=== PATIENT | female | born 1940 ===

== ENCOUNTER 2017-05-10 09:48 | Emergency (ER) | payer MEDICARE, MEDICAID ==
[2017-05-10 09:48] VITALS: PULSE 73
[2017-05-10 10:46] VITALS: BP 134/67; PULSE 94; RESP 20; TEMP 97; O2SAT 96
--- NOTE | 2017-05-10 11:14 | ED PDOC ---
HPI: Abdomen Time Seen by Provider: 05/10/17 10:47 Chief Complaint (Nursing): Abdominal Pain Chief Complaint (Provider): Abdominal Pain History Per: Patient History/Exam Limitations: no limitations Onset/Duration Of Symptoms: Days (x10) Current Symptoms Are (Timing): Still Present Associated Symptoms: Nausea, Constipation Additional Complaint(s): 76 y/o female who presents to the ED complaining of generalized abdominal pain associated with nausea and limited bowel movements for 10 days. Passing small amounts of gas. No bleeding or fever. PMD: Leandro Vargas Past Medical History Reviewed: Historical Data, Nursing Documentation, Vital Signs Vital Signs: Last Vital Signs Temp 97.0 F L 05/10/17 10:45 Pulse 94 H 05/10/17 10:45 Resp 20 05/10/17 10:45 BP 134/67 05/10/17 10:45 Pulse Ox 96 05/10/17 14:05 - Medical History PMH: Arthritis, Atrial Fibrillation, Diabetes, Gastritis, Gall Bladder Disease ( s/p surgery), HTN, Pneumonia Denies: Alzheimer's Disease, Chronic Kidney Disease Other PMH: "Tachycardia" - Surgical History Surgical History: Cholecystectomy - Family History Family History: States: Unknown Family Hx - Social History Current smoker - smoking cessation education provided: No Alcohol: None Drugs: Denies - Immunization History Hx Tetanus Toxoid Vaccination: Yes Hx Influenza Vaccination: Yes Hx Pneumococcal Vaccination: Yes - Home Medications Home Medications: Ambulatory Orders Medication Instructions Recorded Atorvastatin [Lipitor] 40 mg PO DAILY #0 tab 01/14/15 Calcium Carbonate [Calcium] 600 mg PO DAILY #0 tab 01/14/15 Carvedilol [Coreg] 25 mg PO Q12 #0 tab 01/14/15 Furosemide 40 mg PO DAILY #30 tab 01/14/15 Potassium Chloride [Klor-Con M10] 10 meq PO DAILY #0 ter 01/14/15 Valsartan [Diovan] 80 mg PO DAILY #0 cap 01/14/15 traMADol [Ultram] 50 mg PO Q8 #10 tab 08/03/16 Lactulose 20 gm PO BRKDIN #1 solution 05/10/17 - Allergies Allergies/Adverse Reactions: Allergies Allergy/AdvReac Type Severity Reaction Status Date / Time No Known Allergies Allergy Verified 05/10/17 10:57 Review of Systems ROS Statement: Except As Marked, All Systems Reviewed And Found Negative Constitutional: Negative for: Fever Gastrointestinal: Positive for: Nausea, Abdominal Pain, Constipation. Negative for: Other (bleeding) Physical Exam - Reviewed Nursing Documentation Reviewed: Yes Vital Signs Reviewed: Yes - Physical Exam Appears: Positive for: Well, Non-toxic, No Acute Distress Head Exam: Positive for: ATRAUMATIC, NORMAL INSPECTION, NORMOCEPHALIC Skin: Positive for: Normal Color, Warm, Dry Eye Exam: Positive for: EOMI, Normal appearance, PERRL Neck: Positive for: Normal, Painless ROM, Supple Cardiovascular/Chest: Positive for: Regular Rate, Rhythm. Negative for: Murmur Respiratory: Positive for: Normal Breath Sounds. Negative for: Respiratory Distress Gastrointestinal/Abdominal: Positive for: Bowel Sounds (present), Soft. Negative for: Tenderness, Distended Rectal: Positive for: Other (Patient declines rectal exam) Extremity: Positive for: Normal ROM, Pedal Edema (+1 edema to lower extremities bilaterally, with chronic venous stasis changes). Negative for: Deformity Neurologic/Psych: Positive for: Alert, Oriented (x3). Negative for: Motor/ Sensory Deficits - Laboratory Results Result Diagrams: 05/10/17 11:50 05/10/17 11:50 - ECG O2 Sat by Pulse Oximetry: 96 (NC) Pulse Ox Interpretation: Normal Medical Decision Making Medical Decision Making: Time: 10:58 Initial Plan: --CMP --CBC --CT Abdomen/Pelvis w/o contrast --Urinalysis --Reevaluation Time: 13:40 CT Abdomen/Pelvis: FINDINGS: LOWER THORAX: The lung bases are clear. LIVER: The liver is normal in size. No gross lesion or ductal dilatation. GALLBLADDER AND BILE DUCTS: Surgically absent. PANCREAS: Normal in size. No gross lesion or ductal dilatation. SPLEEN: Normal in size. ADRENALS: Mild thickening without discrete nodule. KIDNEYS AND URETERS: Both kidneys are normal in size without nephrolithiasis. There is mild edema and enlargement of the right kidney and mild fullness in the right collecting system. No left hydronephrosis. VASCULATURE: No aortic aneurysm. BOWEL: The small bowel loops are normal in caliber. There is moderate amount of stool scattered throughout the colon. No bowel dilatation or obstruction. APPENDIX: Normal appendix. PERITONEUM: No free fluid. No free air. LYMPH NODES: No enlarged lymph nodes. BLADDER: Decompressed. REPRODUCTIVE: The uterus is normal in size for the patient's age. There is a calcified fibroid in the anterior wall. BONES: There is diffuse bone demineralization and multilevel degenerative changes. There are age indeterminate osteoporotic compression fractures in the T11, T12 and L3 vertebral bodies. OTHER FINDINGS: None. IMPRESSION: 1. No nephrolithiasis or obstructive uropathy. Mild asymmetric edema in the right kidney and mild fullness in the collecting system could represent recent passage of renal stone. 2. Constipation. No evidence of bowel obstruction. Scribe Attestation: Documented by Casandra Mckoy, acting as a scribe for Russel Fonseca MD Provider Scribe Attestation: All medical record entries made by the Scribe were at my direction and personally dictated by me. I have reviewed the chart and agree that the record accurately reflects my personal performance of the history, physical exam, medical decision making, and the department course for this patient. I have also personally directed, reviewed, and agree with the discharge instructions and disposition. Disposition - Clinical Impression Clinical Impression: Constipation - Patient ED Disposition Is Patient to be Admitted: No Counseled Patient/Family Regarding: Studies Performed, Diagnosis, Need For Followup, Rx Given - Disposition Referrals: Leandro Vargas MD [Family Provider] - Disposition: Routine/Home Disposition Time: 14:15 Condition: FAIR Prescriptions: Lactulose 20 gm PO BRKDIN #1 solution Instructions: Constipation (ED) Forms: [employer] (Qatari)
[2017-05-10 12:07] LABS: BASO % 0.6 % (0.0-2.0); EOS % 0.4 % (0.0-4.0); LYMPH # 0.6 K/uL (1.0-4.3); LYMPH % 10.3 % (20.0-40.0); MEAN CELL VOLUME 91.4 fl (81.0-99.0); MEAN CORPUSCULAR HEMOGLOBIN 30.3 pg (27.0-31.0); MEAN CORPUSCULAR HGB CONC 33.1 g/dL (33.0-37.0); MEAN PLATELET VOLUME 10.4 fl (7.2-11.7); MONO # 0.7 K/uL (0.0-0.8); MONO % 13.7 % (0.0-10.0); RED CELL DISTRIBUTION WIDTH 13.3 % (11.5-14.5); WHITE BLOOD COUNT 5.4 K/uL (4.8-10.8)
[2017-05-10 12:09] LABS: RBC URINE 15 /hpf (0-3); URINE BILIRUBIN NEGATIVE (NEGATIVE); URINE BLOOD NEGATIVE (NEGATIVE); URINE COLOR YELLOW (YELLOW); URINE GLUCOSE (UA) NEG (Normal); URINE KETONE NEGATIVE (NEGATIVE); URINE LEUKOCYTE ESTERASE NEG Leu/uL (Negative); URINE PROTEIN 100 mg/dL (NEGATIVE); WBC URINE 1 /hpf (0-5)
[2017-05-10 12:19] LABS: BLOOD UREA NITROGEN 16 mg/dl (7-17); CARBON DIOXIDE 30 mmol/L (22-30); CHLORIDE 87 mmol/L (98-107); GFR AFRICAN-AMERICAN > 60; GLUCOSE,RANDOM 133 mg/dL (65-105); POTASSIUM 4.5 MMOL/L (3.6-5.0); SODIUM 126 mmol/l (132-148)
[2017-05-10 12:20] LABS: ALB/GLOB RATIO 1.7 (1.0-2.1); ALKALINE PHOSPHATASE 69 U/L (38-126); ALT/SGPT 40 U/L (9-52); AST/SGOT 26 U/L (14-36); BILIRUBIN,TOTAL 0.8 mg/dl (0.2-1.3); CALCIUM 8.2 mg/dL (8.4-10.2)
[2017-05-10] MEDS ORDERED: Sodium Chloride 0.9% 1,000 ML IV STA (12:35)
--- NOTE | 2017-05-10 13:42 | CT ---
PROCEDURE: CT Abdomen and Pelvis without intravenous contrast HISTORY: r/o kidney stone COMPARISON: None. TECHNIQUE: CT scan of the abdomen and pelvis was performed without administration of intravenous contrast. Oral contrast was not administered. Coronal and sagittal reformatted images were obtained. Radiation dose: Total exam DLP = 579.23 mGy-cm. This CT exam was performed using one or more of the following dose reduction techniques: Automated exposure control, adjustment of the mA and/or kV according to patient size, and/or use of iterative reconstruction technique. FINDINGS: LOWER THORAX: The lung bases are clear. LIVER: The liver is normal in size. No gross lesion or ductal dilatation. GALLBLADDER AND BILE DUCTS: Surgically absent. PANCREAS: Normal in size. No gross lesion or ductal dilatation. SPLEEN: Normal in size. ADRENALS: Mild thickening without discrete nodule. KIDNEYS AND URETERS: Both kidneys are normal in size without nephrolithiasis. There is mild edema and enlargement of the right kidney and mild fullness in the right collecting system. No left hydronephrosis. VASCULATURE: No aortic aneurysm. BOWEL: The small bowel loops are normal in caliber. There is moderate amount of stool scattered throughout the colon. No bowel dilatation or obstruction. APPENDIX: Normal appendix. PERITONEUM: No free fluid. No free air. LYMPH NODES: No enlarged lymph nodes. BLADDER: Decompressed. REPRODUCTIVE: The uterus is normal in size for the patient's age. There is a calcified fibroid in the anterior wall. BONES: There is diffuse bone demineralization and multilevel degenerative changes. There are age indeterminate osteoporotic compression fractures in the T11, T12 and L3 vertebral bodies. OTHER FINDINGS: None. IMPRESSION: 1. No nephrolithiasis or obstructive uropathy. Mild asymmetric edema in the right kidney and mild fullness in the collecting system could represent recent passage of renal stone. 2. Constipation. No evidence of bowel obstruction.
== END 2017-05-10 16:05 | disposition home or self-care (01) ==
LOC: H.ER 09:48
DX: K59.00 Constipation, unspecified (principal); E11.9 Type 2 diabetes mellitus without complications; I10 Essential (primary) hypertension; I48.91 Unspecified atrial fibrillation
CPT/HCPCS: 74176; 80053; 81003; 85025; 99283; J7040

== ENCOUNTER 2017-05-15 09:29 | Inpatient (IN) | payer MEDICARE, MEDICAID ==
--- NOTE | 2017-05-15 10:55 | ED PDOC ---
HPI: Abdomen Time Seen by Provider: 05/15/17 09:55 Chief Complaint (Nursing): Abdominal Pain Chief Complaint (Provider): Abdominal Pain History Per: Patient History/Exam Limitations: no limitations Additional Complaint(s): 76 y/o female with a past medical history of constipation, atrial fibrillation, hypertension, and hypercholesterolemia who presents to the emergency department with a complaint of an abdominal pain associated with constipation. Reports limited bowel movements for 10 days prior to 05/10/2017. Patient was seen in this facility on 05/10/2017 for the same symptoms with completed blood work and CAT SCAN of the abdomen/pelvis region. She was given a prescription for Lactulose 20 mg by mouth in order to help with symptoms but states she did not burr picker the medications until 2 days later (05/12/2017). Patient is currently taking the medication but still feels generalized weakness. Denies fever, chills , or any further medical complaints. Past Medical History Reviewed: Historical Data, Nursing Documentation, Vital Signs Vital Signs: Last Vital Signs Temp 98.1 F 05/15/17 10:00 Pulse 103 H 05/15/17 10:00 Resp 17 05/15/17 10:00 BP 168/106 H 05/15/17 10:00 Pulse Ox 93 L 05/15/17 11:04 - Medical History PMH: Arthritis, Atrial Fibrillation, Diabetes, Gastritis, Gall Bladder Disease ( s/p surgery), HTN, Pneumonia Denies: Alzheimer's Disease, Chronic Kidney Disease - Surgical History Surgical History: Cholecystectomy - Family History Family History: States: Unknown Family Hx - Social History Current smoker - smoking cessation education provided: No Alcohol: None Drugs: Denies - Immunization History Hx Tetanus Toxoid Vaccination: Yes Hx Influenza Vaccination: Yes Hx Pneumococcal Vaccination: Yes - Home Medications Home Medications: Ambulatory Orders Medication Instructions Recorded Atorvastatin [Lipitor] 40 mg PO DAILY #0 tab 01/14/15 Calcium Carbonate [Calcium] 600 mg PO DAILY #0 tab 01/14/15 Carvedilol [Coreg] 25 mg PO Q12 #0 tab 01/14/15 Furosemide 40 mg PO DAILY #30 tab 01/14/15 Potassium Chloride [Klor-Con M10] 10 meq PO DAILY #0 ter 01/14/15 Valsartan [Diovan] 80 mg PO DAILY #0 cap 01/14/15 traMADol [Ultram] 50 mg PO Q8 #10 tab 08/03/16 Lactulose 20 gm PO BRKDIN #1 solution 05/10/17 - Allergies Allergies/Adverse Reactions: Allergies Allergy/AdvReac Type Severity Reaction Status Date / Time No Known Allergies Allergy Verified 05/10/17 10:57 Review of Systems ROS Statement: Except As Marked, All Systems Reviewed And Found Negative Constitutional: Positive for: Weakness (Generalized). Negative for: Fever, Chills Gastrointestinal: Positive for: Abdominal Pain, Constipation Physical Exam - Reviewed Nursing Documentation Reviewed: Yes Vital Signs Reviewed: Yes - Physical Exam Appears: Positive for: Non-toxic, In Acute Distress (mild discomfort but responds to questions being asked) Head Exam: Positive for: ATRAUMATIC, NORMAL INSPECTION, NORMOCEPHALIC Skin: Positive for: Normal Color, Warm, Dry Cardiovascular/Chest: Positive for: Other (S1 S2 irregular). Negative for: Murmur Respiratory: Positive for: Normal Breath Sounds. Negative for: Accessory Muscle Use, Respiratory Distress Gastrointestinal/Abdominal: Positive for: Soft, Tenderness (Mild upper discomfort with trace of edema), Distended (Mildly). Negative for: Normal Exam , Rebound Extremity: Positive for: Normal ROM. Negative for: Pedal Edema Neurologic/Psych: Positive for: Alert, Oriented (x3) - Laboratory Results Result Diagrams: 05/15/17 11:00 05/15/17 11:00 - ECG O2 Sat by Pulse Oximetry: 93 (RA) Pulse Ox Interpretation: Normal - Radiology X-Ray: Viewed By Me X-Ray Interpretation: Other (dilated loops of bowel) Medical Decision Making Medical Decision Making: Time:1011 Initial impression: Abdominal pain with constipation Initial plan: --BMP --CMP --Lipase --Urine DIP --CBC w/ diff --Obstructive Seris x-ray --Reevaluation --CT Abdomen/Pelvis completed on 05/10/2017 in this facility. IMPRESSION: 1. No nephrolithiasis or obstructive uropathy. Mild asymmetric edema in the right kidney and mild fullness in the collecting system could represent recent passage of renal stone. 2. Constipation. No evidence of bowel obstruction. Scribe Attestation: Documented by Rebecca Branham, acting as a scribe for Shwetha Caba MD. Provider Scribe Attestation: All medical record entries made by the Scribe were at my direction and personally dictated by me. I have reviewed the chart and agree that the record accurately reflects my personal performance of the history, physical exam, medical decision making, and the department course for this patient. I have also personally directed, reviewed, and agree with the discharge instructions and disposition. 11.31a - worsening hyponatremia, dilated loops of bowel. Will admit. case d/w Dr. Dean (PMD= [facility]) Disposition - Clinical Impression Clinical Impression: Dilated bowel - Patient ED Disposition Is Patient to be Admitted: Yes Doctor Will See Patient In The: Hospital - Disposition Disposition: Transfer of Care Disposition Time: 11:33 Condition: GUARDED Forms: [employer] (Azerbaijani) - Pt Status Changed To: Hospital Disposition Of: Inpatient - Admit Certification Admit to Inpatient:: After my assessment, the patient will require hospitalization for at least two midnights. This is because of the severity of symptoms shown, intensity of services needed, and/or the medical risk in this patient being treated as an outpatient. - POA Present On Arrival: None
[2017-05-15 11:08] LABS: BASO % 0.1 % (0.0-2.0); EOS % 0.1 % (0.0-4.0); HEMATOCRIT 40.8 % (34.0-47.0); LYMPH # 0.5 K/uL (1.0-4.3); LYMPH % 7.8 % (20.0-40.0); MEAN CORPUSCULAR HEMOGLOBIN 29.8 pg (27.0-31.0); MEAN CORPUSCULAR HGB CONC 32.4 g/dL (33.0-37.0); MEAN PLATELET VOLUME 10.1 fl (7.2-11.7); MONO # 0.4 K/uL (0.0-0.8); MONO % 7.1 % (0.0-10.0); NEUT # 5.2 K/uL (1.8-7.0); NEUT % 84.9 % (50.0-75.0); NRBC % 0.1 % (0.0-0.0); PLATELET COUNT 115 K/uL (130-400); RED CELL DISTRIBUTION WIDTH 12.9 % (11.5-14.5); WHITE BLOOD COUNT 6.2 K/uL (4.8-10.8)
[2017-05-15 11:17] LABS: ALB/GLOB RATIO 1.7 (1.0-2.1); ALKALINE PHOSPHATASE 70 U/L (38-126); ALT/SGPT 51 U/L (9-52); AST/SGOT 36 U/L (14-36); BLOOD UREA NITROGEN 14 mg/dl (7-17); CALCIUM 7.7 mg/dL (8.4-10.2); CARBON DIOXIDE 29 mmol/L (22-30); CHLORIDE 77 mmol/L (98-107); GFR AFRICAN-AMERICAN > 60; GLUCOSE,RANDOM 167 mg/dL (65-105); LIPASE 42 U/L (23-300); TOTAL PROTEIN 7.1 G/DL (6.3-8.2)
[2017-05-15 11:22] LABS: SODIUM 117 mmol/l (132-148)
[2017-05-15] MEDS ORDERED: Sodium Chloride 0.9% 500 ML IV STA (11:39)
--- NOTE | 2017-05-15 12:33 | RAD ---
HISTORY: abdominal pain COMPARISON: No prior. FINDINGS: LUNGS: Mild bilateral interstitial changes per PLEURA: No significant pleural effusion identified, no pneumothorax apparent. CARDIOVASCULAR: Cardiomegaly. Atherosclerotic aorta. OSSEOUS STRUCTURES: No significant abnormalities. VISUALIZED UPPER ABDOMEN: Normal. OTHER FINDINGS: None. IMPRESSION: Mild bilateral interstitial changes. Cardiomegaly.
--- NOTE | 2017-05-15 12:36 | CP.PCM.HP ---
History of Present Illness - History of Present Illness History of Present Illness: 76 yo female with history of Chronic AFib, DM2, HTN, HLD, PVD, Glaucoma and Chronic constipation brought by family because of constant abdominal pain since 3 wks ago. Family also reported that her last BM was about 2 weeks ago in spite of taking Lactulose. Patient was also noted to be non-ambulatory and weak. She also has not been eating or drinking much lately because of the abdominal pain. Denied fever, chills, chest pain or SOB. Present on Admission - Present on Admission Any Indicators Present on Admission: No History of DVT/PE: No History of Uncontrolled Diabetes: No Urinary Catheter: No Decubitus Ulcer Present: No Review of Systems - Review of Systems All systems: reviewed and no additional remarkable complaints except (aside from those mentioned above, 12 point system review were negative by me) Past Patient History - Tetanus Immunizations Tetanus Immunization: Unknown - Past Medical History & Family History Past Medical History?: Yes - Past Social History Smoking Status: Never Smoked Alcohol: None Drugs: Denies Home Situation {Lives}: With Family - CARDIAC Hx Atrial Fibrillation: Yes Hx Hypertension: Yes - PULMONARY Hx Pneumonia: Yes - NEUROLOGICAL Hx Neurological Disorder: No Hx Alzheimer's Disease: No - HEENT Hx Cataracts: Yes (left eye) Hx Glaucoma: Yes - RENAL Hx Chronic Kidney Disease: No - ENDOCRINE/METABOLIC Hx Diabetes Mellitus Type 2: Yes - HEMATOLOGICAL/ONCOLOGICAL Hx Bruising: Yes (due to use of Xarelto) - INTEGUMENTARY Hx Dermatological Problems: No - MUSCULOSKELETAL/RHEUMATOLOGICAL Hx Arthritis: Yes - GASTROINTESTINAL Hx Gall Bladder Disease: Yes (s/p surgery) Hx Gastritis: Yes - GENITOURINARY/GYNECOLOGICAL Hx Genitourinary Disorders: No - PSYCHIATRIC Hx Psychophysiologic Disorder: No Hx Substance Use: No - SURGICAL HISTORY Hx Cholecystectomy: Yes - ANESTHESIA Hx Anesthesia: Yes Hx Anesthesia Reactions: No Meds Allergies/Adverse Reactions: Allergies Allergy/AdvReac Type Severity Reaction Status Date / Time No Known Allergies Allergy Verified 05/15/17 12:50 Physical Exam - Constitutional Appears: No Acute Distress - Head Exam Head Exam: ATRAUMATIC - Eye Exam Eye Exam: absent: Scleral icterus - ENT Exam ENT Exam: Mucous Membranes Moist - Neck Exam Neck exam: Negative for: Meningismus - Respiratory Exam Respiratory Exam: absent: Rhonchi, Wheezes, Respiratory Distress - Cardiovascular Exam Cardiovascular Exam: Irregular Rhythm - GI/Abdominal Exam GI & Abdominal Exam: Soft. absent: Tenderness - Rectal Exam Rectal Exam: Deferred - Extremities Exam Extremities exam: Negative for: pedal edema - Neurological Exam Neurological exam: Alert - Psychiatric Exam Psychiatric exam: Normal Affect - Skin Skin Exam: Dry, Intact Results - Vital Signs Recent Vital Signs: Last Vital Signs Temp 98.1 F 05/15/17 10:00 Pulse 103 H 05/15/17 10:00 Resp 17 05/15/17 10:00 BP 168/106 H 05/15/17 10:00 Pulse Ox 93 L 05/15/17 11:33 - Labs Result Diagrams: 05/15/17 11:00 05/15/17 11:00 Labs: Laboratory Results - last 24 hr 05/15/17 05/15/17 11:00 11:00 WBC 6.2 RBC 4.43 Hgb 13.2 Hct 40.8 MCV 92.0 MCH 29.8 MCHC 32.4 L RDW 12.9 Plt Count 115 L MPV 10.1 Neut % (Auto) 84.9 H Lymph % (Auto) 7.8 L [place] % (Auto) 7.1 Eos % (Auto) 0.1 Baso % (Auto) 0.1 Neut # 5.2 Lymph # 0.5 L [place] # 0.4 Eos # 0.0 Baso # 0.0 Sodium 117 L* Potassium 5.0 Chloride 77 L Carbon Dioxide 29 Anion Gap 16 BUN 14 Creatinine 0.3 L Est GFR ( Amer) > 60 Est GFR (Non-Af Amer) > 60 Random Glucose 167 H Calcium 7.7 L Total Bilirubin 1.0 AST 36 D ALT 51 Alkaline Phosphatase 70 Total Protein 7.1 Albumin 4.4 Globulin 2.6 Albumin/Globulin Ratio 1.7 Lipase 42 Assessment & Plan (1) Hyponatremia Status: Acute Comment: admit to telemetry. corrected serum Na: 127.7. serum and urine osmolality. check proBNP. IV hydration with NSS at 100cc/hr. repeat BMP in am (2) Abdominal pain Status: Acute Comment: abdominal obstructive series: dilated loops of bowel. intestinal obstruction secondary to chronic constipation. fleet enema. GI consult with Dr Butt (3) Chronic constipation Status: Acute Priority: Medium Comment: Colace 100mg PO BID. high fiber diet (4) Chronic atrial fibrillation Status: Acute Comment: rate controlled. continue Xarelto 15mg PO daily (5) DM II (diabetes mellitus, type II), controlled Status: Chronic Priority: Medium Comment: BS relatively controlled. Glipizide 10mg PO BID. HgA1C, BMP in am. accuchek ACHS (6) HTN (hypertension) Status: Chronic Priority: Medium Comment: BP slightly elevated. patient unable to take any medication today. Coreg 25mg PO q 12hrs. Valsartan 20mg PO BID (7) Hyperlipidemia Status: Acute Comment: Atorvastatin 20mg PO HS (8) DVT prophylaxis Status: Acute Priority: High Comment: on Xarelto
[2017-05-15 12:49] LABS: NEUTROPHIL 85 % (42-75); TOTAL CELLS COUNTED 100
[2017-05-15 12:50] LABS: LARGE PLATELETS PRESENT
[2017-05-15] MEDS: Sodium Chloride 0.9% 1,000 ML IV SCH (18:12)
[2017-05-16 05:28] LABS: MEAN CELL VOLUME 93.1 fl (81.0-99.0); MEAN CORPUSCULAR HEMOGLOBIN 30.1 pg (27.0-31.0); MEAN CORPUSCULAR HGB CONC 32.3 g/dL (33.0-37.0); RED CELL DISTRIBUTION WIDTH 12.7 % (11.5-14.5); WHITE BLOOD COUNT 5.5 K/uL (4.8-10.8)
[2017-05-16] MEDS: Sodium Chloride 0.9% 1,000 ML IV SCH ×2 (05:29→17:59)
[2017-05-16 05:38] LABS: BLOOD UREA NITROGEN 17 mg/dl (7-17); CALCIUM 7.2 mg/dL (8.4-10.2); CARBON DIOXIDE 32 mmol/L (22-30); CHLORIDE 81 mmol/L (98-107); CHOLESTEROL 72 mg/dL (0-199); GFR AFRICAN-AMERICAN > 60; GLUCOSE,RANDOM 147 mg/dL (65-105); POTASSIUM 5.1 MMOL/L (3.6-5.0)
[2017-05-16 05:41] LABS: SODIUM 119 mmol/l (132-148)
[2017-05-16 06:09] LABS: THYROID STIMULATING HORMONE 0.17 mIU/ML (0.46-4.68)
--- NOTE | 2017-05-16 08:39 | CP.PCM.CON ---
<Hiren Garcia - Last Filed: 05/16/17 13:19> History of Present Illness - History of Present Illness History of Present Illness: PGY4 Initial GI Consult Reason for consult: Constipation Addie St is a 76F w/ hx of Chronic AFib, DM2, HTN, HLD, PVD, Glaucoma and Chronic constipation brought who presents to the ER with complaints of abd pain , confusion and constipation. Pt is markedly confused so all information is obtained through chart review and RN. As per chart, she started to experience abd pain 3 weeks and gradually worsened. She has had sig decrease in any PO intake including liquids and solids. Pt was in the Er on 05/10/17 with similar complaints and at the time informed the ER staff that she was constipated for [address] was done and revealed severe constipation and no other findings. Pt was discharged on lactulose. As per ED, she did not fill her prescription until 05/12/17. Pt was started on lactulose BID and she had reported liquid BM x 3 overnight. No reports of melena, BRBPR, nausea, vomiting , hematemsis, or coffee-ground emesis. PMHx: Arthritis, Atrial Fibrillation, Diabetes, Gastritis, Gall Bladder Disease (s/p surgery), HTN, Pneumonia PSHx: Cholecysectomy Endoscopy hx: unknown ROS: could not conduct due to AMS Past Patient History - Tetanus Immunizations Tetanus Immunization: Unknown - Past Medical History & Family History Past Medical History?: Yes - Past Social History Smoking Status: Never Smoked - CARDIAC Hx Atrial Fibrillation: Yes Hx Hypercholesterolemia: Yes Hx Hypertension: Yes Hx Peripheral Vascular Disease: Yes - PULMONARY Hx Pneumonia: Yes - NEUROLOGICAL Hx Neurological Disorder: No - HEENT Hx Cataracts: Yes (left eye) Hx Glaucoma: Yes - RENAL Hx Chronic Kidney Disease: No - ENDOCRINE/METABOLIC Hx Diabetes Mellitus Type 2: Yes - HEMATOLOGICAL/ONCOLOGICAL Hx Bruising: Yes (due to use of Xarelto) - INTEGUMENTARY Hx Dermatological Problems: No - MUSCULOSKELETAL/RHEUMATOLOGICAL Hx Arthritis: Yes Hx Falls: No Hx Osteoporosis: Yes - GASTROINTESTINAL Hx Gall Bladder Disease: Yes (s/p surgery) Hx Gastritis: Yes Other/Comment: umbilical hernia - GENITOURINARY/GYNECOLOGICAL Hx Genitourinary Disorders: No - PSYCHIATRIC Hx Substance Use: No - SURGICAL HISTORY Hx Cholecystectomy: Yes - ANESTHESIA Hx Anesthesia: Yes Hx Anesthesia Reactions: No Hx Malignant Hyperthermia: No Has any member of the family had a problem w/ anesthesia?: No Meds Allergies/Adverse Reactions: Allergies Allergy/AdvReac Type Severity Reaction Status Date / Time No Known Allergies Allergy Verified 05/15/17 12:50 - Medications Medications: Current Medications Atorvastatin Calcium (Lipitor) 20 mg PO DAILY [facility] Last Admin: 05/15/17 14:47 Dose: 20 mg Carvedilol (Coreg) 25 mg PO Q12 [facility] Last Admin: 05/15/17 22:13 Dose: 25 mg Glipizide (Glucotrol) 10 mg PO BID [facility] Last Admin: 05/15/17 16:59 Dose: Not Given Home Med (Sacubitril/Valsartan [Entresto 24 Mg-26 Mg]) 1 tab PO DAILY [facility] Sodium Chloride (Sodium Chloride 0.9%) 1,000 mls @ 100 mls/hr IV .Q10H [facility] Stop: 05/16/17 17:51 Last Admin: 05/16/17 05:29 Dose: 100 mls/hr Lactulose (Enulose) 20 gm PO BID [facility] Last Admin: 05/15/17 15:00 Dose: 20 gm Rivaroxaban (Xarelto) 15 mg PO DAILY [facility] PRN Reason: Protocol Last Admin: 05/15/17 14:47 Dose: 15 mg Physical Exam - Constitutional Appears: No Acute Distress, Confused - Head Exam Head Exam: ATRAUMATIC, NORMOCEPHALIC - Eye Exam Eye Exam: Normal appearance - ENT Exam ENT Exam: Mucous Membranes Moist - Respiratory Exam Respiratory Exam: Clear to Auscultation Bilateral, NORMAL BREATHING PATTERN. absent: Rales, Rhonchi, Wheezes, Respiratory Distress - Cardiovascular Exam Cardiovascular Exam: REGULAR RHYTHM, +S1, +S2 - GI/Abdominal Exam GI & Abdominal Exam: Normal Bowel Sounds, Soft. absent: Firm, Guarding, Organomegaly - Extremities Exam Extremities exam: Negative for: joint swelling, pedal edema - Neurological Exam Neurological exam: Altered - Psychiatric Exam Additional comments: could not assess - Skin Skin Exam: Dry, Intact, Normal Color, Warm Results - Vital Signs Recent Vital Signs: Last Vital Signs Temp 97.3 F L 05/16/17 08:00 Pulse 101 H 05/16/17 08:00 Resp 20 05/16/17 08:00 BP 119/82 05/16/17 08:00 Pulse Ox 98 05/16/17 08:00 - Labs Result Diagrams: 05/16/17 04:15 05/16/17 04:15 Labs: Laboratory Results - last 24 hr 05/15/17 05/15/17 05/15/17 11:00 11:00 15:57 WBC 6.2 RBC 4.43 Hgb 13.2 Hct 40.8 MCV 92.0 MCH 29.8 MCHC 32.4 L RDW 12.9 Plt Count 115 L MPV 10.1 Neut % (Auto) 84.9 H Lymph % (Auto) 7.8 L [place] % (Auto) 7.1 Eos % (Auto) 0.1 Baso % (Auto) 0.1 Neut # 5.2 Lymph # 0.5 L [place] # 0.4 Eos # 0.0 Baso # 0.0 Neutrophils % (Manual) 85 H Lymphocytes % (Manual) 9 L Monocytes % (Manual) 6 Platelet Estimate Slightly decreased L Large Platelets Present Sodium 117 L* Potassium 5.0 Chloride 77 L Carbon Dioxide 29 Anion Gap 16 BUN 14 Creatinine 0.3 L Est GFR ( Amer) > 60 Est GFR (Non-Af Amer) > 60 POC Glucose (mg/dL) 176 H Random Glucose 167 H Calcium 7.7 L Total Bilirubin 1.0 AST 36 D ALT 51 Alkaline Phosphatase 70 Total Protein 7.1 Albumin 4.4 Globulin 2.6 Albumin/Globulin Ratio 1.7 Triglycerides Cholesterol LDL Cholesterol Direct HDL Cholesterol Lipase 42 TSH 3rd Generation 05/16/17 05/16/17 05/16/17 04:15 04:15 04:52 WBC 5.5 RBC 4.18 Hgb 12.6 Hct 39.0 MCV 93.1 MCH 30.1 MCHC 32.3 L RDW 12.7 Plt Count 91 L D MPV Neut % (Auto) Lymph % (Auto) [place] % (Auto) Eos % (Auto) Baso % (Auto) Neut # Lymph # [place] # Eos # Baso # Neutrophils % (Manual) Lymphocytes % (Manual) Monocytes % (Manual) Platelet Estimate Large Platelets Sodium 119 L* Potassium 5.1 H Chloride 81 L Carbon Dioxide 32 H Anion Gap 11 BUN 17 Creatinine 0.4 L Est GFR ( Amer) > 60 Est GFR (Non-Af Amer) > 60 POC Glucose (mg/dL) 157 H Random Glucose 147 H Calcium 7.2 L Total Bilirubin AST ALT Alkaline Phosphatase Total Protein Albumin Globulin Albumin/Globulin Ratio Triglycerides 43 D Cholesterol 72 LDL Cholesterol Direct 40 HDL Cholesterol 20 L Lipase TSH 3rd Generation 0.17 L Assessment & Plan - Assessment and Plan (Free Text) Assessment: Leatha St is a 76F w/ hx of Arthritis, Atrial Fibrillation, Diabetes, Gastritis, Gall Bladder Disease (s/p surgery), HTN, Pneumonia who presented to the ER with complaints if abd pain. Etiology is likely 2/2 acute on chronic constipation 1. Abd pain 2. Chronic constipation, unknown endoscopy hx, CT neg for obstruction 3. AMS Plan: -hold lactulose 2/2 electrolyte abnormality -recommend water enemas -no stool in rectal vault -will start on miralax BID -diarrhea likely 2/2 overflow -if no sig rectal output, consider repeat CT -no plan for any endoscopy at this time -will wait for sodium to correct for any consideration -correct hyponatremia as per primary team D/W RN Will D/W Dr. Solitario <Filomena ARCE,Maria Esther - Last Filed: 05/16/17 13:47> Meds - Medications Medications: Current Medications Atorvastatin Calcium (Lipitor) 20 mg PO DAILY [facility] Last Admin: 05/16/17 09:24 Dose: 20 mg Carvedilol (Coreg) 25 mg PO Q12 [facility] Last Admin: 05/16/17 09:23 Dose: 25 mg Glipizide (Glucotrol) 10 mg PO BID [facility] Last Admin: 05/16/17 09:24 Dose: 10 mg Home Med (Sacubitril/Valsartan [Entresto 24 Mg-26 Mg]) 1 tab PO DAILY [facility] Sodium Chloride (Sodium Chloride 0.9%) 1,000 mls @ 100 mls/hr IV .Q10H [facility] Stop: 05/16/17 17:51 Last Admin: 05/16/17 05:29 Dose: 100 mls/hr Polyethylene Glycol (Miralax) 17 gm PO BID [facility] Rivaroxaban (Xarelto) 15 mg PO DAILY [facility] PRN Reason: Protocol Last Admin: 05/16/17 09:24 Dose: 15 mg Results - Vital Signs Recent Vital Signs: Last Vital Signs Temp 97.5 F L 05/16/17 12:39 Pulse 93 H 05/16/17 12:39 Resp 20 05/16/17 12:39 BP 89/60 L 05/16/17 12:39 Pulse Ox 98 05/16/17 12:39 - Labs Result Diagrams: 05/16/17 04:15 05/16/17 13:00 Labs: Laboratory Results - last 24 hr 05/15/17 05/15/17 05/16/17 11:00 15:57 04:15 WBC RBC Hgb Hct MCV MCH MCHC RDW Plt Count Sodium 117 L* Potassium 5.0 Chloride 77 L Carbon Dioxide 29 Anion Gap 16 BUN 14 Creatinine 0.3 L Est GFR ( Amer) > 60 Est GFR (Non-Af Amer) > 60 POC Glucose (mg/dL) 176 H Random Glucose 167 H Serum Osmolality Calcium 7.7 L Total Bilirubin 1.0 AST 36 D ALT 51 Alkaline Phosphatase 70 NT-Pro-B Natriuret Pep 3200 H Total Protein 7.1 Albumin 4.4 Globulin 2.6 Albumin/Globulin Ratio 1.7 Triglycerides Cholesterol LDL Cholesterol Direct HDL Cholesterol Lipase 42 Thyroxine (T4) Total T3 TSH 3rd Generation Cortisol AM Sample 48.1 H 05/16/17 05/16/17 05/16/17 04:15 04:15 04:52 WBC 5.5 RBC 4.18 Hgb 12.6 Hct 39.0 MCV 93.1 MCH 30.1 MCHC 32.3 L RDW 12.7 Plt Count 91 L D Sodium 119 L* Potassium 5.1 H Chloride 81 L Carbon Dioxide 32 H Anion Gap 11 BUN 17 Creatinine 0.4 L Est GFR ( Amer) > 60 Est GFR (Non-Af Amer) > 60 POC Glucose (mg/dL) 157 H Random Glucose 147 H Serum Osmolality Calcium 7.2 L Total Bilirubin AST ALT Alkaline Phosphatase NT-Pro-B Natriuret Pep Total Protein Albumin Globulin Albumin/Globulin Ratio Triglycerides 43 D Cholesterol 72 LDL Cholesterol Direct 40 HDL Cholesterol 20 L Lipase Thyroxine (T4) Total T3 TSH 3rd Generation 0.17 L Cortisol AM Sample 05/16/17 05/16/17 05/16/17 08:50 09:10 13:00 WBC RBC Hgb Hct MCV MCH MCHC RDW Plt Count Sodium 119 L* Potassium 5.2 H Chloride 82 L Carbon Dioxide 32 H Anion Gap 10 BUN 20 H Creatinine 0.5 L Est GFR ( Amer) > 60 Est GFR (Non-Af Amer) > 60 POC Glucose (mg/dL) Random Glucose 144 H Serum Osmolality 264 L Calcium 6.8 L Total Bilirubin AST ALT Alkaline Phosphatase NT-Pro-B Natriuret Pep Total Protein Albumin Globulin Albumin/Globulin Ratio Triglycerides Cholesterol LDL Cholesterol Direct HDL Cholesterol Lipase Thyroxine (T4) 9.04 Total T3 0.508 L TSH 3rd Generation Cortisol AM Sample Attending/Attestation - Attestation I have personally seen and examined this patient.: Yes I have fully participated in the care of the patient.: Yes I have reviewed all pertinent clinical information: Yes Notes (Text): 05/16/17 13:44 This is a 76 yr old F with PMH of arthritis, atrial fibrillation, DM, gastritis , GB disease (s/p surgery), HTN, Pneumonia who presented to the ER with complaints of abdominal pain in setting of acute on chronic constipation Also found to have hyponatremia with AMS. Patient drowsy at bedside today. History obtained from the daughter. Last BM more than 2 weeks ago. No stool in rectal vault on rectal exam. Recommend water enemas and miralax daily. Correct hyponatremia as per primary team.
--- NOTE | 2017-05-16 09:26 | CARD ---
APPROVED REPORT EKG Measurement Heart [id number] <Conclusion> Atrial fibrillation Abnormal ECG
[2017-05-16 09:46] LABS: T4 9.04 ug/dl (5.5-11.0)
--- NOTE | 2017-05-16 10:04 | CP.PCM.CON ---
History of Present Illness - History of Present Illness History of Present Illness: This patient who is 76 years of age I was called to see her for hyponatremia. I could not get history from the patient's however the chart reviewed in the medical record reviewed as well. In noted in the history and physical examination she was admitted because of abdominal pain and constipation. And visited the emergency room and given some laxative. Home medication noted including but not limited to Lasix and the rest of the medication noted. - Medical History PMH: Arthritis, Atrial Fibrillation, Diabetes, Gastritis, Gall Bladder Disease ( s/p surgery), HTN, Pneumonia Denies: Alzheimer's Disease, Chronic Kidney Disease - Surgical History Surgical History: Cholecystectomy - Family History Family History: States: Unknown Family Hx - Social History Current smoker - smoking cessation education provided: No Alcohol: None Drugs: Denies - Immunization History Hx Tetanus Toxoid Vaccination: Yes Hx Influenza Vaccination: Yes Hx Pneumococcal Vaccination: Yes - Home Medications Home Medications: Medication Instructions Recorded Atorvastatin [Lipitor] 40 mg PO DAILY #0 tab 01/14/15 Calcium Carbonate [Calcium] 600 mg PO DAILY #0 tab 01/14/15 Carvedilol [Coreg] 25 mg PO Q12 #0 tab 01/14/15 Furosemide 40 mg PO DAILY #30 tab 01/14/15 Potassium Chloride [Klor-Con M10] 10 meq PO DAILY #0 ter 01/14/15 Valsartan [Diovan] 80 mg PO DAILY #0 cap 01/14/15 traMADol [Ultram] 50 mg PO Q8 #10 tab 08/03/16 Lactulose 20 gm PO BRKDIN #1 solution 05/10/17 Review of Systems - Constitutional Constitutional: As Per HPI - EENT Eyes: As Per HPI Nose/Mouth/Throat: As Per HPI - Cardiovascular Cardiovascular: absent: Chest Pain, Dyspnea, Leg Edema, Leg Ulcers - Respiratory Respiratory: absent: Dyspnea, Hemoptysis, Chest Congestion - Genitourinary Genitourinary: absent: Nocturia - Musculoskeletal Musculoskeletal: Abnormal Gait - Neurological Neurological: As Per HPI - Psychiatric Psychiatric: As Per HPI - Endocrine Endocrine: As Per HPI Past Patient History - Tetanus Immunizations Tetanus Immunization: Unknown - Past Medical History & Family History Past Medical History?: Yes - Past Social History Smoking Status: Never Smoked - CARDIAC Hx Atrial Fibrillation: Yes Hx Hypercholesterolemia: Yes Hx Hypertension: Yes Hx Peripheral Vascular Disease: Yes - PULMONARY Hx Pneumonia: Yes - NEUROLOGICAL Hx Neurological Disorder: No - HEENT Hx Cataracts: Yes (left eye) Hx Glaucoma: Yes - RENAL Hx Chronic Kidney Disease: No - ENDOCRINE/METABOLIC Hx Diabetes Mellitus Type 2: Yes - HEMATOLOGICAL/ONCOLOGICAL Hx Bruising: Yes (due to use of Xarelto) - INTEGUMENTARY Hx Dermatological Problems: No - MUSCULOSKELETAL/RHEUMATOLOGICAL Hx Arthritis: Yes Hx Falls: No Hx Osteoporosis: Yes - GASTROINTESTINAL Hx Gall Bladder Disease: Yes (s/p surgery) Hx Gastritis: Yes Other/Comment: umbilical hernia - GENITOURINARY/GYNECOLOGICAL Hx Genitourinary Disorders: No - PSYCHIATRIC Hx Substance Use: No - SURGICAL HISTORY Hx Cholecystectomy: Yes - ANESTHESIA Hx Anesthesia: Yes Hx Anesthesia Reactions: No Hx Malignant Hyperthermia: No Has any member of the family had a problem w/ anesthesia?: No Meds Allergies/Adverse Reactions: Allergies Allergy/AdvReac Type Severity Reaction Status Date / Time No Known Allergies Allergy Verified 05/15/17 12:50 - Medications Medications: Current Medications Atorvastatin Calcium (Lipitor) 20 mg PO DAILY [facility] Last Admin: 05/16/17 09:24 Dose: 20 mg Carvedilol (Coreg) 25 mg PO Q12 [facility] Last Admin: 05/16/17 09:23 Dose: 25 mg Glipizide (Glucotrol) 10 mg PO BID [facility] Last Admin: 05/16/17 09:24 Dose: 10 mg Home Med (Sacubitril/Valsartan [Entresto 24 Mg-26 Mg]) 1 tab PO DAILY [facility] Sodium Chloride (Sodium Chloride 0.9%) 1,000 mls @ 100 mls/hr IV .Q10H [facility] Stop: 05/16/17 17:51 Last Admin: 05/16/17 05:29 Dose: 100 mls/hr Lactulose (Enulose) 20 gm PO BID [facility] Last Admin: 05/16/17 09:30 Dose: Not Given Rivaroxaban (Xarelto) 15 mg PO DAILY [facility] PRN Reason: Protocol Last Admin: 05/16/17 09:24 Dose: 15 mg Physical Exam - Constitutional Appears: No Acute Distress - ENT Exam ENT Exam: Mucous Membranes Dry - Respiratory Exam Respiratory Exam: NORMAL BREATHING PATTERN. absent: Rales - Cardiovascular Exam Cardiovascular Exam: absent: JVD, Rubs - GI/Abdominal Exam GI & Abdominal Exam: Normal Bowel Sounds. absent: Distended, Guarding - Extremities Exam Extremities exam: Negative for: calf tenderness - Back Exam Back exam: absent: CVA tenderness (L), CVA tenderness (R) - Neurological Exam Neurological exam: Altered Results - Vital Signs Recent Vital Signs: Last Vital Signs Temp 97.3 F L 05/16/17 08:00 Pulse 101 H 05/16/17 09:23 Resp 20 05/16/17 08:00 BP 119/82 05/16/17 09:23 Pulse Ox 98 05/16/17 08:00 - Labs Result Diagrams: 05/16/17 04:15 05/16/17 04:15 Labs: Laboratory Results - last 24 hr 05/15/17 05/15/17 05/15/17 11:00 11:00 15:57 WBC 6.2 RBC 4.43 Hgb 13.2 Hct 40.8 MCV 92.0 MCH 29.8 MCHC 32.4 L RDW 12.9 Plt Count 115 L MPV 10.1 Neut % (Auto) 84.9 H Lymph % (Auto) 7.8 L [place] % (Auto) 7.1 Eos % (Auto) 0.1 Baso % (Auto) 0.1 Neut # 5.2 Lymph # 0.5 L [place] # 0.4 Eos # 0.0 Baso # 0.0 Neutrophils % (Manual) 85 H Lymphocytes % (Manual) 9 L Monocytes % (Manual) 6 Platelet Estimate Slightly decreased L Large Platelets Present Sodium 117 L* Potassium 5.0 Chloride 77 L Carbon Dioxide 29 Anion Gap 16 BUN 14 Creatinine 0.3 L Est GFR ( Amer) > 60 Est GFR (Non-Af Amer) > 60 POC Glucose (mg/dL) 176 H Random Glucose 167 H Serum Osmolality Calcium 7.7 L Total Bilirubin 1.0 AST 36 D ALT 51 Alkaline Phosphatase 70 Total Protein 7.1 Albumin 4.4 Globulin 2.6 Albumin/Globulin Ratio 1.7 Triglycerides Cholesterol LDL Cholesterol Direct HDL Cholesterol Lipase 42 Thyroxine (T4) Total T3 TSH 3rd Generation 05/16/17 05/16/17 05/16/17 04:15 04:15 04:52 WBC 5.5 RBC 4.18 Hgb 12.6 Hct 39.0 MCV 93.1 MCH 30.1 MCHC 32.3 L RDW 12.7 Plt Count 91 L D MPV Neut % (Auto) Lymph % (Auto) [place] % (Auto) Eos % (Auto) Baso % (Auto) Neut # Lymph # [place] # Eos # Baso # Neutrophils % (Manual) Lymphocytes % (Manual) Monocytes % (Manual) Platelet Estimate Large Platelets Sodium 119 L* Potassium 5.1 H Chloride 81 L Carbon Dioxide 32 H Anion Gap 11 BUN 17 Creatinine 0.4 L Est GFR ( Amer) > 60 Est GFR (Non-Af Amer) > 60 POC Glucose (mg/dL) 157 H Random Glucose 147 H Serum Osmolality Calcium 7.2 L Total Bilirubin AST ALT Alkaline Phosphatase Total Protein Albumin Globulin Albumin/Globulin Ratio Triglycerides 43 D Cholesterol 72 LDL Cholesterol Direct 40 HDL Cholesterol 20 L Lipase Thyroxine (T4) Total T3 TSH 3rd Generation 0.17 L 05/16/17 05/16/17 08:50 09:10 WBC RBC Hgb Hct MCV MCH MCHC RDW Plt Count MPV Neut % (Auto) Lymph % (Auto) [place] % (Auto) Eos % (Auto) Baso % (Auto) Neut # Lymph # [place] # Eos # Baso # Neutrophils % (Manual) Lymphocytes % (Manual) Monocytes % (Manual) Platelet Estimate Large Platelets Sodium Potassium Chloride Carbon Dioxide Anion Gap BUN Creatinine Est GFR ( Amer) Est GFR (Non-Af Amer) POC Glucose (mg/dL) Random Glucose Serum Osmolality 264 L Calcium Total Bilirubin AST ALT Alkaline Phosphatase Total Protein Albumin Globulin Albumin/Globulin Ratio Triglycerides Cholesterol LDL Cholesterol Direct HDL Cholesterol Lipase Thyroxine (T4) 9.04 Total T3 0.508 L TSH 3rd Generation Assessment & Plan (1) Abdominal pain Status: Acute (2) Chronic atrial fibrillation Status: Acute (3) Hyponatremia Assessment and Plan: Patient admitted with abdominal pain and she was fond to be hyponatremic also hypochloremic also patient has high CO2 borderline metabolic alkalosis. Patient was on Lasix the likelihood this combination is related to diuretics. My recommendation stat urinalysis #2 stat Spot urine for sodium and osmolality. #3 continue normal saline . #4 repeat BMP in around 4 PM if sodium is not going up then we will switch the IV fluid to 3% hypertonic saline. Status: Acute
--- NOTE | 2017-05-16 11:51 | CP.PCM.PN ---
Subjective - Date & Time of Evaluation Date of Evaluation: 05/16/17 Time of Evaluation: 11:30 - Subjective Subjective: Pt was initially drowsy when i went to her room , arousable with verbal stimuli episodes of confusion accdg to RN however follows commands Pt was awake this am and was assisted to the bathroom 4x and walked with PT Did not sleep last night Drank some liquid this am when family came , pt became more responsive family fed her some jello denies CP, no SOB abd pain better Objective - Vital Signs/Intake and Output Vital Signs (last 24 hours): Temp Pulse Resp BP Pulse Ox 97.3 F L 107 H 20 119/82 96 05/16/17 08:00 05/16/17 10:31 05/16/17 08:00 05/16/17 09:23 05/16/17 10:31 - Medications Medications: Current Medications Atorvastatin Calcium (Lipitor) 20 mg PO DAILY [facility] Last Admin: 05/16/17 09:24 Dose: 20 mg Carvedilol (Coreg) 25 mg PO Q12 [facility] Last Admin: 05/16/17 09:23 Dose: 25 mg Glipizide (Glucotrol) 10 mg PO BID [facility] Last Admin: 05/16/17 09:24 Dose: 10 mg Home Med (Sacubitril/Valsartan [Entresto 24 Mg-26 Mg]) 1 tab PO DAILY [facility] Sodium Chloride (Sodium Chloride 0.9%) 1,000 mls @ 100 mls/hr IV .Q10H [facility] Stop: 05/16/17 17:51 Last Admin: 05/16/17 05:29 Dose: 100 mls/hr Lactulose (Enulose) 20 gm PO BID [facility] Last Admin: 05/16/17 09:30 Dose: Not Given Rivaroxaban (Xarelto) 15 mg PO DAILY [facility] PRN Reason: Protocol Last Admin: 05/16/17 09:24 Dose: 15 mg - Labs Labs: 05/16/17 04:15 05/16/17 04:15 - Constitutional Appears: No Acute Distress, Chronically Ill - Head Exam Head Exam: NORMAL INSPECTION, NORMOCEPHALIC - Eye Exam Eye Exam: EOMI, Normal appearance Pupil Exam: NORMAL ACCOMODATION - ENT Exam ENT Exam: Mucous Membranes Dry, Normal External Ear Exam - Neck Exam Neck Exam: Full ROM. absent: Meningismus - Respiratory Exam Respiratory Exam: Rales (minimal rales bases), NORMAL BREATHING PATTERN. absent : Respiratory Distress - Cardiovascular Exam Cardiovascular Exam: Irregular Rhythm, +S1, +S2 - GI/Abdominal Exam GI & Abdominal Exam: Soft, Hypoactive Bowel Sounds. absent: Guarding, Tenderness - Extremities Exam Extremities Exam: Normal Capillary Refill. absent: Calf Tenderness, Pedal Edema - Neurological Exam Additional comments: drowsy but responds to verbal stimuli moves all extremities - Psychiatric Exam Psychiatric exam: Flat Affect - Skin Skin Exam: Dry, Normal Color, Warm Assessment and Plan - Assessment and Plan (Free Text) Assessment: 76 y/o lady with hx of A Fib, DM, HTN, Chronic Constipation, came in bec of abd pain and constipation. CT of abd done on prior ER visit showed constipation. On lab exam, pt was noted to have a Sodium of 117. (1) Hyponatremia likely hypovolemic sec to diuretics and also poss from decrease solute intake Status: Acute will also need to r/o SIADH Pt is drowsy, has confsuion however has some baseline dementia - Serum Osm low Urine Osm pending - started IV NS, Sodium went up to 119 - Nephrology consult - Dr Vaca , discussed case rec to start Hypertonic soln 3 % Na (2) Abdominal pain sec to Constipation Status: Acute abdominal obstructive series: dilated loops of bowel GI consult with Dr Butt Laxatives (3) Chronic constipation Colace 100mg PO BID Laxative (4) Chronic atrial fibrillation rate controlled. continue Xarelto 15mg PO daily cont Coreg (5) DM II (diabetes mellitus, type II), controlled BS relatively controlled. Hold Glipizide as pt with poor PO intake accucheck (6) HTN (hypertension) cont Coreg (7) Hyperlipidemia : Atorvastatin 20mg PO HS (8) DVT prophylaxis Status: Acute Priority: High Comment: on Xarelto
[2017-05-16] MEDS ORDERED: Chlorhexidine Gluconate 1 APPL/PKT TP ONE (12:00)
[2017-05-16 13:37] LABS: BLOOD UREA NITROGEN 20 mg/dl (7-17); CALCIUM 6.8 mg/dL (8.4-10.2); CARBON DIOXIDE 32 mmol/L (22-30); CHLORIDE 82 mmol/L (98-107); GFR AFRICAN-AMERICAN > 60; GLUCOSE,RANDOM 144 mg/dL (65-105); POTASSIUM 5.2 MMOL/L (3.6-5.0)
[2017-05-16 13:40] LABS: SODIUM 119 mmol/l (132-148)
[2017-05-16] MEDS ORDERED: Sodium Chloride 3% 500 ML IV SCH (14:30)
[2017-05-16] MEDS: POLYETHYLENE GLYCOL 3350 17 GM/Dose PACKET PO SCH (18:00)
[2017-05-16 18:16] LABS: BLOOD UREA NITROGEN 22 mg/dl (7-17); CALCIUM 6.7 mg/dL (8.4-10.2); CARBON DIOXIDE 31 mmol/L (22-30); CHLORIDE 82 mmol/L (98-107); GFR AFRICAN-AMERICAN > 60; GLUCOSE,RANDOM 124 mg/dL (65-105)
[2017-05-16 19:13] LABS: SODIUM 118 mmol/l (132-148)
[2017-05-16 23:19] LABS: BLOOD UREA NITROGEN 23 mg/dl (7-17); CALCIUM 6.8 mg/dL (8.4-10.2); CARBON DIOXIDE 32 mmol/L (22-30); CHLORIDE 84 mmol/L (98-107); GFR AFRICAN-AMERICAN > 60; GLUCOSE,RANDOM 124 mg/dL (65-105); SODIUM 121 mmol/l (132-148)
[2017-05-16 23:21] LABS: POTASSIUM 5.3 MMOL/L (3.6-5.0)
[2017-05-17 00:22] VITALS: BMI 29.9
[2017-05-17] MEDS ORDERED: Sodium Chloride 3% 500 ML IV SCH (00:43)
[2017-05-17 01:14] LABS: ABG ALLEN TEST YES; ARTERIAL BLOOD GAS HCO3 25.5 mmol/L (21-28); ARTERIAL BLOOD GAS MODE NASAL CANNULA; ARTERIAL BLOOD GAS O2 CAPACITY 17.9 mL/dL (16-24); ARTERIAL BLOOD GAS O2 CONTENT 17.8 ML/dL (15-23); ARTERIAL BLOOD GAS PH 7.06 (7.35-7.45); ARTERIAL BLOOD GAS PO2 97 mm/Hg (80-100); ARTERIAL BLOOD HGB O2 SAT 95.6 % (95.0-98.0); CARBOXYHEMOGLOBIN 2.5 % (0.5-1.5); HHB 0.6 % (0.0-5.0); METHEMOGLOBIN 1.3 % (0.0-3.0)
[2017-05-17] MEDS ORDERED: Sodium Chloride 0.9% 1,000 ML IV SCH ×2 (01:15→05:56)
--- NOTE | 2017-05-17 01:20 | CP.PCM.CON ---
History of Present Illness - History of Present Illness History of Present Illness: PCP: Dr Vargas Reason for Consult: Critical care management Chief complaint: Constipation/Hyponatremia The patient was seen dn examined in the ICU: HPI: The Hx is obtained from review of the Medical records. She is a 76 years old female with hx of A Fib, Gastritis, was seen at the ED one week prior, treated and discharged with dx of Chronic Constipation. She returned on with Abdominal pain, Constipation, Lethargy with confusion. The Abdominal Series showed increased gas in Large and small bowels with no obstruction. The patient was seen by Dr Maciel of GI. The Sodium was 117 and the patient was started on 0.9 Normal Saline. Repeated electrolytes after one liter of Normal saline showed sodium of 119 then back to 118. Dr Vaca was consulted . patient was started on 3% Normal Saline and transferred to ICU for Critical care Management. PMH: Arthritis; HTN; Chronic A Fib; Gastritis; Chronic Constipation; glaucoma PSH; Cholecystectomy SH; Non Smoker; No illegal drugs; No Alcohol; live with family FH: No Hereditary diseases Allergies: NKDA Medication: Reviewed Review of Systems - Review of Systems Review of Systems: Review of systems is limited because the patient is confused and lethargic Past Patient History - Tetanus Immunizations Tetanus Immunization: Unknown - Past Medical History & Family History Past Medical History?: Yes - Past Social History Smoking Status: Never Smoked Chewing Tobacco Use: No Cigar Use: No Alcohol: None Drugs: Denies Home Situation {Lives}: With Family - CARDIAC Hx Atrial Fibrillation: Yes Hx Hypercholesterolemia: Yes Hx Hypertension: Yes Hx Peripheral Vascular Disease: Yes - PULMONARY Hx Pneumonia: Yes - NEUROLOGICAL Hx Neurological Disorder: No - HEENT Hx Cataracts: Yes (left eye) Hx Glaucoma: Yes - RENAL Hx Chronic Kidney Disease: No - ENDOCRINE/METABOLIC Hx Diabetes Mellitus Type 2: Yes - HEMATOLOGICAL/ONCOLOGICAL Hx Bruising: Yes (due to use of Xarelto) - INTEGUMENTARY Hx Dermatological Problems: No - MUSCULOSKELETAL/RHEUMATOLOGICAL Hx Arthritis: Yes Hx Falls: No Hx Osteoporosis: Yes - GASTROINTESTINAL Hx Gall Bladder Disease: Yes (s/p surgery) Hx Gastritis: Yes Other/Comment: umbilical hernia - GENITOURINARY/GYNECOLOGICAL Hx Genitourinary Disorders: No - PSYCHIATRIC Hx Substance Use: No - SURGICAL HISTORY Hx Cholecystectomy: Yes - ANESTHESIA Hx Anesthesia: Yes Hx Anesthesia Reactions: No Hx Malignant Hyperthermia: No Has any member of the family had a problem w/ anesthesia?: No Meds Allergies/Adverse Reactions: Allergies Allergy/AdvReac Type Severity Reaction Status Date / Time No Known Allergies Allergy Verified 05/15/17 12:50 - Medications Medications: Current Medications Atorvastatin Calcium (Lipitor) 20 mg PO DAILY [facility] Last Admin: 05/16/17 09:24 Dose: 20 mg Carvedilol (Coreg) 25 mg PO Q12 [facility] Last Admin: 05/16/17 21:55 Dose: Not Given Home Med (Sacubitril/Valsartan [Entresto 24 Mg-26 Mg]) 1 tab PO DAILY [facility] Sodium Chloride (Sodium Chloride 0.9%) 1,000 mls @ 75 mls/hr IV .[id number] [facility] Stop: 05/18/17 01:05 Polyethylene Glycol (Miralax) 17 gm PO BID [facility] Last Admin: 05/16/17 18:00 Dose: Not Given Rivaroxaban (Xarelto) 15 mg PO DAILY [facility] PRN Reason: Protocol Last Admin: 05/16/17 09:24 Dose: 15 mg Physical Exam - Constitutional Appears: No Acute Distress - Head Exam Head Exam: ATRAUMATIC, NORMAL INSPECTION, NORMOCEPHALIC - Eye Exam Eye Exam: Normal appearance Pupil Exam: NORMAL ACCOMODATION - ENT Exam ENT Exam: Mucous Membranes Dry, Normal Exam, Normal External Ear Exam - Neck Exam Neck exam: Positive for: Full Rom, Normal Inspection. Negative for: Lymphadenopathy, Tenderness - Respiratory Exam Respiratory Exam: Clear to Auscultation Bilateral. absent: Rales, Rhonchi, Wheezes - Cardiovascular Exam Cardiovascular Exam: Irregular Rhythm, +S1, +S2 - GI/Abdominal Exam GI & Abdominal Exam: Normal Bowel Sounds, Soft. absent: Organomegaly, Tenderness - Rectal Exam Rectal Exam: Deferred - Extremities Exam Extremities exam: Positive for: full ROM, normal inspection. Negative for: pedal edema - Back Exam Back exam: NORMAL INSPECTION. absent: CVA tenderness (L), CVA tenderness (R) - Neurological Exam Neurological exam: CN II-XII Intact, Oriented x3, Reflexes Normal Additional comments: Lethargic - Psychiatric Exam Psychiatric exam: Normal Affect, Normal Mood - Skin Skin Exam: Dry, Intact, Normal Color, Warm Results - Vital Signs Recent Vital Signs: Last Vital Signs Temp 97 F L 05/16/17 23:45 Pulse 99 H 05/17/17 01:00 Resp 18 05/17/17 01:00 BP 91/68 L 05/17/17 01:00 Pulse Ox 99 05/17/17 01:00 - Labs Result Diagrams: 05/16/17 04:15 05/16/17 22:29 Labs: Laboratory Results - last 24 hr 05/15/17 05/16/17 05/16/17 11:00 04:15 04:15 WBC RBC Hgb Hct MCV MCH MCHC RDW Plt Count pCO2 pO2 HCO3 ABG pH ABG Total CO2 ABG O2 Saturation ABG O2 Content ABG Base Excess ABG Hemoglobin ABG Carboxyhemoglobin POC ABG HHb (Measured) ABG Methemoglobin ABG O2 Capacity Valdemar Test A-a O2 Difference Hgb O2 Saturation Vent Mode FiO2 Crit Value Called To Crit Value Called By Crit Value Read Back Blood Gas Notified Time Sodium 117 L* 119 L* Potassium 5.0 5.1 H Chloride 77 L 81 L Carbon Dioxide 29 32 H Anion Gap 16 11 BUN 14 17 Creatinine 0.3 L 0.4 L Est GFR ( Amer) > 60 > 60 Est GFR (Non-Af Amer) > 60 > 60 POC Glucose (mg/dL) Random Glucose 167 H 147 H Serum Osmolality Calcium 7.7 L 7.2 L Total Bilirubin 1.0 AST 36 D ALT 51 Alkaline Phosphatase 70 NT-Pro-B Natriuret Pep 3200 H Total Protein 7.1 Albumin 4.4 Globulin 2.6 Albumin/Globulin Ratio 1.7 Triglycerides 43 D Cholesterol 72 LDL Cholesterol Direct 40 HDL Cholesterol 20 L Lipase 42 Thyroxine (T4) Total T3 TSH 3rd Generation 0.17 L Cortisol AM Sample 48.1 H 05/16/17 05/16/17 05/16/17 04:15 04:52 08:50 WBC 5.5 RBC 4.18 Hgb 12.6 Hct 39.0 MCV 93.1 MCH 30.1 MCHC 32.3 L RDW 12.7 Plt Count 91 L D pCO2 pO2 HCO3 ABG pH ABG Total CO2 ABG O2 Saturation ABG O2 Content ABG Base Excess ABG Hemoglobin ABG Carboxyhemoglobin POC ABG HHb (Measured) ABG Methemoglobin ABG O2 Capacity Valdemar Test A-a O2 Difference Hgb O2 Saturation Vent Mode FiO2 Crit Value Called To Crit Value Called By Crit Value Read Back Blood Gas Notified Time Sodium Potassium Chloride Carbon Dioxide Anion Gap BUN Creatinine Est GFR ( Amer) Est GFR (Non-Af Amer) POC Glucose (mg/dL) 157 H Random Glucose Serum Osmolality 264 L Calcium Total Bilirubin AST ALT Alkaline Phosphatase NT-Pro-B Natriuret Pep Total Protein Albumin Globulin Albumin/Globulin Ratio Triglycerides Cholesterol LDL Cholesterol Direct HDL Cholesterol Lipase Thyroxine (T4) Total T3 TSH 3rd Generation Cortisol AM Sample 05/16/17 05/16/17 05/16/17 09:10 13:00 18:00 WBC RBC Hgb Hct MCV MCH MCHC RDW Plt Count pCO2 pO2 HCO3 ABG pH ABG Total CO2 ABG O2 Saturation ABG O2 Content ABG Base Excess ABG Hemoglobin ABG Carboxyhemoglobin POC ABG HHb (Measured) ABG Methemoglobin ABG O2 Capacity Valdemar Test A-a O2 Difference Hgb O2 Saturation Vent Mode FiO2 Crit Value Called To Crit Value Called By Crit Value Read Back Blood Gas Notified Time Sodium 119 L* 118 L* Potassium 5.2 H 5.0 Chloride 82 L 82 L Carbon Dioxide 32 H 31 H Anion Gap 10 10 BUN 20 H 22 H Creatinine 0.5 L 0.5 L Est GFR ( Amer) > 60 > 60 Est GFR (Non-Af Amer) > 60 > 60 POC Glucose (mg/dL) Random Glucose 144 H 124 H Serum Osmolality Calcium 6.8 L 6.7 L Total Bilirubin AST ALT Alkaline Phosphatase NT-Pro-B Natriuret Pep Total Protein Albumin Globulin Albumin/Globulin Ratio Triglycerides Cholesterol LDL Cholesterol Direct HDL Cholesterol Lipase Thyroxine (T4) 9.04 Total T3 0.508 L TSH 3rd Generation Cortisol AM Sample 05/16/17 05/17/17 22:29 01:11 WBC RBC Hgb Hct MCV MCH MCHC RDW Plt Count pCO2 123 H* pO2 97 HCO3 25.5 ABG pH 7.06 L* ABG Total CO2 38.6 H ABG O2 Saturation 99.4 H ABG O2 Content 17.8 ABG Base Excess 0.8 ABG Hemoglobin 13.2 ABG Carboxyhemoglobin 2.5 H POC ABG HHb (Measured) 0.6 ABG Methemoglobin 1.3 ABG O2 Capacity 17.9 Valdemar Test Yes A-a O2 Difference -51.0 Hgb O2 Saturation 95.6 Vent Mode Nasal cannula FiO2 28.0 Crit Value Called To Alexa gibbs rn Crit Value Called By [id number] Crit Value Read Back Y Blood Gas Notified Time 112 Sodium 121 L Potassium 5.3 H Chloride 84 L Carbon Dioxide 32 H Anion Gap 10 BUN 23 H Creatinine 0.5 L Est GFR ( Amer) > 60 Est GFR (Non-Af Amer) > 60 POC Glucose (mg/dL) Random Glucose 124 H Serum Osmolality Calcium 6.8 L Total Bilirubin AST ALT Alkaline Phosphatase NT-Pro-B Natriuret Pep Total Protein Albumin Globulin Albumin/Globulin Ratio Triglycerides Cholesterol LDL Cholesterol Direct HDL Cholesterol Lipase Thyroxine (T4) Total T3 TSH 3rd Generation Cortisol AM Sample - EKG Data EKG comments: A Fib 100/min - Imaging and Cardiology Obstructive series Additional comment: CXR - Increased Cardiac [place]te Abdomen - increased Gas in large and Small Bowel Assessment & Plan - Assessment and Plan (Free Text) Assessment: #. Hyponatremia #. Hypercarbic Respiratory Failure #. Abdominal pain with Hx of constipation #. Ileus #. Chronic A Fib #. Dehydration #. Hyperkalemia Plan: 76 years old female with hx of A Fib, Gastritis, was seen at the ED one week prior, treated and discharged with dx of Chronic Constipation.Returned on 05/15 with Abdominal pain, Constipation, Lethargy with confusion. The Abdominal Series showed increased gas in Large and small bowels with no obstruction. Normal Saline was started for Sodium of 117 but because of no Change 3% Saline was started. The patient was transferred to ICU for Critical care Monitoring. ABG in ICU showed Ph 7.06/PCO2: 124/PO2-97/25 The patient ws started on BIPAP #. Hyponatremia, water intoxication verses SIADH. The repeated Sodium level was 121 milimoles. I have Discontinued the 3% sodium and restarted Normal saline - Dr Vaca on Consult nephrology - Urine osmolality and Sodium PND - Follow Electrolytes #. Hypercarbic Respiratory Failure Etiology unclear as patient was only on 28% FiO2. Patient probably has an hypoventilatory syndrome - BIPAP I/P 16/6 rate of 16 and FiO2 of 355 - Follow ABG #. Abdominal pain with Ileus Hx of constipation - Dr Maciel on consult GI #. Chronic A Fib - Xarelto #. Hyperkalemia - follow electrolytes #. DVT prophylaxis: Patient on Xarelto #. Code Status: Full - Date & Time Date: 05/17/17 Time: 01:20
[2017-05-17 03:24] LABS: RBC URINE 9 /hpf (0-3); RENAL EPITHELIAL 1 /hpf (0-3); URINE BACTERIA RARE (<OCC); URINE BILIRUBIN NEGATIVE (NEGATIVE); URINE BLOOD NEGATIVE (NEGATIVE); URINE COLOR AMBER (YELLOW); URINE GLUCOSE (UA) 50 mg/dL (Normal); URINE KETONE NEGATIVE (NEGATIVE); URINE LEUKOCYTE ESTERASE TRACE Leu/uL (Negative); URINE PROTEIN 100 mg/dL (NEGATIVE); WBC CLUMPS FEW /hpf; WBC URINE 26 /hpf (0-5)
[2017-05-17 05:06] LABS: HEMATOCRIT 40.2 % (34.0-47.0); MEAN CELL VOLUME 94.7 fl (81.0-99.0); MEAN CORPUSCULAR HEMOGLOBIN 30.3 pg (27.0-31.0); WHITE BLOOD COUNT 5.6 K/uL (4.8-10.8)
[2017-05-17 05:11] LABS: BLOOD UREA NITROGEN 20 mg/dl (7-17); CARBON DIOXIDE 25 mmol/L (22-30); CHLORIDE 96 mmol/L (98-107); GFR AFRICAN-AMERICAN > 60; GLUCOSE,RANDOM 101 mg/dL (65-105); MAGNESIUM 1.6 MG/DL (1.6-2.3); PHOSPHOROUS 2.5 mg/dl (2.5-4.5); SODIUM 127 mmol/l (132-148)
[2017-05-17 05:13] LABS: ABG ALLEN TEST YES; ABG MECHANICAL RATE 16; ARTERIAL BLOOD GAS HCO3 25.9 mmol/L (21-28); ARTERIAL BLOOD GAS MODE BiPAP; ARTERIAL BLOOD GAS O2 CAPACITY 17.7 mL/dL (16-24); ARTERIAL BLOOD GAS O2 CONTENT 17.3 ML/dL (15-23); ARTERIAL BLOOD GAS PH 7.13 (7.35-7.45); ARTERIAL BLOOD GAS PO2 74 mm/Hg (80-100); ARTERIAL BLOOD HGB O2 SAT 94.3 % (95.0-98.0); CARBOXYHEMOGLOBIN 2.5 % (0.5-1.5); METHEMOGLOBIN 1.2 % (0.0-3.0)
[2017-05-17] MEDS ORDERED: Midazolam 2 MG/2 ML VIAL ONE (05:21)
--- NOTE | 2017-05-17 05:44 | PCM.PROC ---
Procedures Attestation:: I certify that I have explained the specified Operation(s) or Procedure(s), risks, benefits and reasonable alternatives to the Patient and/or other person responsible. The opportunity was given to ask questions and all questions answered - Intubation Time Out Performed: Yes Sedative: Versed Laryngoscope: Andre ET Tube Size: 7.5 ET Tube Uncuffed: Yes ET Tube Secured Locarion: Lips ET Tube Placement Confirmation: Visualized Passing Through Cords, Breath Sounds Equal Bilaterally, No Breath Sounds Over Epigastrum, Confirmation w/Capnometry Patient Tolerated Procedure: No Complications Procedure Immediate Complications: None
[2017-05-17] MEDS ORDERED: Chlorhexidine Gluconate 1 APPL/PKT TP ONE (05:45)
[2017-05-17] MEDS ORDERED: Midazolam 2 MG/2 ML VIAL IV ONE (05:45)
[2017-05-17 06:25] LABS: ABG ALLEN TEST YES; ABG MECHANICAL RATE 18; ARTERIAL BLOOD GAS HCO3 25.7 mmol/L (21-28); ARTERIAL BLOOD GAS MODE A/C; ARTERIAL BLOOD GAS O2 CAPACITY 17.6 mL/dL (16-24); ARTERIAL BLOOD GAS O2 CONTENT 17.6 ML/dL (15-23); ARTERIAL BLOOD GAS PH 7.22 (7.35-7.45); ARTERIAL BLOOD GAS PO2 190 mm/Hg (80-100); ARTERIAL BLOOD HGB O2 SAT 96.2 % (95.0-98.0); HHB 0.1 % (0.0-5.0); METHEMOGLOBIN 1.6 % (0.0-3.0)
[2017-05-17 07:06] LABS: CALCIUM 4.9 mg/dL (8.4-10.2)
[2017-05-17] MEDS ORDERED: Calcium Gluconate 4.65 mEq/10 ml Inj IV SCH (08:00)
[2017-05-17] MEDS: POLYETHYLENE GLYCOL 3350 17 GM/Dose PACKET PO SCH ×2 (08:25→17:11)
--- NOTE | 2017-05-17 09:22 | CP.PCM.PN ---
<Hiren Garcia - Last Filed: 05/17/17 12:55> Subjective - Date & Time of Evaluation Date of Evaluation: 05/17/17 Time of Evaluation: 07:45 - Subjective Subjective: PGY4 GI Follow up s/p intubation for hypercapnic respir failure No BM overnight Pt on intermittent suction via OG and no sig out as per RN RN denies any rectal bleeding, hematemesis or coffee-ground ROS Objective - Vital Signs/Intake and Output Vital Signs (last 24 hours): Temp Pulse Resp BP Pulse Ox 98 F 102 H 18 119/60 100 05/17/17 08:00 05/17/17 08:22 05/17/17 08:00 05/17/17 08:22 05/17/17 08:00 Intake and Output: 05/17/17 05/17/17 06:59 18:59 Intake Total 1445 Output Total 200 Balance 1245 - Medications Medications: Current Medications Atorvastatin Calcium (Lipitor) 20 mg PO DAILY [facility] Last Admin: 05/17/17 08:24 Dose: 20 mg Carvedilol (Coreg) 25 mg PO Q12 [facility] Last Admin: 05/17/17 08:22 Dose: 25 mg Home Med (Sacubitril/Valsartan [Entresto 24 Mg-26 Mg]) 1 tab PO DAILY [facility] Sodium Chloride (Sodium Chloride 0.9%) 1,000 mls @ 150 mls/hr IV .Q6H40M [facility] Stop: 05/17/17 12:35 Last Admin: 05/17/17 06:00 Dose: 150 mls/hr Sodium Chloride 500 ml/ IV (SUPPLIES) 500 mls @ 75 mls/hr IV ONCE ONE Stop: 05/17/17 15:27 Lorazepam (Ativan) 1 mg IVP Q4 PRN PRN Reason: Agitation Polyethylene Glycol (Miralax) 17 gm PO BID [facility] Last Admin: 05/17/17 08:25 Dose: 17 gm Rivaroxaban (Xarelto) 15 mg PO DAILY [facility] PRN Reason: Protocol Last Admin: 05/17/17 08:22 Dose: 15 mg - Labs Labs: 05/17/17 04:20 05/17/17 04:20 - Constitutional Appears: Non-toxic, No Acute Distress - Head Exam Head Exam: ATRAUMATIC, NORMOCEPHALIC - Eye Exam Eye Exam: Normal appearance - ENT Exam ENT Exam: Mucous Membranes Moist - Respiratory Exam Respiratory Exam: Clear to Ausculation Bilateral, NORMAL BREATHING PATTERN. absent: Rales, Rhonchi, Wheezes, Respiratory Distress - Cardiovascular Exam Cardiovascular Exam: REGULAR RHYTHM, +S1, +S2 - GI/Abdominal Exam GI & Abdominal Exam: Soft, Hypoactive Bowel Sounds. absent: Firm, Guarding, Rigid - Extremities Exam Extremities Exam: absent: Joint Swelling, Pedal Edema - Neurological Exam Additional comments: sedated - Psychiatric Exam Additional comments: sedated Assessment and Plan - Assessment and Plan (Free Text) Assessment: Leatha St is a 76F w/ hx of Arthritis, Atrial Fibrillation, Diabetes, Gastritis, Gall Bladder Disease (s/p surgery), HTN, Pneumonia who presented to the ER with complaints if abd pain. Etiology is likely 2/2 acute on chronic constipation Chronic constipation, unknown endoscopy hx, CT neg for obstruction Hypercap respir failure s/p intubation on mechanical ventilation Plan: -hold lactulose 2/2 electrolyte abnormality -continue miralax BID -if no sig rectal output, consider repeat CT -no plan for any endoscopy at this time -correct hyponatremia as per primary team -rest of care as per ICU -will sign off D/W RN d/w Dr. Butt <Filomena ARCE,[facility] - Last Filed: 05/17/17 14:16> Objective - Vital Signs/Intake and Output Vital Signs (last 24 hours): Temp Pulse Resp BP Pulse Ox 99.5 F 102 H 16 113/68 100 05/17/17 12:00 05/17/17 12:00 05/17/17 12:00 05/17/17 12:00 05/17/17 12:00 Intake and Output: 05/17/17 05/17/17 06:59 18:59 Intake Total 1445 700 Output Total 200 375 Balance 1245 325 - Medications Medications: Current Medications Atorvastatin Calcium (Lipitor) 20 mg PO DAILY [facility] Last Admin: 05/17/17 08:24 Dose: 20 mg Carvedilol (Coreg) 25 mg PO Q12 [facility] Last Admin: 05/17/17 08:22 Dose: 25 mg Home Med (Sacubitril/Valsartan [Entresto 24 Mg-26 Mg]) 1 tab PO DAILY [facility] Last Admin: 05/17/17 12:54 Dose: 1 tab Sodium Chloride (Sodium Chloride 0.9%) 500 mls @ 75 mls/hr IV ONCE ONE Stop: 05/17/17 16:54 Last Admin: 05/17/17 10:48 Dose: 75 mls/hr Lorazepam (Ativan) 1 mg IVP Q4 PRN PRN Reason: Agitation Pantoprazole Sodium (Protonix Inj) 40 mg IVP DAILY [facility] Last Admin: 05/17/17 10:56 Dose: 40 mg Polyethylene Glycol (Miralax) 17 gm PO BID [facility] Last Admin: 05/17/17 08:25 Dose: 17 gm Rivaroxaban (Xarelto) 15 mg PO DAILY [facility] PRN Reason: Protocol Last Admin: 05/17/17 08:22 Dose: 15 mg - Labs Labs: 05/17/17 04:20 05/17/17 04:20 Attending/Attestation - Attestation I have personally seen and examined this patient.: Yes I have fully participated in the care of the patient.: Yes I have reviewed all pertinent clinical information, including history, physical exam and plan: Yes Notes (Text): 05/17/17 14:13 This is a 76 yr old F with PMH of arthritis, atrial fibrillation, DM, gastritis , GB disease (s/p surgery), HTN, Pneumonia who presented to the ER with complaints of abdominal pain in setting of acute on chronic constipation. Also found to have hyponatremia with AMS. Overnight intubated for hypercapneic respiratory failure. Last BM yesterday after lactulose and miralax. Recommend water enemas and miralax daily. Correct hyponatremia as per primary team. Rest of plan as per primary team. Will sign off now. Continue bowel regimen daily
[2017-05-17 09:55] LABS: ABG ALLEN TEST YES; ABG MECHANICAL RATE 18; ARTERIAL BLOOD GAS HCO3 29.8 mmol/L (21-28); ARTERIAL BLOOD GAS MODE PRVC/AC; ARTERIAL BLOOD GAS O2 CONTENT 16.9 ML/dL (15-23); ARTERIAL BLOOD GAS PH 7.42 (7.35-7.45); ARTERIAL BLOOD GAS PO2 156 mm/Hg (80-100); ARTERIAL BLOOD HGB O2 SAT 96.6 % (95.0-98.0); CARBOXYHEMOGLOBIN 1.8 % (0.5-1.5); HHB 0.3 % (0.0-5.0); METHEMOGLOBIN 1.3 % (0.0-3.0)
[2017-05-17] MEDS ORDERED: Sodium Chloride 0.9% 500 ML IV ONE (10:15)
--- NOTE | 2017-05-17 11:31 | CP.PCM.PN ---
Subjective - Date & Time of Evaluation Date of Evaluation: 05/17/17 Time of Evaluation: 11:00 - Subjective Subjective: Pt was intubated overnight . She was noted to be very lethargic . ABG showed severe hypercarbia. Pt remains intubated on Vent Moves extremities, opens eyes to tactile stimuli No fever Objective - Vital Signs/Intake and Output Vital Signs (last 24 hours): Temp Pulse Resp BP Pulse Ox 98 F 88 18 112/65 0 L 05/17/17 08:00 05/17/17 10:00 05/17/17 10:00 05/17/17 11:00 05/17/17 10:00 Intake and Output: 05/17/17 05/17/17 06:59 18:59 Intake Total 1445 425 Output Total 200 125 Balance 1245 300 - Medications Medications: Current Medications Atorvastatin Calcium (Lipitor) 20 mg PO DAILY [facility] Last Admin: 05/17/17 08:24 Dose: 20 mg Carvedilol (Coreg) 25 mg PO Q12 [facility] Last Admin: 05/17/17 08:22 Dose: 25 mg Home Med (Sacubitril/Valsartan [Entresto 24 Mg-26 Mg]) 1 tab PO DAILY [facility] Sodium Chloride (Sodium Chloride 0.9%) 1,000 mls @ 150 mls/hr IV .Q6H40M [facility] Stop: 05/17/17 12:35 Last Admin: 05/17/17 06:00 Dose: 150 mls/hr Sodium Chloride (Sodium Chloride 0.9%) 500 mls @ 75 mls/hr IV ONCE ONE Stop: 05/17/17 16:54 Last Admin: 05/17/17 10:48 Dose: 75 mls/hr Lorazepam (Ativan) 1 mg IVP Q4 PRN PRN Reason: Agitation Pantoprazole Sodium (Protonix Inj) 40 mg IVP DAILY [facility] Last Admin: 05/17/17 10:56 Dose: 40 mg Polyethylene Glycol (Miralax) 17 gm PO BID [facility] Last Admin: 05/17/17 08:25 Dose: 17 gm Rivaroxaban (Xarelto) 15 mg PO DAILY [facility] PRN Reason: Protocol Last Admin: 05/17/17 08:22 Dose: 15 mg - Labs Labs: 05/17/17 04:20 05/17/17 04:20 - Constitutional Appears: No Acute Distress, Chronically Ill, Intubated on Mech Vent - Head Exam Head Exam: NORMAL INSPECTION, NORMOCEPHALIC - Eye Exam Eye Exam: EOMI, Normal appearance Pupil Exam: NORMAL ACCOMODATION - ENT Exam ENT Exam: Mucous Membranes Dry, Normal External Ear Exam - Neck Exam Neck Exam: Full ROM. absent: Meningismus - Respiratory Exam Respiratory Exam: Rales (minimal rales bases), Intubated on Vent - Cardiovascular Exam Cardiovascular Exam: Irregular Rhythm, +S1, +S2 - GI/Abdominal Exam GI & Abdominal Exam: Soft, Hypoactive Bowel Sounds. - Extremities Exam Extremities Exam: Normal Capillary Refill. No Pedal Edema - Neurological Exam Additional comments: Pt is intubated opens eyes to tactile stimuli moves all extremities - Skin Skin Exam: Dry, Normal Color, Warm Assessment and Plan - Assessment and Plan (Free Text) Assessment: 76 y/o lady with hx of A Fib, DM, HTN, Chronic Constipation, came in bec of abd pain and constipation. CT of abd done on prior ER visit showed constipation. On lab exam, pt was noted to have a Sodium of 117. Pt noted to be drowsy and Na persistently low despite IVF NS - Nephrology consulted- rec to start 3% Sodium. Pt transferred to ICU for close supervision. Overnight , pt noted to have worsening lethargy. ABG done showed severe hypercapnea- she was then intubated 1. Acute Hypercapneic Respiratory Failure Pt was intubated , on Mech Vent PCO2 120 initially, improving CXR : no infiltrate Pulm consult (2)Hyponatremia likely hypovolemic sec to diuretics and also poss from decrease solute intake Status: Acute will also need to r/o SIADH - Serum Osm low - Nephrology consulted - Dr Vaca , discussed case rec to start Hypertonic soln 3% Na- this was d/c when Na went up to 121 last night (3) Abdominal pain sec to Constipation Status: Acute abdominal obstructive series: dilated loops of bowel GI consult with Dr Butt Laxatives (4) Chronic atrial fibrillation rate controlled. Pt on Xarelto 15mg PO daily and Coreg (5) DM II (diabetes mellitus, type II), controlled BS relatively controlled. Hold Glipizide as pt is NPO accucheck (6) HTN (hypertension) cont Coreg (7) Hyperlipidemia : Atorvastatin 20mg PO HS 8. Hypocalcemia replaced with Calcium Gluc DVT prophylaxis Comment: on Xarelto
--- NOTE | 2017-05-17 11:42 | RAD ---
HISTORY: Intubation. COMPARISON: 01/12/2015. FINDINGS: LUNGS: No active pulmonary disease. PLEURA: No significant pleural effusion identified, no pneumothorax apparent. CARDIOVASCULAR: Cardiomegaly. No evidence of acute, significant cardiovascular disease. OSSEOUS STRUCTURES: No significant abnormalities. VISUALIZED UPPER ABDOMEN: Normal. OTHER FINDINGS: Endotracheal tube tip within 2 cm of the krupa. IMPRESSION: No active pulmonary disease.
[2017-05-17] MEDS ORDERED: Patient's Own Med (Sacubitril/Valsartan [Entresto 24 Mg-26 Mg] 1 TAB) PO SCH (12:00)
--- NOTE | 2017-05-17 12:02 | CP.PCM.PN ---
Subjective - Date & Time of Evaluation Date of Evaluation: 05/17/17 Time of Evaluation: 12:00 - Subjective Subjective: Patient in intensive care unit intubated And sedated Objective - Vital Signs/Intake and Output Vital Signs (last 24 hours): Temp Pulse Resp BP Pulse Ox 98 F 88 18 112/65 0 L 05/17/17 08:00 05/17/17 10:00 05/17/17 10:00 05/17/17 11:00 05/17/17 10:00 Intake and Output: 05/17/17 05/17/17 06:59 18:59 Intake Total 1445 425 Output Total 200 125 Balance 1245 300 - Medications Medications: Current Medications Atorvastatin Calcium (Lipitor) 20 mg PO DAILY [facility] Last Admin: 05/17/17 08:24 Dose: 20 mg Carvedilol (Coreg) 25 mg PO Q12 [facility] Last Admin: 05/17/17 08:22 Dose: 25 mg Home Med (Sacubitril/Valsartan [Entresto 24 Mg-26 Mg]) 1 tab PO DAILY [facility] Sodium Chloride (Sodium Chloride 0.9%) 1,000 mls @ 150 mls/hr IV .Q6H40M [facility] Stop: 05/17/17 12:35 Last Admin: 05/17/17 06:00 Dose: 150 mls/hr Sodium Chloride (Sodium Chloride 0.9%) 500 mls @ 75 mls/hr IV ONCE ONE Stop: 05/17/17 16:54 Last Admin: 05/17/17 10:48 Dose: 75 mls/hr Calcium Gluconate 4.6 meq/ (Sodium Chloride) 59.8924 mls @ 59.892 mls/hr IV ONCE ONE Stop: 05/17/17 12:44 Lorazepam (Ativan) 1 mg IVP Q4 PRN PRN Reason: Agitation Pantoprazole Sodium (Protonix Inj) 40 mg IVP DAILY [facility] Last Admin: 05/17/17 10:56 Dose: 40 mg Polyethylene Glycol (Miralax) 17 gm PO BID [facility] Last Admin: 05/17/17 08:25 Dose: 17 gm Rivaroxaban (Xarelto) 15 mg PO DAILY [facility] PRN Reason: Protocol Last Admin: 05/17/17 08:22 Dose: 15 mg - Labs Labs: 05/17/17 04:20 05/17/17 04:20 - Constitutional Appears: No Acute Distress - ENT Exam ENT Exam: Mucous Membranes Moist - Neck Exam Neck Exam: absent: Lymphadenopathy - Respiratory Exam Respiratory Exam: absent: Rales Additional comments: intubated - GI/Abdominal Exam GI & Abdominal Exam: Soft, Normal Bowel Sounds - Extremities Exam Extremities Exam: absent: Calf Tenderness - Back Exam Back Exam: absent: CVA tenderness (L), CVA tenderness (R) - Neurological Exam Neurological Exam: Altered - Skin Skin Exam: absent: Cyanosis Assessment and Plan (1) Abdominal pain Status: Acute (2) Chronic atrial fibrillation Status: Acute (3) Hyponatremia Assessment & Plan: Hyponatremia improving serum sodium up to 127 patient was given hypertonic saline for couple of hours until serum sodium came up to 121 and she was put back on normal saline. Eighth serum sodium not improving but this afternoon known we will give tolvaptan. Serum chloride improving Serum potassium corrected Kidney functions remain stable Status: Acute
[2017-05-17 16:24] LABS: BLOOD UREA NITROGEN 21 mg/dl (7-17); CALCIUM 7.6 mg/dL (8.4-10.2); CARBON DIOXIDE 27 mmol/L (22-30); CHLORIDE 90 mmol/L (98-107); GFR AFRICAN-AMERICAN > 60; GLUCOSE,RANDOM 76 mg/dL (65-105); POTASSIUM 4.6 MMOL/L (3.6-5.0); SODIUM 124 mmol/l (132-148)
[2017-05-17] MEDS ORDERED: Acetaminophen 650mg/20.3ml solution UD PO PRN (16:45)
[2017-05-18] MEDS ORDERED: Sodium Chloride 0.9% 1,000 ML IV SCH (00:15)
[2017-05-18 05:39] LABS: HEMATOCRIT 35.7 % (34.0-47.0); MEAN CELL VOLUME 91.1 fl (81.0-99.0); MEAN CORPUSCULAR HEMOGLOBIN 30.3 pg (27.0-31.0); MEAN CORPUSCULAR HGB CONC 33.3 g/dL (33.0-37.0); RED CELL DISTRIBUTION WIDTH 12.9 % (11.5-14.5); WHITE BLOOD COUNT 8.9 K/uL (4.8-10.8)
[2017-05-18 05:41] LABS: ABG ALLEN TEST YES; ABG MECHANICAL RATE 18; ARTERIAL BLOOD GAS HCO3 31.1 mmol/L (21-28); ARTERIAL BLOOD GAS MODE A/C; ARTERIAL BLOOD GAS O2 CAPACITY 17.3 mL/dL (16-24); ARTERIAL BLOOD GAS O2 CONTENT 17.4 ML/dL (15-23); ARTERIAL BLOOD GAS PH 7.54 (7.35-7.45); ARTERIAL BLOOD GAS PO2 122 mm/Hg (80-100); ARTERIAL BLOOD HGB O2 SAT 96.6 % (95.0-98.0); CARBOXYHEMOGLOBIN 2.1 % (0.5-1.5); HHB -0.4 % (0.0-5.0); METHEMOGLOBIN 1.7 % (0.0-3.0)
[2017-05-18 06:34] LABS: BLOOD UREA NITROGEN 17 mg/dl (7-17); CALCIUM 7.8 mg/dL (8.4-10.2); CARBON DIOXIDE 29 mmol/L (22-30); CHLORIDE 93 mmol/L (98-107); GFR AFRICAN-AMERICAN > 60; GLUCOSE,RANDOM 119 mg/dL (65-105); POTASSIUM 3.9 MMOL/L (3.6-5.0); SODIUM 129 mmol/l (132-148)
[2017-05-18] MEDS: POLYETHYLENE GLYCOL 3350 17 GM/Dose PACKET PO SCH ×2 (08:54→18:39)
--- NOTE | 2017-05-18 12:39 | RAD ---
HISTORY: intubated COMPARISON: 05/17/2017 FINDINGS: Endotracheal tube terminates 1 cm proximal to the krupa. The nasogastric tube terminates in the stomach. LUNGS: Again seen is severe pulmonary venous congestion with pulmonary redistribution. There is apparent airspace disease in the right lower lobe. PLEURA: No significant pleural effusion identified, no pneumothorax apparent. CARDIOVASCULAR: There is persistent severe cardiomegaly. Atherosclerotic aortic arch calcifications are present. OSSEOUS STRUCTURES: No significant abnormalities. VISUALIZED UPPER ABDOMEN: Normal. OTHER FINDINGS: None. IMPRESSION: Endotracheal tube terminates 1 cm proximal to the krupa. Persistent severe cardiomegaly, pulmonary venous congestion and question of developing pulmonary edema worse is consolidation in the right lower lobe. Follow-up is advised.
--- NOTE | 2017-05-18 12:52 | CP.PCM.PN ---
Subjective - Date & Time of Evaluation Date of Evaluation: 05/18/17 Time of Evaluation: 12:50 - Subjective Subjective: Patient remained intubated And sedated Urine output noted to be improving Lab reviewed Objective - Vital Signs/Intake and Output Vital Signs (last 24 hours): Temp Pulse Resp BP Pulse Ox 99 F 77 11 L 91/66 L 100 05/18/17 08:00 05/18/17 10:00 05/18/17 10:00 05/18/17 10:00 05/18/17 10:00 Intake and Output: 05/18/17 05/18/17 06:59 18:59 Intake Total 1240 580 Output Total 1200 Balance 40 580 - Medications Medications: Current Medications Acetaminophen (Tylenol 650mg/20.3ml Solution Ud) 650 mg PO Q6 PRN PRN Reason: Temperature Last Admin: 05/17/17 17:11 Dose: 650 mg Atorvastatin Calcium (Lipitor) 20 mg PO DAILY [facility] Last Admin: 05/18/17 08:54 Dose: 20 mg Carvedilol (Coreg) 25 mg PO Q12 [facility] Last Admin: 05/18/17 08:53 Dose: 25 mg Sodium Chloride (Sodium Chloride 0.9%) 1,000 mls @ 75 mls/hr IV .[id number] [facility] Stop: 05/18/17 13:34 Last Admin: 05/18/17 01:01 Dose: 75 mls/hr Pantoprazole Sodium (Protonix Inj) 40 mg IVP DAILY [facility] Last Admin: 05/18/17 08:54 Dose: 40 mg Polyethylene Glycol (Miralax) 17 gm PO BID [facility] Last Admin: 05/18/17 08:54 Dose: 17 gm Rivaroxaban (Xarelto) 15 mg PO DAILY [facility] PRN Reason: Protocol Last Admin: 05/18/17 08:55 Dose: 15 mg - Labs Labs: 05/18/17 04:00 05/18/17 06:10 - Constitutional Appears: No Acute Distress - ENT Exam ENT Exam: Mucous Membranes Moist - Respiratory Exam Respiratory Exam: absent: Chest Wall Tenderness, Rales - Cardiovascular Exam Cardiovascular Exam: absent: JVD, Rubs - GI/Abdominal Exam GI & Abdominal Exam: Soft, Normal Bowel Sounds - Extremities Exam Extremities Exam: absent: Calf Tenderness - Back Exam Back Exam: absent: CVA tenderness (L), CVA tenderness (R) - Neurological Exam Neurological Exam: Altered Assessment and Plan (1) Abdominal pain Status: Acute (2) Chronic atrial fibrillation Status: Acute (3) Hyponatremia Assessment & Plan: Hyponatremia and improving slowly the last serum sodium 129 and the urine output is very good. Serum electrolyte okay Kidney function okay with normal creatinine. Continue 0.9 normal saline gently And follow-up BNP tomorrow morning Patient remained has respiratory failure. Status: Acute
--- NOTE | 2017-05-18 13:18 | CP.PCM.PN ---
Subjective - Date & Time of Evaluation Date of Evaluation: 05/18/17 Time of Evaluation: 13:15 - Subjective Subjective: Patient is intubated and sedated. Patient's CO2 improved to 36 this morning from 49. She continues to be very lethargic without sedation however. Urine output is improving. Overall her lab work is improved, with sodium trending up from 124-129 today. She is moving her extremities and opens her eyes to tactile stimuli. No fever noticed on vitals. She is noted to be intermittently hypotensive, last blood pressure is 91/66. Objective - Vital Signs/Intake and Output Vital Signs (last 24 hours): Temp Pulse Resp BP Pulse Ox 98.2 F 116 H 22 91/64 L 99 05/18/17 12:00 05/18/17 12:00 05/18/17 12:00 05/18/17 12:00 05/18/17 12:00 Intake and Output: 05/18/17 05/18/17 06:59 18:59 Intake Total 1240 750 Output Total 1200 Balance 40 750 - Medications Medications: Current Medications Acetaminophen (Tylenol 650mg/20.3ml Solution Ud) 650 mg PO Q6 PRN PRN Reason: Temperature Last Admin: 05/17/17 17:11 Dose: 650 mg Atorvastatin Calcium (Lipitor) 20 mg PO DAILY [facility] Last Admin: 05/18/17 08:54 Dose: 20 mg Carvedilol (Coreg) 25 mg PO Q12 [facility] Last Admin: 05/18/17 08:53 Dose: 25 mg Sodium Chloride (Sodium Chloride 0.9%) 1,000 mls @ 75 mls/hr IV .[id number] [facility] Stop: 05/18/17 13:34 Last Admin: 05/18/17 01:01 Dose: 75 mls/hr Pantoprazole Sodium (Protonix Inj) 40 mg IVP DAILY [facility] Last Admin: 05/18/17 08:54 Dose: 40 mg Polyethylene Glycol (Miralax) 17 gm PO BID [facility] Last Admin: 05/18/17 08:54 Dose: 17 gm Rivaroxaban (Xarelto) 15 mg PO DAILY [facility] PRN Reason: Protocol Last Admin: 05/18/17 08:55 Dose: 15 mg - Labs Labs: 05/18/17 04:00 05/18/17 06:10 - Additional Findings Additional findings: Physical exam: Constitutional- intubated, lethargic, opens eyes to tactile timuli Head- NCAT, PERRL Eye- PERRL, normal accommodation ENT- normal exam, MMM. Neck- normal inspection, supple, no JVD Respiratory- CTAB, no wheezes rales rhonchi Cardiovascular- RRR, +S1, +S2 no MRG GI/Abdominal- normal bowel sounds, soft, no mass, no hsm Skin- warm, dry Extremities Exam- normal capillary refill, normal inspection Neurological Exam- unable to be fully assessed. Psych- normal mood, normal affect Assessment and Plan - Assessment and Plan (Free Text) Plan: ASSESSMENT 76 y/o lady with hx of A Fib, DM, HTN, Chronic Constipation, came in bec of abd pain and constipation. CT of abd done on prior ER visit showed constipation. On lab exam, pt was noted to have a Sodium of 117. Pt noted to be drowsy and Na persistently low despite IVF NS - Nephrology consulted- rec to start 3% Sodium. Pt transferred to ICU for close supervision. Overnight , pt noted to have worsening lethargy. ABG done showed severe hypercapnea- she was then intubated 1. Acute Hypercapneic Respiratory Failure Pt was intubated , on Mech Vent PCO2 120 -->124 --> 129 today CXR : no infiltrate Pulm consult (2)Hyponatremia likely hypovolemic sec to diuretics and also poss from decrease solute intake Status: Acute will also need to r/o SIADH - Serum Osm low - Nephrology consulted - Dr Vaca, patient was previously given 3% saline as per discussion with nephrology until serum sodium came up to 121; now on normal saline at 75 cc/hour. Sodium continuing to improve; 117 -> 124 -> 129. (3) Abdominal pain sec to Constipation Status: Acute abdominal obstructive series: dilated loops of bowel GI consult with Dr Butt- signed off at this time Laxatives- miralax daily, water enemas. (4) Chronic atrial fibrillation rate controlled. Pt on Xarelto 15mg PO daily and Coreg (5) DM II (diabetes mellitus, type II), controlled BS relatively controlled. Hold Glipizide as pt is NPO accucheck (6) HTN (hypertension) cont Coreg (7) Hyperlipidemia : Atorvastatin 20mg PO HS 8. Hypocalcemia replaced with Calcium Gluc DVT prophylaxis Comment: on Xarelto
--- NOTE | 2017-05-18 13:38 | CP.CCUPN ---
CCU Subjective - Physician Review Subjective (Free Text): Sedated with Ativan, opens eyes to tactile stimuli, no distress on MV AC 18, 400ml TV, 50% oxygen. Tolerated rate reduction to 10 and breathing at only 10. Other vitals and I/O's reviewed. Fever spike to 101 F yesterday. ROS: Unobtainable from lethargic Patient. No other pertinent negs or positives on 10+ system review. PMSFH: All Nursing and physician documentation reviewed to date; no new pertinent info noted relevant to current medical problems. CXR: ETT low in position near krupa; slight increase in bilateral interstitial changes as compared to yesterdays film. (my interp). MAJOR PROBLEMS: 1. Acute Hypercapneic Resp Failure 2. Hyponatremia: unclear hydrational (Euvolemic versus Hypovolemic) status at the time of admission. 3. Partial Bowel Obstruction / Ileus; with distended small bowel and large bowel loops assoc with h/o constipation 4. r/o Ischemic Bowel disease with h/o Chronic A fib PLAN: 1. See no further indication for MV support, decrease AC rate, try SBTs today and limit sedation. Hope for extubation today or tomorrow. 2. Continue IVF hydration, sputum and blood cx ordered; start empiric abx therapy. 3. Laxatives prn 4. Na levels improved. 5. Consider CT ABD Pelvis CCU Objective - Vital Signs / Intake & Output Vital Signs (Last 4 hours): Vital Signs Temp Pulse Resp BP Pulse Ox 05/18/17 12:00 98.2 F 116 H 22 91/64 L 99 05/18/17 10:00 77 11 L 91/66 L 100 Intake and Output (Last 8hrs): Intake & Output 05/17/17 05/18/17 05/18/17 22:59 06:59 14:59 Intake Total 635 905 750 Output Total 475 1200 Balance 160 -295 750 Intake: IV 525 675 430 Oral 40 Tube Feeding 60 140 120 Free Water Flush 50 50 200 Output: Urine 475 1200 Urethral (Watson) 475 1200 Other: # Bowel Movements 0 - Physical Exam Physical Exam Limitations: Positive for: Altered Mental Status Pupils: Positive for: PERRL Extroacular Muscles: Positive for: EOMI Conjunctiva: Positive for: Normal. Negative for: Icteric Mouth: Positive for: Moist Mucous Membranes Neck: Positive for: JVD. Negative for: Meningeal Signs Respiratory/Chest: Positive for: Clear to Auscultation. Negative for: Accessory Muscle Use, Wheezes Cardiovascular: Positive for: Regular Rate and Rhythm. Negative for: Murmurs, Tachycardic, Rub Abdomen: Positive for: Normal Bowel Sounds. Negative for: Tenderness, Distention, Mass/Organomegaly Lower Extremity: Positive for: NORMAL PULSES. Negative for: Edema, CALF TENDERNESS, Cyanosis Skin: Positive for: Warm, Dry. Negative for: Rashes Psychiatric: Positive for: Other (sedated but opens eyes to tactile stimuli.) - Medications Active Medications: Active Medications Generic Name Dose Route Start Last Admin Trade Name Freq PRN Reason Stop Dose Admin Acetaminophen 650 mg 05/17/17 16:45 05/17/17 17:11 Tylenol 650mg/20.3ml Solution Ud PO 650 mg Q6 PRN Administration Temperature Atorvastatin Calcium 20 mg 05/15/17 13:15 05/18/17 08:54 Lipitor PO 20 mg DAILY [facility] Administration Carvedilol 25 mg 05/15/17 21:00 05/18/17 08:53 Coreg PO 25 mg Q12 [facility] Administration Pantoprazole Sodium 40 mg 05/17/17 10:45 05/18/17 08:54 Protonix Inj IVP 40 mg DAILY [facility] Administration Polyethylene Glycol 17 gm 05/16/17 17:00 05/18/17 08:54 Miralax PO 17 gm BID [facility] Administration Rivaroxaban 15 mg 05/15/17 13:15 05/18/17 08:55 Xarelto PO 15 mg DAILY [facility] Administration Protocol - Patient Studies Lab Studies: Microbiology Studies 05/16/17 07:23 MRSA Culture (Admit) - Final Naris MRSA NOT DETECTED Lab Studies 05/18/17 05/18/17 05/18/17 Range/Units 12:47 06:10 05:42 WBC (4.8-10.8) K/uL RBC (3.80-5.20) Mil/uL Hgb (12.0-16.0) g/dL Hct (34.0-47.0) % MCV (81.0-99.0) fl MCH (27.0-31.0) pg MCHC (33.0-37.0) g/dL RDW (11.5-14.5) % Plt Count (130-400) K/uL pCO2 (35-45) mm/Hg pO2 (80-100) mm/Hg HCO3 (21-28) mmol/L ABG pH (7.35-7.45) ABG Total CO2 (22-28) mmol/L ABG O2 Saturation (95-98) % ABG O2 Content (15-23) ML/dL ABG Base Excess (-2.0-3.0) mmol/L ABG Hemoglobin (11.7-17.4) g/dL ABG Carboxyhemoglobin (0.5-1.5) % POC ABG HHb (Measured) (0.0-5.0) % ABG Methemoglobin (0.0-3.0) % ABG O2 Capacity (16-24) mL/dL Valdemar Test A-a O2 Difference mm/Hg Hgb O2 Saturation (95.0-98.0) % Vent Mode Mechanical Rate FiO2 % Tidal Volume Sodium 129 L (132-148) mmol/l Potassium 3.9 (3.6-5.0) MMOL/L Chloride 93 L (98-107) mmol/L Carbon Dioxide 29 (22-30) mmol/L Anion Gap 11 (10-20) BUN 17 (7-17) mg/dl Creatinine 0.5 L (0.7-1.2) mg/dL Est GFR ( Amer) > 60 Est GFR (Non-Af Amer) > 60 POC Glucose (mg/dL) 151 H 133 H (65-110) mg/dL Random Glucose 119 H (65-105) mg/dL Calcium 7.8 L (8.4-10.2) mg/dL 05/18/17 05/18/17 05/17/17 Range/Units 05:26 04:00 20:58 WBC 8.9 D (4.8-10.8) K/uL RBC 3.92 (3.80-5.20) Mil/uL Hgb 11.9 L (12.0-16.0) g/dL Hct 35.7 (34.0-47.0) % MCV 91.1 D (81.0-99.0) fl MCH 30.3 (27.0-31.0) pg MCHC 33.3 (33.0-37.0) g/dL RDW 12.9 (11.5-14.5) % Plt Count 99 L (130-400) K/uL pCO2 36 (35-45) mm/Hg pO2 122 H (80-100) mm/Hg HCO3 31.1 H (21-28) mmol/L ABG pH 7.54 H (7.35-7.45) ABG Total CO2 31.9 H (22-28) mmol/L ABG O2 Saturation 100.4 H (95-98) % ABG O2 Content 17.4 (15-23) ML/dL ABG Base Excess 7.9 H (-2.0-3.0) mmol/L ABG Hemoglobin 12.7 (11.7-17.4) g/dL ABG Carboxyhemoglobin 2.1 H (0.5-1.5) % POC ABG HHb (Measured) -0.4 L (0.0-5.0) % ABG Methemoglobin 1.7 (0.0-3.0) % ABG O2 Capacity 17.3 (16-24) mL/dL Valdemar Test Yes A-a O2 Difference 190.0 mm/Hg Hgb O2 Saturation 96.6 (95.0-98.0) % Vent Mode A/c Mechanical Rate 18 FiO2 50.0 % Tidal Volume 400 Sodium (132-148) mmol/l Potassium (3.6-5.0) MMOL/L Chloride (98-107) mmol/L Carbon Dioxide (22-30) mmol/L Anion Gap (10-20) BUN (7-17) mg/dl Creatinine (0.7-1.2) mg/dL Est GFR ( Amer) Est GFR (Non-Af Amer) POC Glucose (mg/dL) 78 (65-110) mg/dL Random Glucose (65-105) mg/dL Calcium (8.4-10.2) mg/dL 05/17/17 05/17/17 Range/Units 16:25 15:45 WBC (4.8-10.8) K/uL RBC (3.80-5.20) Mil/uL Hgb (12.0-16.0) g/dL Hct (34.0-47.0) % MCV (81.0-99.0) fl MCH (27.0-31.0) pg MCHC (33.0-37.0) g/dL RDW (11.5-14.5) % Plt Count (130-400) K/uL pCO2 (35-45) mm/Hg pO2 (80-100) mm/Hg HCO3 (21-28) mmol/L ABG pH (7.35-7.45) ABG Total CO2 (22-28) mmol/L ABG O2 Saturation (95-98) % ABG O2 Content (15-23) ML/dL ABG Base Excess (-2.0-3.0) mmol/L ABG Hemoglobin (11.7-17.4) g/dL ABG Carboxyhemoglobin (0.5-1.5) % POC ABG HHb (Measured) (0.0-5.0) % ABG Methemoglobin (0.0-3.0) % ABG O2 Capacity (16-24) mL/dL Valdemar Test A-a O2 Difference mm/Hg Hgb O2 Saturation (95.0-98.0) % Vent Mode Mechanical Rate FiO2 % Tidal Volume Sodium 124 L (132-148) mmol/l Potassium 4.6 (3.6-5.0) MMOL/L Chloride 90 L (98-107) mmol/L Carbon Dioxide 27 (22-30) mmol/L Anion Gap 12 (10-20) BUN 21 H (7-17) mg/dl Creatinine 0.5 L (0.7-1.2) mg/dL Est GFR ( Amer) > 60 Est GFR (Non-Af Amer) > 60 POC Glucose (mg/dL) 82 (65-110) mg/dL Random Glucose 76 (65-105) mg/dL Calcium 7.6 L (8.4-10.2) mg/dL Laboratory Results - last 24 hr 05/17/17 05/17/17 05/17/17 15:45 16:25 20:58 WBC RBC Hgb Hct MCV MCH MCHC RDW Plt Count pCO2 pO2 HCO3 ABG pH ABG Total CO2 ABG O2 Saturation ABG O2 Content ABG Base Excess ABG Hemoglobin ABG Carboxyhemoglobin POC ABG HHb (Measured) ABG Methemoglobin ABG O2 Capacity Valdemar Test A-a O2 Difference Hgb O2 Saturation Vent Mode Mechanical Rate FiO2 Tidal Volume Sodium 124 L Potassium 4.6 Chloride 90 L Carbon Dioxide 27 Anion Gap 12 BUN 21 H Creatinine 0.5 L Est GFR ( Amer) > 60 Est GFR (Non-Af Amer) > 60 POC Glucose (mg/dL) 82 78 Random Glucose 76 Calcium 7.6 L 05/18/17 05/18/17 05/18/17 04:00 05:26 05:42 WBC 8.9 D RBC 3.92 Hgb 11.9 L Hct 35.7 MCV 91.1 D MCH 30.3 MCHC 33.3 RDW 12.9 Plt Count 99 L pCO2 36 pO2 122 H HCO3 31.1 H ABG pH 7.54 H ABG Total CO2 31.9 H ABG O2 Saturation 100.4 H ABG O2 Content 17.4 ABG Base Excess 7.9 H ABG Hemoglobin 12.7 ABG Carboxyhemoglobin 2.1 H POC ABG HHb (Measured) -0.4 L ABG Methemoglobin 1.7 ABG O2 Capacity 17.3 Valdemar Test Yes A-a O2 Difference 190.0 Hgb O2 Saturation 96.6 Vent Mode A/c Mechanical Rate 18 FiO2 50.0 Tidal Volume 400 Sodium Potassium Chloride Carbon Dioxide Anion Gap BUN Creatinine Est GFR ( Amer) Est GFR (Non-Af Amer) POC Glucose (mg/dL) 133 H Random Glucose Calcium 05/18/17 05/18/17 06:10 12:47 WBC RBC Hgb Hct MCV MCH MCHC RDW Plt Count pCO2 pO2 HCO3 ABG pH ABG Total CO2 ABG O2 Saturation ABG O2 Content ABG Base Excess ABG Hemoglobin ABG Carboxyhemoglobin POC ABG HHb (Measured) ABG Methemoglobin ABG O2 Capacity Valdemar Test A-a O2 Difference Hgb O2 Saturation Vent Mode Mechanical Rate FiO2 Tidal Volume Sodium 129 L Potassium 3.9 Chloride 93 L Carbon Dioxide 29 Anion Gap 11 BUN 17 Creatinine 0.5 L Est GFR ( Amer) > 60 Est GFR (Non-Af Amer) > 60 POC Glucose (mg/dL) 151 H Random Glucose 119 H Calcium 7.8 L Fingerstick Blood Sugar Results: 151
[2017-05-18] MEDS: Piperacillin/Tazobact 3.375 GM in Sodium Chloride 0.9% 100 ML IVPB SCH ×2 (18:38→21:19)
[2017-05-18] MEDS: Sodium Chloride 0.9% 1,000 ML IV SCH (19:00)
[2017-05-19] MEDS: Piperacillin/Tazobact 3.375 GM in Sodium Chloride 0.9% 100 ML IVPB SCH ×4 (03:33→21:20)
[2017-05-19 05:04] LABS: ABG ALLEN TEST YES; ABG MECHANICAL RATE 10; ARTERIAL BLOOD GAS HCO3 32.6 mmol/L (21-28); ARTERIAL BLOOD GAS MODE A/C; ARTERIAL BLOOD GAS O2 CAPACITY 15.9 mL/dL (16-24); ARTERIAL BLOOD GAS O2 CONTENT 15.7 ML/dL (15-23); ARTERIAL BLOOD GAS PH 7.47 (7.35-7.45); ARTERIAL BLOOD GAS PO2 111 mm/Hg (80-100); ATERIAL BLOOD GAS PEEP 5; CARBOXYHEMOGLOBIN 1.4 % (0.5-1.5); METHEMOGLOBIN 1.6 % (0.0-3.0)
[2017-05-19 05:56] LABS: HEMATOCRIT 34.2 % (34.0-47.0); MEAN CELL VOLUME 91.5 fl (81.0-99.0); MEAN CORPUSCULAR HEMOGLOBIN 30.5 pg (27.0-31.0); MEAN CORPUSCULAR HGB CONC 33.3 g/dL (33.0-37.0); RED CELL DISTRIBUTION WIDTH 13.3 % (11.5-14.5)
[2017-05-19 06:58] LABS: BLOOD UREA NITROGEN 12 mg/dl (7-17); CALCIUM 7.7 mg/dL (8.4-10.2); CARBON DIOXIDE 32 mmol/L (22-30); CHLORIDE 93 mmol/L (98-107); GFR AFRICAN-AMERICAN > 60; GLUCOSE,RANDOM 157 mg/dL (65-105); POTASSIUM 3.4 MMOL/L (3.6-5.0); SODIUM 132 mmol/l (132-148)
--- NOTE | 2017-05-19 08:10 | CP.PCM.PN ---
Subjective - Date & Time of Evaluation Date of Evaluation: 05/19/17 Time of Evaluation: 08:08 - Subjective Subjective: Patient remained intubated and sedated Vital sign noted with blood pressure stable however she has low-grade fever and pulse rate around 124. Objective - Vital Signs/Intake and Output Vital Signs (last 24 hours): Temp Pulse Resp BP Pulse Ox 99.2 F 126 H 29 H 118/72 99 05/19/17 08:00 05/19/17 08:00 05/19/17 08:00 05/19/17 08:00 05/19/17 08:00 Intake and Output: 05/19/17 05/19/17 06:59 18:59 Intake Total 1120 Output Total 800 Balance 320 - Medications Medications: Current Medications Acetaminophen (Tylenol 650mg/20.3ml Solution Ud) 650 mg PO Q6 PRN PRN Reason: Temperature Last Admin: 05/17/17 17:11 Dose: 650 mg Atorvastatin Calcium (Lipitor) 20 mg PO DAILY [facility] Last Admin: 05/18/17 08:54 Dose: 20 mg Carvedilol (Coreg) 25 mg PO Q12 [facility] Last Admin: 05/18/17 21:22 Dose: 25 mg Piperacillin Sod/Tazobactam (Sod 3.375 gm/ Sodium Chloride) 100 mls @ 100 mls/ hr IVPB Q6 [facility] PRN Reason: Protocol Last Admin: 05/19/17 03:33 Dose: 100 mls/hr Sodium Chloride (Sodium Chloride 0.9%) 1,000 mls @ 75 mls/hr IV .[id number] [facility] Stop: 05/19/17 11:34 Last Admin: 05/18/17 19:00 Dose: 75 mls/hr Pantoprazole Sodium (Protonix Inj) 40 mg IVP DAILY [facility] Last Admin: 05/18/17 08:54 Dose: 40 mg Polyethylene Glycol (Miralax) 17 gm PO BID [facility] Last Admin: 05/18/17 18:39 Dose: 17 gm Rivaroxaban (Xarelto) 15 mg PO DAILY [facility] PRN Reason: Protocol Last Admin: 05/18/17 08:55 Dose: 15 mg - Labs Labs: 05/19/17 04:20 05/19/17 04:20 - Constitutional Appears: No Acute Distress - ENT Exam ENT Exam: Mucous Membranes Moist - Respiratory Exam Respiratory Exam: Rhonchi. absent: Chest Wall Tenderness - Cardiovascular Exam Cardiovascular Exam: absent: JVD, Rubs - GI/Abdominal Exam GI & Abdominal Exam: Soft, Normal Bowel Sounds - Extremities Exam Extremities Exam: absent: Calf Tenderness - Back Exam Back Exam: absent: CVA tenderness (L), CVA tenderness (R) Assessment and Plan (1) Abdominal pain Status: Acute (2) Chronic atrial fibrillation Status: Acute (3) Hyponatremia Assessment & Plan: Hyponatremia continued to improve serum sodium 132. Hypochloremia improving. Patient remain on respirator receiving GT tube feeding as well. Continue gentle normal saline Status: Acute
[2017-05-19] MEDS: Sodium Chloride 0.9% 1,000 ML IV SCH (08:42)
[2017-05-19] MEDS: POLYETHYLENE GLYCOL 3350 17 GM/Dose PACKET PO SCH ×2 (09:21→16:34)
--- NOTE | 2017-05-19 10:16 | PCM.PROC ---
Procedures Attestation:: I certify that I have explained the specified Operation(s) or Procedure(s), risks, benefits and reasonable alternatives to the Patient and/or other person responsible. The opportunity was given to ask questions and all questions answered - Extubation Clinical Parameters: Resolution/Stabilization of disease process, Hemodynamically Stable, Intact Cough/Gag Reflex, Spontaneous Respirations, Acceptable Vent Settings (FIO2<50%, PEEP<8, PaO2>75, pH>7.25) Weaning Criteria Met: Yes General Weaning Approaches: Pressure Support Ventilation (PSV) Weaning Patient Condition: Patient has been successfully extubated and assessed Oxygen Therapy: O2 via Venti Mask Patient Tolerated Procedure: Well
--- NOTE | 2017-05-19 10:26 | CP.CCUPN ---
CCU Subjective - Physician Review Subjective (Free Text): Agitated overnight, but easily re-oriented and follows directions. Tolerated SBTs on CPAP PS, and finally extubated approx 2 hours ago. Sleeping now, but arousable to verbal stimuli, no overall distress, stable spontaneous resp pattern. No stridor noted post-extubation. Spo2 99% on 40% VM. Granddaughter at the bedside now and states she is normally very active at home, goes out shopping, but developed constipation problem over the past month. Other vitals and I/O's reviewed. In rapid A afib now at 129-133 / min. BP stable at 115 systolic. ROS: Unobtainable from lethargic Patient. No other pertinent negs or positives on 10+ system review. PMSFH: All Nursing and physician documentation reviewed to date; no new pertinent info noted relevant to current medical problems. CXR: ETT low in position near krupa; R bilateral interstitial changes persist. (my interp). MAJOR PROBLEMS: 1. Acute Hypercapneic Resp Failure , s/p extubation 2. Hyponatremia: unclear hydrational (Euvolemic versus Hypovolemic) status at the time of admission. 3. Partial Bowel Obstruction / Ileus; with distended small bowel and large bowel loops assoc with h/o constipation 4. r/o Ischemic Bowel disease with h/o Chronic A fib PLAN: 1. Check repeat ABG, may need BiPAP now. 2. If no improvement on BiPAP, will consider CT brain. 3. Add duonebs and bolus steroids today. 4. Check TFTS. 5. Supplement K, check Mag and Phos. CCU Objective - Vital Signs / Intake & Output Vital Signs (Last 4 hours): Vital Signs Temp Pulse Resp BP Pulse Ox 05/19/17 08:38 116 H 05/19/17 08:00 99.2 F 126 H 29 H 118/72 99 Intake and Output (Last 8hrs): Intake & Output 05/18/17 05/19/17 05/19/17 22:59 06:59 14:59 Intake Total 740 760 170 Output Total 300 800 Balance 440 -40 170 Weight 157 lb 8 oz Intake: IV 450 600 150 Intake, Piggyback 100 Tube Feeding 140 160 20 Free Water Flush 50 Output: Urine 300 800 Urethral (Watson) 300 800 Other: # Bowel Movements 1 - Physical Exam Pupils: Positive for: PERRL Extroacular Muscles: Positive for: EOMI Conjunctiva: Positive for: Normal. Negative for: Icteric Mouth: Positive for: Moist Mucous Membranes Neck: Positive for: JVD. Negative for: Meningeal Signs Respiratory/Chest: Positive for: Clear to Auscultation. Negative for: Accessory Muscle Use, Wheezes Cardiovascular: Positive for: Regular Rate and Rhythm. Negative for: Murmurs, Tachycardic, Rub Abdomen: Positive for: Normal Bowel Sounds. Negative for: Tenderness, Distention, Mass/Organomegaly Lower Extremity: Positive for: NORMAL PULSES. Negative for: Edema, CALF TENDERNESS, Cyanosis Skin: Positive for: Warm, Dry. Negative for: Rashes Psychiatric: Positive for: Other (sedated but opens eyes to tactile stimuli.) - Medications Active Medications: Active Medications Generic Name Dose Route Start Last Admin Trade Name Freq PRN Reason Stop Dose Admin Acetaminophen 650 mg 05/17/17 16:45 05/17/17 17:11 Tylenol 650mg/20.3ml Solution Ud PO 650 mg Q6 PRN Administration Temperature Atorvastatin Calcium 20 mg 05/15/17 13:15 05/19/17 08:39 Lipitor PO 20 mg DAILY [facility] Administration Carvedilol 25 mg 05/15/17 21:00 05/19/17 08:38 Coreg PO 25 mg Q12 [facility] Administration Piperacillin Sod/Tazobactam 100 mls @ 100 mls/hr 05/18/17 17:45 05/19/17 09: 21 Sod 3.375 gm/ Sodium Chloride IVPB 100 mls/hr Q6 [facility] Administration Protocol Sodium Chloride 1,000 mls @ 75 mls/hr 05/18/17 22:15 05/19/17 08:42 Sodium Chloride 0.9% IV 05/19/17 11:34 75 mls/hr .[id number] [facility] Administration Pantoprazole Sodium 40 mg 05/17/17 10:45 05/19/17 08:39 Protonix Inj IVP 40 mg DAILY [facility] Administration Polyethylene Glycol 17 gm 05/16/17 17:00 05/19/17 09:21 Miralax PO Not Given BID [facility] Rivaroxaban 15 mg 05/15/17 13:15 05/19/17 08:39 Xarelto PO 15 mg DAILY [facility] Administration Protocol - Patient Studies Lab Studies: Microbiology Studies 05/18/17 13:17 Gram Stain - Final Trachasp 05/18/17 08:15 Blood Culture - Preliminary Blood-Venous NO GROWTH AFTER 24 HOURS 05/18/17 08:00 Blood Culture - Preliminary Blood-Venous NO GROWTH AFTER 24 HOURS 05/16/17 07:23 MRSA Culture (Admit) - Final Naris MRSA NOT DETECTED Lab Studies 05/19/17 05/19/17 05/19/17 Range/Units 05:01 04:20 04:20 WBC 8.0 (4.8-10.8) K/uL RBC 3.74 L (3.80-5.20) Mil/uL Hgb 11.4 L (12.0-16.0) g/dL Hct 34.2 (34.0-47.0) % MCV 91.5 (81.0-99.0) fl MCH 30.5 (27.0-31.0) pg MCHC 33.3 (33.0-37.0) g/dL RDW 13.3 (11.5-14.5) % Plt Count 95 L (130-400) K/uL pCO2 48 H (35-45) mm/Hg pO2 111 H (80-100) mm/Hg HCO3 32.6 H (21-28) mmol/L ABG pH 7.47 H (7.35-7.45) ABG Total CO2 36.4 H (22-28) mmol/L ABG O2 Saturation 99.0 H (95-98) % ABG O2 Content 15.7 (15-23) ML/dL ABG Base Excess 9.9 H (-2.0-3.0) mmol/L ABG Hemoglobin 11.5 L (11.7-17.4) g/dL ABG Carboxyhemoglobin 1.4 (0.5-1.5) % POC ABG HHb (Measured) 1.0 (0.0-5.0) % ABG Methemoglobin 1.6 (0.0-3.0) % ABG O2 Capacity 15.9 L (16-24) mL/dL Valdemar Test Yes A-a O2 Difference 114.0 mm/Hg Hgb O2 Saturation 96.0 (95.0-98.0) % Vent Mode A/c Mechanical Rate 10 FiO2 40.0 % Tidal Volume 400 PEEP 5 Sodium 132 (132-148) mmol/l Potassium 3.4 L (3.6-5.0) MMOL/L Chloride 93 L (98-107) mmol/L Carbon Dioxide 32 H (22-30) mmol/L Anion Gap 10 (10-20) BUN 12 (7-17) mg/dl Creatinine 0.4 L (0.7-1.2) mg/dL Est GFR ( Amer) > 60 Est GFR (Non-Af Amer) > 60 POC Glucose (mg/dL) (65-110) mg/dL Random Glucose 157 H (65-105) mg/dL Calcium 7.7 L (8.4-10.2) mg/dL 05/19/17 05/18/17 05/18/17 Range/Units 03:51 21:38 16:48 WBC (4.8-10.8) K/uL RBC (3.80-5.20) Mil/uL Hgb (12.0-16.0) g/dL Hct (34.0-47.0) % MCV (81.0-99.0) fl MCH (27.0-31.0) pg MCHC (33.0-37.0) g/dL RDW (11.5-14.5) % Plt Count (130-400) K/uL pCO2 (35-45) mm/Hg pO2 (80-100) mm/Hg HCO3 (21-28) mmol/L ABG pH (7.35-7.45) ABG Total CO2 (22-28) mmol/L ABG O2 Saturation (95-98) % ABG O2 Content (15-23) ML/dL ABG Base Excess (-2.0-3.0) mmol/L ABG Hemoglobin (11.7-17.4) g/dL ABG Carboxyhemoglobin (0.5-1.5) % POC ABG HHb (Measured) (0.0-5.0) % ABG Methemoglobin (0.0-3.0) % ABG O2 Capacity (16-24) mL/dL Valdemar Test A-a O2 Difference mm/Hg Hgb O2 Saturation (95.0-98.0) % Vent Mode Mechanical Rate FiO2 % Tidal Volume PEEP Sodium (132-148) mmol/l Potassium (3.6-5.0) MMOL/L Chloride (98-107) mmol/L Carbon Dioxide (22-30) mmol/L Anion Gap (10-20) BUN (7-17) mg/dl Creatinine (0.7-1.2) mg/dL Est GFR ( Amer) Est GFR (Non-Af Amer) POC Glucose (mg/dL) 198 H 153 H 174 H (65-110) mg/dL Random Glucose (65-105) mg/dL Calcium (8.4-10.2) mg/dL 05/18/17 Range/Units 12:47 WBC (4.8-10.8) K/uL RBC (3.80-5.20) Mil/uL Hgb (12.0-16.0) g/dL Hct (34.0-47.0) % MCV (81.0-99.0) fl MCH (27.0-31.0) pg MCHC (33.0-37.0) g/dL RDW (11.5-14.5) % Plt Count (130-400) K/uL pCO2 (35-45) mm/Hg pO2 (80-100) mm/Hg HCO3 (21-28) mmol/L ABG pH (7.35-7.45) ABG Total CO2 (22-28) mmol/L ABG O2 Saturation (95-98) % ABG O2 Content (15-23) ML/dL ABG Base Excess (-2.0-3.0) mmol/L ABG Hemoglobin (11.7-17.4) g/dL ABG Carboxyhemoglobin (0.5-1.5) % POC ABG HHb (Measured) (0.0-5.0) % ABG Methemoglobin (0.0-3.0) % ABG O2 Capacity (16-24) mL/dL Valdemar Test A-a O2 Difference mm/Hg Hgb O2 Saturation (95.0-98.0) % Vent Mode Mechanical Rate FiO2 % Tidal Volume PEEP Sodium (132-148) mmol/l Potassium (3.6-5.0) MMOL/L Chloride (98-107) mmol/L Carbon Dioxide (22-30) mmol/L Anion Gap (10-20) BUN (7-17) mg/dl Creatinine (0.7-1.2) mg/dL Est GFR ( Amer) Est GFR (Non-Af Amer) POC Glucose (mg/dL) 151 H (65-110) mg/dL Random Glucose (65-105) mg/dL Calcium (8.4-10.2) mg/dL Laboratory Results - last 24 hr 05/18/17 05/18/17 05/18/17 12:47 16:48 21:38 WBC RBC Hgb Hct MCV MCH MCHC RDW Plt Count pCO2 pO2 HCO3 ABG pH ABG Total CO2 ABG O2 Saturation ABG O2 Content ABG Base Excess ABG Hemoglobin ABG Carboxyhemoglobin POC ABG HHb (Measured) ABG Methemoglobin ABG O2 Capacity Valdemar Test A-a O2 Difference Hgb O2 Saturation Vent Mode Mechanical Rate FiO2 Tidal Volume PEEP Sodium Potassium Chloride Carbon Dioxide Anion Gap BUN Creatinine Est GFR ( Amer) Est GFR (Non-Af Amer) POC Glucose (mg/dL) 151 H 174 H 153 H Random Glucose Calcium 05/19/17 05/19/17 05/19/17 03:51 04:20 04:20 WBC 8.0 RBC 3.74 L Hgb 11.4 L Hct 34.2 MCV 91.5 MCH 30.5 MCHC 33.3 RDW 13.3 Plt Count 95 L pCO2 pO2 HCO3 ABG pH ABG Total CO2 ABG O2 Saturation ABG O2 Content ABG Base Excess ABG Hemoglobin ABG Carboxyhemoglobin POC ABG HHb (Measured) ABG Methemoglobin ABG O2 Capacity Valdemar Test A-a O2 Difference Hgb O2 Saturation Vent Mode Mechanical Rate FiO2 Tidal Volume PEEP Sodium 132 Potassium 3.4 L Chloride 93 L Carbon Dioxide 32 H Anion Gap 10 BUN 12 Creatinine 0.4 L Est GFR ( Amer) > 60 Est GFR (Non-Af Amer) > 60 POC Glucose (mg/dL) 198 H Random Glucose 157 H Calcium 7.7 L 05/19/17 05:01 WBC RBC Hgb Hct MCV MCH MCHC RDW Plt Count pCO2 48 H pO2 111 H HCO3 32.6 H ABG pH 7.47 H ABG Total CO2 36.4 H ABG O2 Saturation 99.0 H ABG O2 Content 15.7 ABG Base Excess 9.9 H ABG Hemoglobin 11.5 L ABG Carboxyhemoglobin 1.4 POC ABG HHb (Measured) 1.0 ABG Methemoglobin 1.6 ABG O2 Capacity 15.9 L Valdemar Test Yes A-a O2 Difference 114.0 Hgb O2 Saturation 96.0 Vent Mode A/c Mechanical Rate 10 FiO2 40.0 Tidal Volume 400 PEEP 5 Sodium Potassium Chloride Carbon Dioxide Anion Gap BUN Creatinine Est GFR ( Amer) Est GFR (Non-Af Amer) POC Glucose (mg/dL) Random Glucose Calcium Fingerstick Blood Sugar Results: 198
[2017-05-19 11:20] LABS: ABG ALLEN TEST YES; ARTERIAL BLOOD GAS O2 CAPACITY 17.1 mL/dL (16-24); ARTERIAL BLOOD GAS O2 CONTENT 16.4 ML/dL (15-23); ARTERIAL BLOOD GAS PH 7.21 (7.35-7.45); ARTERIAL BLOOD GAS PO2 68 mm/Hg (80-100); CARBOXYHEMOGLOBIN 2.1 % (0.5-1.5); HHB 3.8 % (0.0-5.0); METHEMOGLOBIN 1.1 % (0.0-3.0)
--- NOTE | 2017-05-19 11:21 | CP.PCM.PN ---
Subjective - Date & Time of Evaluation Date of Evaluation: 05/19/17 Time of Evaluation: 10:00 - Subjective Subjective: Patient seen and examined. She was extubated this morning. Still quite lethargic but able to follow directions. Arousable to verbal stimuli. No overnight events as per nursing staff. Objective - Vital Signs/Intake and Output Vital Signs (last 24 hours): Temp Pulse Resp BP Pulse Ox 99.2 F 128 H 29 H 101/65 98 05/19/17 08:00 05/19/17 10:00 05/19/17 10:00 05/19/17 10:00 05/19/17 10:00 Intake and Output: 05/19/17 05/19/17 06:59 18:59 Intake Total 1120 345 Output Total 800 Balance 320 345 - Medications Medications: Current Medications Acetaminophen (Tylenol 650mg/20.3ml Solution Ud) 650 mg PO Q6 PRN PRN Reason: Temperature Last Admin: 05/17/17 17:11 Dose: 650 mg Atorvastatin Calcium (Lipitor) 20 mg PO DAILY [facility] Last Admin: 05/19/17 08:39 Dose: 20 mg Carvedilol (Coreg) 25 mg PO Q12 [facility] Last Admin: 05/19/17 08:38 Dose: 25 mg Piperacillin Sod/Tazobactam (Sod 3.375 gm/ Sodium Chloride) 100 mls @ 100 mls/ hr IVPB Q6 [facility] PRN Reason: Protocol Last Admin: 05/19/17 09:21 Dose: 100 mls/hr Sodium Chloride (Sodium Chloride 0.9%) 1,000 mls @ 75 mls/hr IV .[id number] [facility] Stop: 05/19/17 11:34 Last Admin: 05/19/17 08:42 Dose: 75 mls/hr Pantoprazole Sodium (Protonix Inj) 40 mg IVP DAILY [facility] Last Admin: 05/19/17 08:39 Dose: 40 mg Polyethylene Glycol (Miralax) 17 gm PO BID [facility] Last Admin: 05/19/17 09:21 Dose: Not Given Rivaroxaban (Xarelto) 15 mg PO DAILY [facility] PRN Reason: Protocol Last Admin: 05/19/17 08:39 Dose: 15 mg - Labs Labs: 05/19/17 04:20 05/19/17 04:20 - Additional Findings Additional findings: Physical exam: Constitutional- extubated today, still lethargic, opens eyes to tactile stimuli Head- NCAT, PERRL Eye- PERRL, normal accommodation ENT- normal exam, MMM. Neck- normal inspection, supple, no JVD Respiratory- CTAB, no wheezes rales rhonchi Cardiovascular- irregular rate and rhythm, tachycardia +S1, +S2 no MRG GI/Abdominal- normal bowel sounds, soft, no mass, no hsm Skin- warm, dry Extremities Exam- normal capillary refill, normal inspection Neurological Exam- unable to be fully assessed. Psych- normal mood, normal affect Assessment and Plan - Assessment and Plan (Free Text) Plan: ASSESSMENT 76 y/o lady with hx of A Fib, DM, HTN, Chronic Constipation, came in bec of abd pain and constipation. CT of abd done on prior ER visit showed constipation. On lab exam, pt was noted to have a Sodium of 117. Pt noted to be drowsy and Na persistently low despite IVF NS - Nephrology consulted- rec to start 3% Sodium. Pt transferred to ICU for close supervision. Overnight , pt noted to have worsening lethargy. ABG done showed severe hypercapnea- she was then intubated. This morning the patient was extubated. Her sodium is now within normal range. Still quite lethargic today. 1. Acute Hypercapneic Respiratory Failure Pt was intubated, on Mech Vent PCO2 48 today CXR : no infiltrate Pulm consult (2)Hyponatremia likely hypovolemic sec to diuretics and also poss from decrease solute intake Status: Acute will also need to r/o SIADH - Serum Osm low - Nephrology consulted - Dr Vaca, patient was previously given 3% saline as per discussion with nephrology until serum sodium came up to 121; now on normal saline at 75 cc/hour. Sodium continuing to improve; 117 -> 124 -> 129. (3) Abdominal pain sec to Constipation Status: Acute abdominal obstructive series: dilated loops of bowel GI consult with Dr Butt- signed off at this time Laxatives- miralax daily, water enemas. (4) Chronic atrial fibrillation rate controlled. Pt on Xarelto 15mg PO daily and Coreg (5) DM II (diabetes mellitus, type II), controlled BS relatively controlled. Hold Glipizide as pt is NPO accucheck (6) HTN (hypertension) cont Coreg (7) Hyperlipidemia Atorvastatin 20mg PO HS (8) Hypocalcemia replaced with Calcium Gluc DVT prophylaxis Comment: on Xarelto
--- NOTE | 2017-05-19 12:02 | RAD ---
HISTORY: Ventilator patient. COMPARISON: May 18, 2017. FINDINGS: LUNGS: Evolving consolidative changes right lower lobe. PLEURA: No significant pleural effusion identified, no pneumothorax apparent. CARDIOVASCULAR: Cardiomegaly. No evidence of acute, significant cardiovascular disease. OSSEOUS STRUCTURES: No significant abnormalities. VISUALIZED UPPER ABDOMEN: Normal. OTHER FINDINGS: Stable position of endotracheal tube. IMPRESSION: Progressive consolidative change right lower lobe. Satisfactory position of endotracheal tube.
[2017-05-19] MEDS ORDERED: methylPREDNISolone 125 MG in Sodium Chloride 0.9% 50 ML IVPB ONE (14:44)
[2017-05-19] MEDS: Albuterol-Ipratrop 3 mg / 0.5 (3 ml) UD INH SCH ×2 (15:38→19:32)
[2017-05-19] MEDS: MethylPREDNISolone 40 mg Vial IVP SCH (16:36)
[2017-05-19] MEDS ORDERED: methylPREDNISolone 40 MG in Sodium Chloride 0.9% 50 ML IVPB SCH (17:00)
[2017-05-19] MEDS ORDERED: Digoxin 500 mcg/2ml (0.5 mg/2ml) Inj IVP STA (20:31)
[2017-05-19] MEDS: Potassium Chl 20 mEq in NS 1,000 ML IV SCH (20:54)
[2017-05-20] MEDS: MethylPREDNISolone 40 mg Vial IVP SCH ×3 (00:39→17:27)
[2017-05-20] MEDS ORDERED: Digoxin 500 mcg/2ml (0.5 mg/2ml) Inj IVP ONE ×2 (02:00→10:29)
[2017-05-20] MEDS: Piperacillin/Tazobact 3.375 GM in Sodium Chloride 0.9% 100 ML IVPB SCH ×4 (03:21→21:00)
[2017-05-20 05:24] LABS: HEMATOCRIT 38.7 % (34.0-47.0); MEAN CELL VOLUME 93.1 fl (81.0-99.0); MEAN CORPUSCULAR HEMOGLOBIN 29.8 pg (27.0-31.0); RED CELL DISTRIBUTION WIDTH 13.4 % (11.5-14.5); WHITE BLOOD COUNT 4.7 K/uL (4.8-10.8)
[2017-05-20 05:27] LABS: ALB/GLOB RATIO 1.4 (1.0-2.1); ALKALINE PHOSPHATASE 49 U/L (38-126); ALT/SGPT 54 U/L (9-52); AST/SGOT 25 U/L (14-36); BILIRUBIN,TOTAL 1.2 mg/dl (0.2-1.3); BLOOD UREA NITROGEN 15 mg/dl (7-17); CALCIUM 7.3 mg/dL (8.4-10.2); CARBON DIOXIDE 31 mmol/L (22-30); CHLORIDE 95 mmol/L (98-107); GFR AFRICAN-AMERICAN > 60; GLUCOSE,RANDOM 145 mg/dL (65-105); POTASSIUM 4.1 MMOL/L (3.6-5.0); SODIUM 138 mmol/l (132-148); TOTAL PROTEIN 5.6 G/DL (6.3-8.2)
[2017-05-20 05:40] LABS: ABG ALLEN TEST YES; ABG MECHANICAL RATE 14; ARTERIAL BLOOD GAS HCO3 28.8 mmol/L (21-28); ARTERIAL BLOOD GAS O2 CAPACITY 17.5 mL/dL (16-24); ARTERIAL BLOOD GAS O2 CONTENT 17.3 ML/dL (15-23); ARTERIAL BLOOD GAS PH 7.33 (7.35-7.45); ARTERIAL BLOOD GAS PO2 87 mm/Hg (80-100); ARTERIAL BLOOD HGB O2 SAT 95.5 % (95.0-98.0); CARBOXYHEMOGLOBIN 2.2 % (0.5-1.5); HHB 0.9 % (0.0-5.0); METHEMOGLOBIN 1.3 % (0.0-3.0)
[2017-05-20 05:55] LABS: THYROID STIMULATING HORMONE 0.04 mIU/ML (0.46-4.68)
[2017-05-20] MEDS: Albuterol-Ipratrop 3 mg / 0.5 (3 ml) UD INH SCH ×4 (08:17→20:24)
[2017-05-20] MEDS: POLYETHYLENE GLYCOL 3350 17 GM/Dose PACKET PO SCH ×2 (08:44→17:27)
--- NOTE | 2017-05-20 09:21 | CP.PCM.PN ---
Subjective - Date & Time of Evaluation Date of Evaluation: 05/20/17 Time of Evaluation: 09:00 - Subjective Subjective: No fever pt had episode of RVR last night -received IV Digoxin Extubated and now on Bipap PC02 went up post extubation thus the Bipap pt is awake , oriented to person tolerated PO diet this breaklfast denies CP Objective - Vital Signs/Intake and Output Vital Signs (last 24 hours): Temp Pulse Resp BP Pulse Ox 98.9 F 123 H 32 H 130/77 100 05/20/17 08:00 05/20/17 08:42 05/20/17 08:00 05/20/17 08:42 05/20/17 08:00 Intake and Output: 05/20/17 05/20/17 06:59 18:59 Intake Total 1065 200 Output Total 500 Balance 565 200 - Medications Medications: Current Medications Acetaminophen (Tylenol 650mg/20.3ml Solution Ud) 650 mg PO Q6 PRN PRN Reason: Temperature Last Admin: 05/17/17 17:11 Dose: 650 mg Albuterol/Ipratropium (Duoneb 3 Mg/0.5 Mg (3 Ml) Ud) 3 ml INH RQID [facility] Last Admin: 05/20/17 08:17 Dose: 3 ml Atorvastatin Calcium (Lipitor) 20 mg PO DAILY [facility] Last Admin: 05/20/17 08:42 Dose: 20 mg Carvedilol (Coreg) 25 mg PO Q12 [facility] Last Admin: 05/20/17 08:42 Dose: 25 mg Piperacillin Sod/Tazobactam (Sod 3.375 gm/ Sodium Chloride) 100 mls @ 100 mls/ hr IVPB Q6 [facility] PRN Reason: Protocol Last Admin: 05/20/17 03:21 Dose: 100 mls/hr Potassium Chloride/Sodium Chloride (Potassium Chl 20 Meq In Ns) 1,000 mls @ 100 mls/hr IV .Q10H [facility] Last Admin: 05/19/17 20:54 Dose: 100 mls/hr Methylprednisolone (Solu-Medrol) 40 mg IVP Q8 [facility] Last Admin: 05/20/17 08:41 Dose: 40 mg Pantoprazole Sodium (Protonix Inj) 40 mg IVP DAILY [facility] Last Admin: 05/20/17 08:41 Dose: 40 mg Polyethylene Glycol (Miralax) 17 gm PO BID [facility] Last Admin: 05/20/17 08:44 Dose: 17 gm Rivaroxaban (Xarelto) 15 mg PO DAILY [facility] PRN Reason: Protocol Last Admin: 05/20/17 08:45 Dose: 15 mg - Labs Labs: 05/20/17 04:30 05/20/17 04:30 - Constitutional Appears: Toxic, Older Than Stated Age, Chronically Ill, Other (extubated on Bipap) - Head Exam Head Exam: NORMOCEPHALIC - Eye Exam Eye Exam: Normal appearance Pupil Exam: NORMAL ACCOMODATION - ENT Exam ENT Exam: Mucous Membranes Dry, Normal External Ear Exam - Neck Exam Neck Exam: Full ROM. absent: Meningismus - Respiratory Exam Respiratory Exam: Rales, Rhonchi, NORMAL BREATHING PATTERN. absent: Wheezes, Respiratory Distress - Cardiovascular Exam Cardiovascular Exam: Tachycardia, Irregular Rhythm, +S1, +S2 - GI/Abdominal Exam GI & Abdominal Exam: Soft, Normal Bowel Sounds. absent: Tenderness - Extremities Exam Extremities Exam: Normal Capillary Refill, Pedal Edema. absent: Calf Tenderness Additional comments: moves all extremities - Neurological Exam Neurological Exam: Alert, Awake Additional comments: oriented to person moves all extremities - Psychiatric Exam Psychiatric exam: Flat Affect - Skin Skin Exam: Dry, Pallor, Warm Assessment and Plan - Assessment and Plan (Free Text) Assessment: 76 y/o lady with hx of A Fib, DM, HTN, Chronic Constipation, came in bec of abd pain and constipation. CT of abd done on prior ER visit showed constipation. On lab exam, pt was noted to have a Sodium of 117. Pt noted to be drowsy and Na persistently low despite IVF NS - Nephrology consulted- rec to start 3% Sodium. Pt transferred to ICU for close supervision. Pt noted to have worsening lethargy. ABG done showed severe hypercapnea- she was then intubated. The patient was extubatedyesterday . Her sodium is now within normal range. Post extubation PCo2 again went up - pt placed on Bipap 1. Acute Hypercapneic Respiratory Failure Pt was intubated, extubated yesterday then placed on Bipap bec pCo2 went up to 94 CXR : no infiltrate Pulm consult- Dr Joseph CT of chest unclear etiology for hypercapnea - need further work up - CT of head , CT of chest started on IV Solumedrol and Duonebs (2)Hyponatremia likely hypovolemic sec to diuretics and also poss from decrease solute intake Status: Acute will also need to r/o SIADH - Serum Osm low - Nephrology consulted - Dr Vaca, patient was previously given 3% saline as per discussion with nephrology until serum sodium came up to 121; now on normal saline at 75 cc/hour. Sodium now normal (3) Abdominal pain sec to Constipation Status: Acute abdominal obstructive series: dilated loops of bowel GI consult with Dr Butt- signed off at this time Laxatives- miralax daily, water enemas. (4) Chronic atrial fibrillation had episode of RVR last night - Digoxin IV given Pt on Xarelto 15mg PO daily cont Coreg (5) DM II (diabetes mellitus, type II), controlled BS relatively controlled. accucheck (6) HTN (hypertension) cont Coreg (7) Hyperlipidemia Atorvastatin 20mg PO HS (8) Hypocalcemia replaced with Calcium Gluc DVT prophylaxis on Xarelto
--- NOTE | 2017-05-20 09:46 | CP.PCM.PN ---
Subjective - Date & Time of Evaluation Date of Evaluation: 05/20/17 Time of Evaluation: 09:43 - Subjective Subjective: Patient sitting up in bed. Extubated. Vital sign noted to be okay. Physical exam Chest few rhonchi Heart no rubs Abdomen soft Extremity no edema Lab reviewed Serum sodium corrected. Hyponatremia corrected. Hypochloremia almost corrected serum chloride 95. Kidney function okay. We will follow-up as needed thank you. Objective - Vital Signs/Intake and Output Vital Signs (last 24 hours): Temp Pulse Resp BP Pulse Ox 98.9 F 123 H 32 H 130/77 100 05/20/17 08:00 05/20/17 08:42 05/20/17 08:00 05/20/17 08:42 05/20/17 08:00 Intake and Output: 05/20/17 05/20/17 06:59 18:59 Intake Total 1065 200 Output Total 500 Balance 565 200 - Medications Medications: Current Medications Acetaminophen (Tylenol 650mg/20.3ml Solution Ud) 650 mg PO Q6 PRN PRN Reason: Temperature Last Admin: 05/17/17 17:11 Dose: 650 mg Albuterol/Ipratropium (Duoneb 3 Mg/0.5 Mg (3 Ml) Ud) 3 ml INH RQID [facility] Last Admin: 05/20/17 08:17 Dose: 3 ml Atorvastatin Calcium (Lipitor) 20 mg PO DAILY [facility] Last Admin: 05/20/17 08:42 Dose: 20 mg Carvedilol (Coreg) 25 mg PO Q12 [facility] Last Admin: 05/20/17 08:42 Dose: 25 mg Piperacillin Sod/Tazobactam (Sod 3.375 gm/ Sodium Chloride) 100 mls @ 100 mls/ hr IVPB Q6 [facility] PRN Reason: Protocol Last Admin: 05/20/17 09:24 Dose: 100 mls/hr Potassium Chloride/Sodium Chloride (Potassium Chl 20 Meq In Ns) 1,000 mls @ 100 mls/hr IV .Q10H [facility] Last Admin: 05/19/17 20:54 Dose: 100 mls/hr Methylprednisolone (Solu-Medrol) 40 mg IVP Q8 [facility] Last Admin: 05/20/17 08:41 Dose: 40 mg Pantoprazole Sodium (Protonix Inj) 40 mg IVP DAILY [facility] Last Admin: 05/20/17 08:41 Dose: 40 mg Polyethylene Glycol (Miralax) 17 gm PO BID [facility] Last Admin: 05/20/17 08:44 Dose: 17 gm Rivaroxaban (Xarelto) 15 mg PO DAILY [facility] PRN Reason: Protocol Last Admin: 05/20/17 08:45 Dose: 15 mg - Labs Labs: 05/20/17 04:30 05/20/17 04:30 Assessment and Plan (1) Abdominal pain Status: Acute (2) Chronic atrial fibrillation Status: Acute (3) Hyponatremia Status: Acute
--- NOTE | 2017-05-20 10:27 | CP.CCUPN ---
CCU Subjective - Physician Review Subjective (Free Text): On BiPAP overnight, was able to generate 400ml TV levels on 27/04 at 40% oxygen , tolerated reprieve off BiPAP now, on 4 LPM, and is awake, eating breakfast and appropriately responsive, speaking simple Congolese. Remains in rapid A Fib with HR 129, denies any CP, SOB, dizziness, palpitations, nausea, visual changes or focal weakness. Other vitals and I/O's reviewed. In rapid A afib now at 129-133 / min. BP stable at 135 systolic. ROS: No other pertinent negs or positives on 10+ system review. PMSFH: All Nursing and physician documentation reviewed to date; no new pertinent info noted relevant to current medical problems. MAJOR PROBLEMS: 1. Acute Hypercapneic Resp Failure , s/p extubation 2. Hyponatremia: unclear hydrational (Euvolemic versus Hypovolemic) status at the time of admission. 3. Partial Bowel Obstruction / Ileus; with distended small bowel and large bowel loops assoc with h/o constipation 4. r/o Ischemic Bowel disease with h/o Chronic A fib PLAN: 1. More Digoxin for VR control. 2. Nasal cannula as long as tolerated. 3. For pending CT imaging studies. 4. Continue Duonebs and steroids, could start tapering tomorrow. 5. Awaiting on TFT results. CCU Objective - Vital Signs / Intake & Output Vital Signs (Last 4 hours): Vital Signs Temp Pulse Resp BP Pulse Ox 05/20/17 08:42 123 H 130/77 05/20/17 08:00 98.9 F 136 H 32 H 130/77 100 Intake and Output (Last 8hrs): Intake & Output 05/19/17 05/20/17 05/20/17 22:59 06:59 14:59 Intake Total 585 815 200 Output Total 550 500 Balance 35 315 200 Weight 155 lb 8 oz Intake: IV 375 700 200 Intake, Piggyback 200 100 Oral 10 15 Output: Urine 550 500 Urethral (Watson) 550 500 Other: # Bowel Movements 1 1 - Physical Exam Pupils: Positive for: PERRL Extroacular Muscles: Positive for: EOMI Conjunctiva: Positive for: Normal. Negative for: Icteric Mouth: Positive for: Moist Mucous Membranes Neck: Positive for: JVD. Negative for: Meningeal Signs Respiratory/Chest: Positive for: Clear to Auscultation. Negative for: Accessory Muscle Use, Wheezes Cardiovascular: Positive for: Regular Rate and Rhythm. Negative for: Murmurs, Tachycardic, Rub Abdomen: Positive for: Normal Bowel Sounds. Negative for: Tenderness, Distention, Mass/Organomegaly Lower Extremity: Positive for: NORMAL PULSES. Negative for: Edema, CALF TENDERNESS, Cyanosis Skin: Positive for: Warm, Dry. Negative for: Rashes Psychiatric: Positive for: Other (sedated but opens eyes to tactile stimuli.) - Medications Active Medications: Active Medications Generic Name Dose Route Start Last Admin Trade Name Freq PRN Reason Stop Dose Admin Acetaminophen 650 mg 05/17/17 16:45 05/17/17 17:11 Tylenol 650mg/20.3ml Solution Ud PO 650 mg Q6 PRN Administration Temperature Albuterol/Ipratropium 3 ml 05/19/17 16:00 05/20/17 08:17 Duoneb 3 Mg/0.5 Mg (3 Ml) Ud INH 3 ml RQID GLADYS Administration Atorvastatin Calcium 20 mg 05/15/17 13:15 05/20/17 08:42 Lipitor PO 20 mg DAILY GLADYS Administration Carvedilol 25 mg 05/15/17 21:00 05/20/17 08:42 Coreg PO 25 mg Q12 GLADYS Administration Piperacillin Sod/Tazobactam 100 mls @ 100 mls/hr 05/18/17 17:45 05/20/17 09: 24 Sod 3.375 gm/ Sodium Chloride IVPB 100 mls/hr Q6 GLADYS Administration Protocol Potassium Chloride/Sodium Chloride 1,000 mls @ 100 mls/hr 05/19/17 19:30 03/27 20:54 Potassium Chl 20 Meq In Ns IV 100 mls/hr .Q10H GLADYS Administration Methylprednisolone 40 mg 05/19/17 17:00 05/20/17 08:41 Solu-Medrol IVP 40 mg Q8 GLADYS Administration Pantoprazole Sodium 40 mg 05/17/17 10:45 05/20/17 08:41 Protonix Inj IVP 40 mg DAILY GLADYS Administration Polyethylene Glycol 17 gm 05/16/17 17:00 05/20/17 08:44 Miralax PO 17 gm BID GLADYS Administration Rivaroxaban 15 mg 05/15/17 13:15 05/20/17 08:45 Xarelto PO 15 mg DAILY GLADYS Administration Protocol - Patient Studies Lab Studies: Microbiology Studies 05/18/17 08:15 Blood Culture - Preliminary Blood-Venous NO GROWTH AFTER 48 HOURS 05/18/17 08:00 Blood Culture - Preliminary Blood-Venous NO GROWTH AFTER 48 HOURS 05/18/17 13:17 Gram Stain - Final Trachasp Lab Studies 05/20/17 05/20/17 05/20/17 Range/Units 05:31 04:35 04:30 WBC 4.7 L (4.8-10.8) K/uL RBC 4.16 (3.80-5.20) Mil/uL Hgb 12.4 (12.0-16.0) g/dL Hct 38.7 (34.0-47.0) % MCV 93.1 (81.0-99.0) fl MCH 29.8 (27.0-31.0) pg MCHC 32.0 L (33.0-37.0) g/dL RDW 13.4 (11.5-14.5) % Plt Count 96 L (130-400) K/uL pCO2 62 H (35-45) mm/Hg pO2 87 (80-100) mm/Hg HCO3 28.8 H (21-28) mmol/L ABG pH 7.33 L (7.35-7.45) ABG Total CO2 34.6 H (22-28) mmol/L ABG O2 Saturation 99.1 H (95-98) % ABG O2 Content 17.3 (15-23) ML/dL ABG Base Excess 5.0 H (-2.0-3.0) mmol/L ABG Hemoglobin 12.8 (11.7-17.4) g/dL ABG Carboxyhemoglobin 2.2 H (0.5-1.5) % POC ABG HHb (Measured) 0.9 (0.0-5.0) % ABG Methemoglobin 1.3 (0.0-3.0) % ABG O2 Capacity 17.5 (16-24) mL/dL Valdemar Test Yes A-a O2 Difference 121.0 mm/Hg Hgb O2 Saturation 95.5 (95.0-98.0) % Mechanical Rate 14 FiO2 40.0 % Inspiratory BiPAP 18 Expiratory BiPAP 10 Crit Value Called To Crit Value Called By Crit Value Read Back Blood Gas Notified Time Sodium (132-148) mmol/l Potassium (3.6-5.0) MMOL/L Chloride (98-107) mmol/L Carbon Dioxide (22-30) mmol/L Anion Gap (10-20) BUN (7-17) mg/dl Creatinine (0.7-1.2) mg/dL Est GFR ( Amer) Est GFR (Non-Af Amer) POC Glucose (mg/dL) 137 H (65-110) mg/dL Random Glucose (65-105) mg/dL Calcium (8.4-10.2) mg/dL Total Bilirubin (0.2-1.3) mg/dl AST (14-36) U/L ALT (9-52) U/L Alkaline Phosphatase (38-126) U/L Total Protein (6.3-8.2) G/DL Albumin (3.5-5.0) g/dL Globulin (2.2-3.9) gm/dL Albumin/Globulin Ratio (1.0-2.1) Free T4 (0.78-2.19) ng/dL TSH 3rd Generation (0.46-4.68) mIU/ML 05/20/17 05/20/17 05/19/17 Range/Units 04:30 04:30 21:44 WBC (4.8-10.8) K/uL RBC (3.80-5.20) Mil/uL Hgb (12.0-16.0) g/dL Hct (34.0-47.0) % MCV (81.0-99.0) fl MCH (27.0-31.0) pg MCHC (33.0-37.0) g/dL RDW (11.5-14.5) % Plt Count (130-400) K/uL pCO2 (35-45) mm/Hg pO2 (80-100) mm/Hg HCO3 (21-28) mmol/L ABG pH (7.35-7.45) ABG Total CO2 (22-28) mmol/L ABG O2 Saturation (95-98) % ABG O2 Content (15-23) ML/dL ABG Base Excess (-2.0-3.0) mmol/L ABG Hemoglobin (11.7-17.4) g/dL ABG Carboxyhemoglobin (0.5-1.5) % POC ABG HHb (Measured) (0.0-5.0) % ABG Methemoglobin (0.0-3.0) % ABG O2 Capacity (16-24) mL/dL Valdemar Test A-a O2 Difference mm/Hg Hgb O2 Saturation (95.0-98.0) % Mechanical Rate FiO2 % Inspiratory BiPAP Expiratory BiPAP Crit Value Called To Crit Value Called By Crit Value Read Back Blood Gas Notified Time Sodium 138 (132-148) mmol/l Potassium 4.1 (3.6-5.0) MMOL/L Chloride 95 L (98-107) mmol/L Carbon Dioxide 31 H (22-30) mmol/L Anion Gap 16 (10-20) BUN 15 (7-17) mg/dl Creatinine 0.4 L (0.7-1.2) mg/dL Est GFR ( Amer) > 60 Est GFR (Non-Af Amer) > 60 POC Glucose (mg/dL) 154 H (65-110) mg/dL Random Glucose 145 H (65-105) mg/dL Calcium 7.3 L (8.4-10.2) mg/dL Total Bilirubin 1.2 (0.2-1.3) mg/dl AST 25 (14-36) U/L ALT 54 H (9-52) U/L Alkaline Phosphatase 49 (38-126) U/L Total Protein 5.6 L (6.3-8.2) G/DL Albumin 3.2 L D (3.5-5.0) g/dL Globulin 2.3 (2.2-3.9) gm/dL Albumin/Globulin Ratio 1.4 (1.0-2.1) Free T4 2.02 (0.78-2.19) ng/dL TSH 3rd Generation 0.04 L (0.46-4.68) mIU/ML 05/19/17 05/19/17 05/19/17 Range/Units 17:04 11:19 10:57 WBC (4.8-10.8) K/uL RBC (3.80-5.20) Mil/uL Hgb (12.0-16.0) g/dL Hct (34.0-47.0) % MCV (81.0-99.0) fl MCH (27.0-31.0) pg MCHC (33.0-37.0) g/dL RDW (11.5-14.5) % Plt Count (130-400) K/uL pCO2 94 H* (35-45) mm/Hg pO2 68 L (80-100) mm/Hg HCO3 30.0 H (21-28) mmol/L ABG pH 7.21 L (7.35-7.45) ABG Total CO2 40.5 H (22-28) mmol/L ABG O2 Saturation 96.1 (95-98) % ABG O2 Content 16.4 (15-23) ML/dL ABG Base Excess 6.6 H (-2.0-3.0) mmol/L ABG Hemoglobin 12.5 (11.7-17.4) g/dL ABG Carboxyhemoglobin 2.1 H (0.5-1.5) % POC ABG HHb (Measured) 3.8 (0.0-5.0) % ABG Methemoglobin 1.1 (0.0-3.0) % ABG O2 Capacity 17.1 (16-24) mL/dL Valdemar Test Yes A-a O2 Difference 100.0 mm/Hg Hgb O2 Saturation 93.0 L (95.0-98.0) % Mechanical Rate FiO2 40.0 % Inspiratory BiPAP Expiratory BiPAP Crit Value Called To Home christianson Crit Value Called By 15 Crit Value Read Back Y Blood Gas Notified Time 1105 Sodium (132-148) mmol/l Potassium (3.6-5.0) MMOL/L Chloride (98-107) mmol/L Carbon Dioxide (22-30) mmol/L Anion Gap (10-20) BUN (7-17) mg/dl Creatinine (0.7-1.2) mg/dL Est GFR ( Amer) Est GFR (Non-Af Amer) POC Glucose (mg/dL) 119 H 199 H (65-110) mg/dL Random Glucose (65-105) mg/dL Calcium (8.4-10.2) mg/dL Total Bilirubin (0.2-1.3) mg/dl AST (14-36) U/L ALT (9-52) U/L Alkaline Phosphatase (38-126) U/L Total Protein (6.3-8.2) G/DL Albumin (3.5-5.0) g/dL Globulin (2.2-3.9) gm/dL Albumin/Globulin Ratio (1.0-2.1) Free T4 (0.78-2.19) ng/dL TSH 3rd Generation (0.46-4.68) mIU/ML Laboratory Results - last 24 hr 05/19/17 05/19/17 05/19/17 10:57 11:19 17:04 WBC RBC Hgb Hct MCV MCH MCHC RDW Plt Count pCO2 94 H* pO2 68 L HCO3 30.0 H ABG pH 7.21 L ABG Total CO2 40.5 H ABG O2 Saturation 96.1 ABG O2 Content 16.4 ABG Base Excess 6.6 H ABG Hemoglobin 12.5 ABG Carboxyhemoglobin 2.1 H POC ABG HHb (Measured) 3.8 ABG Methemoglobin 1.1 ABG O2 Capacity 17.1 Valdemar Test Yes A-a O2 Difference 100.0 Hgb O2 Saturation 93.0 L Mechanical Rate FiO2 40.0 Inspiratory BiPAP Expiratory BiPAP Crit Value Called To Home christianson Crit Value Called By 15 Crit Value Read Back Y Blood Gas Notified Time 1105 Sodium Potassium Chloride Carbon Dioxide Anion Gap BUN Creatinine Est GFR ( Amer) Est GFR (Non-Af Amer) POC Glucose (mg/dL) 199 H 119 H Random Glucose Calcium Total Bilirubin AST ALT Alkaline Phosphatase Total Protein Albumin Globulin Albumin/Globulin Ratio Free T4 TSH 3rd Generation 05/19/17 05/20/17 05/20/17 21:44 04:30 04:30 WBC RBC Hgb Hct MCV MCH MCHC RDW Plt Count pCO2 pO2 HCO3 ABG pH ABG Total CO2 ABG O2 Saturation ABG O2 Content ABG Base Excess ABG Hemoglobin ABG Carboxyhemoglobin POC ABG HHb (Measured) ABG Methemoglobin ABG O2 Capacity Valdemar Test A-a O2 Difference Hgb O2 Saturation Mechanical Rate FiO2 Inspiratory BiPAP Expiratory BiPAP Crit Value Called To Crit Value Called By Crit Value Read Back Blood Gas Notified Time Sodium 138 Potassium 4.1 Chloride 95 L Carbon Dioxide 31 H Anion Gap 16 BUN 15 Creatinine 0.4 L Est GFR ( Amer) > 60 Est GFR (Non-Af Amer) > 60 POC Glucose (mg/dL) 154 H Random Glucose 145 H Calcium 7.3 L Total Bilirubin 1.2 AST 25 ALT 54 H Alkaline Phosphatase 49 Total Protein 5.6 L Albumin 3.2 L D Globulin 2.3 Albumin/Globulin Ratio 1.4 Free T4 2.02 TSH 3rd Generation 0.04 L 05/20/17 05/20/17 05/20/17 04:30 04:35 05:31 WBC 4.7 L RBC 4.16 Hgb 12.4 Hct 38.7 MCV 93.1 MCH 29.8 MCHC 32.0 L RDW 13.4 Plt Count 96 L pCO2 62 H pO2 87 HCO3 28.8 H ABG pH 7.33 L ABG Total CO2 34.6 H ABG O2 Saturation 99.1 H ABG O2 Content 17.3 ABG Base Excess 5.0 H ABG Hemoglobin 12.8 ABG Carboxyhemoglobin 2.2 H POC ABG HHb (Measured) 0.9 ABG Methemoglobin 1.3 ABG O2 Capacity 17.5 Valdemar Test Yes A-a O2 Difference 121.0 Hgb O2 Saturation 95.5 Mechanical Rate 14 FiO2 40.0 Inspiratory BiPAP 18 Expiratory BiPAP 10 Crit Value Called To Crit Value Called By Crit Value Read Back Blood Gas Notified Time Sodium Potassium Chloride Carbon Dioxide Anion Gap BUN Creatinine Est GFR ( Amer) Est GFR (Non-Af Amer) POC Glucose (mg/dL) 137 H Random Glucose Calcium Total Bilirubin AST ALT Alkaline Phosphatase Total Protein Albumin Globulin Albumin/Globulin Ratio Free T4 TSH 3rd Generation Fingerstick Blood Sugar Results: 137 Review of Systems - Review of Systems All systems: reviewed and no additional remarkable complaints except (as above)
[2017-05-20 13:13] VITALS: PULSE 115
[2017-05-20] MEDS: Lactated Ringer's 1,000 ML IV SCH (14:00)
[2017-05-20] MEDS ORDERED: Sodium Chloride 0.9% 50 ML IV ONE (15:50)
[2017-05-20] MEDS ORDERED: Iodixanol 320 MG/ML 100 ML BOTTLE IV ONE (15:50)
--- NOTE | 2017-05-20 16:50 | CT ---
PROCEDURE: CT HEAD WITHOUT CONTRAST. HISTORY: increased lethargy r/o cva COMPARISON: None available. TECHNIQUE: Axial computed tomography images were obtained through the head/brain without intravenous contrast. Radiation dose: Total exam DLP = 1073.03 mGy-cm. This CT exam was performed using one or more of the following dose reduction techniques: Automated exposure control, adjustment of the mA and/or kV according to patient size, and/or use of iterative reconstruction technique. FINDINGS: HEMORRHAGE: No acute parenchymal, subarachnoid or extra-axial hemorrhage. BRAIN: Mild diffuse/confluent chronic white matter ischemic changes. Moderate -significant generalized volume loss. VENTRICLES: No obstructive hydrocephalus. CALVARIUM: There are no acute calvarial fractures. . PARANASAL SINUSES: Polypoid like area of opacification right chamber sphenoid sinus with scattered calcifications. Findings could represent sequela of chronic fungal infection. Clinical correlation recommended. . Minor mucosal thickening seen within a few ethmoid air cells extending superiorly into the frontal sinus MASTOID AIR CELLS: Unremarkable as visualized. No inflammatory changes. OTHER FINDINGS: There is evidence of exophthalmos. . IMPRESSION: No acute intracranial hemorrhage. Mild chronic white matter ischemic changes. Moderate -significant generalized volume loss. See above discussion for additional details and findings.
--- NOTE | 2017-05-20 17:33 | CT ---
PROCEDURE: CT Chest with contrast (Pulmonary Angiogram) HISTORY: r/o pe COMPARISON: None available. TECHNIQUE: Axial computed tomography images were obtained of the chest in the pulmonary arterial phase of enhancement. Coronal and sagittal reformatted images were created and reviewed. Intravenous contrast dose: 80 cc of Visipaque 320 contrast material Radiation dose: Total exam DLP = 364.83 mGy-cm. This CT exam was performed using one or more of the following dose reduction techniques: Automated exposure control, adjustment of the mA and/or kV according to patient size, and/or use of iterative reconstruction technique. FINDINGS: PULMONARY ARTERIES: The visualized portions of the pulmonary trunk, right and left main, lobar, segmental and proximal subsegmental branches of the pulmonary arteries are well opacified with no definitive filling defects seen to suggest acute pulmonary embolus. . Pulmonary trunk measures approximately 3.0 cm. . There appears to be a small amount of oral reflux of contrast material into the IVC and hepatic veins; rule out right heart strain. The the AORTA: No evidence of thoracic aortic aneurysm. The ascending thoracic aorta measures approximately 3.155 cm and descending thoracic aorta measures approximately 2.6 cm. LUNGS: Bibasilar atelectatic and infiltrate changes with bilateral effusions right larger than left. PLEURAL SPACES: As above. No evidence of pneumothorax. HEART: Heart is enlarged with panchamber enlargement. . There appears be a small amount of fluid anterior to the ascending thoracic aorta and pulmonary trunk LYMPH NODES: No significant mediastinal or hilar adenopathy. . Central airways are midline and patent. Questionable mucous secretion at the level of the right aspect of the distal trachea/ posterior margin right mainstem bronchus. BONES, CHEST WALL: Chronic appearing anterior compression fractures of few lower thoracic segments with minor chronic anterior wedging of a few mid thoracic segments. Multilevel degenerative spondylosis of the thoracic spine. OTHER FINDINGS: Vague area low attenuation left lobe thyroid gland. Recommend followup thyroid ultrasound for further evaluation. There is a small amount of upper abdominal ascites most conspicuous in the perihepatic region IMPRESSION: No evidence of acute central pulmonary embolus. Marked cardiomegaly with morrell chamber enlargement. There appears to be some reflux into the hepatic veins and IVC; rule out right heart strain. Bilateral lower lobe consolidation changes likely representing atelectasis on no infiltrate not excluded. Bilateral effusions right larger than left. Small amount of of the upper abdominal ascites most conspicuous in the perihepatic region
--- NOTE | 2017-05-20 18:09 | CP.PCM.CON ---
History of Present Illness - History of Present Illness History of Present Illness: Pulmonary Consult for a 76 y/o F, with persistent Hypercapnic Respiratory Failure admitted to ICU [facility] [place] on 05/17/17 after found with low Sodium of 117, Pt was Tx with NS and Na increasing to 119 but after then back to 118. Pt developed respiratory failure not responding to BIPAP, was admitted to ICU intubated. On 05/19/17, Pt found hemodynamically stable and was extubated, now on NC 4 L/M. Pt admitted to hospital on 05/15/17 in Telemetry unit for severe abdominal pain and constipation that began for 2 weeks [employer] and also SOB x 3 days [employer]. On previous Hx, Pt was seen in the ER [facility] for chronic constipation on 05/10/17 , discharged with Rx Lactulose but Pt did not get the medication. Worsening symptom: Chronic A Fib , Hx of Bronchial Asthma. Aggravated factor: Unable to answer questions. CT Chest: Atelectasis , B/L effusion R>L, Review of Systems - Review of Systems Systems not reviewed;Unavailable: Acuity of Condition, Dementia Past Patient History - Tetanus Immunizations Tetanus Immunization: Unknown - Past Medical History & Family History Past Medical History?: Yes Pertinent Family History: Unknown. - Past Social History Smoking Status: Never Smoked Chewing Tobacco Use: No Cigar Use: No Alcohol: None Drugs: Denies Home Situation {Lives}: With Family - CARDIAC Hx Cardiac Disorders: Yes Hx Atrial Fibrillation: Yes Hx Hypercholesterolemia: Yes Hx Hypertension: Yes Hx Peripheral Vascular Disease: Yes - PULMONARY Hx Respiratory Disorders: Yes Hx Asthma: Yes Hx Pneumonia: Yes - NEUROLOGICAL Hx Neurological Disorder: No - HEENT Hx HEENT Problems: Yes Hx Cataracts: Yes (left eye) Hx Glaucoma: Yes - RENAL Hx Chronic Kidney Disease: No - ENDOCRINE/METABOLIC Hx Endocrine Disorders: Yes Hx Diabetes Mellitus Type 2: Yes - HEMATOLOGICAL/ONCOLOGICAL Hx Blood Disorders: Yes Hx Bruising: Yes (due to use of Xarelto) - INTEGUMENTARY Hx Dermatological Problems: No - MUSCULOSKELETAL/RHEUMATOLOGICAL Hx Musculoskeletal Disorders: Yes Hx Arthritis: Yes Hx Falls: No Hx Osteoporosis: Yes - GASTROINTESTINAL Hx Gastrointestinal Disorders: Yes Hx Gall Bladder Disease: Yes (s/p surgery) Hx Gastritis: Yes Other/Comment: umbilical hernia - GENITOURINARY/GYNECOLOGICAL Hx Genitourinary Disorders: No - PSYCHIATRIC Hx Substance Use: No - SURGICAL HISTORY Hx Surgeries: Yes Hx Cholecystectomy: Yes - ANESTHESIA Hx Anesthesia: Yes Hx Anesthesia Reactions: No Hx Malignant Hyperthermia: No Has any member of the family had a problem w/ anesthesia?: No Meds Allergies/Adverse Reactions: Allergies Allergy/AdvReac Type Severity Reaction Status Date / Time No Known Allergies Allergy Verified 05/15/17 12:50 - Medications Medications: Current Medications Acetaminophen (Tylenol 650mg/20.3ml Solution Ud) 650 mg PO Q6 PRN PRN Reason: Temperature Last Admin: 05/17/17 17:11 Dose: 650 mg Albuterol/Ipratropium (Duoneb 3 Mg/0.5 Mg (3 Ml) Ud) 3 ml INH RQID [facility] Last Admin: 05/20/17 15:27 Dose: 3 ml Atorvastatin Calcium (Lipitor) 20 mg PO DAILY [facility] Last Admin: 05/20/17 08:42 Dose: 20 mg Carvedilol (Coreg) 25 mg PO Q12 GLADYS Last Admin: 05/20/17 08:42 Dose: 25 mg Piperacillin Sod/Tazobactam (Sod 3.375 gm/ Sodium Chloride) 100 mls @ 100 mls/ hr IVPB Q6 GLADYS PRN Reason: Protocol Last Admin: 05/20/17 17:28 Dose: 100 mls/hr Potassium Chloride/Sodium Chloride (Potassium Chl 20 Meq In Ns) 1,000 mls @ 100 mls/hr IV .Q10H GLADYS Last Admin: 05/19/17 20:54 Dose: 100 mls/hr Lactated Ringer's (Lactated Ringer's) 1,000 mls @ 100 mls/hr IV .Q10H [facility] Last Admin: 05/20/17 14:00 Dose: 100 mls/hr Methylprednisolone (Solu-Medrol) 40 mg IVP Q8 GLADYS Last Admin: 05/20/17 17:27 Dose: 40 mg Pantoprazole Sodium (Protonix Inj) 40 mg IVP DAILY [facility] Last Admin: 05/20/17 08:41 Dose: 40 mg Polyethylene Glycol (Miralax) 17 gm PO BID [facility] Last Admin: 05/20/17 17:27 Dose: Not Given Rivaroxaban (Xarelto) 15 mg PO DAILY GLADYS PRN Reason: Protocol Last Admin: 05/20/17 08:45 Dose: 15 mg Physical Exam - Constitutional Appears: No Acute Distress - Head Exam Head Exam: NORMAL INSPECTION - Eye Exam Eye Exam: PERRL - ENT Exam ENT Exam: Normal Exam - Neck Exam Neck exam: Positive for: Normal Inspection - Respiratory Exam Respiratory Exam: Decreased Breath Sounds (at bases) - Cardiovascular Exam Cardiovascular Exam: Irregular Rhythm - GI/Abdominal Exam GI & Abdominal Exam: Normal Bowel Sounds, Soft - Extremities Exam Extremities exam: Positive for: pedal edema - Neurological Exam Additional comments: Confused, forgetful, follows commands, no focal motor sensory deficit. - Psychiatric Exam Additional comments: Calm - Skin Skin Exam: Warm Results - Vital Signs Recent Vital Signs: Last Vital Signs Temp 98.8 F 05/20/17 16:00 Pulse 95 H 05/20/17 16:00 Resp 29 H 05/20/17 16:00 BP 138/71 05/20/17 16:00 Pulse Ox 96 05/20/17 16:00 artur Foley - Labs Result Diagrams: 05/21/17 05:30 05/21/17 05:30 Labs: Laboratory Results - last 24 hr 05/19/17 05/20/17 05/20/17 21:44 04:30 04:30 WBC RBC Hgb Hct MCV MCH MCHC RDW Plt Count pCO2 pO2 HCO3 ABG pH ABG Total CO2 ABG O2 Saturation ABG O2 Content ABG Base Excess ABG Hemoglobin ABG Carboxyhemoglobin POC ABG HHb (Measured) ABG Methemoglobin ABG O2 Capacity Valdemar Test A-a O2 Difference Hgb O2 Saturation Mechanical Rate FiO2 Inspiratory BiPAP Expiratory BiPAP Sodium 138 Potassium 4.1 Chloride 95 L Carbon Dioxide 31 H Anion Gap 16 BUN 15 Creatinine 0.4 L Est GFR ( Amer) > 60 Est GFR (Non-Af Amer) > 60 POC Glucose (mg/dL) 154 H Random Glucose 145 H Calcium 7.3 L Total Bilirubin 1.2 AST 25 ALT 54 H Alkaline Phosphatase 49 Total Protein 5.6 L Albumin 3.2 L D Globulin 2.3 Albumin/Globulin Ratio 1.4 Free T4 2.02 TSH 3rd Generation 0.04 L 05/20/17 05/20/17 05/20/17 04:30 04:35 05:31 WBC 4.7 L RBC 4.16 Hgb 12.4 Hct 38.7 MCV 93.1 MCH 29.8 MCHC 32.0 L RDW 13.4 Plt Count 96 L pCO2 62 H pO2 87 HCO3 28.8 H ABG pH 7.33 L ABG Total CO2 34.6 H ABG O2 Saturation 99.1 H ABG O2 Content 17.3 ABG Base Excess 5.0 H ABG Hemoglobin 12.8 ABG Carboxyhemoglobin 2.2 H POC ABG HHb (Measured) 0.9 ABG Methemoglobin 1.3 ABG O2 Capacity 17.5 Valdemar Test Yes A-a O2 Difference 121.0 Hgb O2 Saturation 95.5 Mechanical Rate 14 FiO2 40.0 Inspiratory BiPAP 18 Expiratory BiPAP 10 Sodium Potassium Chloride Carbon Dioxide Anion Gap BUN Creatinine Est GFR ( Amer) Est GFR (Non-Af Amer) POC Glucose (mg/dL) 137 H Random Glucose Calcium Total Bilirubin AST ALT Alkaline Phosphatase Total Protein Albumin Globulin Albumin/Globulin Ratio Free T4 TSH 3rd Generation 05/20/17 05/20/17 11:15 17:19 WBC RBC Hgb Hct MCV MCH MCHC RDW Plt Count pCO2 pO2 HCO3 ABG pH ABG Total CO2 ABG O2 Saturation ABG O2 Content ABG Base Excess ABG Hemoglobin ABG Carboxyhemoglobin POC ABG HHb (Measured) ABG Methemoglobin ABG O2 Capacity Valdemar Test A-a O2 Difference Hgb O2 Saturation Mechanical Rate FiO2 Inspiratory BiPAP Expiratory BiPAP Sodium Potassium Chloride Carbon Dioxide Anion Gap BUN Creatinine Est GFR ( Amer) Est GFR (Non-Af Amer) POC Glucose (mg/dL) 212 H 215 H Random Glucose Calcium Total Bilirubin AST ALT Alkaline Phosphatase Total Protein Albumin Globulin Albumin/Globulin Ratio Free T4 TSH 3rd Generation reviewed J.P. - EKG Data EKG comments: reviewed J.P. - Imaging and Cardiology Chest x-ray Status: Report reviewed by me (J.P.) CT scan - abdomen Status: Report reviewed by me (J.P.) Assessment & Plan (1) Hypercapnic respiratory failure Status: Acute Priority: High (2) Bronchial asthma Status: Acute Priority: High (3) Atrial fibrillation Status: Chronic Priority: High - Assessment and Plan (Free Text) Plan: Pt with long Hx of Bronchial Asthma, Hypercaneic respiratory failure improving after Tx of Solumedrol and Duoneb, Pt is been Tx with Zosyn for abdominal condition that also would cover if Pt is developing PNA. ICU time: 60 minutes. - Date & Time Date: 05/20/17 Time: 11:00
[2017-05-20] MEDS: Potassium Chl 20 mEq in NS 1,000 ML IV SCH (20:43)
[2017-05-21] MEDS: Lactated Ringer's 1,000 ML IV SCH (00:42)
[2017-05-21] MEDS: MethylPREDNISolone 40 mg Vial IVP SCH ×2 (01:18→08:33)
[2017-05-21] MEDS: Piperacillin/Tazobact 3.375 GM in Sodium Chloride 0.9% 100 ML IVPB SCH ×2 (04:00→09:39)
[2017-05-21 06:19] LABS: BASO % 0.2 % (0.0-2.0); HEMATOCRIT 38.6 % (34.0-47.0); LYMPH # 0.2 K/uL (1.0-4.3); LYMPH % 4.1 % (20.0-40.0); MEAN CELL VOLUME 93.5 fl (81.0-99.0); MEAN CORPUSCULAR HEMOGLOBIN 30.3 pg (27.0-31.0); MEAN CORPUSCULAR HGB CONC 32.5 g/dL (33.0-37.0); MEAN PLATELET VOLUME 9.3 fl (7.2-11.7); MONO # 0.2 K/uL (0.0-0.8); MONO % 3.4 % (0.0-10.0); NEUT # 5.4 K/uL (1.8-7.0); NEUT % 92.3 % (50.0-75.0); NRBC % 0.1 % (0.0-0.0); RED CELL DISTRIBUTION WIDTH 13.6 % (11.5-14.5); WHITE BLOOD COUNT 5.8 K/uL (4.8-10.8)
[2017-05-21 06:33] LABS: BLOOD UREA NITROGEN 21 mg/dl (7-17); CALCIUM 7.3 mg/dL (8.4-10.2); CARBON DIOXIDE 35 mmol/L (22-30); CHLORIDE 95 mmol/L (98-107); GFR AFRICAN-AMERICAN > 60; GLUCOSE,RANDOM 242 mg/dL (65-105); POTASSIUM 4.6 MMOL/L (3.6-5.0); SODIUM 138 mmol/l (132-148)
[2017-05-21 07:05] LABS: PLATELET COUNT 108 K/uL (130-400)
[2017-05-21 07:15] LABS: LARGE PLATELETS PRESENT; NEUTROPHIL 92 % (42-75); TOTAL CELLS COUNTED 100
--- NOTE | 2017-05-21 07:42 | CP.PCM.PN ---
Subjective - Date & Time of Evaluation Date of Evaluation: 05/21/17 Time of Evaluation: 07:41 - Subjective Subjective: this is a 76-year-old female seen and examined at bedside for hypercapnic hypoxic respiratory failure. Patient is sitting up, eating breakfast and appropriately responding to questions in simple and flushed. She was on BiPAP overnight and tolerated this very well. Heart rate is between 60s and 70s. Apparently patient is much improved in terms of mentation, however is still not yet at baseline. ABG this morning is improved, however continues to be hypercarbic and hypoxic. Will place pt on bipap during the day. HD stable NAD Objective - Vital Signs/Intake and Output Vital Signs (last 24 hours): Temp Pulse Resp BP Pulse Ox 97 F L 85 20 143/91 H 99 05/21/17 06:00 05/21/17 06:00 05/21/17 06:00 05/21/17 06:00 05/21/17 06:00 Physical exam: Constitutional- cooperative, awake, alert. still continues to be drowsy, likely hypercapnea Head- NCAT, PERRL Eye- PERRL, normal accommodation ENT- normal exam, MMM. Neck- normal inspection, supple, no JVD Respiratory- continues to have some rhonchi and some wheezes Cardiovascular- RRR, +S1, +S2 no MRG GI/Abdominal- normal bowel sounds, soft, no mass, no hsm Skin- warm, dry Extremities Exam- normal capillary refill, normal inspection Neurological Exam- alert, awake Psych- normal mood, normal affect Intake and Output: 05/21/17 05/21/17 06:59 18:59 Intake Total 1125 Output Total 350 Balance 775 - Medications Medications: Current Medications Acetaminophen (Tylenol 650mg/20.3ml Solution Ud) 650 mg PO Q6 PRN PRN Reason: Temperature Last Admin: 05/17/17 17:11 Dose: 650 mg Albuterol/Ipratropium (Duoneb 3 Mg/0.5 Mg (3 Ml) Ud) 3 ml INH RQID [facility] Last Admin: 05/20/17 20:24 Dose: Not Given Atorvastatin Calcium (Lipitor) 20 mg PO DAILY [facility] Last Admin: 05/20/17 08:42 Dose: 20 mg Carvedilol (Coreg) 25 mg PO Q12 [facility] Last Admin: 05/20/17 20:39 Dose: 25 mg Piperacillin Sod/Tazobactam (Sod 3.375 gm/ Sodium Chloride) 100 mls @ 100 mls/ hr IVPB Q6 [facility] PRN Reason: Protocol Last Admin: 05/21/17 04:00 Dose: 100 mls/hr Potassium Chloride/Sodium Chloride (Potassium Chl 20 Meq In Ns) 1,000 mls @ 100 mls/hr IV .Q10H [facility] Last Admin: 05/20/17 20:43 Dose: Not Given Lactated Ringer's (Lactated Ringer's) 1,000 mls @ 100 mls/hr IV .Q10H [facility] Last Admin: 05/21/17 00:42 Dose: 100 mls/hr Methylprednisolone (Solu-Medrol) 40 mg IVP Q8 [facility] Last Admin: 05/21/17 01:18 Dose: 40 mg Pantoprazole Sodium (Protonix Inj) 40 mg IVP DAILY [facility] Last Admin: 05/20/17 08:41 Dose: 40 mg Polyethylene Glycol (Miralax) 17 gm PO BID [facility] Last Admin: 05/20/17 17:27 Dose: Not Given Rivaroxaban (Xarelto) 15 mg PO DAILY [facility] PRN Reason: Protocol Last Admin: 05/20/17 08:45 Dose: 15 mg - Labs Labs: 05/21/17 05:30 05/21/17 05:30 Assessment and Plan - Assessment and Plan (Free Text) Plan: 76 y/o lady with hx of A Fib, DM, HTN, Chronic Constipation, came in bec of abd pain and constipation. CT of abd done on prior ER visit showed constipation. On lab exam, pt was noted to have a Sodium of 117. Pt noted to be drowsy and Na persistently low despite IVF NS - Nephrology consulted- rec to start 3% Sodium. Pt transferred to ICU for close supervision. Pt noted to have worsening lethargy. ABG done showed severe hypercapnea- she was then intubated. The patient was extubated. Her sodium is now within normal range. Post extubation PCo2 again went up - pt placed on Bipap overnight. 05/21/17 hypercapnea continues to be elevated on ABG, will trial bipap during the day to improve mild CO2 narcosis. 1. Acute Hypercapneic Respiratory Failure Pt was intubated, extubated and then placed on Bipap bec pCo2 went up to 94. Today patient mildly improved, however still mildly somnolent poss from CO 2 narcosis, will resume bipap during the day today and reevaluate. ECHO ordered today to evaluate for cardiac component CXR : no infiltrate Pulm consult- Dr Joseph CT of chest - bilateral consolidations poss infiltrates - ALSO R > L bilateral pleural effusions. TRACH ASP +pseudomonas SENSITIVE TO CIPRO, will treat. no growth BLOOD CULTURES. unclear etiology for hypercapnea - need further work up - CT of head , CT of chest CT head was negative for acute pathology. started on IV Solumedrol and Duonebs (2)Hyponatremia likely hypovolemic sec to diuretics and also poss from decrease solute intake Status: Acute will also need to r/o SIADH - Serum Osm low - Nephrology consulted - Dr Vaca, patient was previously given 3% saline as per discussion with nephrology until serum sodium came up to 121; now on normal saline at 75 cc/hour. Sodium now normal (3) Abdominal pain sec to Constipation VS. Ileus Status: Acute abdominal obstructive series: dilated loops of bowel GI consult with Dr Butt- signed off at this time Laxatives- miralax daily, water enemas. (4) Chronic atrial fibrillation had episode of RVR last night - Digoxin IV given Pt on Xarelto 15mg PO daily cont Coreg (5) DM II (diabetes mellitus, type II), controlled BS relatively controlled. accucheck (6) HTN (hypertension) cont Coreg (7) Hyperlipidemia Atorvastatin 20mg PO HS (8) Hypocalcemia replaced with Calcium Gluc DVT prophylaxis on Xarelto
[2017-05-21] MEDS: POLYETHYLENE GLYCOL 3350 17 GM/Dose PACKET PO SCH ×2 (08:32→16:27)
[2017-05-21] MEDS: Albuterol-Ipratrop 3 mg / 0.5 (3 ml) UD INH SCH ×4 (08:41→19:20)
[2017-05-21 10:10] LABS: ABG ALLEN TEST YES; ARTERIAL BLOOD GAS O2 CAPACITY 17.2 mL/dL (16-24); ARTERIAL BLOOD GAS O2 CONTENT 16.9 ML/dL (15-23); ARTERIAL BLOOD GAS PH 7.38 (7.35-7.45); ARTERIAL BLOOD GAS PO2 72 mm/Hg (80-100); ARTERIAL BLOOD HGB O2 SAT 94.6 % (95.0-98.0); CARBOXYHEMOGLOBIN 2.4 % (0.5-1.5); HHB 1.7 % (0.0-5.0); METHEMOGLOBIN 1.3 % (0.0-3.0)
[2017-05-21] MEDS ORDERED: Lactated Ringer's 1,000 ML IV SCH (10:45)
[2017-05-21] MEDS: Ciprofloxacin 400mg/200ml D5W 400 MG/200 ML BAG IVPB SCH ×2 (11:56→21:59)
[2017-05-21] MEDS: Cefepime 1 GM in Sodium Chloride 0.9% 100 ML IVPB SCH ×2 (11:57→20:56)
--- NOTE | 2017-05-21 14:54 | CARD ---
APPROVED REPORT EXAM: Two-dimensional and M-mode echocardiogram with Doppler and color Doppler. Other Information Quality : GoodRhythm : INDICATION LV Function: 2D DIMENSIONS Left Atrium (2D)4.90 (1.6-4.0cm)IVSd0.97 (0.7-1.1cm) Aortic Root (2D)3.07 (2.0-3.7cm)LVDd4.33 (3.9-5.9cm) LVOT Diameter1.86 (1.8-2.4cm)PWd1.21 (0.7-1.1cm) IVSs1.47 (0.8-1.2cm)LVDs3.13 (2.5-4.0cm) FS (%) 27.8 %PWs1.27 (0.8-1.2cm) LVEF (%)40.0 (>50%) M-Mode DIMENSIONS Left Atrium (MM)4.72 (2.5-4.0cm)IVSd0.76 (0.7-1.1cm) Aortic Root3.78 (2.2-3.7cm)LVDd5.18 (4.0-5.6cm) Aortic Cusp Exc.1.76 (1.5-2.0cm)PWd1.21 (0.7-1.1cm) IVSs0.94 cmFS (%) 22 % LVDs4.04 (2.0-3.8cm)PWs1.59 cm Aortic Valve AI P 1/2 [id number] Mitral Valve MV E Peak Gr.123mmHgE/A ratio0.0 TDI Lateral E' Peak V12.63cm/sE/Lateral E'0.0E/Medial E'0.0 Pulmonary Valve PV Peak Jpfsjbno84.9cm/s Tricuspid Valve TR Peak [id number]/sRAP [id number] Peak Gr.36mmHg [id number] LEFT VENTRICLE The left ventricle is normal size. There is normal left ventricular wall thickness. The systolic function is moderately impaired. Septal Hypokinesis A Fib RIGHT VENTRICLE The right ventricle is borderline dilated. There is normal right ventricular wall thickness. RV Systolic function is mildly reduced. ATRIA The left atrium is moderately dilated. The right atrium is moderately dilated. AORTIC VALVE The aortic valve is normal in structure. There is trace aortic regurgitation. There is no aortic valvular stenosis. MITRAL VALVE The mitral valve is mildly thickened. There is no mitral valve stenosis. Mitral regurgitation is moderate to severe. TRICUSPID VALVE The tricuspid valve is normal in structure. There is severe tricuspid regurgitation. There is mild to moderate pulmonary hypertension. PULMONIC VALVE The pulmonary valve is normal in structure. There is no pulmonic valvular regurgitation. GREAT VESSELS The aortic root is normal in size. The IVC was not visualized. PERICARDIAL EFFUSION The pericardium appears normal. <Conclusion> The left ventricle is normal size. There is normal left ventricular wall thickness. The systolic function is moderately impaired. Septal Hypokinesis Mitral regurgitation is moderate to severe. There is mild to moderate pulmonary hypertension.
--- NOTE | 2017-05-21 15:26 | PN ---
CRITICAL CARE PROGRESS NOTE DATE: 05/21/2017 LOCATION: The patient in ICU, bed 422. TIME SPENT: 35 minutes. SUBJECTIVE: The patient is seen and examined at the bedside. Events since admission reviewed. Past medical, surgical, social history noted. A 76-year-old female with history of diabetes mellitus type 2, hypertension, hyperlipidemia, peripheral vascular disease, glaucoma, chronic constipation, chronic atrial fibrillation, admitted with abdominal pain secondary to constipation and noted to have a nonspecific ileus. The patient noted to have significant CO2 retention with lethargy, intubated for hypercapnic respiratory failure. Extubated 3 days ago, on BiPAP. Currently to oxygen supplement by nasal cannula 30% 4 L. Saturating over 94%. This morning, remains alert, awake, follows commands appropriate. No distress noted. PHYSICAL EXAMINATION: VITAL SIGNS: Temperature 98.9, heart rate of 86, blood pressure 142/73, mean arterial pressure 96, saturation 100. Intake 2525, output 650, positive balance 1875. Weight 154 pounds. HEENT: Pupils equal, round, reactive. NECK: Supple. CHEST: Bibasilar crackles. HEART: Rhythm irregular. No audible murmur. ABDOMEN: Bowel sounds present, hypoactive. EXTREMITIES: No palpable cord. No pedal edema. NEUROLOGIC: Alert, awake, able to follow commands appropriate. CURRENT MEDICATIONS: Tylenol 650 q. 6 p.r.n., albuterol-Atrovent inhalation 3 mL via nebulizer q. 6 hours, Lipitor 20 mg p.o. daily, Coreg 25 mg p.o. q. 12, Ringer's lactate at 100 mL per hour, Solu-Medrol 40 mg IV q. 8 hours, Protonix 40 IV daily, Zosyn 3.375 g IV q. 6, MiraLax powder 17 g b.i.d., potassium chloride supplement, Xarelto 15 mg p.o. daily. LABORATORY DATA: WBC 5.8, hemoglobin 12.5, hematocrit 38.6, platelet count 108, neutrophils 92.3, lymphocytes 4.1, monocytes 3.4. ABG: The pH 7.38, pCO2 of 59, pO2 of 72, oxygen saturation 98.2 on FiO2 of 30%. SMA-7: Sodium 138, potassium 4.6, chloride 95, CO2 of 35, blood urea nitrogen 21, creatinine 0.6, random glucose 242, calcium 7.3. Urinalysis: Urine microscopic wbc 26. Microbiology: Sputum culture positive for Pseudomonas aeruginosa. Blood culture: No growth reported. Chest CT done on 05/19/2017: No central pulmonary embolus. Four-chamber enlargement of the heart. Bilateral lower lobe consolidation changes representing atelectasis or infiltrate. CT head: No acute parenchymal subarachnoid extra-axial hemorrhage, mild diffuse confluent chronic white matter ischemic changes, moderate significant generalized volume loss. IMPRESSION: 1. Pulmonary: Hypercapnic hypoxic respiratory failure, extubated, on 3 L nasal cannula, saturating 100%. Continue DuoNeb 3 mL via nebulizer q. 6 hours. Reduce Solu-Medrol to 20 mg IV q. 8 hours. Bilateral pleural effusion with passive atelectasis, rule out congestive heart failure. Follow up echocardiogram to assess the left ventricular systolic function. We would recommend Cardiology consult. 2. Cardiac: Chronic atrial fibrillation, rate controlled. Continue Coreg 25 mg q. 12, Xarelto 15 mg p.o. daily. 3. Gastrointestinal: Constipation, chronic, on MiraLax powder. 4. Renal: Improved hyponatremia, resolved. Reduce IV fluid. 5. Neurologic: Alert, awake. CT head negative for any acute pathology. Chronic age-related volume loss. 6. Continue gastrointestinal prophylaxis, also deep venous thrombosis prophylaxis. 7. Infection: Sputum culture positive for Pseudomonas aeruginosa, on Zosyn. We would recommend ID evaluation and input for further optimization with the antibiotic. The patient remains clinically stable, can be transferred to telemetry floor. Artie Scott MD
--- NOTE | 2017-05-21 19:20 | CP.PCM.PN ---
Subjective - Date & Time of Evaluation Date of Evaluation: 05/21/17 Time of Evaluation: 15:20 - Subjective Subjective: F/U Respiratory failure. Pt appear awake, sitting in the chair eating well, family at bedside. Objective - Vital Signs/Intake and Output Vital Signs (last 24 hours): Temp Pulse Resp BP Pulse Ox 98.6 F 92 H 28 H 132/76 94 L 05/21/17 16:00 05/21/17 18:00 05/21/17 18:00 05/21/17 16:00 05/21/17 18:00 Intake and Output: 05/21/17 05/22/17 18:59 06:59 Intake Total 1320 Output Total 2300 Balance -980 - Medications Medications: Current Medications Acetaminophen (Tylenol 650mg/20.3ml Solution Ud) 650 mg PO Q6 PRN PRN Reason: Temperature Last Admin: 05/17/17 17:11 Dose: 650 mg Albuterol/Ipratropium (Duoneb 3 Mg/0.5 Mg (3 Ml) Ud) 3 ml INH RQID [facility] Last Admin: 05/21/17 19:20 Dose: 3 ml Atorvastatin Calcium (Lipitor) 20 mg PO DAILY [facility] Last Admin: 05/21/17 08:32 Dose: 20 mg Carvedilol (Coreg) 25 mg PO Q12 [facility] Last Admin: 05/21/17 08:32 Dose: 25 mg Furosemide (Lasix) 20 mg IVP ONCE [facility] Last Admin: 05/21/17 10:56 Dose: 20 mg Potassium Chloride/Sodium Chloride (Potassium Chl 20 Meq In Ns) 1,000 mls @ 100 mls/hr IV .Q10H [facility] Last Admin: 05/20/17 20:43 Dose: Not Given Lactated Ringer's (Lactated Ringer's) 1,000 mls @ 40 mls/hr IV .Q24H [facility] Last Admin: 05/21/17 10:55 Dose: 40 mls/hr Cefepime HCl 1 gm/ Sodium (Chloride) 100 mls @ 100 mls/hr IVPB Q12 [facility] PRN Reason: Protocol Last Admin: 05/21/17 11:57 Dose: 100 mls/hr Ciprofloxacin (Cipro 400mg/200ml Dsw) 400 mg in 200 mls @ 200 mls/hr IVPB Q12 [facility] PRN Reason: Protocol Last Admin: 05/21/17 11:56 Dose: 200 mls/hr Methylprednisolone (Medrol) 20 mg PO Q8 [facility] Last Admin: 05/21/17 16:27 Dose: 20 mg Pantoprazole Sodium (Protonix Inj) 40 mg IVP DAILY [facility] Last Admin: 05/21/17 08:32 Dose: 40 mg Polyethylene Glycol (Miralax) 17 gm PO BID [facility] Last Admin: 05/21/17 16:27 Dose: 17 gm Rivaroxaban (Xarelto) 15 mg PO DAILY [facility] PRN Reason: Protocol Last Admin: 05/21/17 08:33 Dose: 15 mg - Labs Labs: 05/21/17 05:30 05/21/17 05:30 - Constitutional Appears: No Acute Distress - Head Exam Head Exam: NORMAL INSPECTION - Eye Exam Eye Exam: PERRL - ENT Exam ENT Exam: Normal Exam - Neck Exam Neck Exam: Normal Inspection - Respiratory Exam Respiratory Exam: Decreased Breath Sounds (at bases) - Cardiovascular Exam Cardiovascular Exam: Irregular Rhythm - GI/Abdominal Exam GI & Abdominal Exam: Soft, Normal Bowel Sounds - Extremities Exam Extremities Exam: Pedal Edema - Neurological Exam Additional comments: Confused, forgetful, follows commands, no focal motor sensory deficit - Psychiatric Exam Additional comments: Calm - Skin Skin Exam: Warm Assessment and Plan (1) Hypercapnic respiratory failure Status: Acute (2) Bronchial asthma Status: Acute (3) Atrial fibrillation Status: Chronic - Assessment and Plan (Free Text) Plan: Continue Rocephin, Cipro, Duoneb and rest of Tx. ICU Time 40 minutes.
[2017-05-21] MEDS: Insulin Lispro (humaLOG) 100 Units/ml Inj SC SCH (22:35)
[2017-05-22 05:26] LABS: ABG ALLEN TEST YES; ARTERIAL BLOOD GAS MODE NASAL CANNULA; ARTERIAL BLOOD GAS O2 CAPACITY 16.2 mL/dL (16-24); ARTERIAL BLOOD GAS O2 CONTENT 16.2 ML/dL (15-23); ARTERIAL BLOOD GAS PO2 96 mm/Hg (80-100); ARTERIAL BLOOD HGB O2 SAT 96.2 % (95.0-98.0); CARBOXYHEMOGLOBIN 2.4 % (0.5-1.5); HHB 0.3 % (0.0-5.0); METHEMOGLOBIN 1.2 % (0.0-3.0)
[2017-05-22 06:50] LABS: HEMATOCRIT 37.5 % (34.0-47.0); MEAN CELL VOLUME 93.7 fl (81.0-99.0); RED CELL DISTRIBUTION WIDTH 13.7 % (11.5-14.5); WHITE BLOOD COUNT 7.2 K/uL (4.8-10.8)
[2017-05-22 07:03] LABS: BLOOD UREA NITROGEN 24 mg/dl (7-17); CALCIUM 7.1 mg/dL (8.4-10.2); CARBON DIOXIDE 37 mmol/L (22-30); CHLORIDE 91 mmol/L (98-107); GFR AFRICAN-AMERICAN > 60; GLUCOSE,RANDOM 324 mg/dL (65-105); POTASSIUM 4.6 MMOL/L (3.6-5.0); SODIUM 135 mmol/l (132-148)
[2017-05-22] MEDS: Insulin Lispro (humaLOG) 100 Units/ml Inj SC SCH ×4 (07:06→21:32)
[2017-05-22] MEDS ORDERED: Insulin Lispro (humaLOG) 100 Units/ml Inj SC SCH (07:30)
[2017-05-22] MEDS: Albuterol-Ipratrop 3 mg / 0.5 (3 ml) UD INH SCH ×4 (08:04→19:37)
[2017-05-22] MEDS: Ciprofloxacin 400mg/200ml D5W 400 MG/200 ML BAG IVPB SCH ×2 (09:45→21:19)
[2017-05-22] MEDS: Cefepime 1 GM in Sodium Chloride 0.9% 100 ML IVPB SCH ×2 (09:47→21:19)
[2017-05-22] MEDS: POLYETHYLENE GLYCOL 3350 17 GM/Dose PACKET PO SCH ×2 (09:48→17:11)
--- NOTE | 2017-05-22 10:31 | CP.PCM.PN ---
Subjective - Date & Time of Evaluation Date of Evaluation: 05/22/17 Time of Evaluation: 11:21 - Subjective Subjective: PATIENT SEEN AND EXAMINED AT BEDSIDE FOR HYPERCAPNIC RESPIRATORY FAILURE. PATIENT IS MILDLY IMPROVED TODAY WITH HER MENTATION HOWEVER CONTINUES TO BE DROWSY AND OFF HER BASELINE. pATIENT REFUSES TO MAINTAIN bIpap ON FOR EXTENDED PERIODS OF TIME; IT IS BEEN DIFFICULT TO MANAGE HER HYPERCAPNIA. WE WILL TRY TO WORK WITH PATIENT AND PATIENT'S FAMILY FOR COMPLIANCE.HEMODYNAMICALLY STABLE NO ACUTE DISTRESS Objective - Vital Signs/Intake and Output Vital Signs (last 24 hours): Temp Pulse Resp BP Pulse Ox 98.7 F 76 21 143/90 100 05/22/17 08:00 05/22/17 09:46 05/22/17 08:00 05/22/17 09:46 05/22/17 08:00 Physical exam: Constitutional- cooperative, awake, APPEARS DROWSYHOWEVER MILDLY MORE ALERT THAN YESTERDAY Head- NCAT, PERRL Eye- PERRL, normal accommodation ENT- normal exam, MMM. Neck- normal inspection, supple, no JVD Respiratory- CTAB, no wheezes rales rhonchi Cardiovascular- RRR, +S1, +S2 no MRG GI/Abdominal- normal bowel sounds, soft, no mass, no hsm Skin- warm, dry Extremities Exam- normal capillary refill, normal inspection Neurological Exam- alert, APPEARS DROWSY Psych- normal mood, normal affect Intake and Output: 05/22/17 05/22/17 06:59 18:59 Intake Total 700 710 Output Total 725 Balance -25 710 - Medications Medications: Current Medications Acetaminophen (Tylenol 650mg/20.3ml Solution Ud) 650 mg PO Q6 PRN PRN Reason: Temperature Last Admin: 05/17/17 17:11 Dose: 650 mg Albuterol/Ipratropium (Duoneb 3 Mg/0.5 Mg (3 Ml) Ud) 3 ml INH RQID [facility] Last Admin: 05/22/17 08:04 Dose: 3 ml Atorvastatin Calcium (Lipitor) 20 mg PO DAILY [facility] Last Admin: 05/22/17 09:46 Dose: 20 mg Carvedilol (Coreg) 25 mg PO Q12 [facility] Last Admin: 05/22/17 09:46 Dose: 25 mg Furosemide (Lasix) 20 mg IVP ONCE [facility] Last Admin: 05/21/17 10:56 Dose: 20 mg Potassium Chloride/Sodium Chloride (Potassium Chl 20 Meq In Ns) 1,000 mls @ 100 mls/hr IV .Q10H [facility] Last Admin: 05/20/17 20:43 Dose: Not Given Lactated Ringer's (Lactated Ringer's) 1,000 mls @ 40 mls/hr IV .Q24H [facility] Last Admin: 05/21/17 10:55 Dose: 40 mls/hr Cefepime HCl 1 gm/ Sodium (Chloride) 100 mls @ 100 mls/hr IVPB Q12 [facility] PRN Reason: Protocol Last Admin: 05/22/17 09:47 Dose: 100 mls/hr Ciprofloxacin (Cipro 400mg/200ml Dsw) 400 mg in 200 mls @ 200 mls/hr IVPB Q12 [facility] PRN Reason: Protocol Last Admin: 05/22/17 09:45 Dose: 200 mls/hr Insulin Human Lispro (Humalog) 0 units SC ACHS [facility] PRN Reason: Protocol Last Admin: 05/22/17 07:06 Dose: 4 units Methylprednisolone (Medrol) 20 mg PO Q8 [facility] Last Admin: 05/22/17 09:48 Dose: 20 mg Pantoprazole Sodium (Protonix Inj) 40 mg IVP DAILY [facility] Last Admin: 05/22/17 09:49 Dose: 40 mg Polyethylene Glycol (Miralax) 17 gm PO BID [facility] Last Admin: 05/22/17 09:48 Dose: 17 gm Rivaroxaban (Xarelto) 15 mg PO DAILY [facility] PRN Reason: Protocol Last Admin: 05/22/17 09:49 Dose: 15 mg - Labs Labs: 05/22/17 05:30 05/22/17 05:30 Assessment and Plan - Assessment and Plan (Free Text) Plan: 76 y/o lady with hx of A Fib, DM, HTN, Chronic Constipation, came in bec of abd pain and constipation. CT of abd done on prior ER visit showed constipation. On lab exam, pt was noted to have a Sodium of 117. Pt noted to be drowsy and Na persistently low despite IVF NS - Nephrology consulted- rec to start 3% Sodium. Pt transferred to ICU for close supervision. Pt noted to have worsening lethargy. ABG done showed severe hypercapnea- she was then intubated. The patient was extubated. Her sodium is now within normal range. Post extubation PCo2 again went up - pt placed on Bipap overnight. 05/21/17 hypercapnea continues to be elevated on ABG, will trial bipap during the day to improve mild CO2 narcosis. 1. Acute Hypercapneic Respiratory Failure Pt was intubated, extubated and then placed on Bipap bec pCo2 went up to 94. Today patient mildly improved, however still mildly somnolent poss from CO 2 narcosis, will resume bipap during the day today and reevaluate-- PATIENT DOES NOT TOLERATE bIpap FOR LONG PERIODS OF TIME. WE WILL TRY TO WORK WITH PATIENT AND HER FAMILY FOR BETTER COMPLIANCE ECHO ordered today to evaluate for cardiac component CXR : no infiltrate Pulm consult- Dr Joseph CT of chest - bilateral consolidations poss infiltrates - ALSO R > L bilateral pleural effusions. TRACH ASP +pseudomonas SENSITIVE TO CIPRO, will treat. no growth BLOOD CULTURES. unclear etiology for hypercapnea - need further work up - CT of head , CT of chest CT head was negative for acute pathology. started on IV Solumedrol and Duonebs (2)Hyponatremia likely hypovolemic sec to diuretics and also poss from decrease solute intake Status: Acute will also need to r/o SIADH - Serum Osm low - Nephrology consulted - Dr Vaca, patient was previously given 3% saline as per discussion with nephrology until serum sodium came up to 121; now on normal saline at 75 cc/hour. Sodium now normal (3) Abdominal pain sec to Constipation VS. Ileus Status: Acute abdominal obstructive series: dilated loops of bowel GI consult with Dr Butt- signed off at this time Laxatives- miralax daily, water enemas. (4) Chronic atrial fibrillation had episode of RVR last night - Digoxin IV given Pt on Xarelto 15mg PO daily cont Coreg (5) DM II (diabetes mellitus, type II), controlled BS relatively controlled. accucheck (6) HTN (hypertension) cont Coreg (7) Hyperlipidemia Atorvastatin 20mg PO HS (8) Hypocalcemia replaced with Calcium Gluc DVT prophylaxis on Xarelto
--- NOTE | 2017-05-22 21:27 | PN ---
DATE: 05/22/2017 CRITICAL CARE PROGRESS NOTE LOCATION: The patient in room 422. TIME SPENT: 35 minutes. The patient is seen and examined at the bedside. Events since admission reviewed. Past medical, surgical, and social history noted. SUBJECTIVE: A 76-year-old female with history of diabetes mellitus type 2, hypertension, hyperlipidemia, peripheral vascular disease, glaucoma, chronic constipation, chronic atrial fibrillation. Admitted with abdominal pain secondary to constipation, noted to have nonspecific ileus, developed CO2 retention requiring intubation for hypercapnic respiratory failure, extubated four days ago, noted to have CO2 retention on BiPAP. OBJECTIVE: GENERAL: This morning, remains alert and awake, follows commands appropriate, off BiPAP, tolerated breakfast without any adverse events, no distress noted at rest. More wakeful and follows commands appropriate. VITAL SIGNS: Temperature 98.8, heart rate 79, blood pressure 137/82 to 150/81, pulse oximetry 99% on room air. Intake 2020, output 3025, negative balance 105. Weight 154 pounds. HEAD, EYES, EARS, NOSE AND THROAT: Pupils are reactive. Conjunctivae injected, no nystagmus. NECK: Supple. Trachea is central. CHEST: Bilateral breath sounds diminished intensity. Prolonged expiration. HEART: Rhythm irregular. No audible murmur. ABDOMEN: Bowel sounds present, hypoactive. EXTREMITIES: No palpable cord. No pedal edema. NEUROLOGICAL: Alert, awake, able to follow commands appropriate. CURRENT MEDICATIONS: Tylenol 650 mg q.6 p.r.n., albuterol/Atrovent inhalation 3 mL via nebulizer q.6 hours, Lipitor 20 mg p.o. daily, Coreg 25 mg p.o. q.12., Ringer's lactate at 40 mL per hour, Solu-Medrol reduced to 20 mg q.8., Protonix 40 mg, Cipro 400 mg IV q.12., and cefepime 1 g IV q.12 hours. LABORATORY DATA: WBC 7.2, hemoglobin 12, hematocrit 37.5, platelet count of 110. ABG: pH 7.40, pCO2 of 65, pO2 of 96, saturation 99.7 on nasal cannula 4 liters. SMA-7: Sodium 135, potassium 4.6, chloride 91, CO2 37, blood urea nitrogen 24, creatinine 0.5, random glucose 310. Urinalysis: Wbc 26. Echocardiogram on 05/21/2017 shows [id number] mitral regurgitation, severe tricuspid regurgitation, [id number] pulmonary hypertension, pulmonary valve is normal in structure, no pulmonic valvular regurgitation. IMPRESSION: 1. Pulmonary: Hypercapnic hypoxic respiratory failure, extubated, currently on 3 liters nasal cannula. Tolerating acceptable pCO2 and pO2, alternating with BiPAP. Reluctant to use the same by the patient. Reduce Solu-Medrol to 20 mg IV q.8. Bilateral pleural effusion with passive atelectasis with pulmonary vascular congestion, improved after diuretic. 2. Cardiac: Chronic atrial fibrillation, rate controlled, on Coreg 12.5 mg q.12., Xarelto 15 mg p.o. daily. 3. Gastrointestinal: Constipation, chronic, on MiraLax powder. 4. Renal: Hyponatremia resolved. Improved renal function. 5. Endocrine. Diabetes mellitus type 2, currently noted to have hyperglycemia secondary to use of steroid. On insulin lispro based on sliding scale, Ringer's lactate at 40 mL/hour. 6. Hematology: No leukocytosis. Stable hemoglobin and hematocrit. Thrombocytopenia improved and remains stable. 7. Infectious Disease: Sputum culture, positive for Pseudomonas, on cefepime and Cipro. PLAN: Trial of nasal cannula in the morning and BiPAP at night until CO2 improves and stabilized. The patient may be discharged to telemetry floor. Artie Scott MD
[2017-05-23 05:04] LABS: HEMATOCRIT 38.1 % (34.0-47.0); MEAN CELL VOLUME 92.9 fl (81.0-99.0); MEAN CORPUSCULAR HEMOGLOBIN 29.7 pg (27.0-31.0); MEAN CORPUSCULAR HGB CONC 31.9 g/dL (33.0-37.0); RED CELL DISTRIBUTION WIDTH 13.7 % (11.5-14.5); WHITE BLOOD COUNT 7.4 K/uL (4.8-10.8)
[2017-05-23 05:23] LABS: BLOOD UREA NITROGEN 23 mg/dl (7-17); CALCIUM 7.1 mg/dL (8.4-10.2); CARBON DIOXIDE 36 mmol/L (22-30); CHLORIDE 91 mmol/L (98-107); GFR AFRICAN-AMERICAN > 60; GLUCOSE,RANDOM 266 mg/dL (65-105); MAGNESIUM 1.8 MG/DL (1.6-2.3); PHOSPHOROUS 2.5 mg/dl (2.5-4.5); POTASSIUM 4.9 MMOL/L (3.6-5.0); SODIUM 133 mmol/l (132-148)
[2017-05-23 05:49] LABS: ABG ALLEN TEST YES; ABG MECHANICAL RATE 14; ARTERIAL BLOOD GAS HCO3 34.9 mmol/L (21-28); ARTERIAL BLOOD GAS MODE BiPAP; ARTERIAL BLOOD GAS O2 CAPACITY 17.8 mL/dL (16-24); ARTERIAL BLOOD GAS O2 CONTENT 17.7 ML/dL (15-23); ARTERIAL BLOOD GAS PH 7.44 (7.35-7.45); ARTERIAL BLOOD GAS PO2 104 mm/Hg (80-100); ARTERIAL BLOOD HGB O2 SAT 95.9 % (95.0-98.0); CARBOXYHEMOGLOBIN 2.2 % (0.5-1.5); HHB 0.6 % (0.0-5.0); METHEMOGLOBIN 1.3 % (0.0-3.0)
[2017-05-23] MEDS: Insulin Lispro (humaLOG) 100 Units/ml Inj SC SCH ×4 (06:41→22:20)
[2017-05-23] MEDS: Albuterol-Ipratrop 3 mg / 0.5 (3 ml) UD INH SCH ×4 (07:49→19:44)
[2017-05-23] MEDS: Ciprofloxacin 400mg/200ml D5W 400 MG/200 ML BAG IVPB SCH ×2 (08:22→20:46)
[2017-05-23] MEDS: Cefepime 1 GM in Sodium Chloride 0.9% 100 ML IVPB SCH ×2 (08:24→20:45)
[2017-05-23] MEDS: POLYETHYLENE GLYCOL 3350 17 GM/Dose PACKET PO SCH ×2 (08:24→16:15)
--- NOTE | 2017-05-23 09:40 | CP.CCUPN ---
CCU Subjective - Physician Review Events Since Last Encounter (Free Text): 05/23/17 The patient was Seen/interviewed and examined by me at the bedside during ICU round, Medical records reviewed and Management issues were discussed and formulated with the house staff. 76 Years old female with Acute Hypercapneic Respiratory Failure, s/p extubation 05/19 This morning she feels better and is hemodynamically improved Pt denies any chest pain, Less SOB No Vasopressors Awake, comfortable, NAD Pt AAO x3. Alert, follows some commands Saturating well on 3L NC and nocturnal BIPAP Afebrile, A-Fib on the monitor Last 24H I&O 2330/1625 This morning labs revealed sodium level trending down, stable renal function BUN /Cr 23/0.5 CCU Objective - Vital Signs / Intake & Output Vital Signs (Last 4 hours): Vital Signs Temp Pulse Resp BP Pulse Ox 05/23/17 08:23 74 157/101 H 05/23/17 08:00 98.6 F 77 24 161/82 H 99 05/23/17 06:00 79 25 H 159/94 H 100 Intake and Output (Last 8hrs): Intake & Output 05/22/17 05/23/17 05/23/17 22:59 06:59 14:59 Intake Total 1320 300 350 Output Total 525 1100 Balance 795 -800 350 Weight 154 lb 14.4 oz Intake: IV 1120 200 Intake, Piggyback 200 100 350 Output: Urine 525 1100 Urethral (Watson) 525 1100 - Physical Exam Physical Exam Limitations: Positive for: Clinical Condition Head: Positive for: Atraumatic, Normocephalic Pupils: Positive for: PERRL Extroacular Muscles: Positive for: EOMI Conjunctiva: Positive for: Normal. Negative for: Injected, Icteric Mouth: Positive for: Moist Mucous Membranes Neck: Positive for: JVD. Negative for: Meningeal Signs Respiratory/Chest: Positive for: Decreased Breath Sounds, Rhonchi, Tachypneic. Negative for: Respiratory Distress, Accessory Muscle Use, Wheezes Cardiovascular: Positive for: Regular Rate and Rhythm. Negative for: Murmurs, Tachycardic, Rub Abdomen: Positive for: Normal Bowel Sounds. Negative for: Tenderness, Distention, Mass/Organomegaly Lower Extremity: Positive for: NORMAL PULSES. Negative for: Edema, CALF TENDERNESS, Cyanosis Neurological: Positive for: Motor Func Grossly Intact, Normal Sensory Function Skin: Positive for: Warm, Dry. Negative for: Rashes Psychiatric: Positive for: Alert, Oriented x 3, Other (sedated but opens eyes to tactile stimuli.) - Medications Active Medications: Active Medications Generic Name Dose Route Start Last Admin Trade Name Freq PRN Reason Stop Dose Admin Acetaminophen 650 mg 05/17/17 16:45 05/17/17 17:11 Tylenol 650mg/20.3ml Solution Ud PO 650 mg Q6 PRN Administration Temperature Albuterol/Ipratropium 3 ml 05/19/17 16:00 05/23/17 07:49 Duoneb 3 Mg/0.5 Mg (3 Ml) Ud INH 3 ml RQID GLADYS Administration Atorvastatin Calcium 20 mg 05/15/17 13:15 05/23/17 08:23 Lipitor PO 20 mg DAILY GLADYS Administration Carvedilol 25 mg 05/15/17 21:00 05/23/17 08:23 Coreg PO 25 mg Q12 GLADYS Administration Furosemide 20 mg 05/21/17 10:45 05/21/17 10:56 Lasix IVP 20 mg ONCE GLADYS Administration Potassium Chloride/Sodium Chloride 1,000 mls @ 100 mls/hr 05/19/17 19:30 04/26 20:43 Potassium Chl 20 Meq In Ns IV Not Given .Q10H GLADYS Lactated Ringer's 1,000 mls @ 40 mls/hr 05/21/17 10:45 05/21/17 10:55 Lactated Ringer's IV 40 mls/hr .Q24H [facility] Administration Cefepime HCl 1 gm/ Sodium 100 mls @ 100 mls/hr 05/21/17 11:00 05/23/17 08:24 Chloride IVPB 100 mls/hr Q12 [facility]AD[facility] Administration Protocol Ciprofloxacin 400 mg in 200 mls @ 200 mls/hr 05/21/17 11:00 05/23/17 08:22 Cipro 400mg/200ml Dsw IVPB 200 mls/hr Q12 [facility] Administration Protocol Insulin Human Lispro 0 units 05/21/17 22:35 05/23/17 06:41 Humalog SC 3 units ACHS GL[facility]YS Administration Protocol Methylprednisolone 20 mg 05/23/17 09:45 Medrol PO Q12 GLADYS Pantoprazole Sodium 40 mg 05/17/17 10:45 05/23/17 08:25 Protonix Inj IVP 40 mg DAILY GLADYS Administration Polyethylene Glycol 17 gm 05/16/17 17:00 05/23/17 08:24 Miralax PO 17 gm BID GLADYS Administration - Patient Studies Lab Studies: Microbiology Studies 05/18/17 08:15 Blood Culture - Final Blood-Venous NO GROWTH AFTER 5 DAYS Gram Stain - Final TEST NOT PERFORMED 05/18/17 08:00 Blood Culture - Final Blood-Venous NO GROWTH AFTER 5 DAYS Gram Stain - Final TEST NOT PERFORMED Lab Studies 05/23/17 05/23/17 05/23/17 Range/Units 05:38 05:23 04:20 WBC (4.8-10.8) K/uL RBC (3.80-5.20) Mil/uL Hgb (12.0-16.0) g/dL Hct (34.0-47.0) % MCV (81.0-99.0) fl MCH (27.0-31.0) pg MCHC (33.0-37.0) g/dL RDW (11.5-14.5) % Plt Count (130-400) K/uL pCO2 58 H (35-45) mm/Hg pO2 104 H (80-100) mm/Hg HCO3 34.9 H (21-28) mmol/L ABG pH 7.44 (7.35-7.45) ABG Total CO2 41.2 H (22-28) mmol/L ABG O2 Saturation 99.4 H (95-98) % ABG O2 Content 17.7 (15-23) ML/dL ABG Base Excess 12.8 H (-2.0-3.0) mmol/L ABG Hemoglobin 13.0 (11.7-17.4) g/dL ABG Carboxyhemoglobin 2.2 H (0.5-1.5) % POC ABG HHb (Measured) 0.6 (0.0-5.0) % ABG Methemoglobin 1.3 (0.0-3.0) % ABG O2 Capacity 17.8 (16-24) mL/dL Valdemar Test Yes A-a O2 Difference 109.0 mm/Hg Hgb O2 Saturation 95.9 (95.0-98.0) % Vent Mode Bipap Mechanical Rate 14 FiO2 40.0 % Inspiratory BiPAP 18 Expiratory BiPAP 10 Sodium 133 (132-148) mmol/l Potassium 4.9 (3.6-5.0) MMOL/L Chloride 91 L (98-107) mmol/L Carbon Dioxide 36 H (22-30) mmol/L Anion Gap 11 (10-20) BUN 23 H (7-17) mg/dl Creatinine 0.5 L (0.7-1.2) mg/dL Est GFR ( Amer) > 60 Est GFR (Non-Af Amer) > 60 POC Glucose (mg/dL) 251 H (65-110) mg/dL Random Glucose 266 H (65-105) mg/dL Calcium 7.1 L (8.4-10.2) mg/dL Phosphorus 2.5 (2.5-4.5) mg/dl Magnesium 1.8 (1.6-2.3) MG/DL 05/23/17 05/22/17 05/22/17 Range/Units 04:20 21:32 16:12 WBC 7.4 (4.8-10.8) K/uL RBC 4.10 (3.80-5.20) Mil/uL Hgb 12.2 (12.0-16.0) g/dL Hct 38.1 (34.0-47.0) % MCV 92.9 (81.0-99.0) fl MCH 29.7 (27.0-31.0) pg MCHC 31.9 L (33.0-37.0) g/dL RDW 13.7 (11.5-14.5) % Plt Count 109 L (130-400) K/uL pCO2 (35-45) mm/Hg pO2 (80-100) mm/Hg HCO3 (21-28) mmol/L ABG pH (7.35-7.45) ABG Total CO2 (22-28) mmol/L ABG O2 Saturation (95-98) % ABG O2 Content (15-23) ML/dL ABG Base Excess (-2.0-3.0) mmol/L ABG Hemoglobin (11.7-17.4) g/dL ABG Carboxyhemoglobin (0.5-1.5) % POC ABG HHb (Measured) (0.0-5.0) % ABG Methemoglobin (0.0-3.0) % ABG O2 Capacity (16-24) mL/dL Valdemar Test A-a O2 Difference mm/Hg Hgb O2 Saturation (95.0-98.0) % Vent Mode Mechanical Rate FiO2 % Inspiratory BiPAP Expiratory BiPAP Sodium (132-148) mmol/l Potassium (3.6-5.0) MMOL/L Chloride (98-107) mmol/L Carbon Dioxide (22-30) mmol/L Anion Gap (10-20) BUN (7-17) mg/dl Creatinine (0.7-1.2) mg/dL Est GFR ( Amer) Est GFR (Non-Af Amer) POC Glucose (mg/dL) 269 H 305 H (65-110) mg/dL Random Glucose (65-105) mg/dL Calcium (8.4-10.2) mg/dL Phosphorus (2.5-4.5) mg/dl Magnesium (1.6-2.3) MG/DL 05/22/17 05/21/17 Range/Units 11:26 21:57 WBC (4.8-10.8) K/uL RBC (3.80-5.20) Mil/uL Hgb (12.0-16.0) g/dL Hct (34.0-47.0) % MCV (81.0-99.0) fl MCH (27.0-31.0) pg MCHC (33.0-37.0) g/dL RDW (11.5-14.5) % Plt Count (130-400) K/uL pCO2 (35-45) mm/Hg pO2 (80-100) mm/Hg HCO3 (21-28) mmol/L ABG pH (7.35-7.45) ABG Total CO2 (22-28) mmol/L ABG O2 Saturation (95-98) % ABG O2 Content (15-23) ML/dL ABG Base Excess (-2.0-3.0) mmol/L ABG Hemoglobin (11.7-17.4) g/dL ABG Carboxyhemoglobin (0.5-1.5) % POC ABG HHb (Measured) (0.0-5.0) % ABG Methemoglobin (0.0-3.0) % ABG O2 Capacity (16-24) mL/dL Valdemar Test A-a O2 Difference mm/Hg Hgb O2 Saturation (95.0-98.0) % Vent Mode Mechanical Rate FiO2 % Inspiratory BiPAP Expiratory BiPAP Sodium (132-148) mmol/l Potassium (3.6-5.0) MMOL/L Chloride (98-107) mmol/L Carbon Dioxide (22-30) mmol/L Anion Gap (10-20) BUN (7-17) mg/dl Creatinine (0.7-1.2) mg/dL Est GFR ( Amer) Est GFR (Non-Af Amer) POC Glucose (mg/dL) 310 H 355 H (65-110) mg/dL Random Glucose (65-105) mg/dL Calcium (8.4-10.2) mg/dL Phosphorus (2.5-4.5) mg/dl Magnesium (1.6-2.3) MG/DL Laboratory Results - last 24 hr 05/21/17 05/22/17 05/22/17 21:57 11:26 16:12 WBC RBC Hgb Hct MCV MCH MCHC RDW Plt Count pCO2 pO2 HCO3 ABG pH ABG Total CO2 ABG O2 Saturation ABG O2 Content ABG Base Excess ABG Hemoglobin ABG Carboxyhemoglobin POC ABG HHb (Measured) ABG Methemoglobin ABG O2 Capacity Valdemar Test A-a O2 Difference Hgb O2 Saturation Vent Mode Mechanical Rate FiO2 Inspiratory BiPAP Expiratory BiPAP Sodium Potassium Chloride Carbon Dioxide Anion Gap BUN Creatinine Est GFR ( Amer) Est GFR (Non-Af Amer) POC Glucose (mg/dL) 355 H 310 H 305 H Random Glucose Calcium Phosphorus Magnesium 05/22/17 05/23/17 05/23/17 21:32 04:20 04:20 WBC 7.4 RBC 4.10 Hgb 12.2 Hct 38.1 MCV 92.9 MCH 29.7 MCHC 31.9 L RDW 13.7 Plt Count 109 L pCO2 pO2 HCO3 ABG pH ABG Total CO2 ABG O2 Saturation ABG O2 Content ABG Base Excess ABG Hemoglobin ABG Carboxyhemoglobin POC ABG HHb (Measured) ABG Methemoglobin ABG O2 Capacity Valdemar Test A-a O2 Difference Hgb O2 Saturation Vent Mode Mechanical Rate FiO2 Inspiratory BiPAP Expiratory BiPAP Sodium 133 Potassium 4.9 Chloride 91 L Carbon Dioxide 36 H Anion Gap 11 BUN 23 H Creatinine 0.5 L Est GFR ( Amer) > 60 Est GFR (Non-Af Amer) > 60 POC Glucose (mg/dL) 269 H Random Glucose 266 H Calcium 7.1 L Phosphorus 2.5 Magnesium 1.8 05/23/17 05/23/17 05:23 05:38 WBC RBC Hgb Hct MCV MCH MCHC RDW Plt Count pCO2 58 H pO2 104 H HCO3 34.9 H ABG pH 7.44 ABG Total CO2 41.2 H ABG O2 Saturation 99.4 H ABG O2 Content 17.7 ABG Base Excess 12.8 H ABG Hemoglobin 13.0 ABG Carboxyhemoglobin 2.2 H POC ABG HHb (Measured) 0.6 ABG Methemoglobin 1.3 ABG O2 Capacity 17.8 Valdemar Test Yes A-a O2 Difference 109.0 Hgb O2 Saturation 95.9 Vent Mode Bipap Mechanical Rate 14 FiO2 40.0 Inspiratory BiPAP 18 Expiratory BiPAP 10 Sodium Potassium Chloride Carbon Dioxide Anion Gap BUN Creatinine Est GFR ( Amer) Est GFR (Non-Af Amer) POC Glucose (mg/dL) 251 H Random Glucose Calcium Phosphorus Magnesium Fingerstick Blood Sugar Results: 251 Review of Systems - Cardiovascular Cardiovascular: absent: Chest Pain, Chest Pain at Rest, Diaphoresis - Respiratory Respiratory: Cough, Dyspnea. absent: Hemoptysis, Wheezing Critical Care Progress Note - Extremities/Vascular Does the Patient have a Central Venous Catheter?: No Does the Patient need a Central Venous Catheter?: No Does the Patient have a Watson Catheter?: Yes Does the Patient need a Watson Catheter?: No (Will remove today) - Prophylaxis GI Prophylaxis GI: PPI - Prophylaxis DVT Prophylaxis DVT: Not Indicated (Patient on Xarelto) - Nutrition Nutrition: Nutrition Category Date Time Status Dysphagia/Modified Consistency Diet [DIET] Diets 05/21/17 Breakfast Active Assessment/Plan (1) Acute respiratory failure with hypercapnia Current Visit: Yes Status: Acute Priority: High Comment: 76 Years old female with Acute Hypercapneic Respiratory Failure, s/p extubation 05/19 Successfully extubated Continue Antibiotics WITH Cefepime and Cipro for Psudomonas in tracheal aspirate 05/18 Continue current ICU mangements Diuresis Strict I&Os (2) Bronchial asthma Current Visit: Yes Status: Acute Priority: High Comment: Continue Albuterol/Ipratropium INH RQID Taper off steroids (3) Chronic atrial fibrillation Current Visit: Yes Status: Acute Comment: HR controlled on Coreg 25 mg PO Q12 Continue Xarelto 15 mg PO QD (4) Hyponatremia Current Visit: Yes Status: Acute Comment: Change Ringer lactate to normal saline @ 50 cc/H (5) DVT prophylaxis Current Visit: No Status: Acute Priority: High Comment: - Xarelto (6) Hyperlipidemia Current Visit: No Status: Acute Comment: Atorvastatin Calcium (Lipitor) 20 mg PO DAILY (7) PVD (peripheral vascular disease) Current Visit: No Status: Acute Priority: Medium Comment: - on Xarelto and statin (8) Thrombocytopenia Current Visit: No Status: Acute Priority: Medium Comment: - Plat count improved and stable now - No evidance of bleeding (9) DM II (diabetes mellitus, type II), controlled Current Visit: No Status: Chronic Priority: Medium Comment: POCT glc ACHS - Assessment and Plan (Free Text) Assessment: CODE: FULL CODE TOTAL CRITICAL CARE TIME 32 MINUTES
--- NOTE | 2017-05-23 09:48 | CP.PCM.PN ---
Subjective - Date & Time of Evaluation Date of Evaluation: 05/23/17 Time of Evaluation: 09:46 - Subjective Subjective: Patient sitting up in bed She appears to be comfortable. Also reported that she is eating okay. Physical exam Chest few rhonchi Heart no rubs Abdomen soft Extremity no edema Lab reviewed Sodium is started to come down 133. I notice patient receiving Ringer lactate I discussed with the primary care physician to change IV to normal saline and about 50 mL/h. Repeat BMP tomorrow. Objective - Vital Signs/Intake and Output Vital Signs (last 24 hours): Temp Pulse Resp BP Pulse Ox 98.6 F 74 24 157/101 H 99 05/23/17 08:00 05/23/17 08:23 05/23/17 08:00 05/23/17 08:23 05/23/17 08:00 Intake and Output: 05/23/17 05/23/17 06:59 18:59 Intake Total 620 350 Output Total 1100 Balance -480 350 - Medications Medications: Current Medications Acetaminophen (Tylenol 650mg/20.3ml Solution Ud) 650 mg PO Q6 PRN PRN Reason: Temperature Last Admin: 05/17/17 17:11 Dose: 650 mg Albuterol/Ipratropium (Duoneb 3 Mg/0.5 Mg (3 Ml) Ud) 3 ml INH RQID [facility] Last Admin: 05/23/17 07:49 Dose: 3 ml Atorvastatin Calcium (Lipitor) 20 mg PO DAILY GLADYS Last Admin: 05/23/17 08:23 Dose: 20 mg Carvedilol (Coreg) 25 mg PO Q12 GLADYS Last Admin: 05/23/17 08:23 Dose: 25 mg Furosemide (Lasix) 20 mg IVP ONCE GLADYS Last Admin: 05/21/17 10:56 Dose: 20 mg Potassium Chloride/Sodium Chloride (Potassium Chl 20 Meq In Ns) 1,000 mls @ 100 mls/hr IV .Q10H GLADYS Last Admin: 05/20/17 20:43 Dose: Not Given Lactated Ringer's (Lactated Ringer's) 1,000 mls @ 40 mls/hr IV .Q24H GLADYS Last Admin: 05/21/17 10:55 Dose: 40 mls/hr Cefepime HCl 1 gm/ Sodium (Chloride) 100 mls @ 100 mls/hr IVPB Q12 GLADYS PRN Reason: Protocol Last Admin: 05/23/17 08:24 Dose: 100 mls/hr Ciprofloxacin (Cipro 400mg/200ml Dsw) 400 mg in 200 mls @ 200 mls/hr IVPB Q12 GLADYS PRN Reason: Protocol Last Admin: 05/23/17 08:22 Dose: 200 mls/hr Insulin Human Lispro (Humalog) 0 units SC ACHS GLADYS PRN Reason: Protocol Last Admin: 05/23/17 06:41 Dose: 3 units Methylprednisolone (Medrol) 20 mg PO Q12 [facility] Pantoprazole Sodium (Protonix Inj) 40 mg IVP DAILY [facility] Last Admin: 05/23/17 08:25 Dose: 40 mg Polyethylene Glycol (Miralax) 17 gm PO BID GLADYS Last Admin: 05/23/17 08:24 Dose: 17 gm Rivaroxaban (Xarelto) 15 mg PO QD5 GLADYS PRN Reason: Protocol - Labs Labs: 05/23/17 04:20 05/23/17 04:20 Assessment and Plan (1) Abdominal pain Status: Acute (2) Chronic atrial fibrillation Status: Acute (3) Hyponatremia Status: Acute
[2017-05-23] MEDS: Sodium Chloride 0.9% 1,000 ML IV SCH (12:31)
--- NOTE | 2017-05-23 13:28 | CP.PCM.PN ---
<Vivian Saldivar - Last Filed: 05/23/17 15:19> Subjective - Date & Time of Evaluation Date of Evaluation: 05/23/17 Time of Evaluation: 10:30 - Subjective Subjective: Hospitalist Progress Note 76 year old female patient seen and evaluated at bedside in ICU for hypercapnic respiratory failure. Patient is awake, alert, and more responsive at this visit ; hemodynamically stable and NAD. Per nursing, patient kept BiPAP on all night. Patient remains hypercarbic however PCO2 decreased from yesterday. Patient denies N/V/F/D/C/SOB/palpitations. Objective - Vital Signs/Intake and Output Vital Signs (last 24 hours): Temp Pulse Resp BP Pulse Ox 98.8 F 96 H 35 H 109/50 L 91 L 05/23/17 12:00 05/23/17 12:00 05/23/17 12:00 05/23/17 12:00 05/23/17 12:00 Intake and Output: 05/23/17 05/23/17 06:59 18:59 Intake Total 620 590 Output Total 1100 700 Balance -480 -110 - Medications Medications: Current Medications Acetaminophen (Tylenol 650mg/20.3ml Solution Ud) 650 mg PO Q6 PRN PRN Reason: Temperature Last Admin: 05/17/17 17:11 Dose: 650 mg Albuterol/Ipratropium (Duoneb 3 Mg/0.5 Mg (3 Ml) Ud) 3 ml INH RQID [facility] Last Admin: 05/23/17 11:23 Dose: 3 ml Atorvastatin Calcium (Lipitor) 20 mg PO DAILY [facility] Last Admin: 05/23/17 08:23 Dose: 20 mg Carvedilol (Coreg) 25 mg PO Q12 GLADYS Last Admin: 05/23/17 08:23 Dose: 25 mg Furosemide (Lasix) 20 mg IVP ONCE GLADYS Last Admin: 05/21/17 10:56 Dose: 20 mg Cefepime HCl 1 gm/ Sodium (Chloride) 100 mls @ 100 mls/hr IVPB Q12 GLADYS PRN Reason: Protocol Last Admin: 05/23/17 08:24 Dose: 100 mls/hr Ciprofloxacin (Cipro 400mg/200ml Dsw) 400 mg in 200 mls @ 200 mls/hr IVPB Q12 GLADYS PRN Reason: Protocol Last Admin: 05/23/17 08:22 Dose: 200 mls/hr Sodium Chloride (Sodium Chloride 0.9%) 1,000 mls @ 50 mls/hr IV .Q20H [facility] Stop: 05/24/17 11:22 Last Admin: 05/23/17 12:31 Dose: 50 mls/hr Insulin Human Lispro (Humalog) 0 units SC ACHS [facility] PRN Reason: Protocol Last Admin: 05/23/17 12:30 Dose: 4 units Methylprednisolone (Medrol) 20 mg PO Q12 [facility] Last Admin: 05/23/17 10:44 Dose: Not Given Pantoprazole Sodium (Protonix Inj) 40 mg IVP DAILY [facility] Last Admin: 05/23/17 08:25 Dose: 40 mg Polyethylene Glycol (Miralax) 17 gm PO BID [facility] Last Admin: 05/23/17 08:24 Dose: 17 gm Rivaroxaban (Xarelto) 15 mg PO QD5 [facility] PRN Reason: Protocol - Labs Labs: 05/23/17 04:20 05/23/17 04:20 - Constitutional Appears: Well, Non-toxic, No Acute Distress - Head Exam Head Exam: ATRAUMATIC, NORMAL INSPECTION, NORMOCEPHALIC - Eye Exam Eye Exam: EOMI, Normal appearance, Periorbital swelling (decreasing), PERRL Pupil Exam: NORMAL ACCOMODATION - ENT Exam ENT Exam: Mucous Membranes Moist, Normal Exam, Normal External Ear Exam - Neck Exam Neck Exam: Normal Inspection. absent: Tenderness - Respiratory Exam Respiratory Exam: Clear to Ausculation Bilateral, NORMAL BREATHING PATTERN. absent: Rales, Rhonchi, Wheezes - Cardiovascular Exam Cardiovascular Exam: REGULAR RHYTHM, +S1, +S2. absent: Gallop, JVD, Rubs, Murmur - GI/Abdominal Exam GI & Abdominal Exam: Soft, Normal Bowel Sounds. absent: Tenderness - Rectal Exam Rectal Exam: Deferred - Extremities Exam Extremities Exam: Normal Capillary Refill, Normal Inspection. absent: Tenderness - Back Exam Back Exam: absent: tenderness - Neurological Exam Neurological Exam: Alert, Awake - Psychiatric Exam Psychiatric exam: Normal Affect, Normal Mood - Skin Skin Exam: Dry, Intact, Normal Color, Warm Assessment and Plan - Assessment and Plan (Free Text) Assessment: 76 y/o lady with hx of A Fib, DM, HTN, Chronic Constipation, came in bec of abd pain and constipation. CT of abd done on prior ER visit showed constipation. On lab exam, pt was noted to have a Sodium of 117. Pt noted to be drowsy and Na persistently low despite IVF NS - Nephrology consulted- rec to start 3% Sodium. Pt transferred to ICU for close supervision. Pt noted to have worsening lethargy. ABG done showed severe hypercapnea- she was then intubated. The patient was extubated. Her sodium is now within normal range. Post extubation PCo2 again went up - pt placed on Bipap overnight. 05/21/17 hypercapnea continues to be elevated on ABG, will trial bipap during the day to improve mild CO2 narcosis. Patient non-compliant with BiPAP for long periods of time. 1. Acute Hypercapneic Respiratory Failure Pt was intubated, extubated and then placed on Bipap bec pCo2 went up to 94. Today patient mildly improved, however still mildly somnolent poss from CO2 narcosis, will resume bipap during the day today and reevaluate Patient compliance with BiPAP improving ECHO reveals moderately impaired systolic function, septal hypokinesis, moderate /severe mitral regurgitation, mild/moderate pulmonary hypertension CXR: no infiltrate Pulm on board - Dr Joseph; recommends continuing Rocephin, Cipro, Duoneb and rest of Tx. CT of chest - bilateral consolidations poss infiltrates - ALSO R > L bilateral pleural effusions. TRACH ASP +pseudomonas SENSITIVE TO CIPRO, will treat. no growth BLOOD CULTURES (final). unclear etiology for hypercapnea - need further work up - CT of head , CT of chest CT head was negative for acute pathology. Continue IV Solumedrol and Duonebs (2)Hyponatremia likely hypovolemic sec to diuretics and also poss from decrease solute intake Status: Acute will also need to r/o SIADH - Serum Osm low - Nephrology consulted - Dr Vaca, patient was previously given 3% saline as per discussion with nephrology until serum sodium came up to 121; now on normal saline at 50cc/hour. Sodium now normal @ 133 05/23/17 (3) Abdominal pain sec to Constipation VS. Ileus Status: Acute abdominal obstructive series: dilated loops of bowel GI consult with Dr Butt- signed off at this time Laxatives- miralax daily, water enemas. (4) Chronic atrial fibrillation Afib noted overnight Pt on Xarelto 15mg PO daily cont Coreg (5) DM II (diabetes mellitus, type II), controlled BS relatively controlled. BG = 251 accuchecks ACHS (6) HTN (hypertension) cont Coreg (7) Hyperlipidemia Atorvastatin 20mg PO HS (8) Hypocalcemia replaced with Calcium Gluc DVT prophylaxis on Xarelto <Natalie Alejo - Last Filed: 05/24/17 11:39> Objective - Vital Signs/Intake and Output Vital Signs (last 24 hours): Temp Pulse Resp BP Pulse Ox 99.4 F 85 20 140/83 96 05/24/17 08:00 05/24/17 10:00 05/24/17 10:00 05/24/17 10:00 05/24/17 10:00 Intake and Output: 05/24/17 05/24/17 06:59 18:59 Intake Total 620 350 Output Total 950 600 Balance -330 -250 - Medications Medications: Current Medications Acetaminophen (Tylenol 650mg/20.3ml Solution Ud) 650 mg PO Q6 PRN PRN Reason: Temperature Last Admin: 05/17/17 17:11 Dose: 650 mg Albuterol/Ipratropium (Duoneb 3 Mg/0.5 Mg (3 Ml) Ud) 3 ml INH RQID [facility] Last Admin: 05/24/17 11:02 Dose: 3 ml Atorvastatin Calcium (Lipitor) 20 mg PO DAILY [facility] Last Admin: 05/24/17 08:45 Dose: 20 mg Carvedilol (Coreg) 25 mg PO Q12 [facility] Last Admin: 05/24/17 08:41 Dose: 25 mg Furosemide (Lasix) 20 mg IVP ONCE [facility] Last Admin: 05/21/17 10:56 Dose: 20 mg Cefepime HCl 1 gm/ Sodium (Chloride) 100 mls @ 100 mls/hr IVPB Q12 [facility] PRN Reason: Protocol Last Admin: 05/24/17 08:45 Dose: 100 mls/hr Ciprofloxacin (Cipro 400mg/200ml Dsw) 400 mg in 200 mls @ 200 mls/hr IVPB Q12 [facility] PRN Reason: Protocol Last Admin: 05/24/17 08:37 Dose: 200 mls/hr Insulin Human Lispro (Humalog) 0 units SC ACHS [facility] PRN Reason: Protocol Last Admin: 05/24/17 06:36 Dose: 3 units Methylprednisolone (Medrol) 20 mg PO Q12 [facility] Last Admin: 05/24/17 08:46 Dose: 20 mg Polyethylene Glycol (Miralax) 17 gm PO BID [facility] Last Admin: 05/24/17 08:47 Dose: 17 gm Rivaroxaban (Xarelto) 15 mg PO QD5 [facility] PRN Reason: Protocol Last Admin: 05/23/17 16:16 Dose: 15 mg - Labs Labs: 05/24/17 04:25 05/24/17 04:25 Attending/Attestation - Attestation I have personally seen and examined this patient.: Yes I have fully participated in the care of the patient.: Yes I have reviewed all pertinent clinical information, including history, physical exam and plan: Yes Notes (Text): 05/24/17 11:39 Seen, examined, and discussed with Resident Dr. Saldivar. Agree with findings and plan as above.
--- NOTE | 2017-05-23 16:24 | CP.PCM.PN ---
Subjective - Date & Time of Evaluation Date of Evaluation: 05/23/17 - Subjective Subjective: Respiratory Failure. Pt with no A/D, no c/o, sitting in a chair. Objective - Vital Signs/Intake and Output Vital Signs (last 24 hours): Temp Pulse Resp BP Pulse Ox 98.8 F 101 H 14 140/94 H 91 L 05/23/17 12:00 05/23/17 14:00 05/23/17 14:00 05/23/17 14:00 05/23/17 14:00 Intake and Output: 05/23/17 05/23/17 06:59 18:59 Intake Total 620 590 Output Total 1100 700 Balance -480 -110 - Medications Medications: Current Medications Acetaminophen (Tylenol 650mg/20.3ml Solution Ud) 650 mg PO Q6 PRN PRN Reason: Temperature Last Admin: 05/17/17 17:11 Dose: 650 mg Albuterol/Ipratropium (Duoneb 3 Mg/0.5 Mg (3 Ml) Ud) 3 ml INH RQID [facility] Last Admin: 05/23/17 15:56 Dose: 3 ml Atorvastatin Calcium (Lipitor) 20 mg PO DAILY [facility] Last Admin: 05/23/17 08:23 Dose: 20 mg Carvedilol (Coreg) 25 mg PO Q12 [facility] Last Admin: 05/23/17 08:23 Dose: 25 mg Furosemide (Lasix) 20 mg IVP ONCE [facility] Last Admin: 05/21/17 10:56 Dose: 20 mg Cefepime HCl 1 gm/ Sodium (Chloride) 100 mls @ 100 mls/hr IVPB Q12 [facility] PRN Reason: Protocol Last Admin: 05/23/17 08:24 Dose: 100 mls/hr Ciprofloxacin (Cipro 400mg/200ml Dsw) 400 mg in 200 mls @ 200 mls/hr IVPB Q12 [facility] PRN Reason: Protocol Last Admin: 05/23/17 08:22 Dose: 200 mls/hr Sodium Chloride (Sodium Chloride 0.9%) 1,000 mls @ 50 mls/hr IV .Q20H [facility] Stop: 05/24/17 11:22 Last Admin: 05/23/17 12:31 Dose: 50 mls/hr Insulin Human Lispro (Humalog) 0 units SC ACHS [facility] PRN Reason: Protocol Last Admin: 05/23/17 12:30 Dose: 4 units Methylprednisolone (Medrol) 20 mg PO Q12 [facility] Last Admin: 05/23/17 10:44 Dose: Not Given Pantoprazole Sodium (Protonix Inj) 40 mg IVP DAILY [facility] Last Admin: 05/23/17 08:25 Dose: 40 mg Polyethylene Glycol (Miralax) 17 gm PO BID [facility] Last Admin: 05/23/17 16:15 Dose: 17 gm Rivaroxaban (Xarelto) 15 mg PO QD5 [facility] PRN Reason: Protocol Last Admin: 05/23/17 16:16 Dose: 15 mg - Labs Labs: 05/23/17 04:20 05/23/17 04:20 - Constitutional Appears: No Acute Distress - Head Exam Head Exam: NORMAL INSPECTION - Eye Exam Eye Exam: PERRL - ENT Exam ENT Exam: Normal Exam - Neck Exam Neck Exam: Normal Inspection - Respiratory Exam Respiratory Exam: Decreased Breath Sounds (at bases) - Cardiovascular Exam Cardiovascular Exam: Irregular Rhythm - GI/Abdominal Exam GI & Abdominal Exam: Soft, Normal Bowel Sounds - Extremities Exam Extremities Exam: Pedal Edema - Neurological Exam Neurological Exam: Awake Additional comments: Confused, forgetful, follows commands, no focal motor sensory deficit. - Psychiatric Exam Additional comments: Calm - Skin Skin Exam: Warm Assessment and Plan (1) Hypercapnic respiratory failure Status: Acute (2) Bronchial asthma Status: Acute (3) Atrial fibrillation Status: Chronic - Assessment and Plan (Free Text) Plan: Watson Cath to be DC, f/u PT, OT ICU Time: 38 min.
[2017-05-24 06:00] LABS: MEAN CELL VOLUME 92.4 fl (81.0-99.0); MEAN CORPUSCULAR HGB CONC 32.4 g/dL (33.0-37.0); RED CELL DISTRIBUTION WIDTH 13.6 % (11.5-14.5); WHITE BLOOD COUNT 9.9 K/uL (4.8-10.8)
[2017-05-24 06:04] LABS: BLOOD UREA NITROGEN 22 mg/dl (7-17); CALCIUM 7.3 mg/dL (8.4-10.2); CARBON DIOXIDE 34 mmol/L (22-30); CHLORIDE 92 mmol/L (98-107); GFR AFRICAN-AMERICAN > 60; GLUCOSE,RANDOM 265 mg/dL (65-105); POTASSIUM 4.8 MMOL/L (3.6-5.0); SODIUM 132 mmol/l (132-148)
[2017-05-24] MEDS: Insulin Lispro (humaLOG) 100 Units/ml Inj SC SCH ×4 (06:36→22:53)
--- NOTE | 2017-05-24 07:34 | CP.PCM.PN ---
<Vivian Saldivar - Last Filed: 05/24/17 16:25> Subjective - Date & Time of Evaluation Date of Evaluation: 05/24/17 Time of Evaluation: 07:34 - Subjective Subjective: Hospitalist Progress Note 76 year old female patient seen and evaluated at bedside in ICU for hypercapnic respiratory failure. Patient is awake, alert, and more responsive at this visit ; hemodynamically stable and NAD. Patient states she is feeling better, no shortness of breath. Watson was was removed yesterday; patient has been able to void via bedpan without issues. Patient remains hypercarbic however PCO2 continues to decrease. Patient was not on BiPAP overnight. Patient seen by physical therapy yesterday with good tolerance to treatment. Patient denies N/V/ F/D/C/palpitations. Objective - Vital Signs/Intake and Output Vital Signs (last 24 hours): Temp Pulse Resp BP Pulse Ox 98.5 F 81 23 151/92 H 100 05/23/17 20:00 05/24/17 06:00 05/24/17 06:00 05/24/17 06:00 05/24/17 06:00 Intake and Output: 05/24/17 05/24/17 06:59 18:59 Intake Total 620 Output Total 950 Balance -330 - Medications Medications: Current Medications Acetaminophen (Tylenol 650mg/20.3ml Solution Ud) 650 mg PO Q6 PRN PRN Reason: Temperature Last Admin: 05/17/17 17:11 Dose: 650 mg Albuterol/Ipratropium (Duoneb 3 Mg/0.5 Mg (3 Ml) Ud) 3 ml INH RQID [facility] Last Admin: 05/23/17 19:44 Dose: 3 ml Atorvastatin Calcium (Lipitor) 20 mg PO DAILY [facility] Last Admin: 05/23/17 08:23 Dose: 20 mg Carvedilol (Coreg) 25 mg PO Q12 [facility] Last Admin: 05/23/17 20:44 Dose: 25 mg Furosemide (Lasix) 20 mg IVP ONCE [facility] Last Admin: 05/21/17 10:56 Dose: 20 mg Cefepime HCl 1 gm/ Sodium (Chloride) 100 mls @ 100 mls/hr IVPB Q12 [facility] PRN Reason: Protocol Last Admin: 05/23/17 20:45 Dose: 100 mls/hr Ciprofloxacin (Cipro 400mg/200ml Dsw) 400 mg in 200 mls @ 200 mls/hr IVPB Q12 [facility] PRN Reason: Protocol Last Admin: 05/23/17 20:46 Dose: 200 mls/hr Sodium Chloride (Sodium Chloride 0.9%) 1,000 mls @ 50 mls/hr IV .Q20H [facility] Stop: 05/24/17 11:22 Last Admin: 05/23/17 12:31 Dose: 50 mls/hr Insulin Human Lispro (Humalog) 0 units SC ACHS [facility] PRN Reason: Protocol Last Admin: 05/24/17 06:36 Dose: 3 units Methylprednisolone (Medrol) 20 mg PO Q12 [facility] Last Admin: 05/23/17 20:42 Dose: 20 mg Pantoprazole Sodium (Protonix Inj) 40 mg IVP DAILY [facility] Last Admin: 05/23/17 08:25 Dose: 40 mg Polyethylene Glycol (Miralax) 17 gm PO BID [facility] Last Admin: 05/23/17 16:15 Dose: 17 gm Rivaroxaban (Xarelto) 15 mg PO QD5 [facility] PRN Reason: Protocol Last Admin: 05/23/17 16:16 Dose: 15 mg - Labs Labs: 05/24/17 04:25 05/24/17 04:25 - Constitutional Appears: Well, Non-toxic, No Acute Distress - Head Exam Head Exam: ATRAUMATIC, NORMAL INSPECTION, NORMOCEPHALIC - Eye Exam Eye Exam: EOMI, Normal appearance, PERRL. absent: Periorbital swelling Pupil Exam: NORMAL ACCOMODATION - ENT Exam ENT Exam: Mucous Membranes Moist, Normal Exam, Normal External Ear Exam - Neck Exam Neck Exam: Normal Inspection. absent: Tenderness - Respiratory Exam Respiratory Exam: Clear to Ausculation Bilateral, NORMAL BREATHING PATTERN. absent: Rales, Rhonchi, Wheezes - Cardiovascular Exam Cardiovascular Exam: REGULAR RHYTHM, RRR, +S1, +S2. absent: Gallop, Rubs, Murmur - GI/Abdominal Exam GI & Abdominal Exam: Soft, Normal Bowel Sounds. absent: Tenderness - Rectal Exam Rectal Exam: Deferred - Extremities Exam Extremities Exam: Normal Capillary Refill, Normal Inspection. absent: Tenderness - Back Exam Back Exam: absent: tenderness - Neurological Exam Neurological Exam: Alert, Awake, Oriented x3 - Psychiatric Exam Psychiatric exam: Normal Affect, Normal Mood - Skin Skin Exam: Dry, Intact, Normal Color, Warm Assessment and Plan - Assessment and Plan (Free Text) Assessment: 76 y/o lady with hx of A Fib, DM, HTN, Chronic Constipation, came in bec of abd pain and constipation. CT of abd done on prior ER visit showed constipation. On lab exam, pt was noted to have a Sodium of 117. Pt noted to be drowsy and Na persistently low despite IVF NS - Nephrology consulted- rec to start 3% Sodium. Pt transferred to ICU for close supervision. Pt noted to have worsening lethargy. ABG done showed severe hypercapnea- she was then intubated. The patient was extubated. Her sodium is now within normal range. Post extubation PCo2 again went up - pt placed on Bipap overnight. 05/21/17 hypercapnea continues to be elevated on ABG, will trial bipap during the day to improve mild CO2 narcosis. Patient non-compliant with BiPAP for long periods of time. 1. Acute Hypercapneic Respiratory Failure Pt was intubated, extubated and then placed on Bipap bec pCo2 went up to 94 on 05/19/17. -Today patient mildly improved w/pCO2 = 50, however still mildly somnolent poss from CO2 narcosis -Continue BiPAP during the day; patient compliance with BiPAP improving Pulm on board - Dr Joseph; recommends continuing Rocephin, Cipro, Duoneb and rest of Tx. Unclear etiology for hypercapnea - need further work up - CT of head , CT of chest -CT head was negative for acute pathology -CT of chest - bilateral consolidations poss infiltrates - ALSO R > L bilateral pleural effusions ECHO reveals moderately impaired systolic function, septal hypokinesis, moderate /severe mitral regurgitation, mild/moderate pulmonary hypertension TRACH ASP +pseudomonas SENSITIVE TO CIPRO, will treat. no growth BLOOD CULTURES (final). CXR 05/17/17 shows no active pulmonary disease CXR 05/18/17 persistent severe cardiomegaly, pulmonary venous congestion and question of developing pulmonary edema R>L CXR 05/24/17 reveals persistent cardiomegaly and pulmonary venous congestion with worsening pleural effusions, R>L Continue IV Solumedrol and Duonebs Dispo planning: Patient seen by PT yesterday - recommend d/c to [facility] (2)Hyponatremia likely hypovolemic sec to diuretics and also poss from decrease solute intake will also need to r/o [facility] - Serum Osm low Nephrology consulted - Dr Vaca -Patient previously given 3% saline as per discussion with nephrology until serum sodium came up to 121; now on normal saline at 50cc/hour Sodium trending down = 132 today -Continue fluid restriction; will consider Tolvaptan if continues to decrease (3) Abdominal pain sec to Constipation VS. Ileus abdominal obstructive series: dilated loops of bowel GI consult with Dr Butt- signed off at this time Laxatives- miralax daily, water enemas. (4) Chronic atrial fibrillation Afib noted overnight Pt on Xarelto 15mg PO daily cont Coreg (5) DM II (diabetes mellitus, type II), controlled BS relatively controlled Continue ISS BG = 229 accuchecks ACHS (6) HTN (hypertension) cont Coreg (7) Hyperlipidemia Atorvastatin 20mg PO HS (8) Hypocalcemia replaced with Calcium Gluc (9) DVT prophylaxis on Xarelto <Natalie Alejo - Last Filed: 05/24/17 17:47> Objective - Vital Signs/Intake and Output Vital Signs (last 24 hours): Temp Pulse Resp BP Pulse Ox 97.4 F L 92 H 26 H 135/75 93 L 05/24/17 16:00 05/24/17 16:00 05/24/17 16:00 05/24/17 16:00 05/24/17 16:00 Intake and Output: 05/24/17 05/24/17 06:59 18:59 Intake Total 620 650 Output Total 950 1200 Balance -330 -550 - Medications Medications: Current Medications Acetaminophen (Tylenol 650mg/20.3ml Solution Ud) 650 mg PO Q6 PRN PRN Reason: Temperature Last Admin: 05/17/17 17:11 Dose: 650 mg Albuterol/Ipratropium (Duoneb 3 Mg/0.5 Mg (3 Ml) Ud) 3 ml INH RQID [facility] Last Admin: 05/24/17 15:59 Dose: 3 ml Atorvastatin Calcium (Lipitor) 20 mg PO DAILY [facility] Last Admin: 05/24/17 08:45 Dose: 20 mg Carvedilol (Coreg) 25 mg PO Q12 [facility] Last Admin: 05/24/17 08:41 Dose: 25 mg Furosemide (Lasix) 20 mg IVP ONCE [facility] Last Admin: 05/21/17 10:56 Dose: 20 mg Cefepime HCl 1 gm/ Sodium (Chloride) 100 mls @ 100 mls/hr IVPB Q12 [facility] PRN Reason: Protocol Last Admin: 05/24/17 08:45 Dose: 100 mls/hr Ciprofloxacin (Cipro 400mg/200ml Dsw) 400 mg in 200 mls @ 200 mls/hr IVPB Q12 [facility] PRN Reason: Protocol Last Admin: 05/24/17 08:37 Dose: 200 mls/hr Insulin Human Lispro (Humalog) 0 units SC ACHS [facility] PRN Reason: Protocol Last Admin: 05/24/17 17:27 Dose: 2 units Methylprednisolone (Medrol) 20 mg PO Q12 [facility] Last Admin: 05/24/17 08:46 Dose: 20 mg Polyethylene Glycol (Miralax) 17 gm PO BID [facility] Last Admin: 05/24/17 17:27 Dose: Not Given Rivaroxaban (Xarelto) 15 mg PO QD5 [facility] PRN Reason: Protocol Last Admin: 05/24/17 17:26 Dose: 15 mg - Labs Labs: 05/24/17 04:25 05/24/17 04:25 Attending/Attestation - Attestation I have personally seen and examined this patient.: Yes I have fully participated in the care of the patient.: Yes I have reviewed all pertinent clinical information, including history, physical exam and plan: Yes Notes (Text): 05/24/17 17:46 Seen, examined, and discussed with Resident Dr. Saldivar. Agree with findings and plan as above. pt clinically improving. consider BIPAP at PM in [facility]? and d/c with 3L O2.
[2017-05-24] MEDS: Albuterol-Ipratrop 3 mg / 0.5 (3 ml) UD INH SCH ×4 (08:00→19:24)
[2017-05-24] MEDS: Ciprofloxacin 400mg/200ml D5W 400 MG/200 ML BAG IVPB SCH ×2 (08:37→20:28)
[2017-05-24] MEDS: Cefepime 1 GM in Sodium Chloride 0.9% 100 ML IVPB SCH ×2 (08:45→20:28)
[2017-05-24] MEDS: POLYETHYLENE GLYCOL 3350 17 GM/Dose PACKET PO SCH ×2 (08:47→17:27)
--- NOTE | 2017-05-24 09:03 | CP.PCM.PN ---
Subjective - Date & Time of Evaluation Date of Evaluation: 05/24/17 Time of Evaluation: 09:00 - Subjective Subjective: sitting up in bed awake no vomiting eating well Objective - Vital Signs/Intake and Output Vital Signs (last 24 hours): Temp Pulse Resp BP Pulse Ox 98.5 F 89 23 142/100 H 100 05/23/17 20:00 05/24/17 08:41 05/24/17 06:00 05/24/17 08:41 05/24/17 06:00 Intake and Output: 05/24/17 05/24/17 06:59 18:59 Intake Total 620 100 Output Total 950 300 Balance -330 -200 - Medications Medications: Current Medications Acetaminophen (Tylenol 650mg/20.3ml Solution Ud) 650 mg PO Q6 PRN PRN Reason: Temperature Last Admin: 05/17/17 17:11 Dose: 650 mg Albuterol/Ipratropium (Duoneb 3 Mg/0.5 Mg (3 Ml) Ud) 3 ml INH RQID [facility] Last Admin: 05/24/17 08:00 Dose: 3 ml Atorvastatin Calcium (Lipitor) 20 mg PO DAILY [facility] Last Admin: 05/24/17 08:45 Dose: 20 mg Carvedilol (Coreg) 25 mg PO Q12 [facility] Last Admin: 05/24/17 08:41 Dose: 25 mg Furosemide (Lasix) 20 mg IVP ONCE [facility] Last Admin: 05/21/17 10:56 Dose: 20 mg Cefepime HCl 1 gm/ Sodium (Chloride) 100 mls @ 100 mls/hr IVPB Q12 [facility] PRN Reason: Protocol Last Admin: 05/24/17 08:45 Dose: 100 mls/hr Ciprofloxacin (Cipro 400mg/200ml Dsw) 400 mg in 200 mls @ 200 mls/hr IVPB Q12 [facility] PRN Reason: Protocol Last Admin: 05/24/17 08:37 Dose: 200 mls/hr Sodium Chloride (Sodium Chloride 0.9%) 1,000 mls @ 50 mls/hr IV .Q20H [facility] Stop: 05/24/17 11:22 Last Admin: 05/23/17 12:31 Dose: 50 mls/hr Insulin Human Lispro (Humalog) 0 units SC ACHS [facility] PRN Reason: Protocol Last Admin: 05/24/17 06:36 Dose: 3 units Methylprednisolone (Medrol) 20 mg PO Q12 [facility] Last Admin: 05/24/17 08:46 Dose: 20 mg Pantoprazole Sodium (Protonix Inj) 40 mg IVP DAILY [facility] Last Admin: 05/24/17 08:48 Dose: 40 mg Polyethylene Glycol (Miralax) 17 gm PO BID [facility] Last Admin: 05/24/17 08:47 Dose: 17 gm Rivaroxaban (Xarelto) 15 mg PO QD5 [facility] PRN Reason: Protocol Last Admin: 05/23/17 16:16 Dose: 15 mg - Labs Labs: 05/24/17 04:25 05/24/17 04:25 - Constitutional Appears: In Acute Distress - ENT Exam ENT Exam: Mucous Membranes Moist - Cardiovascular Exam Cardiovascular Exam: absent: JVD, Rubs - GI/Abdominal Exam GI & Abdominal Exam: Soft - Extremities Exam Extremities Exam: absent: Calf Tenderness - Back Exam Back Exam: absent: CVA tenderness (L), CVA tenderness (R) - Neurological Exam Neurological Exam: Alert Assessment and Plan (1) Abdominal pain Status: Acute (2) Chronic atrial fibrillation Status: Acute (3) Hyponatremia Assessment & Plan: Sodium trending down 132 today. needs fluid restriction will consider Tolvaptan if still coming down. Status: Acute
[2017-05-24 10:55] LABS: ABG ALLEN TEST YES; ARTERIAL BLOOD GAS HCO3 32.1 mmol/L (21-28); ARTERIAL BLOOD GAS O2 CAPACITY 16.5 mL/dL (16-24); ARTERIAL BLOOD GAS O2 CONTENT 16.2 ML/dL (15-23); ARTERIAL BLOOD GAS PH 7.45 (7.35-7.45); ARTERIAL BLOOD GAS PO2 72 mm/Hg (80-100); ARTERIAL BLOOD HGB O2 SAT 95.1 % (95.0-98.0); CARBOXYHEMOGLOBIN 2.2 % (0.5-1.5); HHB 1.7 % (0.0-5.0); METHEMOGLOBIN 1.1 % (0.0-3.0)
--- NOTE | 2017-05-24 11:36 | RAD ---
PROCEDURE: CHEST RADIOGRAPH, 1 VIEW HISTORY: Pneumonia with pleural effusion COMPARISON: 05/19/2017 FINDINGS: LUNGS: There is worsening airspace disease in the right lower lobe. There is also airspace disease in the left lower lobe. There is severe pulmonary venous congestion. PLEURA: No pneumothorax. There are bilateral pleural effusions, larger on the right. CARDIOVASCULAR: The heart remains enlarged with prominent central vasculature. OSSEOUS STRUCTURES: No significant abnormalities. VISUALIZED UPPER ABDOMEN: Normal. OTHER FINDINGS: None. IMPRESSION: Persistent cardiomegaly and pulmonary venous congestion with worsening pleural effusions, larger on the right. Underlying airspace disease cannot be excluded.
--- NOTE | 2017-05-24 13:42 | CP.CCUPN ---
CCU Subjective - Physician Review Subjective (Free Text): 05/24/17 13:40 The patient was Seen/interviewed and examined by me at the bedside during ICU round, Medical records reviewed and Management issues were discussed and formulated with the house staff. 76 Years old female with Acute Hypercapneic Respiratory Failure, S/p extubation 05/19 This morning she continue feel better and is hemodynamically improved Pt denies any chest pain, Less SOB No Vasopressors Awake, comfortable, NAD Pt AAO x3. Alert, follows some commands Saturating well on 3L NC She did not require nocturnal BIPAP last night Afebrile, A-Fib on the monitor Last 24H I&O This morning labs revealed sodium level trending down 132, stable renal function BUN/Cr 22/0.5 CCU Objective - Vital Signs / Intake & Output Vital Signs (Last 4 hours): Vital Signs Temp Pulse Resp BP Pulse Ox 05/24/17 12:00 98.5 F 114 H 23 159/93 H 92 L 05/24/17 10:00 85 20 140/83 96 Intake and Output (Last 8hrs): Intake & Output 05/23/17 05/24/17 05/24/17 22:59 06:59 14:59 Intake Total 1100 300 450 Output Total 017 419 7234 Balance 650 -200 -550 Weight 156 lb Intake: IV 740 300 250 Intake, Piggyback 200 Oral 360 Output: Urine 450 500 700 Urine, Voided 450 500 700 Urine/Stool Mix 300 Other: # Voids Urine, Voided 2 2 # Bowel Movements 1 1 - Physical Exam Head: Positive for: Atraumatic, Normocephalic Pupils: Positive for: PERRL Extroacular Muscles: Positive for: EOMI Conjunctiva: Positive for: Normal. Negative for: Injected, Icteric Mouth: Positive for: Moist Mucous Membranes Neck: Positive for: JVD. Negative for: Meningeal Signs Respiratory/Chest: Positive for: Decreased Breath Sounds, Rhonchi, Tachypneic. Negative for: Respiratory Distress, Accessory Muscle Use, Wheezes Cardiovascular: Positive for: Regular Rate and Rhythm. Negative for: Murmurs, Tachycardic, Rub Abdomen: Positive for: Normal Bowel Sounds. Negative for: Tenderness, Distention, Mass/Organomegaly Lower Extremity: Positive for: NORMAL PULSES. Negative for: Edema, CALF TENDERNESS, Cyanosis Neurological: Positive for: Motor Func Grossly Intact, Normal Sensory Function Skin: Positive for: Warm, Dry. Negative for: Rashes Psychiatric: Positive for: Alert, Oriented x 3, Other (sedated but opens eyes to tactile stimuli.) - Medications Active Medications: Active Medications Generic Name Dose Route Start Last Admin Trade Name Freq PRN Reason Stop Dose Admin Acetaminophen 650 mg 05/17/17 16:45 05/17/17 17:11 Tylenol 650mg/20.3ml Solution Ud PO 650 mg Q6 PRN Administration Temperature Albuterol/Ipratropium 3 ml 05/19/17 16:00 05/24/17 11:02 Duoneb 3 Mg/0.5 Mg (3 Ml) Ud INH 3 ml RQID GLADYS Administration Atorvastatin Calcium 20 mg 05/15/17 13:15 05/24/17 08:45 Lipitor PO 20 mg DAILY GLADYS Administration Carvedilol 25 mg 05/15/17 21:00 05/24/17 08:41 Coreg PO 25 mg Q12 GLADYS Administration Furosemide 20 mg 05/21/17 10:45 05/21/17 10:56 Lasix IVP 20 mg ONCE GLADYS Administration Cefepime HCl 1 gm/ Sodium 100 mls @ 100 mls/hr 05/21/17 11:00 05/24/17 08:45 Chloride IVPB 100 mls/hr Q12 GLADYS Administration Protocol Ciprofloxacin 400 mg in 200 mls @ 200 mls/hr 05/21/17 11:00 05/24/17 08:37 Cipro 400mg/200ml Dsw IVPB 200 mls/hr Q12 GLADYS Administration Protocol Insulin Human Lispro 0 units 05/21/17 22:35 05/24/17 12:25 Humalog SC 2 units ACHS GLADYS Administration Protocol Methylprednisolone 20 mg 05/23/17 09:45 05/24/17 08:46 Medrol PO 20 mg Q12 GLADYS Administration Polyethylene Glycol 17 gm 05/16/17 17:00 05/24/17 08:47 Miralax PO 17 gm BID GLADYS Administration Rivaroxaban 15 mg 05/23/17 17:00 05/23/17 16:16 Xarelto PO 15 mg QD5 GLADYS Administration Protocol - Patient Studies Lab Studies: Lab Studies 05/24/17 05/24/17 05/24/17 Range/Units : 10:45 06:05 WBC (4.8-10.8) K/uL RBC (3.80-5.20) Mil/uL Hgb (12.0-16.0) g/dL Hct (34.0-47.0) % MCV (81.0-99.0) fl MCH (27.0-31.0) pg MCHC (33.0-37.0) g/dL RDW (11.5-14.5) % Plt Count (130-400) K/uL pCO2 50 H (35-45) mm/Hg pO2 72 L (80-100) mm/Hg HCO3 32.1 H (21-28) mmol/L ABG pH 7.45 (7.35-7.45) ABG Total CO2 36.3 H (22-28) mmol/L ABG O2 Saturation 98.2 H (95-98) % ABG O2 Content 16.2 (15-23) ML/dL ABG Base Excess 9.3 H (-2.0-3.0) mmol/L ABG Hemoglobin 12.1 (11.7-17.4) g/dL ABG Carboxyhemoglobin 2.2 H (0.5-1.5) % POC ABG HHb (Measured) 1.7 (0.0-5.0) % ABG Methemoglobin 1.1 (0.0-3.0) % ABG O2 Capacity 16.5 (16-24) mL/dL Valdemar Test Yes A-a O2 Difference 94.0 mm/Hg Hgb O2 Saturation 95.1 (95.0-98.0) % FiO2 32.0 % Sodium (132-148) mmol/l Potassium (3.6-5.0) MMOL/L Chloride (98-107) mmol/L Carbon Dioxide (22-30) mmol/L Anion Gap (10-20) BUN (7-17) mg/dl Creatinine (0.7-1.2) mg/dL Est GFR ( Amer) Est GFR (Non-Af Amer) POC Glucose (mg/dL) 229 H 258 H (65-110) mg/dL Random Glucose (65-105) mg/dL Calcium (8.4-10.2) mg/dL 05/24/17 05/24/17 05/23/17 Range/Units 04:25 04:25 22:13 WBC 9.9 (4.8-10.8) K/uL RBC 4.33 (3.80-5.20) Mil/uL Hgb 13.0 (12.0-16.0) g/dL Hct 40.0 (34.0-47.0) % MCV 92.4 (81.0-99.0) fl MCH 30.0 (27.0-31.0) pg MCHC 32.4 L (33.0-37.0) g/dL RDW 13.6 (11.5-14.5) % Plt Count 106 L (130-400) K/uL pCO2 (35-45) mm/Hg pO2 (80-100) mm/Hg HCO3 (21-28) mmol/L ABG pH (7.35-7.45) ABG Total CO2 (22-28) mmol/L ABG O2 Saturation (95-98) % ABG O2 Content (15-23) ML/dL ABG Base Excess (-2.0-3.0) mmol/L ABG Hemoglobin (11.7-17.4) g/dL ABG Carboxyhemoglobin (0.5-1.5) % POC ABG HHb (Measured) (0.0-5.0) % ABG Methemoglobin (0.0-3.0) % ABG O2 Capacity (16-24) mL/dL Valdemar Test A-a O2 Difference mm/Hg Hgb O2 Saturation (95.0-98.0) % FiO2 % Sodium 132 (132-148) mmol/l Potassium 4.8 (3.6-5.0) MMOL/L Chloride 92 L (98-107) mmol/L Carbon Dioxide 34 H (22-30) mmol/L Anion Gap 11 (10-20) BUN 22 H (7-17) mg/dl Creatinine 0.5 L (0.7-1.2) mg/dL Est GFR ( Amer) > 60 Est GFR (Non-Af Amer) > 60 POC Glucose (mg/dL) 298 H (65-110) mg/dL Random Glucose 265 H (65-105) mg/dL Calcium 7.3 L (8.4-10.2) mg/dL 05/23/17 Range/Units 16:49 WBC (4.8-10.8) K/uL RBC (3.80-5.20) Mil/uL Hgb (12.0-16.0) g/dL Hct (34.0-47.0) % MCV (81.0-99.0) fl MCH (27.0-31.0) pg MCHC (33.0-37.0) g/dL RDW (11.5-14.5) % Plt Count (130-400) K/uL pCO2 (35-45) mm/Hg pO2 (80-100) mm/Hg HCO3 (21-28) mmol/L ABG pH (7.35-7.45) ABG Total CO2 (22-28) mmol/L ABG O2 Saturation (95-98) % ABG O2 Content (15-23) ML/dL ABG Base Excess (-2.0-3.0) mmol/L ABG Hemoglobin (11.7-17.4) g/dL ABG Carboxyhemoglobin (0.5-1.5) % POC ABG HHb (Measured) (0.0-5.0) % ABG Methemoglobin (0.0-3.0) % ABG O2 Capacity (16-24) mL/dL Val[place]ar Test A-a O2 Difference mm/Hg Hgb O2 Saturation (95.0-98.0) % FiO2 % Sodium (132-148) mmol/l Potassium (3.6-5.0) MMOL/L Chloride (98-107) mmol/L Carbon Dioxide (22-30) mmol/L Anion Gap (10-20) BUN (7-17) mg/dl Creatinine (0.7-1.2) mg/dL Est GFR ( Amer) Est GFR (Non-Af Amer) POC Glucose (mg/dL) 309 H (65-110) mg/dL Random Glucose (65-105) mg/dL Calcium (8.4-10.2) mg/dL Laboratory Results - last 24 hr 05/23/17 05/23/17 05/24/17 16:49 22:13 04:25 WBC 9.9 RBC 4.33 Hgb 13.0 Hct 40.0 MCV 92.4 MCH 30.0 MCHC 32.4 L RDW 13.6 Plt Count 106 L pCO2 pO2 HCO3 ABG pH ABG Total CO2 ABG O2 Saturation ABG O2 Content ABG Base Excess ABG Hemoglobin ABG Carboxyhemoglobin POC ABG HHb (Measured) ABG Methemoglobin ABG O2 Capacity Valdemar Test A-a O2 Difference Hgb O2 Saturation FiO2 Sodium Potassium Chloride Carbon Dioxide Anion Gap BUN Creatinine Est GFR ( Amer) Est GFR (Non-Af Amer) POC Glucose (mg/dL) 309 H 298 H Random Glucose Calcium 05/24/17 05/24/17 05/24/17 04:25 06:05 10:45 WBC RBC Hgb Hct MCV MCH MCHC RDW Plt Count pCO2 50 H pO2 72 L HCO3 32.1 H ABG pH 7.45 ABG Total CO2 36.3 H ABG O2 Saturation 98.2 H ABG O2 Content 16.2 ABG Base Excess 9.3 H ABG Hemoglobin 12.1 ABG Carboxyhemoglobin 2.2 H POC ABG HHb (Measured) 1.7 ABG Methemoglobin 1.1 ABG O2 Capacity 16.5 Valdemar Test Yes A-a O2 Difference 94.0 Hgb O2 Saturation 95.1 FiO2 32.0 Sodium 132 Potassium 4.8 Chloride 92 L Carbon Dioxide 34 H Anion Gap 11 BUN 22 H Creatinine 0.5 L Est GFR ( Amer) > 60 Est GFR (Non-Af Amer) > 60 POC Glucose (mg/dL) 258 H Random Glucose 265 H Calcium 7.3 L 05/24/17 11:17 WBC RBC Hgb Hct MCV MCH MCHC RDW Plt Count pCO2 pO2 HCO3 ABG pH ABG Total CO2 ABG O2 Saturation ABG O2 Content ABG Base Excess ABG Hemoglobin ABG Carboxyhemoglobin POC ABG HHb (Measured) ABG Methemoglobin ABG O2 Capacity [place] Test A-a O2 Difference Hgb O2 Saturation FiO2 Sodium Potassium Chloride Carbon Dioxide Anion Gap BUN Creatinine Est GFR ( Amer) Est GFR (Non-Af Amer) POC Glucose (mg/dL) 229 H Random Glucose Calcium Fingerstick Blood Sugar Results: 229 Critical Care Progress Note - Extremities/Vascular Does the Patient have a Central Venous Catheter?: No Does the Patient need a Central Venous Catheter?: No Does the Patient have a Watson Catheter?: No Does the Patient need a Watson Catheter?: No - Nutrition Nutrition: Nutrition Category Date Time Status Dysphagia/Modified Consistency Diet [DIET] Diets 11/11/17 Breakfast Active Assessment/Plan (1) Acute respiratory failure with hypercapnia Current Visit: Yes Status: Acute Priority: High Comment: 76 Years old female with Acute Hypercapneic Respiratory Failure, s/p extubation 05/19 Successfully extubated Continue Antibiotics WITH Cefepime and Cipro for Psudomonas in tracheal aspirate 05/18 Continue current ICU mangements Diuresis Strict I&Os (2) Bronchial asthma Current Visit: Yes Status: Acute Priority: High Comment: Continue Albuterol/Ipratropium INH RQID Taper off steroids (3) Chronic atrial fibrillation Current Visit: Yes Status: Acute Comment: HR controlled on Coreg 25 mg PO Q12 Continue Xarelto 15 mg PO QD (4) Hyponatremia Current Visit: Yes Status: Acute Comment: Change Ringer lactate to normal saline @ 50 cc/H (5) DVT prophylaxis Current Visit: No Status: Acute Priority: High Comment: - Xarelto (6) Hyperlipidemia Current Visit: No Status: Acute Comment: Atorvastatin Calcium (Lipitor) 20 mg PO DAILY (7) PVD (peripheral vascular disease) Current Visit: No Status: Acute Priority: Medium Comment: - on Xarelto and statin (8) Thrombocytopenia Current Visit: No Status: Acute Priority: Medium Comment: - Plat count improved and stable now - No evidance of bleeding (9) DM II (diabetes mellitus, type II), controlled Current Visit: No Status: Chronic Priority: Medium Comment: POCT glc ACHS
--- NOTE | 2017-05-24 15:57 | CP.PCM.PN ---
Subjective - Date & Time of Evaluation Date of Evaluation: 05/24/17 Time of Evaluation: 11:00 - Subjective Subjective: F/U Respiratory failure. Pt is sitting in a chair, smiling, no A?d. Objective - Vital Signs/Intake and Output Vital Signs (last 24 hours): Temp Pulse Resp BP Pulse Ox 98.5 F 90 18 149/77 100 05/24/17 12:00 05/24/17 14:00 05/24/17 14:00 05/24/17 14:00 05/24/17 14:00 Intake and Output: 05/24/17 05/24/17 06:59 18:59 Intake Total 620 550 Output Total 950 1200 Balance -330 -650 - Medications Medications: Current Medications Acetaminophen (Tylenol 650mg/20.3ml Solution Ud) 650 mg PO Q6 PRN PRN Reason: Temperature Last Admin: 05/17/17 17:11 Dose: 650 mg Albuterol/Ipratropium (Duoneb 3 Mg/0.5 Mg (3 Ml) Ud) 3 ml INH RQID [facility] Last Admin: 05/24/17 11:02 Dose: 3 ml Atorvastatin Calcium (Lipitor) 20 mg PO DAILY GLADYS Last Admin: 05/24/17 08:45 Dose: 20 mg Carvedilol (Coreg) 25 mg PO Q12 GLADYS Last Admin: 05/24/17 08:41 Dose: 25 mg Furosemide (Lasix) 20 mg IVP ONCE GLADYS Last Admin: 05/21/17 10:56 Dose: 20 mg Cefepime HCl 1 gm/ Sodium (Chloride) 100 mls @ 100 mls/hr IVPB Q12 GLADYS PRN Reason: Protocol Last Admin: 05/24/17 08:45 Dose: 100 mls/hr Ciprofloxacin (Cipro 400mg/200ml Dsw) 400 mg in 200 mls @ 200 mls/hr IVPB Q12 [facility]ADYS PRN Reason: Protocol Last Admin: 05/24/17 08:37 Dose: 200 mls/hr Insulin Human Lispro (Humalog) 0 units SC ACHS GLADYS PRN Reason: Protocol Last Admin: 05/24/17 12:25 Dose: 2 units Methylprednisolone (Medrol) 20 mg PO Q12 GLADYS Last Admin: 05/24/17 08:46 Dose: 20 mg Polyethylene Glycol (Miralax) 17 gm PO BID GLADYS Last Admin: 05/24/17 08:47 Dose: 17 gm Rivaroxaban (Xarelto) 15 mg PO QD5 GLADYS PRN Reason: Protocol Last Admin: 05/23/17 16:16 Dose: 15 mg - Labs Labs: 05/24/17 04:25 05/24/17 04:25 - Constitutional Appears: No Acute Distress - Head Exam Head Exam: NORMAL INSPECTION - Eye Exam Eye Exam: PERRL - ENT Exam ENT Exam: Normal Exam - Neck Exam Neck Exam: Normal Inspection - Respiratory Exam Respiratory Exam: Decreased Breath Sounds (at bases) - Cardiovascular Exam Cardiovascular Exam: Irregular Rhythm - GI/Abdominal Exam GI & Abdominal Exam: Soft, Normal Bowel Sounds - Extremities Exam Extremities Exam: Pedal Edema - Neurological Exam Neurological Exam: Awake Additional comments: Confused, forgetful, follows commands, no focal motor sensory deficit. Assessment and Plan (1) Hypercapnic respiratory failure Status: Acute (2) Bronchial asthma Status: Acute (3) Atrial fibrillation Status: Chronic - Assessment and Plan (Free Text) Plan: CXR today: Persistent pulmonary congestion with worsening pleural effusion R>L. Continue Cipro, Cefepime, Duoneb and rest of Tx.
[2017-05-24] MEDS: Sodium Chloride 0.9% 1,000 ML IV SCH (17:24)
[2017-05-25 05:16] LABS: MEAN CELL VOLUME 91.9 fl (81.0-99.0); MEAN CORPUSCULAR HEMOGLOBIN 29.9 pg (27.0-31.0); MEAN CORPUSCULAR HGB CONC 32.5 g/dL (33.0-37.0); RED CELL DISTRIBUTION WIDTH 13.4 % (11.5-14.5); WHITE BLOOD COUNT 8.3 K/uL (4.8-10.8)
[2017-05-25 05:22] LABS: BLOOD UREA NITROGEN 21 mg/dl (7-17); CALCIUM 7.3 mg/dL (8.4-10.2); CARBON DIOXIDE 32 mmol/L (22-30); GFR AFRICAN-AMERICAN > 60; GLUCOSE,RANDOM 281 mg/dL (65-105); POTASSIUM 5.1 MMOL/L (3.6-5.0); SODIUM 131 mmol/l (132-148)
[2017-05-25] MEDS: Insulin Lispro (humaLOG) 100 Units/ml Inj SC SCH ×4 (06:37→22:00)
[2017-05-25] MEDS: Albuterol-Ipratrop 3 mg / 0.5 (3 ml) UD INH SCH ×4 (08:03→19:03)
[2017-05-25] MEDS: Ciprofloxacin 400mg/200ml D5W 400 MG/200 ML BAG IVPB SCH (08:49)
[2017-05-25] MEDS: Cefepime 1 GM in Sodium Chloride 0.9% 100 ML IVPB SCH ×2 (08:51→20:28)
[2017-05-25] MEDS: POLYETHYLENE GLYCOL 3350 17 GM/Dose PACKET PO SCH (08:52)
[2017-05-25] MEDS ORDERED: POLYETHYLENE GLYCOL 3350 17 GM/Dose PACKET PO PRN (09:19)
--- NOTE | 2017-05-25 10:33 | CP.PCM.DIS ---
Provider - Provider Date of Admission: 05/15/17 11:33 Attending physician: Nicolas Dean MD Consults: Nephrology Pulmonology Time Spent in preparation of Discharge (in minutes): 20 Hospital Course - Lab Results Lab Results: Micro Results 05/18/17 08:15 Blood-Venous Blood Culture - Final NO GROWTH AFTER 5 DAYS 05/18/17 08:15 Blood-Venous Gram Stain - Final TEST NOT PERFORMED 05/18/17 08:00 Blood-Venous Blood Culture - Final NO GROWTH AFTER 5 DAYS 05/18/17 08:00 Blood-Venous Gram Stain - Final TEST NOT PERFORMED 05/18/17 13:17 Trachasp Gram Stain - Final 05/18/17 13:17 Trachasp Sputum Culture - Final Pseudomonas Aeruginosa 05/16/17 07:23 Naris MRSA Culture (Admit) - Final MRSA NOT DETECTED Most Recent Lab Values WBC 8.3 K/uL (4.8-10.8) 05/25/17 04:20 RBC 4.36 Mil/uL (3.80-5.20) 05/25/17 04:20 Hgb 13.0 g/dL (12.0-16.0) 05/25/17 04:20 Hct 40.0 % (34.0-47.0) 05/25/17 04:20 MCV 91.9 fl (81.0-99.0) 05/25/17 04:20 MCH 29.9 pg (27.0-31.0) 05/25/17 04:20 MCHC 32.5 g/dL (33.0-37.0) L 05/25/17 04:20 RDW 13.4 % (11.5-14.5) 05/25/17 04:20 Plt Count 106 K/uL (130-400) L 05/25/17 04:20 MPV 9.3 fl (7.2-11.7) 05/21/17 05:30 Neut % (Auto) 92.3 % (50.0-75.0) H 05/21/17 05:30 Lymph % (Auto) 4.1 % (20.0-40.0) L 05/21/17 05:30 [place] % (Auto) 3.4 % (0.0-10.0) 05/21/17 05:30 Eos % (Auto) 0.0 % (0.0-4.0) 05/21/17 05:30 Baso % (Auto) 0.2 % (0.0-2.0) 05/21/17 05:30 Neut # 5.4 K/uL (1.8-7.0) 05/21/17 05:30 Lymph # 0.2 K/uL (1.0-4.3) L 05/21/17 05:30 [place] # 0.2 K/uL (0.0-0.8) 05/21/17 05:30 Eos # 0.0 K/uL (0.0-0.7) 05/21/17 05:30 Baso # 0.0 K/uL (0.0-0.2) 05/21/17 05:30 Neutrophils % (Manual) 92 % (42-75) H 05/21/17 05:30 Lymphocytes % (Manual) 4 % (20-50) L 05/21/17 05:30 Monocytes % (Manual) 4 % (0-10) 05/21/17 05:30 Platelet Estimate Slightly decreased (NORMAL) L 05/21/17 05:30 Large Platelets Present 05/21/17 05:30 Ovalocytes Slight 05/21/17 05:30 pCO2 50 mm/Hg (35-45) H 05/24/17 10:45 pO2 72 mm/Hg (80-100) L 05/24/17 10:45 HCO3 32.1 mmol/L (21-28) H 05/24/17 10:45 ABG pH 7.45 (7.35-7.45) 05/24/17 10:45 ABG Total CO2 36.3 mmol/L (22-28) H 05/24/17 10:45 ABG O2 Saturation 98.2 % (95-98) H 05/24/17 10:45 ABG O2 Content 16.2 ML/dL (15-23) 05/24/17 10:45 ABG Base Excess 9.3 mmol/L (-2.0-3.0) H 05/24/17 10:45 ABG Hemoglobin 12.1 g/dL (11.7-17.4) 05/24/17 10:45 ABG Carboxyhemoglobin 2.2 % (0.5-1.5) H 05/24/17 10:45 POC ABG HHb (Measured) 1.7 % (0.0-5.0) 05/24/17 10:45 ABG Methemoglobin 1.1 % (0.0-3.0) 05/24/17 10:45 ABG O2 Capacity 16.5 mL/dL (16-24) 05/24/17 10:45 Valdemar Test Yes 05/24/17 10:45 A-a O2 Difference 94.0 mm/Hg 05/24/17 10:45 Hgb O2 Saturation 95.1 % (95.0-98.0) 05/24/17 10:45 Liter Flow 3l/m nc 05/21/17 10:09 Vent Mode Bipap 05/23/17 05:23 Mechanical Rate 14 05/23/17 05:23 FiO2 32.0 % 05/24/17 10:45 Tidal Volume 400 05/19/17 05:01 PEEP 5 05/19/17 05:01 Inspiratory BiPAP 18 05/23/17 05:23 Expiratory BiPAP 10 05/23/17 05:23 Blood Gas Comments rt radial 05/21/17 10:09 Crit Value Called To Home [email or web address] 05/19/17 11:19 Crit Value Called By 15 05/19/17 11:19 Crit Value Read Back Y 05/19/17 11:19 Blood Gas Notified Time 1105 05/19/17 11:19 Sodium 131 mmol/l (132-148) L 05/25/17 04:20 Potassium 5.1 MMOL/L (3.6-5.0) H 05/25/17 04:20 Chloride 92 mmol/L (98-107) L 05/25/17 04:20 Carbon Dioxide 32 mmol/L (22-30) H 05/25/17 04:20 Anion Gap 12 (10-20) 05/25/17 04:20 BUN 21 mg/dl (7-17) H 05/25/17 04:20 Creatinine 0.4 mg/dl (0.7-1.2) L 05/25/17 04:20 Est GFR ( Amer) > 60 05/25/17 04:20 Est GFR (Non-Af Amer) > 60 05/25/17 04:20 POC Glucose (mg/dL) 328 mg/dL (65-110) H 05/25/17 05:46 Random Glucose 281 mg/dL (65-105) H 05/25/17 04:20 Serum Osmolality 272 mosm/kg (272-300) 05/17/17 04:20 Calcium 7.3 mg/dL (8.4-10.2) L 05/25/17 04:20 Phosphorus 2.5 mg/dl (2.5-4.5) 05/23/17 04:20 Magnesium 1.8 MG/DL (1.6-2.3) 05/23/17 04:20 Total Bilirubin 1.2 mg/dl (0.2-1.3) 05/20/17 04:30 AST 25 U/L (14-36) 05/20/17 04:30 ALT 54 U/L (9-52) H 05/20/17 04:30 Alkaline Phosphatase 49 U/L (38-126) 05/20/17 04:30 NT-Pro-B Natriuret Pep 3200 pg/ml (0-900) H 05/15/17 11:00 Total Protein 5.6 G/DL (6.3-8.2) L 05/20/17 04:30 Albumin 3.2 g/dL (3.5-5.0) L D 05/20/17 04:30 Globulin 2.3 gm/dL (2.2-3.9) 05/20/17 04:30 Albumin/Globulin Ratio 1.4 (1.0-2.1) 05/20/17 04:30 Triglycerides 43 mg/DL (0-149) D 05/16/17 04:15 Cholesterol 72 mg/dL (0-199) 05/16/17 04:15 LDL Cholesterol Direct 40 mg/dL (0-129) 05/16/17 04:15 HDL Cholesterol 20 MG/DL (30-70) L 05/16/17 04:15 Lipase 42 U/L (23-300) 05/15/17 11:00 Free T4 2.02 ng/dL (0.78-2.19) 05/20/17 04:30 Thyroxine (T4) 9.04 ug/dl (5.5-11.0) 05/16/17 09:10 Total T3 0.508 nmol/L (1.49-2.60) L 05/16/17 09:10 TSH 3rd Generation 0.04 mIU/ML (0.46-4.68) L 05/20/17 04:30 Cortisol AM Sample 48.1 ug/dL (4.46-22.7) H 05/16/17 04:15 Urine Color Cathy (YELLOW) 05/17/17 02:45 Urine Clarity Cloudy (Clear) 05/17/17 02:45 Urine pH 6.0 (5.0-8.0) 05/17/17 02:45 Ur Specific [place] 1.017 (1.003-1.030) 05/17/17 02:45 Urine Protein 100 mg/dL (NEGATIVE) 05/17/17 02:45 Urine Glucose (UA) 50 mg/dL (Normal) 05/17/17 02:45 Urine Ketones Negative mg/dL (NEGATIVE) 05/17/17 02:45 Urine Blood Negative (NEGATIVE) 05/17/17 02:45 Urine Nitrate Negative (NEGATIVE) 05/17/17 02:45 Urine Bilirubin Negative (NEGATIVE) 05/17/17 02:45 Urine Urobilinogen 2.0 mg/dL (0.2-1.0) H 05/17/17 02:45 Ur Leukocyte Esterase Trace [place]/uL (Negative) 05/17/17 02:45 Urine RBC (Auto) 9 /hpf (0-3) H 05/17/17 02:45 Urine WBC Clumps (Auto) Few /hpf (NONE) H 05/17/17 02:45 Urine Microscopic WBC 26 /hpf (0-5) H 05/17/17 02:45 Ur Squamous Epith Cells 5 /hpf (0-5) 05/17/17 02:45 Ur Renal Epithelial Cell 1 /hpf (0-3) 05/17/17 02:45 Urine Bacteria Rare (<OCC) 05/17/17 02:45 Hyaline Casts 11-20 /hpf (0-2) H 05/17/17 02:45 Urine Osmolality 418 mosm/kg (300-1000) 05/17/17 02:45 Ur Random Sodium 9 mmol/L 05/17/17 02:45 Ur Random Potassium 9.2 mmol/L 05/17/17 02:45 - Hospital Course Hospital Course: 76 year old female patient PMHx chronic afib, DM2, HTN, HLD, PVD, glaucoma, and chronic constipation presented to [facility] ED 05/15/17 for persistent abdominal pain of 3 weeks duration. Patient seen in ED 10 days prior for the same symptoms Patient was admitted to telemetry unit for hyponatremia (Na= 118.6) and abdominal pain. GI was consulted Discharge Exam - Head Exam Head Exam: NORMAL INSPECTION Discharge Plan - Discharge Medications Prescriptions: Cefepime 1gm in NS 50ml [Maxipime 1gm] 1 gm IV Q12 5 Days bag Furosemide [Lasix] 20 mg PO DAILY #1 tablet levoFLOXacin [Levaquin] 500 mg PO DAILY 5 Days tab - Follow Up Plan Condition: GUARDED Disposition: HOME/ ROUTINE Instructions: Hyponatremia (DC), Acute Abdominal Pain (DC), Acute Abdominal Pain (GEN), Hypertension (DC), Hypertension (GEN)
[2017-05-25 12:14] LABS: BLOOD UREA NITROGEN 22 mg/dl (7-17); CALCIUM 7.6 mg/dL (8.4-10.2); CARBON DIOXIDE 32 mmol/L (22-30); CHLORIDE 91 mmol/L (98-107); GFR AFRICAN-AMERICAN > 60; GLUCOSE,RANDOM 268 mg/dL (65-105); POTASSIUM 4.7 MMOL/L (3.6-5.0); SODIUM 131 mmol/l (132-148)
[2017-05-25] MEDS ORDERED: Insulin Detemir 100 Units/ml Inj SC STA (12:27)
--- NOTE | 2017-05-25 14:50 | CP.PCM.PN ---
<Vivian Saldivar - Last Filed: 05/25/17 16:42> Subjective - Date & Time of Evaluation Date of Evaluation: 05/25/17 Time of Evaluation: 11:00 - Subjective Subjective: Hospitalist Progress Note 76 year old female patient seen and evaluated at bedside in ICU for hypercapnic respiratory failure. Patient out of bed and in chair at time of visit. Patient is awake, alert, and more responsive at this visit; hemodynamically stable and NAD. Patient states she is feeling better, no shortness of breath or chest pains. Offers no complaints at this time. Patient aware she will be discharged to [facility]. Patient denies N/V/F/D/C/palpitations. Objective - Vital Signs/Intake and Output Vital Signs (last 24 hours): Temp Pulse Resp BP Pulse Ox 98.1 F 88 20 134/105 H 89 L 05/25/17 12:00 05/25/17 12:00 05/25/17 12:00 05/25/17 12:09 05/25/17 12:00 Intake and Output: 05/25/17 05/25/17 06:59 18:59 Intake Total 600 470 Output Total 1405 300 Balance -805 170 - Medications Medications: Current Medications Acetaminophen (Tylenol 650mg/20.3ml Solution Ud) 650 mg PO Q6 PRN PRN Reason: Temperature Last Admin: 05/17/17 17:11 Dose: 650 mg Albuterol/Ipratropium (Duoneb 3 Mg/0.5 Mg (3 Ml) Ud) 3 ml INH RQID [facility] Last Admin: 05/25/17 11:37 Dose: 3 ml Atorvastatin Calcium (Lipitor) 20 mg PO DAILY [facility] Last Admin: 05/25/17 08:50 Dose: 20 mg Carvedilol (Coreg) 25 mg PO Q12 [facility] Last Admin: 05/25/17 08:50 Dose: 25 mg Ciprofloxacin (Cipro) 500 mg PO Q12 [facility] PRN Reason: Protocol Furosemide (Lasix) 20 mg IVP ONCE [facility] Last Admin: 05/21/17 10:56 Dose: 20 mg Cefepime HCl 1 gm/ Sodium (Chloride) 100 mls @ 100 mls/hr IVPB Q12 [facility] PRN Reason: Protocol Last Admin: 05/25/17 08:51 Dose: 100 mls/hr Insulin Human Lispro (Humalog) 0 units SC ACHS [facility] PRN Reason: Protocol Last Admin: 05/25/17 12:03 Dose: 3 units Methylprednisolone (Medrol) 20 mg PO DAILY [facility] Polyethylene Glycol (Miralax) 17 gm PO DAILY PRN PRN Reason: Constipation Rivaroxaban (Xarelto) 15 mg PO QD5 [facility] PRN Reason: Protocol Last Admin: 05/24/17 17:26 Dose: 15 mg - Labs Labs: 05/25/17 04:20 05/25/17 11:40 - Constitutional Appears: Well, Non-toxic, No Acute Distress - Head Exam Head Exam: ATRAUMATIC, NORMAL INSPECTION, NORMOCEPHALIC - Eye Exam Eye Exam: EOMI, Normal appearance, PERRL. absent: Periorbital swelling Pupil Exam: NORMAL ACCOMODATION - ENT Exam ENT Exam: Mucous Membranes Moist, Normal Exam, Normal External Ear Exam - Neck Exam Neck Exam: Normal Inspection. absent: Tenderness - Respiratory Exam Respiratory Exam: Decreased Breath Sounds (at base), Rhonchi - Cardiovascular Exam Cardiovascular Exam: RRR, +S1, +S2. absent: Diastolic murmur, JVD, Rubs, Murmur - GI/Abdominal Exam GI & Abdominal Exam: Soft, Normal Bowel Sounds. absent: Tenderness - Rectal Exam Rectal Exam: Deferred - Extremities Exam Extremities Exam: Normal Capillary Refill, Pedal Edema. absent: Calf Tenderness , Tenderness - Back Exam Back Exam: absent: tenderness - Neurological Exam Neurological Exam: Alert, Awake - Psychiatric Exam Psychiatric exam: Normal Affect - Skin Skin Exam: Dry, Intact, Normal Color, Warm Assessment and Plan - Assessment and Plan (Free Text) Assessment: 76 y/o lady with hx of A Fib, DM, HTN, Chronic Constipation, came in bec of abd pain and constipation. CT of abd done on prior ER visit showed constipation. On lab exam, pt was noted to have a Sodium of 117. Pt noted to be drowsy and Na persistently low despite IVF NS - Nephrology consulted- rec to start 3% Sodium. Pt transferred to ICU for close supervision. Pt noted to have worsening lethargy. ABG done showed severe hypercapnea- she was then intubated. The patient was extubated. Her sodium is now within normal range. Post extubation PCo2 again went up - pt placed on Bipap overnight. 05/21/17 hypercapnea continues to be elevated on ABG, will trial bipap during the day to improve mild CO2 narcosis. Patient non-compliant with BiPAP for long periods of time. 1. Acute Hypercapneic Respiratory Failure Pt was intubated, extubated and then placed on Bipap bec pCo2 went up to 94 on 05/19/17. -mildly improved w/pCO2 = 50, however still mildly somnolent poss from CO2 narcosis -Continue nocturnal BiPAP; patient compliance with BiPAP improving Pulm on board - Dr Joseph; recommends continuing Cefepime, Cipro, Duoneb and rest of Tx. Unclear etiology for hypercapnea - need further work up - CT of head , CT of chest -CT head was negative for acute pathology -CT of chest - bilateral consolidations poss infiltrates - ALSO R > L bilateral pleural effusions ECHO reveals moderately impaired systolic function, septal hypokinesis, moderate /severe mitral regurgitation, mild/moderate pulmonary hypertension TRACH ASP +pseudomonas SENSITIVE TO CIPRO, will treat. no growth BLOOD CULTURES (final). CXR 05/17/17 shows no active pulmonary disease CXR 05/18/17 persistent severe cardiomegaly, pulmonary venous congestion and question of developing pulmonary edema R>L CXR 05/24/17 reveals persistent cardiomegaly and pulmonary venous congestion with worsening pleural effusions, R>L Continue IV Solumedrol and Duonebs D/C Cipro and start Levaquin tomorrow. Plan to continue Levaquin PO for 5 days once discharged Dispo planning: recommend d/c to [facility] (2)Hyponatremia likely hypovolemic sec to diuretics and also poss from decrease solute intake will also need to r/o SIADH - Serum Osm low Nephrology consulted - Dr Vaca -Continue fluid restriction; will consider Tolvaptan if continues to decrease -Moderate consistent carbohydrate diet with 800 mL fluid restriction Sodium trending down = 131 this morning; repeat BMP @ noon Na = 131 Change fluids in IVPB abx from D5 to NS (3) Abdominal pain sec to Constipation VS. Ileus abdominal obstructive series: dilated loops of bowel GI consult with Dr Butt- signed off at this time Miralax prn due to pt diarrhea (4) Chronic atrial fibrillation stable afib Pt on Xarelto 15mg PO daily cont Coreg (5) DM II (diabetes mellitus, type II), controlled BS increased due to methylprednisolone Continue ISS BG = 268 accuchecks ACHS (6) HTN (hypertension) cont Coreg (7) Hyperlipidemia Atorvastatin 20mg PO HS (8) Hypocalcemia replaced with Calcium Gluc (9) DVT prophylaxis on Xarelto <Shruti Everett - Last Filed: 05/25/17 16:55> Objective - Vital Signs/Intake and Output Vital Signs (last 24 hours): Temp Pulse Resp BP Pulse Ox 97.6 F 98 H 20 148/96 H 93 L 05/25/17 16:00 05/25/17 16:00 05/25/17 16:00 05/25/17 16:00 05/25/17 16:00 Intake and Output: 05/25/17 05/25/17 06:59 18:59 Intake Total 600 470 Output Total 1405 300 Balance -805 170 - Medications Medications: Current Medications Acetaminophen (Tylenol 650mg/20.3ml Solution Ud) 650 mg PO Q6 PRN PRN Reason: Temperature Last Admin: 05/17/17 17:11 Dose: 650 mg Albuterol/Ipratropium (Duoneb 3 Mg/0.5 Mg (3 Ml) Ud) 3 ml INH RQID [facility] Last Admin: 05/25/17 15:10 Dose: 3 ml Atorvastatin Calcium (Lipitor) 20 mg PO DAILY [facility] Last Admin: 05/25/17 08:50 Dose: 20 mg Carvedilol (Coreg) 25 mg PO Q12 [facility] Last Admin: 05/25/17 08:50 Dose: 25 mg Furosemide (Lasix) 20 mg IVP ONCE [facility] Last Admin: 05/21/17 10:56 Dose: 20 mg Cefepime HCl 1 gm/ Sodium (Chloride) 100 mls @ 100 mls/hr IVPB Q12 [facility] PRN Reason: Protocol Last Admin: 05/25/17 08:51 Dose: 100 mls/hr Insulin Human Lispro (Humalog) 0 units SC ACHS [facility] PRN Reason: Protocol Last Admin: 05/25/17 12:03 Dose: 3 units Levofloxacin (Levaquin) 500 mg PO DAILY [facility] Methylprednisolone (Medrol) 20 mg PO DAILY [facility] Polyethylene Glycol (Miralax) 17 gm PO DAILY PRN PRN Reason: Constipation Rivaroxaban (Xarelto) 15 mg PO QD5 [facility] PRN Reason: Protocol Last Admin: 05/24/17 17:26 Dose: 15 mg - Labs Labs: 05/25/17 04:20 05/25/17 11:40 Attending/Attestation - Attestation I have personally seen and examined this patient.: Yes I have fully participated in the care of the patient.: Yes I have reviewed all pertinent clinical information, including history, physical exam and plan: Yes
[2017-05-25 16:14] LABS: CHLORIDE 92 mmol/L (98-107)
--- NOTE | 2017-05-25 16:14 | CP.PCM.PN ---
Subjective - Date & Time of Evaluation Date of Evaluation: 05/25/17 Time of Evaluation: 11:30 - Subjective Subjective: F/U Respiratory Failure. Pt on N/C O2, no respiratory distress. Objective - Vital Signs/Intake and Output Vital Signs (last 24 hours): Temp Pulse Resp BP Pulse Ox 98.1 F 88 20 134/105 H 89 L 05/25/17 12:00 05/25/17 12:00 05/25/17 12:00 05/25/17 12:09 05/25/17 12:00 Intake and Output: 05/25/17 05/25/17 06:59 18:59 Intake Total 600 470 Output Total 1405 300 Balance -805 170 - Medications Medications: Current Medications Acetaminophen (Tylenol 650mg/20.3ml Solution Ud) 650 mg PO Q6 PRN PRN Reason: Temperature Last Admin: 05/17/17 17:11 Dose: 650 mg Albuterol/Ipratropium (Duoneb 3 Mg/0.5 Mg (3 Ml) Ud) 3 ml INH RQID [facility] Last Admin: 05/25/17 15:10 Dose: 3 ml Atorvastatin Calcium (Lipitor) 20 mg PO DAILY [facility] Last Admin: 05/25/17 08:50 Dose: 20 mg Carvedilol (Coreg) 25 mg PO Q12 [facility] Last Admin: 05/25/17 08:50 Dose: 25 mg Ciprofloxacin (Cipro) 500 mg PO Q12 [facility] PRN Reason: Protocol Furosemide (Lasix) 20 mg IVP ONCE [facility] Last Admin: 05/21/17 10:56 Dose: 20 mg Cefepime HCl 1 gm/ Sodium (Chloride) 100 mls @ 100 mls/hr IVPB Q12 [facility] PRN Reason: Protocol Last Admin: 05/25/17 08:51 Dose: 100 mls/hr Insulin Human Lispro (Humalog) 0 units SC ACHS [facility] PRN Reason: Protocol Last Admin: 05/25/17 12:03 Dose: 3 units Methylprednisolone (Medrol) 20 mg PO DAILY [facility] Polyethylene Glycol (Miralax) 17 gm PO DAILY PRN PRN Reason: Constipation Rivaroxaban (Xarelto) 15 mg PO QD5 [facility] PRN Reason: Protocol Last Admin: 05/24/17 17:26 Dose: 15 mg - Labs Labs: 05/25/17 04:20 05/25/17 11:40 - Constitutional Appears: No Acute Distress - Head Exam Head Exam: NORMAL INSPECTION - Eye Exam Eye Exam: PERRL - ENT Exam ENT Exam: Normal Exam - Neck Exam Neck Exam: Normal Inspection - Respiratory Exam Respiratory Exam: Decreased Breath Sounds (at bases) - Cardiovascular Exam Cardiovascular Exam: Irregular Rhythm - GI/Abdominal Exam GI & Abdominal Exam: Soft, Normal Bowel Sounds - Extremities Exam Extremities Exam: Pedal Edema - Neurological Exam Neurological Exam: Awake Additional comments: Cofused, foretful, follows commands, no focal motor sensory deficit. - Psychiatric Exam Additional comments: Calm - Skin Skin Exam: Warm Assessment and Plan (1) Hypercapnic respiratory failure Status: Acute (2) Bronchial asthma Status: Acute (3) Atrial fibrillation Status: Chronic - Assessment and Plan (Free Text) Plan: Continue Nader Castro Duoneb, [place] O2 3L/M.
[2017-05-25] MEDS: levoFLOXacin 500 MG TAB PO SCH (17:29)
[2017-05-26 05:32] LABS: HEMATOCRIT 41.3 % (34.0-47.0); MEAN CELL VOLUME 92.8 fl (81.0-99.0); MEAN CORPUSCULAR HEMOGLOBIN 29.6 pg (27.0-31.0); MEAN CORPUSCULAR HGB CONC 31.9 g/dL (33.0-37.0); RED CELL DISTRIBUTION WIDTH 13.4 % (11.5-14.5); WHITE BLOOD COUNT 10.1 K/uL (4.8-10.8)
[2017-05-26 06:13] LABS: BLOOD UREA NITROGEN 21 mg/dl (7-17); CALCIUM 7.7 mg/dL (8.4-10.2); CARBON DIOXIDE 34 mmol/L (22-30); CHLORIDE 91 mmol/L (98-107); GFR AFRICAN-AMERICAN > 60; GLUCOSE,RANDOM 136 mg/dL (65-105); POTASSIUM 4.7 MMOL/L (3.6-5.0); SODIUM 132 mmol/l (132-148)
[2017-05-26] MEDS: Albuterol-Ipratrop 3 mg / 0.5 (3 ml) UD INH SCH ×3 (08:02→15:32)
[2017-05-26] MEDS: Insulin Lispro (humaLOG) 100 Units/ml Inj SC SCH ×2 (08:06→11:51)
[2017-05-26 08:09] VITALS: BP 157/92; PULSE 82; RESP 21; O2SAT 97
[2017-05-26] MEDS: Cefepime 1 GM in Sodium Chloride 0.9% 100 ML IVPB SCH (08:27)
[2017-05-26] MEDS: levoFLOXacin 500 MG TAB PO SCH (08:33)
[2017-05-26 08:45] LABS: ABG ALLEN TEST YES; ARTERIAL BLOOD GAS HCO3 33.1 mmol/L (21-28); ARTERIAL BLOOD GAS O2 CAPACITY 18.7 mL/dL (16-24); ARTERIAL BLOOD GAS O2 CONTENT 18.4 ML/dL (15-23); ARTERIAL BLOOD GAS PH 7.48 (7.35-7.45); ARTERIAL BLOOD GAS PO2 80 mm/Hg (80-100); ARTERIAL BLOOD HGB O2 SAT 94.8 % (95.0-98.0); CARBOXYHEMOGLOBIN 2.3 % (0.5-1.5); HHB 1.5 % (0.0-5.0); METHEMOGLOBIN 1.4 % (0.0-3.0)
[2017-05-26 12:16] VITALS: TEMP 97.8
--- NOTE | 2017-05-26 15:20 | CP.PCM.DIS ---
<Vivian Saldivar - Last Filed: 05/26/17 15:28> Provider - Provider Date of Admission: 05/15/17 11:33 Attending physician: Nicolas Dean MD Primary care physician: Dr. Vargas Consults: Nephrology Pulmonology Time Spent in preparation of Discharge (in minutes): 30 Hospital Course - Lab Results Lab Results: Micro Results 05/18/17 08:15 Blood-Venous Blood Culture - Final NO GROWTH AFTER 5 DAYS 05/18/17 08:15 Blood-Venous Gram Stain - Final TEST NOT PERFORMED 05/18/17 08:00 Blood-Venous Blood Culture - Final NO GROWTH AFTER 5 DAYS 05/18/17 08:00 Blood-Venous Gram Stain - Final TEST NOT PERFORMED 05/18/17 13:17 Trachasp Gram Stain - Final 05/18/17 13:17 Trachasp Sputum Culture - Final Pseudomonas Aeruginosa 05/16/17 07:23 Naris MRSA Culture (Admit) - Final MRSA NOT DETECTED Most Recent Lab Values WBC 10.1 K/uL (4.8-10.8) 05/26/17 05:00 RBC 4.45 Mil/uL (3.80-5.20) 05/26/17 05:00 Hgb 13.2 g/dL (12.0-16.0) 05/26/17 05:00 Hct 41.3 % (34.0-47.0) 05/26/17 05:00 MCV 92.8 fl (81.0-99.0) 05/26/17 05:00 MCH 29.6 pg (27.0-31.0) 05/26/17 05:00 MCHC 31.9 g/dL (33.0-37.0) L 05/26/17 05:00 RDW 13.4 % (11.5-14.5) 05/26/17 05:00 Plt Count 113 K/uL (130-400) L 05/26/17 05:00 MPV 9.3 fl (7.2-11.7) 05/21/17 05:30 Neut % (Auto) 92.3 % (50.0-75.0) H 05/21/17 05:30 Lymph % (Auto) 4.1 % (20.0-40.0) L 05/21/17 05:30 Taney % (Auto) 3.4 % (0.0-10.0) 05/21/17 05:30 Eos % (Auto) 0.0 % (0.0-4.0) 05/21/17 05:30 Baso % (Auto) 0.2 % (0.0-2.0) 05/21/17 05:30 Neut # 5.4 K/uL (1.8-7.0) 05/21/17 05:30 Lymph # 0.2 K/uL (1.0-4.3) L 05/21/17 05:30 Taney # 0.2 K/uL (0.0-0.8) 05/21/17 05:30 Eos # 0.0 K/uL (0.0-0.7) 05/21/17 05:30 Baso # 0.0 K/uL (0.0-0.2) 05/21/17 05:30 Neutrophils % (Manual) 92 % (42-75) H 05/21/17 05:30 Lymphocytes % (Manual) 4 % (20-50) L 05/21/17 05:30 Monocytes % (Manual) 4 % (0-10) 05/21/17 05:30 Platelet Estimate Slightly decreased (NORMAL) L 05/21/17 05:30 Large Platelets Present 05/21/17 05:30 Ovalocytes Slight 05/21/17 05:30 pCO2 48 mm/Hg (35-45) H 05/26/17 08:41 pO2 80 mm/Hg (80-100) 05/26/17 08:41 HCO3 33.1 mmol/L (21-28) H 05/26/17 08:41 ABG pH 7.48 (7.35-7.45) H 05/26/17 08:41 ABG Total CO2 37.2 mmol/L (22-28) H 05/26/17 08:41 ABG O2 Saturation 98.4 % (95-98) H 05/26/17 08:41 ABG O2 Content 18.4 ML/dL (15-23) 05/26/17 08:41 ABG Base Excess 10.6 mmol/L (-2.0-3.0) H 05/26/17 08:41 ABG Hemoglobin 13.8 g/dL (11.7-17.4) 05/26/17 08:41 ABG Carboxyhemoglobin 2.3 % (0.5-1.5) H 05/26/17 08:41 POC ABG HHb (Measured) 1.5 % (0.0-5.0) 05/26/17 08:41 ABG Methemoglobin 1.4 % (0.0-3.0) 05/26/17 08:41 ABG O2 Capacity 18.7 mL/dL (16-24) 05/26/17 08:41 Valdemar Test Yes 05/26/17 08:41 A-a O2 Difference 31.0 mm/Hg 05/26/17 08:41 Hgb O2 Saturation 94.8 % (95.0-98.0) L 05/26/17 08:41 Liter Flow 3l/m nc 05/21/17 10:09 Vent Mode Bipap 05/23/17 05:23 Mechanical Rate 14 05/23/17 05:23 FiO2 24.0 % 05/26/17 08:41 Tidal Volume 400 05/19/17 05:01 PEEP 5 05/19/17 05:01 Inspiratory BiPAP 18 05/23/17 05:23 Expiratory BiPAP 10 05/23/17 05:23 Blood Gas Comments rt radial 05/21/17 10:09 Crit Value Called To Home christianson 05/19/17 11:19 Crit Value Called By 15 05/19/17 11:19 Crit Value Read Back Y 05/19/17 11:19 Blood Gas Notified Time 1105 05/19/17 11:19 Sodium 132 mmol/l (132-148) 05/26/17 05:00 Potassium 4.7 MMOL/L (3.6-5.0) 05/26/17 05:00 Chloride 91 mmol/L (98-107) L 05/26/17 05:00 Carbon Dioxide 34 mmol/L (22-30) H 05/26/17 05:00 Anion Gap 12 (10-20) 05/26/17 05:00 BUN 21 mg/dl (7-17) H 05/26/17 05:00 Creatinine 0.4 mg/dl (0.7-1.2) L 05/26/17 05:00 Est GFR ( Amer) > 60 05/26/17 05:00 Est GFR (Non-Af Amer) > 60 05/26/17 05:00 POC Glucose (mg/dL) 252 mg/dL (65-110) H 05/26/17 11:10 Random Glucose 136 mg/dL (65-105) H 05/26/17 05:00 Serum Osmolality 272 mosm/kg (272-300) 05/17/17 04:20 Calcium 7.7 mg/dL (8.4-10.2) L 05/26/17 05:00 Phosphorus 2.5 mg/dl (2.5-4.5) 05/23/17 04:20 Magnesium 1.8 MG/DL (1.6-2.3) 05/23/17 04:20 Total Bilirubin 1.2 mg/dl (0.2-1.3) 05/20/17 04:30 AST 25 U/L (14-36) 05/20/17 04:30 ALT 54 U/L (9-52) H 05/20/17 04:30 Alkaline Phosphatase 49 U/L (38-126) 05/20/17 04:30 NT-Pro-B Natriuret Pep 3200 pg/ml (0-900) H 05/15/17 11:00 Total Protein 5.6 G/DL (6.3-8.2) L 05/20/17 04:30 Albumin 3.2 g/dL (3.5-5.0) L D 05/20/17 04:30 Globulin 2.3 gm/dL (2.2-3.9) 05/20/17 04:30 Albumin/Globulin Ratio 1.4 (1.0-2.1) 05/20/17 04:30 Triglycerides 43 mg/DL (0-149) D 05/16/17 04:15 Cholesterol 72 mg/dL (0-199) 05/16/17 04:15 LDL Cholesterol Direct 40 mg/dL (0-129) 05/16/17 04:15 HDL Cholesterol 20 MG/DL (30-70) L 05/16/17 04:15 Lipase 42 U/L (23-300) 05/15/17 11:00 Free T4 2.02 ng/dL (0.78-2.19) 05/20/17 04:30 Thyroxine (T4) 9.04 ug/dl (5.5-11.0) 05/16/17 09:10 Total T3 0.508 nmol/L (1.49-2.60) L 05/16/17 09:10 TSH 3rd Generation 0.04 mIU/ML (0.46-4.68) L 05/20/17 04:30 Cortisol AM Sample 48.1 ug/dL (4.46-22.7) H 05/16/17 04:15 Urine Color Cathy (YELLOW) 05/17/17 02:45 Urine Clarity Cloudy (Clear) 05/17/17 02:45 Urine pH 6.0 (5.0-8.0) 05/17/17 02:45 Ur Specific Aurora 1.017 (1.003-1.030) 05/17/17 02:45 Urine Protein 100 mg/dL (NEGATIVE) 05/17/17 02:45 Urine Glucose (UA) 50 mg/dL (Normal) 05/17/17 02:45 Urine Ketones Negative mg/dL (NEGATIVE) 05/17/17 02:45 Urine Blood Negative (NEGATIVE) 05/17/17 02:45 Urine Nitrate Negative (NEGATIVE) 05/17/17 02:45 Urine Bilirubin Negative (NEGATIVE) 05/17/17 02:45 Urine Urobilinogen 2.0 mg/dL (0.2-1.0) H 05/17/17 02:45 Ur Leukocyte Esterase Trace Dana/uL (Negative) 05/17/17 02:45 Urine RBC (Auto) 9 /hpf (0-3) H 05/17/17 02:45 Urine WBC Clumps (Auto) Few /hpf (NONE) H 05/17/17 02:45 Urine Microscopic WBC 26 /hpf (0-5) H 05/17/17 02:45 Ur Squamous Epith Cells 5 /hpf (0-5) 05/17/17 02:45 Ur Renal Epithelial Cell 1 /hpf (0-3) 05/17/17 02:45 Urine Bacteria Rare (<OCC) 05/17/17 02:45 Hyaline Casts 11-20 /hpf (0-2) H 05/17/17 02:45 Urine Osmolality 418 mosm/kg (300-1000) 05/17/17 02:45 Ur Random Sodium 9 mmol/L 05/17/17 02:45 Ur Random Potassium 9.2 mmol/L 05/17/17 02:45 - Hospital Course Hospital Course: 76 year old female patient PMHx A Fib, DM, HTN, chronic constipation, presented to [facility] ED 05/15/17 for abdominal pain and constipation. Patient was seen in this facility on 05/10/2017 for the same symptoms with completed blood work and CT abdomen/pelvis, which showed constipation. On lab exam, pt was noted to have a Sodium of 117. Pt noted to be drowsy and sodium persistently low despite IVF NS - Nephrology consulted - rec to start 3% Sodium. Pt transferred to ICU for close supervision. Pt noted to have worsening lethargy. ABG showed severe hypercapnea - she was then intubated. The patient was extubated. Her sodium is now within normal range. Post extubation PCo2 again went up - pt placed on BiPAP at night. Trach asp was positive for pseudomonas so was treated with abx. Patient clinically improved. Patient will be discharged to [facility] to improve activity tolerance/strength/gait before she is safely discharged home. Will d/c on Levaquin for 5 more days. Follow up with nephrology and pulmonology as outpatient. Discharge Exam - Head Exam Head Exam: ATRAUMATIC, NORMAL INSPECTION, NORMOCEPHALIC - Eye Exam Eye Exam: EOMI, Normal appearance, PERRL. absent: Periorbital swelling Pupil Exam: NORMAL ACCOMODATION - ENT Exam ENT Exam: Mucous Membranes Moist, Normal Exam, Normal External Ear Exam - Neck Exam Neck exam: Normal Inspection - Respiratory Exam Respiratory Exam: Decreased Breath Sounds (as base), Rhonchi - Cardiovascular Exam Cardiovascular Exam: RRR, +S1, +S2. absent: Diastolic murmur, JVD, Rubs - GI/Abdominal Exam GI & Abdominal Exam: Normal Bowel Sounds, Soft. absent: Tenderness - Rectal Exam Rectal Exam: Deferred - Extremities Exam Extremities exam: normal capillary refill, pedal edema - Back Exam Back exam: tenderness - Neurological Exam Neurological exam: Alert - Psychiatric Exam Psychiatric exam: Normal Affect, Normal Mood - Skin Skin Exam: Dry, Intact, Normal Color, Warm Discharge Plan - Discharge Medications Prescriptions: Cefepime 1gm in NS 50ml [Maxipime 1gm] 1 gm IV Q12 5 Days bag Furosemide [Lasix] 20 mg PO DAILY #1 tablet levoFLOXacin [Levaquin] 500 mg PO DAILY 5 Days tab - Follow Up Plan Condition: GUARDED Disposition: TRANSF TO SNF Patient education suggested?: Yes Instructions: Asthma (DC), Hyponatremia (DC), Acute Abdominal Pain (DC), Acute Abdominal Pain (GEN), Hypertension (DC), Hypertension (GEN) Additional Instructions: Please follow up with Dr. Vaca (Nephrology) and Dr. Joseph (Pulmonology) within 1 week of discharge. Referrals: Boone Vaca MD [Staff Provider] - Chai Joseph MD [Staff Provider] - <Natalie Christianson - Last Filed: 05/26/17 15:32> Provider - Provider Date of Admission: 05/15/17 11:33 Attending physician: Nicolas Dean MD Hospital Course - Lab Results Lab Results: Micro Results 05/18/17 08:15 Blood-Venous Blood Culture - Final NO GROWTH AFTER 5 DAYS 05/18/17 08:15 Blood-Venous Gram Stain - Final TEST NOT PERFORMED 05/18/17 08:00 Blood-Venous Blood Culture - Final NO GROWTH AFTER 5 DAYS 05/18/17 08:00 Blood-Venous Gram Stain - Final TEST NOT PERFORMED 05/18/17 13:17 Trachasp Gram Stain - Final 05/18/17 13:17 Trachasp Sputum Culture - Final Pseudomonas Aeruginosa 05/16/17 07:23 Naris MRSA Culture (Admit) - Final MRSA NOT DETECTED Most Recent Lab Values WBC 10.1 K/uL (4.8-10.8) 05/26/17 05:00 RBC 4.45 Mil/uL (3.80-5.20) 05/26/17 05:00 Hgb 13.2 g/dL (12.0-16.0) 05/26/17 05:00 Hct 41.3 % (34.0-47.0) 05/26/17 05:00 MCV 92.8 fl (81.0-99.0) 05/26/17 05:00 MCH 29.6 pg (27.0-31.0) 05/26/17 05:00 MCHC 31.9 g/dL (33.0-37.0) L 05/26/17 05:00 RDW 13.4 % (11.5-14.5) 05/26/17 05:00 Plt Count 113 K/uL (130-400) L 05/26/17 05:00 MPV 9.3 fl (7.2-11.7) 05/21/17 05:30 Neut % (Auto) 92.3 % (50.0-75.0) H 05/21/17 05:30 Lymph % (Auto) 4.1 % (20.0-40.0) L 05/21/17 05:30 Taney % (Auto) 3.4 % (0.0-10.0) 05/21/17 05:30 Eos % (Auto) 0.0 % (0.0-4.0) 05/21/17 05:30 Baso % (Auto) 0.2 % (0.0-2.0) 05/21/17 05:30 Neut # 5.4 K/uL (1.8-7.0) 05/21/17 05:30 Lymph # 0.2 K/uL (1.0-4.3) L 05/21/17 05:30 Taney # 0.2 K/uL (0.0-0.8) 05/21/17 05:30 Eos # 0.0 K/uL (0.0-0.7) 05/21/17 05:30 Baso # 0.0 K/uL (0.0-0.2) 05/21/17 05:30 Neutrophils % (Manual) 92 % (42-75) H 05/21/17 05:30 Lymphocytes % (Manual) 4 % (20-50) L 05/21/17 05:30 Monocytes % (Manual) 4 % (0-10) 05/21/17 05:30 Platelet Estimate Slightly decreased (NORMAL) L 05/21/17 05:30 Large Platelets Present 05/21/17 05:30 Ovalocytes Slight 05/21/17 05:30 pCO2 48 mm/Hg (35-45) H 05/26/17 08:41 pO2 80 mm/Hg (80-100) 05/26/17 08:41 HCO3 33.1 mmol/L (21-28) H 05/26/17 08:41 ABG pH 7.48 (7.35-7.45) H 05/26/17 08:41 ABG Total CO2 37.2 mmol/L (22-28) H 05/26/17 08:41 ABG O2 Saturation 98.4 % (95-98) H 05/26/17 08:41 ABG O2 Content 18.4 ML/dL (15-23) 05/26/17 08:41 ABG Base Excess 10.6 mmol/L (-2.0-3.0) H 05/26/17 08:41 ABG Hemoglobin 13.8 g/dL (11.7-17.4) 05/26/17 08:41 ABG Carboxyhemoglobin 2.3 % (0.5-1.5) H 05/26/17 08:41 POC ABG HHb (Measured) 1.5 % (0.0-5.0) 05/26/17 08:41 ABG Methemoglobin 1.4 % (0.0-3.0) 05/26/17 08:41 ABG O2 Capacity 18.7 mL/dL (16-24) 05/26/17 08:41 Valdemar Test Yes 05/26/17 08:41 A-a O2 Difference 31.0 mm/Hg 05/26/17 08:41 Hgb O2 Saturation 94.8 % (95.0-98.0) L 05/26/17 08:41 Liter Flow 3l/m nc 05/21/17 10:09 Vent Mode Bipap 05/23/17 05:23 Mechanical Rate 14 05/23/17 05:23 FiO2 24.0 % 05/26/17 08:41 Tidal Volume 400 05/19/17 05:01 PEEP 5 05/19/17 05:01 Inspiratory BiPAP 18 05/23/17 05:23 Expiratory BiPAP 10 05/23/17 05:23 Blood Gas Comments rt radial 05/21/17 10:09 Crit Value Called To Home christianson 05/19/17 11:19 Crit Value Called By 15 05/19/17 11:19 Crit Value Read Back Y 05/19/17 11:19 Blood Gas Notified Time 1105 05/19/17 11:19 Sodium 132 mmol/l (132-148) 05/26/17 05:00 Potassium 4.7 MMOL/L (3.6-5.0) 05/26/17 05:00 Chloride 91 mmol/L (98-107) L 05/26/17 05:00 Carbon Dioxide 34 mmol/L (22-30) H 05/26/17 05:00 Anion Gap 12 (10-20) 05/26/17 05:00 BUN 21 mg/dl (7-17) H 05/26/17 05:00 Creatinine 0.4 mg/dl (0.7-1.2) L 05/26/17 05:00 Est GFR ( Amer) > 60 05/26/17 05:00 Est GFR (Non-Af Amer) > 60 05/26/17 05:00 POC Glucose (mg/dL) 252 mg/dL (65-110) H 05/26/17 11:10 Random Glucose 136 mg/dL (65-105) H 05/26/17 05:00 Serum Osmolality 272 mosm/kg (272-300) 05/17/17 04:20 Calcium 7.7 mg/dL (8.4-10.2) L 05/26/17 05:00 Phosphorus 2.5 mg/dl (2.5-4.5) 05/23/17 04:20 Magnesium 1.8 MG/DL (1.6-2.3) 05/23/17 04:20 Total Bilirubin 1.2 mg/dl (0.2-1.3) 05/20/17 04:30 AST 25 U/L (14-36) 05/20/17 04:30 ALT 54 U/L (9-52) H 05/20/17 04:30 Alkaline Phosphatase 49 U/L (38-126) 05/20/17 04:30 NT-Pro-B Natriuret Pep 3200 pg/ml (0-900) H 05/15/17 11:00 Total Protein 5.6 G/DL (6.3-8.2) L 05/20/17 04:30 Albumin 3.2 g/dL (3.5-5.0) L D 05/20/17 04:30 Globulin 2.3 gm/dL (2.2-3.9) 05/20/17 04:30 Albumin/Globulin Ratio 1.4 (1.0-2.1) 05/20/17 04:30 Triglycerides 43 mg/DL (0-149) D 05/16/17 04:15 Cholesterol 72 mg/dL (0-199) 05/16/17 04:15 LDL Cholesterol Direct 40 mg/dL (0-129) 05/16/17 04:15 HDL Cholesterol 20 MG/DL (30-70) L 05/16/17 04:15 Lipase 42 U/L (23-300) 05/15/17 11:00 Free T4 2.02 ng/dL (0.78-2.19) 05/20/17 04:30 Thyroxine (T4) 9.04 ug/dl (5.5-11.0) 05/16/17 09:10 Total T3 0.508 nmol/L (1.49-2.60) L 05/16/17 09:10 TSH 3rd Generation 0.04 mIU/ML (0.46-4.68) L 05/20/17 04:30 Cortisol AM Sample 48.1 ug/dL (4.46-22.7) H 05/16/17 04:15 Urine Color Cathy (YELLOW) 05/17/17 02:45 Urine Clarity Cloudy (Clear) 05/17/17 02:45 Urine pH 6.0 (5.0-8.0) 05/17/17 02:45 Ur Specific Aurora 1.017 (1.003-1.030) 05/17/17 02:45 Urine Protein 100 mg/dL (NEGATIVE) 05/17/17 02:45 Urine Glucose (UA) 50 mg/dL (Normal) 05/17/17 02:45 Urine Ketones Negative mg/dL (NEGATIVE) 05/17/17 02:45 Urine Blood Negative (NEGATIVE) 05/17/17 02:45 Urine Nitrate Negative (NEGATIVE) 05/17/17 02:45 Urine Bilirubin Negative (NEGATIVE) 05/17/17 02:45 Urine Urobilinogen 2.0 mg/dL (0.2-1.0) H 05/17/17 02:45 Ur Leukocyte Esterase Trace Dana/uL (Negative) 05/17/17 02:45 Urine RBC (Auto) 9 /hpf (0-3) H 05/17/17 02:45 Urine WBC Clumps (Auto) Few /hpf (NONE) H 05/17/17 02:45 Urine Microscopic WBC 26 /hpf (0-5) H 05/17/17 02:45 Ur Squamous Epith Cells 5 /hpf (0-5) 05/17/17 02:45 Ur Renal Epithelial Cell 1 /hpf (0-3) 05/17/17 02:45 Urine Bacteria Rare (<OCC) 05/17/17 02:45 Hyaline Casts 11-20 /hpf (0-2) H 05/17/17 02:45 Urine Osmolality 418 mosm/kg (300-1000) 05/17/17 02:45 Ur Random Sodium 9 mmol/L 05/17/17 02:45 Ur Random Potassium 9.2 mmol/L 05/17/17 02:45 Attending/Attestation - Attestation I have personally seen and examined this patient.: Yes I have fully participated in the care of the patient.: Yes I have reviewed all pertinent clinical information, including history, physical exam and plan: Yes Notes (Text): 05/26/17 15:32 Seen, examined, and discussed with Resident Dr. Saldivar. Agree with findings and plan as above.
--- NOTE | 2017-05-26 15:20 | CP.PCM.PN ---
Subjective - Date & Time of Evaluation Date of Evaluation: 05/26/17 Time of Evaluation: 09:00 - Subjective Subjective: F/U respiratory Failure. Objective - Vital Signs/Intake and Output Vital Signs (last 24 hours): Temp Pulse Resp BP Pulse Ox 97.8 F 82 21 157/92 H 97 05/26/17 12:00 05/26/17 08:08 05/26/17 08:08 05/26/17 08:08 05/26/17 08:08 Intake and Output: 05/26/17 05/26/17 06:59 18:59 Intake Total 240 240 Output Total 1200 Balance -960 240 - Medications Medications: Current Medications Acetaminophen (Tylenol 650mg/20.3ml Solution Ud) 650 mg PO Q6 PRN PRN Reason: Temperature Last Admin: 05/17/17 17:11 Dose: 650 mg Albuterol/Ipratropium (Duoneb 3 Mg/0.5 Mg (3 Ml) Ud) 3 ml INH RQID [facility] Last Admin: 05/26/17 11:10 Dose: 3 ml Atorvastatin Calcium (Lipitor) 20 mg PO DAILY [facility] Last Admin: 05/26/17 08:33 Dose: 20 mg Carvedilol (Coreg) 25 mg PO Q12 GL[facility] Last Admin: 05/26/17 08:33 Dose: 25 mg Furosemide (Lasix) 20 mg IVP ONCE [facility] Last Admin: 05/21/17 10:56 Dose: 20 mg Cefepime HCl 1 gm/ Sodium (Chloride) 100 mls @ 100 mls/hr IVPB Q12 [facility] PRN Reason: Protocol Last Admin: 05/26/17 08:27 Dose: 100 mls/hr Insulin Human Lispro (Humalog) 0 units SC ACHS [facility] PRN Reason: Protocol Last Admin: 05/26/17 11:51 Dose: 3 units Levofloxacin (Levaquin) 500 mg PO DAILY [facility] Last Admin: 05/26/17 08:33 Dose: 500 mg Methylprednisolone (Medrol) 20 mg PO DAILY [facility] Last Admin: 05/26/17 08:26 Dose: 20 mg Polyethylene Glycol (Miralax) 17 gm PO DAILY PRN PRN Reason: Constipation Rivaroxaban (Xarelto) 15 mg PO QD5 [facility] PRN Reason: Protocol Last Admin: 05/25/17 17:05 Dose: 15 mg - Labs Labs: 05/26/17 05:00 05/26/17 05:00 - Constitutional Appears: No Acute Distress - Head Exam Head Exam: NORMAL INSPECTION - Eye Exam Eye Exam: PERRL - ENT Exam ENT Exam: Normal Exam - Neck Exam Neck Exam: Normal Inspection - Respiratory Exam Respiratory Exam: Decreased Breath Sounds (at bases) - Cardiovascular Exam Cardiovascular Exam: Irregular Rhythm - GI/Abdominal Exam GI & Abdominal Exam: Soft, Normal Bowel Sounds - Extremities Exam Extremities Exam: Pedal Edema - Neurological Exam Neurological Exam: Awake Additional comments: Confused, forgetful, follows commands, no focal motor/sensory deficit. - Psychiatric Exam Psychiatric exam: Normal Mood - Skin Skin Exam: Warm Assessment and Plan (1) Hypercapnic respiratory failure Status: Acute (2) Bronchial asthma Status: Acute (3) Atrial fibrillation Status: Chronic
--- NOTE | 2017-05-26 16:08 | PN ---
DATE: SUBJECTIVE: She is 76 years of age, complaining of some shortness of breath, receiving oxygen through mask, although she is lying flat in the bed. PHYSICAL EXAMINATION: VITAL SIGNS: Blood pressure 157/92, pulse 82, temperature 98.7. CHEST: Few rhonchi. HEART: No rubs. ABDOMEN: Soft. EXTREMITIES: No edema. LABORATORY DATA: Today, creatinine 0.4, remains within normal limit. Sodium came up to 132 from 131, potassium 4.7, chloride 91. IMPRESSION AND PLAN: Hyponatremia. Still slight improvement from yesterday. Probably dilutional. Also, hypochloremia. The plan to mix IV antibiotics with normal saline as been done yesterday instead of D5W and continue monitoring. Boone Vaca MD
== END 2017-05-26 17:52 | DRG 640 ==
LOC: H.ER 09:29 → H.ERHOLD 11:33 → H.TEL 15:20 → H.ICU/CCU 05-17 00:16
PROC: 5A1945Z Respiratory Ventilation, 24-96 Consecutive Hours (ICD-10-PCS; principal; 2017-05-17)
PROC: 0BH17EZ Insertion of Endotracheal Airway into Trachea, Via Natural or Artificial Opening (ICD-10-PCS; 2017-05-17)
PROC: 5A09457 Assistance with Respiratory Ventilation, 24-96 Consecutive Hours, Continuous Positive Airway Pressure (ICD-10-PCS; 2017-05-19)
DX: E87.1 Hypo-osmolality and hyponatremia (principal); J96.01 Acute respiratory failure with hypoxia; E87.4 Mixed disorder of acid-base balance; J96.02 Acute respiratory failure with hypercapnia; E86.0 Dehydration; J90 Pleural effusion, not elsewhere classified; E87.5 Hyperkalemia; E11.65 Type 2 diabetes mellitus with hyperglycemia; F03.90 Unspecified dementia, unspecified severity, without behavioral disturbance, psychotic disturbance, mood disturbance, and anxiety; I48.2 Chronic atrial fibrillation; D69.6 Thrombocytopenia, unspecified; K59.09 Other constipation; E83.51 Hypocalcemia; K56.7 Ileus, unspecified; I10 Essential (primary) hypertension; J98.11 Atelectasis; E86.1 Hypovolemia; E78.5 Hyperlipidemia, unspecified; I27.20 Pulmonary hypertension, unspecified; I34.0 Nonrheumatic mitral (valve) insufficiency; I73.9 Peripheral vascular disease, unspecified; J45.909 Unspecified asthma, uncomplicated; M81.0 Age-related osteoporosis without current pathological fracture; H40.9 Unspecified glaucoma; Z79.01 Long term (current) use of anticoagulants; Z87.01 Personal history of pneumonia (recurrent); K29.70 Gastritis, unspecified, without bleeding; M19.90 Unspecified osteoarthritis, unspecified site

== ENCOUNTER 2017-06-18 15:23 | Inpatient (IN) | payer MEDICARE, MEDICAID ==
[2017-06-18 15:24] VITALS: PULSE 115; BMI 29.9
--- NOTE | 2017-06-18 16:15 | ED PDOC ---
HPI: Altered Mental Status Time Seen by Provider: 06/18/17 16:00 Chief Complaint (Nursing): Altered Mental Status Chief Complaint (Provider): altered mental status History Per: Other (76 y/o female h/o Afib/DM/HTN/[facility] screaming/agitation noted at 12:31p. No recent fever/uri/cough/vomiting noted. Patient noted to have normal dinner yesterday. d/c from hospital 05/26/2017 after being treated for hyponatremia and subsequent bronchial infection. As per nursing staff patient is not on any medication for afib.) Past Medical History Reviewed: Historical Data, Nursing Documentation, Vital Signs Vital Signs: Last Vital Signs Temp 98.2 F 06/18/17 15:26 Pulse 138 H 06/18/17 15:26 Resp 18 06/18/17 15:26 BP 147/108 H 06/18/17 15:26 Pulse Ox 100 06/18/17 15:26 - Medical History PMH: Arthritis, Asthma, Atrial Fibrillation, Diabetes, Gastritis, Gall Bladder Disease (s/p surgery), HTN, Hypercholesterolemia, Osteoporosis, Pneumonia Denies: Alzheimer's Disease, Chronic Kidney Disease - Surgical History Surgical History: Cholecystectomy - Family History Family History: States: Unknown Family Hx - Immunization History Hx Tetanus Toxoid Vaccination: Yes Hx Influenza Vaccination: Yes Hx Pneumococcal Vaccination: Yes - Home Medications Home Medications: Ambulatory Orders Medication Instructions Recorded Acetaminophen [Tylenol 650 mg PO Q6 PRN udc 05/25/17 650mg/20.3ml solution UD] Albuterol/Ipratropium [Duoneb 3 3 ml INH RQID neb 05/25/17 mg/0.5 mg (3 ml) UD] Furosemide [Lasix] 20 mg PO DAILY #1 tablet 05/25/17 Glipizide [Glucotrol] 5 mg PO BID #0 05/25/17 Polyethylene Glycol 3350 [Miralax] 17 gm PO DAILY PRN packet 05/25/17 Rivaroxaban [Xarelto] 15 mg PO DAILY 06/18/17 - Allergies Allergies/Adverse Reactions: Allergies Allergy/AdvReac Type Severity Reaction Status Date / Time No Known Allergies Allergy Verified 05/15/17 12:50 Review of Systems ROS Statement: Except As Marked, All Systems Reviewed And Found Negative Physical Exam - Reviewed Nursing Documentation Reviewed: Yes Vital Signs Reviewed: Yes - Physical Exam Appears: Positive for: Well, Non-toxic, No Acute Distress Head Exam: Positive for: ATRAUMATIC, NORMAL INSPECTION, NORMOCEPHALIC Skin: Positive for: Normal Color, Warm, DRY Eye Exam: Positive for: EOMI, Normal appearance, PERRL ENT: Positive for: Normal ENT Inspection Neck: Positive for: Normal, Painless ROM Cardiovascular/Chest: Positive for: Regular Rate, Rhythm Respiratory: Positive for: CNT, Normal Breath Sounds Gastrointestinal/Abdominal: Positive for: Normal Exam, Bowel Sounds, Soft Back: Positive for: Normal Inspection Extremity: Positive for: Normal ROM Neurologic/Psych: Positive for: Alert, Oriented - Laboratory Results Result Diagrams: 06/18/17 16:32 06/18/17 16:32 - ECG ECG: Positive for: Viewed By Me ECG Rhythm: Positive for: Atrial Fibrillation (127bpm; reviewed by Dr. Mathis.) O2 Sat by Pulse Oximetry: 100 - Progress ED Course And Treament: cardizem bolus/drip ordered by Dr. Mathis. Repeat BP 113/80; HR 70-80 afib on monitor d/w Dr. Joseph Cardiology consultation for simba bray Disposition - Clinical Impression Clinical Impression: Atrial fibrillation - Patient ED Disposition Is Patient to be Admitted: Yes - Disposition Disposition Time: 18:36 Condition: FAIR Forms: [facility] (Swedish) - Pt Status Changed To: Hospital Disposition Of: Inpatient - Admit Certification Admit to Inpatient:: After my assessment, the patient will require hospitalization for at least two midnights. This is because of the severity of symptoms shown, intensity of services needed, and/or the medical risk in this patient being treated as an outpatient.
[2017-06-18] MEDS ORDERED: diltiaZEM 100 mg Vial ( ADD-VANTAGE ) IV ONE (16:21)
[2017-06-18 16:36] LABS: BASO # 0.1 K/uL (0.0-0.2); BASO % 0.9 % (0.0-2.0); EOS % 0.3 % (0.0-4.0); HEMATOCRIT 38.6 % (34.0-47.0); LYMPH # 1.4 K/uL (1.0-4.3); LYMPH % 19.7 % (20.0-40.0); MEAN CELL VOLUME 92.8 fl (81.0-99.0); MEAN CORPUSCULAR HEMOGLOBIN 30.3 pg (27.0-31.0); MEAN CORPUSCULAR HGB CONC 32.6 g/dL (33.0-37.0); MEAN PLATELET VOLUME 10.5 fl (7.2-11.7); MONO # 0.6 K/uL (0.0-0.8); MONO % 9.3 % (0.0-10.0); NEUT # 4.8 K/uL (1.8-7.0); NEUT % 69.8 % (50.0-75.0); NRBC % 0.1 % (0.0-0.0); RED CELL DISTRIBUTION WIDTH 15.2 % (11.5-14.5); WHITE BLOOD COUNT 6.9 K/uL (4.8-10.8)
[2017-06-18 16:40] LABS: VENOUS BLOOD GAS BASE EXCESS 5.1 mmol/L (0.0-2.0); VENOUS BLOOD GAS PCO2 27 mmHg (40-60); VENOUS BLOOD PH 7.59 (7.32-7.43)
[2017-06-18] MEDS ORDERED: Sodium Chloride 0.9% 500 ML IV ONE ×2 (16:44→16:52)
[2017-06-18 16:50] LABS: ALB/GLOB RATIO 1.3 (1.0-2.1); ALKALINE PHOSPHATASE 56 U/L (38-126); ALT/SGPT 40 U/L (9-52); AST/SGOT 36 U/L (14-36); BILIRUBIN,TOTAL 1.4 mg/dl (0.2-1.3); BLOOD UREA NITROGEN 20 mg/dl (7-17); CALCIUM 8.6 mg/dL (8.4-10.2); CARBON DIOXIDE 22 mmol/L (22-30); CHLORIDE 102 mmol/L (98-107); GFR AFRICAN-AMERICAN > 60; GLUCOSE,RANDOM 141 mg/dL (65-105); POTASSIUM 4.9 MMOL/L (3.6-5.0); SODIUM 134 mmol/l (132-148); TOTAL PROTEIN 6.9 G/DL (6.3-8.2)
[2017-06-18] MEDS ORDERED: Sodium Chloride 0.9% 1,000 ML IV ONE (16:50)
[2017-06-18 17:00] LABS: PARTIAL THROMBOPLASTIN TIME 30.9 Seconds (25.6-37.1)
[2017-06-18 17:24] LABS: RBC URINE 3 /hpf (0-3); URINE BACTERIA FEW (<OCC); URINE BILIRUBIN NEGATIVE (NEGATIVE); URINE BLOOD NEGATIVE (NEGATIVE); URINE COLOR YELLOW (YELLOW); URINE GLUCOSE (UA) 50 mg/dL (Normal); URINE KETONE NEGATIVE (NEGATIVE); URINE LEUKOCYTE ESTERASE NEG Leu/uL (Negative); URINE PROTEIN 30 mg/dL (NEGATIVE); URINE UROBILINOGEN 0.2-1.0 mg/dL (0.2-1.0); WBC URINE 3 /hpf (0-5)
--- NOTE | 2017-06-18 18:00 | CT ---
PROCEDURE: CT HEAD WITHOUT CONTRAST. HISTORY: AMS COMPARISON: None available. TECHNIQUE: Axial computed tomography images were obtained through the head/brain without intravenous contrast. Radiation dose: Total exam DLP = mGy-cm. This CT exam was performed using one or more of the following dose reduction techniques: Automated exposure control, adjustment of the mA and/or kV according to patient size, and/or use of iterative reconstruction technique. FINDINGS: HEMORRHAGE: No intracranial hemorrhage. BRAIN: No mass effect or edema. No atrophy or chronic microvascular ischemic changes. VENTRICLES: Unremarkable. No hydrocephalus. CALVARIUM: Unremarkable. PARANASAL SINUSES: Unremarkable as visualized. No significant inflammatory changes. MASTOID AIR CELLS: Unremarkable as visualized. No inflammatory changes. OTHER FINDINGS: None. IMPRESSION: Normal CT of the Head.
[2017-06-18] MEDS ORDERED: Acetaminophen 650mg/20.3ml solution UD PO PRN (22:19)
[2017-06-18] MEDS: Insulin Regular 100 units/ml SC SCH (22:37)
[2017-06-19 01:15] LABS: RBC URINE 14 /hpf (0-3); URINE BILIRUBIN NEGATIVE (NEGATIVE); URINE BLOOD NEGATIVE (NEGATIVE); URINE COLOR YELLOW (YELLOW); URINE GLUCOSE (UA) 50 mg/dL (Normal); URINE KETONE NEGATIVE (NEGATIVE); URINE LEUKOCYTE ESTERASE NEG Leu/uL (Negative); URINE PROTEIN 30 mg/dL (NEGATIVE); URINE UROBILINOGEN 0.2-1.0 mg/dL (0.2-1.0); WBC URINE 3 /hpf (0-5)
[2017-06-19] MEDS: Ipratropium 0.02% Inhal Soln (0.5 mg/2.5 ml) UD IH SCH ×4 (02:00→19:31)
[2017-06-19] MEDS: Levalbuterol 0.63 MG/3 ML Inhal Soln UD INH SCH ×4 (02:00→19:31)
[2017-06-19] MEDS: Insulin Regular 100 units/ml SC SCH ×4 (07:07→22:05)
[2017-06-19 07:49] LABS: HEMATOCRIT 38.4 % (34.0-47.0); MEAN CELL VOLUME 93.4 fl (81.0-99.0); MEAN CORPUSCULAR HEMOGLOBIN 30.2 pg (27.0-31.0); MEAN CORPUSCULAR HGB CONC 32.4 g/dL (33.0-37.0); RED CELL DISTRIBUTION WIDTH 15.6 % (11.5-14.5); WHITE BLOOD COUNT 5.8 K/uL (4.8-10.8)
[2017-06-19 08:05] LABS: ALB/GLOB RATIO 1.4 (1.0-2.1); ALKALINE PHOSPHATASE 55 U/L (38-126); ALT/SGPT 39 U/L (9-52); AST/SGOT 18 U/L (14-36); BILIRUBIN,TOTAL 1.3 mg/dl (0.2-1.3); BLOOD UREA NITROGEN 14 mg/dl (7-17); CALCIUM 8.3 mg/dL (8.4-10.2); CARBON DIOXIDE 26 mmol/L (22-30); CHLORIDE 103 mmol/L (98-107); CHOLESTEROL 147 mg/dL (0-199); GFR AFRICAN-AMERICAN > 60; GLUCOSE,RANDOM 156 mg/dL (65-105); POTASSIUM 3.8 MMOL/L (3.6-5.0); SODIUM 138 mmol/l (132-148); TOTAL PROTEIN 6.1 G/DL (6.3-8.2)
[2017-06-19 08:27] LABS: THYROID STIMULATING HORMONE 0.52 mIU/ML (0.46-4.68)
[2017-06-19 08:37] LABS: PARTIAL THROMBOPLASTIN TIME 37.2 Seconds (25.6-37.1)
--- NOTE | 2017-06-19 11:19 | RAD ---
HISTORY: routine COMPARISON: 05/24/2017 FINDINGS: LUNGS: No active pulmonary disease. PLEURA: No significant pleural effusion identified, no pneumothorax apparent. CARDIOVASCULAR: Cardiomegaly. Atherosclerotic aorta. OSSEOUS STRUCTURES: No significant abnormalities. VISUALIZED UPPER ABDOMEN: Normal. OTHER FINDINGS: None. IMPRESSION: No active disease.
--- NOTE | 2017-06-19 11:54 | CARD ---
APPROVED REPORT EKG Measurement Heart [id number] <Conclusion> Atrial fibrillation with rapid ventricular response with premature ventricular or aberrantly conducted complexes Nonspecific ST and T wave abnormality Abnormal ECG
--- NOTE | 2017-06-19 11:57 | CARD ---
APPROVED REPORT EKG Measurement Heart [id number] <Conclusion> Atrial fibrillation with rapid ventricular response Nonspecific T wave abnormality Abnormal ECG
--- NOTE | 2017-06-19 14:04 | CP.PCM.HP ---
History of Present Illness - History of Present Illness History of Present Illness: CC: AMS. 76 y/o F, bought from [facility] to ER [facility], [place] by EMS due to AMS, onset DOA with no improvement. Pt with Hx of been screaming all morning while at [facility] associated to agitation, confusion. Worsening system: Found with A Fib up to 140s. Aggravated factor: Poor historian. No: fever, chills, n/v/d, abdominal pain, CP, SOB, sick contact. Pt was seen by me in a recent admission to [place] for Hypercapnic respiratory failure( Intubated), Bronchial Asthma, discharged on 05/26/17 to [facility] to improve activity tolerance and has been there until new DOA to hospital on 06/18/17. EKG: A Fib with RVR, non specific T wave abnormality. CXR: No active disease. Head CT: Normal. Present on Admission - Present on Admission Any Indicators Present on Admission: No Review of Systems - Constitutional Constitutional: Fatigue, Malaise, Weakness - EENT Eyes: Requires Corrective Lenses Ears: Other (negative) Nose/Mouth/Throat: Other (negative) - Cardiovascular Cardiovascular: Palpitations, Rapid Heart Rate - Respiratory Respiratory: Other (negative) - Gastrointestinal Gastrointestinal: Other (negative) - Genitourinary Genitourinary: Urinary Incontinence - Musculoskeletal Musculoskeletal: Arthralgias - Integumentary Integumentary: Other (negative) - Neurological Neurological: Behavioral Changes - Psychiatric Psychiatric: Anxiety - Endocrine Endocrine: Other (negative) - Hematologic/Lymphatic Hematologic: Other (negative) Past Patient History - Infectious Disease Hx of Infectious Diseases: None - Tetanus Immunizations Tetanus Immunization: Unknown - Past Medical History & Family History Past Medical History?: Yes Pertinent Family History: Unknown - Past Social History Smoking Status: Never Smoked Alcohol: None Drugs: Denies Home Situation {Lives}: With Family - CARDIAC Hx Cardiac Disorders: Yes Hx Atrial Fibrillation: Yes Hx Congestive Heart Failure: Yes Hx Hypercholesterolemia: Yes Hx Hypertension: Yes - PULMONARY Hx Respiratory Disorders: Yes (Hx Respiratory Failure intubated on May 2017 ) Hx Asthma: Yes - NEUROLOGICAL Hx Neurological Disorder: No Hx Alzheimer's Disease: No - HEENT Hx HEENT Problems: Yes Hx Cataracts: Yes (left eye) Hx Glaucoma: Yes - RENAL Hx Chronic Kidney Disease: No - ENDOCRINE/METABOLIC Hx Endocrine Disorders: Yes Hx Diabetes Mellitus Type 2: Yes - HEMATOLOGICAL/ONCOLOGICAL Hx Blood Disorders: Yes Hx AIDS: No Hx Bruising: Yes (due to use of Xarelto) Hx Human Immunodeficiency Virus (HIV): No - INTEGUMENTARY Hx Dermatological Problems: No - MUSCULOSKELETAL/RHEUMATOLOGICAL Hx Musculoskeletal Disorders: Yes Hx Arthritis: Yes Hx Falls: No Hx Osteoporosis: Yes - GASTROINTESTINAL Hx Gastrointestinal Disorders: Yes Hx Gall Bladder Disease: Yes (s/p surgery) Hx Gastritis: Yes - GENITOURINARY/GYNECOLOGICAL Hx Genitourinary Disorders: No - PSYCHIATRIC Hx Psychophysiologic Disorder: No Hx Substance Use: No - SURGICAL HISTORY Hx Surgeries: Yes Hx Cholecystectomy: Yes - ANESTHESIA Hx Anesthesia: Yes Hx Anesthesia Reactions: No Hx Malignant Hyperthermia: No Meds Allergies/Adverse Reactions: Allergies Allergy/AdvReac Type Severity Reaction Status Date / Time No Known Allergies Allergy Verified 05/15/17 12:50 Physical Exam - Constitutional Appears: No Acute Distress - Head Exam Head Exam: NORMAL INSPECTION - Eye Exam Eye Exam: PERRL - ENT Exam ENT Exam: Normal Exam - Neck Exam Neck exam: Positive for: Normal Inspection - Respiratory Exam Respiratory Exam: Decreased Breath Sounds (at bases) - Cardiovascular Exam Cardiovascular Exam: Irregular Rhythm - GI/Abdominal Exam GI & Abdominal Exam: Normal Bowel Sounds, Soft - Extremities Exam Additional comments: Varicose veins, trace edema. - Back Exam Back exam: NORMAL INSPECTION - Neurological Exam Additional comments: Oriented x 2, forgetful, no motor sensory deficit. - Psychiatric Exam Additional comments: Calm now. - Skin Skin Exam: Warm Results - Vital Signs Recent Vital Signs: Last Vital Signs Temp 97.6 F 06/19/17 12:15 Pulse 115 H 06/19/17 12:15 Resp 20 06/19/17 12:15 BP 131/78 06/19/17 12:15 Pulse Ox 99 06/19/17 12:15 reviewed Og - Labs Result Diagrams: 06/22/17 04:30 06/22/17 04:30 Labs: Laboratory Results - last 24 hr 06/18/17 06/18/17 06/18/17 15:36 16:30 16:32 WBC 6.9 RBC 4.16 Hgb 12.6 Hct 38.6 MCV 92.8 MCH 30.3 MCHC 32.6 L RDW 15.2 H Plt Count 143 MPV 10.5 Neut % (Auto) 69.8 Lymph % (Auto) 19.7 L [place] % (Auto) 9.3 Eos % (Auto) 0.3 Baso % (Auto) 0.9 Neut # 4.8 Lymph # 1.4 [place] # 0.6 Eos # 0.0 Baso # 0.1 PT INR APTT pO2 70 H VBG pH 7.59 H VBG pCO2 27 L VBG HCO3 28.9 VBG Total CO2 26.7 VBG O2 Sat (Calc) 98.6 H VBG Base Excess 5.1 H Sodium 190.0 H* Chloride 128.0 H Glucose 144 H Lactate 2.2 H FiO2 21.0 Crit Value Called To frantz Case Crit Value Called By Rt Crit Value Read Back Y Blood Gas Notified Time 1639 Potassium Carbon Dioxide Anion Gap BUN Creatinine Est GFR ( Amer) Est GFR (Non-Af Amer) POC Glucose (mg/dL) 132 H Random Glucose Calcium Total Bilirubin AST ALT Alkaline Phosphatase Troponin I NT-Pro-B Natriuret Pep Total Protein Albumin Globulin Albumin/Globulin Ratio Triglycerides Cholesterol LDL Cholesterol Direct HDL Cholesterol Thyroxine (T4) TSH 3rd Generation Urine Color Urine Clarity Urine pH Ur Specific [place] Urine Protein Urine Glucose (UA) Urine Ketones Urine Blood Urine Nitrate Urine Bilirubin Urine Urobilinogen Ur Leukocyte Esterase Urine RBC (Auto) Urine Microscopic WBC Ur Squamous Epith Cells Urine Bacteria 06/18/17 06/18/17 06/18/17 16:32 16:32 17:09 WBC RBC Hgb Hct MCV MCH MCHC RDW Plt Count MPV Neut % (Auto) Lymph % (Auto) [place] % (Auto) Eos % (Auto) Baso % (Auto) Neut # Lymph # [place] # Eos # Baso # PT 16.4 H INR 1.5 H APTT 30.9 pO2 VBG pH VBG pCO2 VBG HCO3 VBG Total CO2 VBG O2 Sat (Calc) VBG Base Excess Sodium 134 Chloride 102 Glucose Lactate FiO2 Crit Value Called To Crit Value Called By Crit Value Read Back Blood Gas Notified Time Potassium 4.9 Carbon Dioxide 22 Anion Gap 15 BUN 20 H Creatinine 0.5 L Est GFR ( Amer) > 60 Est GFR (Non-Af Amer) > 60 POC Glucose (mg/dL) Random Glucose 141 H Calcium 8.6 Total Bilirubin 1.4 H AST 36 D ALT 40 Alkaline Phosphatase 56 Troponin I 0.0270 NT-Pro-B Natriuret Pep 3380 H Total Protein 6.9 Albumin 3.9 Globulin 3.0 Albumin/Globulin Ratio 1.3 Triglycerides Cholesterol LDL Cholesterol Direct HDL Cholesterol Thyroxine (T4) TSH 3rd Generation Urine Color Yellow Urine Clarity Slighty-cloudy Urine pH 7.0 Ur Specific [place] 1.015 Urine Protein 30 Urine Glucose (UA) 50 Urine Ketones Negative Urine Blood Negative Urine Nitrate Negative Urine Bilirubin Negative Urine Urobilinogen 0.2-1.0 Ur Leukocyte Esterase Neg Urine RBC (Auto) 3 Urine Microscopic WBC 3 Ur Squamous Epith Cells 2 Urine Bacteria Few H 06/18/17 06/19/17 06/19/17 22:24 01:02 05:24 WBC RBC Hgb Hct MCV MCH MCHC RDW Plt Count MPV Neut % (Auto) Lymph % (Auto) [place] % (Auto) Eos % (Auto) Baso % (Auto) Neut # Lymph # [place] # Eos # Baso # PT INR APTT pO2 VBG pH VBG pCO2 VBG HCO3 VBG Total CO2 VBG O2 Sat (Calc) VBG Base Excess Sodium Chloride Glucose Lactate FiO2 Crit Value Called To Crit Value Called By Crit Value Read Back Blood Gas Notified Time Potassium Carbon Dioxide Anion Gap BUN Creatinine Est GFR ( Amer) Est GFR (Non-Af Amer) POC Glucose (mg/dL) 188 H 155 H Random Glucose Calcium Total Bilirubin AST ALT Alkaline Phosphatase Troponin I NT-Pro-B Natriuret Pep Total Protein Albumin Globulin Albumin/Globulin Ratio Triglycerides Cholesterol LDL Cholesterol Direct HDL Cholesterol Thyroxine (T4) TSH 3rd Generation Urine Color Yellow Urine Clarity Slighty-cloudy Urine pH 7.0 Ur Specific [place] 1.016 Urine Protein 30 Urine Glucose (UA) 50 Urine Ketones Negative Urine Blood Negative Urine Nitrate Negative Urine Bilirubin Negative Urine Urobilinogen 0.2-1.0 Ur Leukocyte Esterase Neg Urine RBC (Auto) 14 H Urine Microscopic WBC 3 Ur Squamous Epith Cells 2 Urine Bacteria 06/19/17 06/19/17 06/19/17 06:30 06:30 06:30 WBC 5.8 RBC 4.11 Hgb 12.4 Hct 38.4 MCV 93.4 MCH 30.2 MCHC 32.4 L RDW 15.6 H Plt Count 129 L MPV Neut % (Auto) Lymph % (Auto) [place] % (Auto) Eos % (Auto) Baso % (Auto) Neut # Lymph # [place] # Eos # Baso # PT 30.1 H D INR 2.7 H D APTT 37.2 H D pO2 VBG pH VBG pCO2 VBG HCO3 VBG Total CO2 VBG O2 Sat (Calc) VBG Base Excess Sodium 138 Chloride 103 Glucose Lactate FiO2 Crit Value Called To Crit Value Called By Crit Value Read Back Blood Gas Notified Time Potassium 3.8 Carbon Dioxide 26 Anion Gap 13 BUN 14 Creatinine 0.5 L Est GFR ( Amer) > 60 Est GFR (Non-Af Amer) > 60 POC Glucose (mg/dL) Random Glucose 156 H Calcium 8.3 L Total Bilirubin 1.3 AST 18 ALT 39 Alkaline Phosphatase 55 Troponin I NT-Pro-B Natriuret Pep Total Protein 6.1 L Albumin 3.5 Globulin 2.6 Albumin/Globulin Ratio 1.4 Triglycerides 86 D Cholesterol 147 LDL Cholesterol Direct 114 HDL Cholesterol 29 L Thyroxine (T4) 9.00 TSH 3rd Generation 0.52 Urine Color Urine Clarity Urine pH Ur Specific [place] Urine Protein Urine Glucose (UA) Urine Ketones Urine Blood Urine Nitrate Urine Bilirubin Urine Urobilinogen Ur Leukocyte Esterase Urine RBC (Auto) Urine Microscopic WBC Ur Squamous Epith Cells Urine Bacteria 06/19/17 10:49 WBC RBC Hgb Hct MCV MCH MCHC RDW Plt Count MPV Neut % (Auto) Lymph % (Auto) [place] % (Auto) Eos % (Auto) Baso % (Auto) Neut # Lymph # [place] # Eos # Baso # PT INR APTT pO2 VBG pH VBG pCO2 VBG HCO3 VBG Total CO2 VBG O2 Sat (Calc) VBG Base Excess Sodium Chloride Glucose Lactate FiO2 Crit Value Called To Crit Value Called By Crit Value Read Back Blood Gas Notified Time Potassium Carbon Dioxide Anion Gap BUN Creatinine Est GFR ( Amer) Est GFR (Non-Af Amer) POC Glucose (mg/dL) 192 H Random Glucose Calcium Total Bilirubin AST ALT Alkaline Phosphatase Troponin I NT-Pro-B Natriuret Pep Total Protein Albumin Globulin Albumin/Globulin Ratio Triglycerides Cholesterol LDL Cholesterol Direct HDL Cholesterol Thyroxine (T4) TSH 3rd Generation Urine Color Urine Clarity Urine pH Ur Specific [place] Urine Protein Urine Glucose (UA) Urine Ketones Urine Blood Urine Nitrate Urine Bilirubin Urine Urobilinogen Ur Leukocyte Esterase Urine RBC (Auto) Urine Microscopic WBC Ur Squamous Epith Cells Urine Bacteria reviewed J.P. - EKG Data EKG comments: reviewed J.P. - Imaging and Cardiology Chest x-ray Status: Report reviewed by me (Og) CT scan - head Status: Report reviewed by me (Og) Assessment & Plan (1) Atrial fibrillation with rapid ventricular response Status: Acute Priority: High (2) HTN (hypertension) Status: Chronic Priority: Medium (3) Bronchial asthma Status: Chronic Priority: Medium - Assessment and Plan (Free Text) Plan: F/U Carotid U-S, U C_S, continue Lopressor, Lasix, Xarelto, Xophenex, Atrovent and rest of tx. PT, OT, Cardiology consult appreciated. - Date & Time Date: 06/19/17 Time: 13:30
--- NOTE | 2017-06-19 15:16 | CP.PCM.CON ---
History of Present Illness - History of Present Illness History of Present Illness: CC: Afib, altered mental status. HPI: I have been requested on cardiology consultation by Dr. Joseph on [address] who is a 76 year old female with a history of atrial fibrillation, hypertension, dyslipidemia, DM and hyponatremia who presents from the group home for agitation, confusion and combativeness. She is not a very good historian and most of the history is obtained from the EMR. An ECG revealed atrial fibrillation at 127 BPM, NSSTT abnormalities, A CT of the head was normal and cardiac troponin was normal. She has been treated with IV cardizem continuous infusion with adequate rate control. Review of Systems - Constitutional Constitutional: Fatigue, Malaise, Weakness - EENT Eyes: absent: Blurred Vision, Change in Vision Ears: absent: Dizziness Nose/Mouth/Throat: absent: Epistaxis, Dysphagia, Neck Pain - Cardiovascular Cardiovascular: Palpitations. absent: Chest Pain, Diaphoresis, Dyspnea, Pedal Edema - Respiratory Respiratory: absent: Dyspnea, Dyspnea on Exertion, Wheezing, Excessive Mucous Production - Gastrointestinal Gastrointestinal: absent: Abdominal Pain, Constipation, Diarrhea, Dysphagia, Vomiting - Genitourinary Genitourinary: absent: Dysuria, Hematuria - Musculoskeletal Musculoskeletal: absent: Muscle Weakness, Myalgias - Neurological Neurological: absent: Dizziness, Focal Weakness, Syncope - Psychiatric Psychiatric: Anxiety - Endocrine Endocrine: Fatigue - Hematologic/Lymphatic Hematologic: absent: Easy Bleeding, Easy Bruising Past Patient History - Infectious Disease Hx of Infectious Diseases: None - Tetanus Immunizations Tetanus Immunization: Unknown - Past Medical History & Family History Past Medical History?: Yes - Past Social History Smoking Status: Never Smoked Alcohol: None Drugs: Denies - CARDIAC Hx Cardiac Disorders: Yes Hx Angina: No Hx Atrial Fibrillation: Yes Hx Heart Attack: No Hx Hypercholesterolemia: No Hx Hypertension: Yes - PULMONARY Hx Respiratory Disorders: Yes - NEUROLOGICAL Hx Alzheimer's Disease: No - HEENT Hx HEENT Problems: Yes Hx Cataracts: Yes (left eye) Hx Glaucoma: Yes - RENAL Hx Chronic Kidney Disease: No - ENDOCRINE/METABOLIC Hx Endocrine Disorders: Yes Hx Diabetes Mellitus Type 2: Yes - HEMATOLOGICAL/ONCOLOGICAL Hx Blood Disorders: Yes Hx AIDS: No Hx Bruising: Yes (due to use of Xarelto) Hx Human Immunodeficiency Virus (HIV): No - INTEGUMENTARY Hx Dermatological Problems: No - MUSCULOSKELETAL/RHEUMATOLOGICAL Hx Arthritis: Yes Hx Falls: No Hx Osteoporosis: Yes - GASTROINTESTINAL Hx Gall Bladder Disease: Yes (s/p surgery) Hx Gastritis: Yes - GENITOURINARY/GYNECOLOGICAL Hx Genitourinary Disorders: No - PSYCHIATRIC Hx Psychophysiologic Disorder: No Hx Substance Use: No - SURGICAL HISTORY Hx Cholecystectomy: Yes - ANESTHESIA Hx Anesthesia: Yes Hx Anesthesia Reactions: No Hx Malignant Hyperthermia: No Meds Allergies/Adverse Reactions: Allergies Allergy/AdvReac Type Severity Reaction Status Date / Time No Known Allergies Allergy Verified 05/15/17 12:50 - Medications Medications: Current Medications Acetaminophen (Tylenol 650mg/20.3ml Solution Ud) 650 mg PO Q6 PRN PRN Reason: Fever>100 Furosemide (Lasix) 20 mg PO DAILY [facility] Last Admin: 06/19/17 09:40 Dose: 20 mg Diltiazem HCl 125 mg/ Sodium (Chloride) 125 mls @ 5 mls/hr IV .Q24H ONE; 5 MG/ HR PRN Reason: Protocol Stop: 06/19/17 16:02 Last Admin: 06/18/17 18:02 Dose: 5 mls/hr Diltiazem HCl 125 mg/ Sodium (Chloride) 125 mls @ 5 mls/hr IV .Q24H ONE; 5 MG/ HR PRN Reason: Protocol Stop: 06/20/17 02:22 Last Admin: 06/19/17 03:31 Dose: 15 mg/hr, 15 mls/hr Insulin Human Regular (Humulin R) 0 units SC ACHS [facility] PRN Reason: Protocol Last Admin: 06/19/17 12:20 Dose: 1 unit Ipratropium [place] (Atrovent) 0.5 mg IH RQ6 [facility] Last Admin: 06/19/17 13:55 Dose: 0.5 mg Levalbuterol HCl (Xopenex) 0.63 mg INH RQ6 [facility] Last Admin: 06/19/17 13:55 Dose: 0.63 mg Metoprolol Tartrate (Lopressor) 25 mg PO Q8 [facility] Last Admin: 06/19/17 12:08 Dose: 25 mg Polyethylene Glycol (Miralax) 17 gm PO DAILY PRN PRN Reason: Constipation Rivaroxaban (Xarelto) 15 mg PO DAILY [facility] PRN Reason: Protocol Last Admin: 06/19/17 09:36 Dose: 15 mg Physical Exam - Constitutional Appears: Well, Non-toxic, No Acute Distress, Confused - Head Exam Head Exam: ATRAUMATIC, NORMAL INSPECTION, NORMOCEPHALIC - Eye Exam Eye Exam: EOMI, Normal appearance, PERRL. absent: Scleral icterus Pupil Exam: PERRL - ENT Exam ENT Exam: Mucous Membranes Moist, Normal Exam - Neck Exam Neck exam: Positive for: Full Rom, Normal Inspection - Respiratory Exam Respiratory Exam: Clear to Auscultation Bilateral, NORMAL BREATHING PATTERN. absent: Rales, Rhonchi, Wheezes - Cardiovascular Exam Cardiovascular Exam: Irregular Rhythm, +S1, +S2, Systolic Murmur - GI/Abdominal Exam GI & Abdominal Exam: Soft. absent: Distended, Guarding, Rebound, Tenderness - Rectal Exam Rectal Exam: Deferred - Extremities Exam Extremities exam: Positive for: full ROM, normal inspection - Back Exam Back exam: NORMAL INSPECTION - Neurological Exam Neurological exam: Alert Additional comments: Confused. - Psychiatric Exam Psychiatric exam: Anxious - Skin Skin Exam: Dry, Intact, Normal Color, Warm Results - Vital Signs Recent Vital Signs: Last Vital Signs Temp 97.6 F 06/19/17 12:15 Pulse 115 H 06/19/17 13:00 Resp 20 06/19/17 12:15 BP 131/78 06/19/17 12:15 Pulse Ox 99 06/19/17 12:15 - Labs Result Diagrams: 06/19/17 06:30 06/19/17 06:30 Labs: Laboratory Results - last 24 hr 06/18/17 06/18/17 06/18/17 15:36 16:30 16:32 WBC 6.9 RBC 4.16 Hgb 12.6 Hct 38.6 MCV 92.8 MCH 30.3 MCHC 32.6 L RDW 15.2 H Plt Count 143 MPV 10.5 Neut % (Auto) 69.8 Lymph % (Auto) 19.[address] % (Auto) 9.3 Eos % (Auto) 0.3 Baso % (Auto) 0.9 Neut # 4.8 Lymph # 1.4 Lane # 0.6 Eos # 0.0 Baso # 0.1 PT INR APTT pO2 70 H VBG pH 7.59 H VBG pCO2 27 L VBG HCO3 28.9 VBG Total CO2 26.7 VBG O2 Sat (Calc) 98.6 H VBG Base Excess 5.1 H Sodium 190.0 H* Chloride 128.0 H Glucose 144 H Lactate 2.2 H FiO2 21.0 Crit Value Called To Evielandry Crit Value Called By Rt Crit Value Read Back Y Blood Gas Notified Time 1639 Potassium Carbon Dioxide Anion Gap BUN Creatinine Est GFR ( Amer) Est GFR (Non-Af Amer) POC Glucose (mg/dL) 132 H Random Glucose Calcium Total Bilirubin AST ALT Alkaline Phosphatase Troponin I NT-Pro-B Natriuret Pep Total Protein Albumin Globulin Albumin/Globulin Ratio Triglycerides Cholesterol LDL Cholesterol Direct HDL Cholesterol Thyroxine (T4) TSH 3rd Generation Urine Color Urine Clarity Urine pH Ur Specific [place] Urine Protein Urine Glucose (UA) Urine Ketones Urine Blood Urine Nitrate Urine Bilirubin Urine Urobilinogen Ur Leukocyte Esterase Urine RBC (Auto) Urine Microscopic WBC Ur Squamous Epith Cells Urine Bacteria 06/18/17 06/18/17 06/18/17 16:32 16:32 17:09 WBC RBC Hgb Hct MCV MCH MCHC RDW Plt Count MPV Neut % (Auto) Lymph % (Auto) Lane % (Auto) Eos % (Auto) Baso % (Auto) Neut # Lymph # Lane # Eos # Baso # PT 16.4 H INR 1.5 H APTT 30.9 pO2 VBG pH VBG pCO2 VBG HCO3 VBG Total CO2 VBG O2 Sat (Calc) VBG Base Excess Sodium 134 Chloride 102 Glucose Lactate FiO2 Crit Value Called To Crit Value Called By Crit Value Read Back Blood Gas Notified Time Potassium 4.9 Carbon Dioxide 22 Anion Gap 15 BUN 20 H Creatinine 0.5 L Est GFR ( Amer) > 60 Est GFR (Non-Af Amer) > 60 POC Glucose (mg/dL) Random Glucose 141 H Calcium 8.6 Total Bilirubin 1.4 H AST 36 D ALT 40 Alkaline Phosphatase 56 Troponin I 0.0270 NT-Pro-B Natriuret Pep 3380 H Total Protein 6.9 Albumin 3.9 Globulin 3.0 Albumin/Globulin Ratio 1.3 Triglycerides Cholesterol LDL Cholesterol Direct HDL Cholesterol Thyroxine (T4) TSH 3rd Generation Urine Color Yellow Urine Clarity Slighty-cloudy Urine pH 7.0 Ur Specific [place] 1.015 Urine Protein 30 Urine Glucose (UA) 50 Urine Ketones Negative Urine Blood Negative Urine Nitrate Negative Urine Bilirubin Negative Urine Urobilinogen 0.2-1.0 Ur Leukocyte Esterase Neg Urine RBC (Auto) 3 Urine Microscopic WBC 3 Ur Squamous Epith Cells 2 Urine Bacteria Few H 06/18/17 06/19/17 06/19/17 22:24 01:02 05:24 WBC RBC Hgb Hct MCV MCH MCHC RDW Plt Count MPV Neut % (Auto) Lymph % (Auto) Lane % (Auto) Eos % (Auto) Baso % (Auto) Neut # Lymph # Lane # Eos # Baso # PT INR APTT pO2 VBG pH VBG pCO2 VBG HCO3 VBG Total CO2 VBG O2 Sat (Calc) VBG Base Excess Sodium Chloride Glucose Lactate FiO2 Crit Value Called To Crit Value Called By Crit Value Read Back Blood Gas Notified Time Potassium Carbon Dioxide Anion Gap BUN Creatinine Est GFR ( Amer) Est GFR (Non-Af Amer) POC Glucose (mg/dL) 188 H 155 H Random Glucose Calcium Total Bilirubin AST ALT Alkaline Phosphatase Troponin I NT-Pro-B Natriuret Pep Total Protein Albumin Globulin Albumin/Globulin Ratio Triglycerides Cholesterol LDL Cholesterol Direct HDL Cholesterol Thyroxine (T4) TSH 3rd Generation Urine Color Yellow Urine Clarity Slighty-cloudy Urine pH 7.0 Ur Specific [place] 1.016 Urine Protein 30 Urine Glucose (UA) 50 Urine Ketones Negative Urine Blood Negative Urine Nitrate Negative Urine Bilirubin Negative Urine Urobilinogen 0.2-1.0 Ur Leukocyte Esterase Neg Urine RBC (Auto) 14 H Urine Microscopic WBC 3 Ur Squamous Epith Cells 2 Urine Bacteria 06/19/17 06/19/17 06/19/17 06:30 06:30 06:30 WBC 5.8 RBC 4.11 Hgb 12.4 Hct 38.4 MCV 93.4 MCH 30.2 MCHC 32.4 L RDW 15.6 H Plt Count 129 L MPV Neut % (Auto) Lymph % (Auto) Lane % (Auto) Eos % (Auto) Baso % (Auto) Neut # Lymph # Lane # Eos # Baso # PT 30.1 H D INR 2.7 H D APTT 37.2 H D pO2 VBG pH VBG pCO2 VBG HCO3 VBG Total CO2 VBG O2 Sat (Calc) VBG Base Excess Sodium 138 Chloride 103 Glucose Lactate FiO2 Crit Value Called To Crit Value Called By Crit Value Read Back Blood Gas Notified Time Potassium 3.8 Carbon Dioxide 26 Anion Gap 13 BUN 14 Creatinine 0.5 L Est GFR ( Amer) > 60 Est GFR (Non-Af Amer) > 60 POC Glucose (mg/dL) Random Glucose 156 H Calcium 8.3 L Total Bilirubin 1.3 AST 18 ALT 39 Alkaline Phosphatase 55 Troponin I NT-Pro-B Natriuret Pep Total Protein 6.1 L Albumin 3.5 Globulin 2.6 Albumin/Globulin Ratio 1.4 Triglycerides 86 D Cholesterol 147 LDL Cholesterol Direct 114 HDL Cholesterol 29 L Thyroxine (T4) 9.00 TSH 3rd Generation 0.52 Urine Color Urine Clarity Urine pH Ur Specific [place] Urine Protein Urine Glucose (UA) Urine Ketones Urine Blood Urine Nitrate Urine Bilirubin Urine Urobilinogen Ur Leukocyte Esterase Urine RBC (Auto) Urine Microscopic WBC Ur Squamous Epith Cells Urine Bacteria 06/19/17 10:49 WBC RBC Hgb Hct MCV MCH MCHC RDW Plt Count MPV Neut % (Auto) Lymph % (Auto) Lane % (Auto) Eos % (Auto) Baso % (Auto) Neut # Lymph # Lane # Eos # Baso # PT INR APTT pO2 VBG pH VBG pCO2 VBG HCO3 VBG Total CO2 VBG O2 Sat (Calc) VBG Base Excess Sodium Chloride Glucose Lactate FiO2 Crit Value Called To Crit Value Called By Crit Value Read Back Blood Gas Notified Time Potassium Carbon Dioxide Anion Gap BUN Creatinine Est GFR ( Amer) Est GFR (Non-Af Amer) POC Glucose (mg/dL) 192 H Random Glucose Calcium Total Bilirubin AST ALT Alkaline Phosphatase Troponin I NT-Pro-B Natriuret Pep Total Protein Albumin Globulin Albumin/Globulin Ratio Triglycerides Cholesterol LDL Cholesterol Direct HDL Cholesterol Thyroxine (T4) TSH 3rd Generation Urine Color Urine Clarity Urine pH Ur Specific [place] Urine Protein Urine Glucose (UA) Urine Ketones Urine Blood Urine Nitrate Urine Bilirubin Urine Urobilinogen Ur Leukocyte Esterase Urine RBC (Auto) Urine Microscopic WBC Ur Squamous Epith Cells Urine Bacteria - EKG Data Rate: Tachycardia (Atrial fibrillation 127 BPM) Assessment & Plan - Assessment and Plan (Free Text) Assessment: 1. Atrial fibrillation with RVR. 2. Altered mental status. 3. Hypertension. 4. Diabetes. Plan: 1. Continue metoprolol. 2. Wean off IV cardizem. 3. Monitor telemetry. 4. Monitor neurological status. 5. Continue rivaroxaban. - Date & Time Date: 06/19/17 Time: 09:45
[2017-06-20] MEDS: Levalbuterol 0.63 MG/3 ML Inhal Soln UD INH SCH ×4 (01:02→19:27)
[2017-06-20] MEDS: Ipratropium 0.02% Inhal Soln (0.5 mg/2.5 ml) UD IH SCH ×4 (01:02→19:27)
[2017-06-20] MEDS: Insulin Regular 100 units/ml SC SCH ×4 (06:58→21:35)
--- NOTE | 2017-06-20 16:57 | US ---
PROCEDURE: Duplex ultrasound of the carotid and vertebral arteries. HISTORY: AFIB COMPARISON: None available. TECHNIQUE: Grayscale and duplex Doppler evaluation of the cervical carotid and vertebral arteries were performed. The common carotid, carotid bifurcations and cervical ICA and proximal ECA were evaluated. The vertebral arteries were evaluated for gross patency and direction. FINDINGS: RIGHT CAROTID ARTERIES: Minimal intimal thickening seen in the right and left common carotid arteries. Atherosclerotic plaque noted in the carotid bifurcation and proximal right internal carotid artery however no evidence of stepped up velocities. Maximal right ICA velocity = 58.6 cm/S Maximal right CCA velocity = 54.6 cm/S ICA/CCA Ratio: 1.1 LEFT CAROTID ARTERIES: Maximal right ICA velocity = 57.3 cm/S Maximal left CCA velocity = 70.3 cm/S ICA/CCA Ratio: 0.8 VERTEBRAL ARTERIES: Right Vertebral Artery: Patent. Antegrade flow. Left Vertebral Artery: Patent. Antegrade flow. OTHER FINDINGS: None. IMPRESSION: Mild atherosclerotic plaque changes seen in the right carotid bifurcation and proximal internal carotid artery however no evidence to suggest hemodynamically significant stenosis. . With
--- NOTE | 2017-06-20 17:32 | CP.PCM.PN ---
Subjective - Date & Time of Evaluation Date of Evaluation: 06/20/17 Time of Evaluation: 11:20 - Subjective Subjective: F/U A Fib. Pt confused, no A/D. Objective - Vital Signs/Intake and Output Vital Signs (last 24 hours): Temp Pulse Resp BP Pulse Ox 97.3 F L 130 H 18 113/61 97 06/20/17 15:29 06/20/17 16:03 06/20/17 15:29 06/20/17 16:03 06/20/17 15:29 Intake and Output: 06/20/17 06/20/17 06:59 18:59 Intake Total 1055 Balance 1055 - Medications Medications: Current Medications Acetaminophen (Tylenol 650mg/20.3ml Solution Ud) 650 mg PO Q6 PRN PRN Reason: Fever>100 Furosemide (Lasix) 20 mg PO DAILY [facility] Last Admin: 06/20/17 08:38 Dose: 20 mg Insulin Human Regular (Humulin R) 0 units SC ACHS [facility] PRN Reason: Protocol Last Admin: 06/20/17 16:05 Dose: 3 unit Ipratropium [place] (Atrovent) 0.5 mg IH RQ6 [facility] Last Admin: 06/20/17 13:09 Dose: 0.5 mg Levalbuterol HCl (Xopenex) 0.63 mg INH RQ6 [facility] Last Admin: 06/20/17 13:09 Dose: 0.63 mg Metoprolol Tartrate (Lopressor) 25 mg PO Q8 [facility] Last Admin: 06/20/17 16:05 Dose: 25 mg Polyethylene Glycol (Miralax) 17 gm PO DAILY PRN PRN Reason: Constipation Rivaroxaban (Xarelto) 15 mg PO DAILY [facility] PRN Reason: Protocol Last Admin: 06/20/17 08:40 Dose: 15 mg - Labs Labs: 06/19/17 06:30 06/19/17 06:30 PT 30.1 Seconds (9.8-13.1) H D 06/19/17 06:30 INR 2.7 (0.9-1.2) H D 06/19/17 06:30 APTT 37.2 Seconds (25.6-37.1) H D 06/19/17 06:30 - Constitutional Appears: No Acute Distress - Head Exam Head Exam: NORMAL INSPECTION - Eye Exam Eye Exam: PERRL - ENT Exam ENT Exam: Normal Exam - Neck Exam Neck Exam: Normal Inspection - Respiratory Exam Respiratory Exam: Decreased Breath Sounds (b/l) - Cardiovascular Exam Cardiovascular Exam: Irregular Rhythm - GI/Abdominal Exam GI & Abdominal Exam: Soft, Normal Bowel Sounds - Extremities Exam Extremities Exam: Normal Inspection - Back Exam Back Exam: NORMAL INSPECTION - Neurological Exam Neurological Exam: Awake Additional comments: O x2, no motor sensory deficit. - Skin Skin Exam: Warm Assessment and Plan (1) Atrial fibrillation with rapid ventricular response Status: Acute (2) HTN (hypertension) Status: Chronic (3) Bronchial asthma Status: Chronic - Assessment and Plan (Free Text) Plan: HR up today, has Cardizen 5 IV, Pt was started on Lopressor, f/u HR, Cardiology consult appreciated.
--- NOTE | 2017-06-20 22:55 | CP.PCM.PN ---
Subjective - Date & Time of Evaluation Date of Evaluation: 06/20/17 Time of Evaluation: 19:20 - Subjective Subjective: Reason for visit: Atrial fibrillation. Interval History: The patient is resting in bed with complaints of abdominal pain and constipation as well as chest pain and palpitations. She remains in atrial fibrillation with variable rate control. Unfortunately she remains confused but is in no acute distress. There are no major changes otherwise. IV cardizem has been discontinued and the patient is on a PO beta breanna. Objective - Vital Signs/Intake and Output Vital Signs (last 24 hours): Temp Pulse Resp BP Pulse Ox 97.3 F L 98 H 18 109/68 98 06/20/17 20:03 06/20/17 21:34 06/20/17 20:03 06/20/17 21:34 06/20/17 20:03 - Medications Medications: Current Medications Acetaminophen (Tylenol 650mg/20.3ml Solution Ud) 650 mg PO Q6 PRN PRN Reason: Fever>100 Acetaminophen (Tylenol 325mg Tab) 650 mg PO Q4 PRN PRN Reason: Pain, Mild (1-3) Last Admin: 06/20/17 20:47 Dose: 650 mg Docusate Sodium (Colace) 100 mg PO BID [facility] Last Admin: 06/20/17 20:47 Dose: 100 mg Furosemide (Lasix) 20 mg PO DAILY [facility] Last Admin: 06/20/17 08:38 Dose: 20 mg Insulin Human Regular (Humulin R) 0 units SC ACHS [facility] PRN Reason: Protocol Last Admin: 06/20/17 21:35 Dose: Not Given Ipratropium [place] (Atrovent) 0.5 mg IH RQ6 [facility] Last Admin: 06/20/17 19:27 Dose: 0.5 mg Levalbuterol HCl (Xopenex) 0.63 mg INH RQ6 [facility] Last Admin: 06/20/17 19:27 Dose: 0.63 mg Metoprolol Tartrate (Lopressor) 25 mg PO Q8 [facility] Last Admin: 06/20/17 16:05 Dose: 25 mg Polyethylene Glycol (Miralax) 17 gm PO DAILY PRN PRN Reason: Constipation Rivaroxaban (Xarelto) 15 mg PO DAILY [facility] PRN Reason: Protocol Last Admin: 06/20/17 08:40 Dose: 15 mg - Labs Labs: 06/19/17 06:30 06/19/17 06:30 PT 30.1 Seconds (9.8-13.1) H D 06/19/17 06:30 INR 2.7 (0.9-1.2) H D 06/19/17 06:30 APTT 37.2 Seconds (25.6-37.1) H D 06/19/17 06:30 - Constitutional Appears: Well, Non-toxic, No Acute Distress, Confused - Head Exam Head Exam: ATRAUMATIC, NORMAL INSPECTION, NORMOCEPHALIC - Eye Exam Eye Exam: Normal appearance, PERRL. absent: Conjunctival injection, Scleral icterus - ENT Exam ENT Exam: Mucous Membranes Moist - Neck Exam Neck Exam: Full ROM, Normal Inspection - Respiratory Exam Respiratory Exam: Clear to Ausculation Bilateral, NORMAL BREATHING PATTERN. absent: Rales, Rhonchi - Cardiovascular Exam Cardiovascular Exam: Irregular Rhythm, +S1, +S2, Murmur. absent: Gallop - GI/Abdominal Exam GI & Abdominal Exam: Guarding, Tenderness. absent: Distended, Rebound - Rectal Exam Rectal Exam: Deferred - Extremities Exam Extremities Exam: Full ROM, Normal Inspection - Back Exam Back Exam: NORMAL INSPECTION - Neurological Exam Neurological Exam: Awake - Psychiatric Exam Psychiatric exam: Anxious - Skin Skin Exam: Dry, Intact, Normal Color, Warm Assessment and Plan - Assessment and Plan (Free Text) Assessment: Atria fibrillation. Altered mental status. Hypertension. Plan: Continue metoprolol. Rivaroxaban. Monitor telemetry. Stable cardiac ferreira, will follow up PRN.
[2017-06-21] MEDS: Ipratropium 0.02% Inhal Soln (0.5 mg/2.5 ml) UD IH SCH ×4 (01:15→19:40)
[2017-06-21] MEDS: Levalbuterol 0.63 MG/3 ML Inhal Soln UD INH SCH ×4 (01:16→19:39)
[2017-06-21] MEDS: POLYETHYLENE GLYCOL 3350 17 GM/Dose PACKET PO PRN (05:45)
[2017-06-21] MEDS ORDERED: Lactulose 10 gm/15 ml Syrup PO STA (06:33)
[2017-06-21] MEDS: Insulin Regular 100 units/ml SC SCH ×4 (06:49→23:01)
--- NOTE | 2017-06-21 10:49 | PQF GENQUE ---
Dr. Joseph, Please specify the type and acuity of heart failure in your progress notes:if known 1. TYPE: Combined systolic and diastolic Diastolic Systolic Other (please specify) Clinically unable to determine Unknown 2. ACUITY: Acute Chronic Acute on chronic Other (please specify) Clinically unable to determine Unknown ER and H and P: history of CHF Pro BNP:[id number] CXR: Impression .: No active disease Lasix 20 mg daily This form is a permanent part of the medical record Clarification of your documentation is requested to better reflect the severity of illness and intensity of treatment of your patient. Indicators present [] Specify: [] [] Specify: [] [] Specify: [] [] Specify: [] Location in the medical record that reflects the above clinical findings: [] Treatment Provided: [] PHYSICIAN'S RESPONSE Based on your medical judgment of the clinical indicators outlined above please clarify the following: [] Practitioner response [] If unable to determine, please check the box, sign and date. Present On Admission (POA) Indicator: [] Present at the time of admission [] Not present at the time of admission [] Clinically Undetermined In responding to this query, please exercise your independent professional judgment. The fact that a question is asked does not imply that any particular answer is desired or expected. Thank you for your clarification on this documentation. If you have any questions please call. * Thank you, Jayashree Lazo RN ext. #[phone] MTDD
--- NOTE | 2017-06-21 10:53 | PQF GENQUE ---
Dr. Joseph, Please clarify the type of atrial fibrillation: if known >> Chronic >> Paroxysmal >> Permanent >> Persistent >> Other (please specify type) >> Clinically unable to determine >> Unknown 06/19 Cardiology Consult; Assessment: 1. Atrial fibrillation with RVR. 2. Altered mental status. 3. Hypertension. 4. Diabetes. Plan: 1. Continue metoprolol. 2. Wean off IV cardizem. 3. Monitor telemetry. 4. Monitor neurological status. This form is a permanent part of the medical record Clarification of your documentation is requested to better reflect the severity of illness and intensity of treatment of your patient. Indicators present [] Specify: [] [] Specify: [] [] Specify: [] [] Specify: [] Location in the medical record that reflects the above clinical findings: [] Treatment Provided: [] PHYSICIAN'S RESPONSE Based on your medical judgment of the clinical indicators outlined above please clarify the following: [] Practitioner response [] If unable to determine, please check the box, sign and date. Present On Admission (POA) Indicator: [] Present at the time of admission [] Not present at the time of admission [] Clinically Undetermined In responding to this query, please exercise your independent professional judgment. The fact that a question is asked does not imply that any particular answer is desired or expected. Thank you for your clarification on this documentation. If you have any questions please call. * Thank you, Jayashree Lazo RN ext. #[phone] MTDD
--- NOTE | 2017-06-21 11:02 | PQF GENQUE ---
Dr. Joseph, Please clarify the underlying cause of patient's altered mental status and relate that cause to the alteration in mental status:if known after the work-up is completed Cardiac condition Electrolyte/metabolic imbalance Infectious process Neurologic condition Psychiatric condition Respiratory condition Other condition (please specify) Clinically unable to determine Unknown H and P: bought from [facility] to ER [facility], [place] by EMS due to AMS, onset DOA with no improvement. H and P:hx.CHF; Assessment :(1) Atrial fibrillation with rapid ventricular response Status: Acute (2) HTN (hypertension) Status: Chronic (3) Bronchial asthma Status: Chronic 06/18 CT Head; Impression: Normal CT of the Head. Urine culture report: Beta Hemolytic Strep Group B: 50,000-100,000 CFU/ML This form is a permanent part of the medical record Clarification of your documentation is requested to better reflect the severity of illness and intensity of treatment of your patient. Indicators present [] Specify: [] [] Specify: [] [] Specify: [] [] Specify: [] Location in the medical record that reflects the above clinical findings: [] Treatment Provided: [] PHYSICIAN'S RESPONSE Based on your medical judgment of the clinical indicators outlined above please clarify the following: [] Practitioner response [] If unable to determine, please check the box, sign and date. Present On Admission (POA) Indicator: [] Present at the time of admission [] Not present at the time of admission [] Clinically Undetermined In responding to this query, please exercise your independent professional judgment. The fact that a question is asked does not imply that any particular answer is desired or expected. Thank you for your clarification on this documentation. If you have any questions please call. * Thank you, Jayashree Lazo RN ext. #[phone] MTDD
--- NOTE | 2017-06-21 11:17 | PQF GENQUE ---
Dr. Joseph, 1. Please clarify type of asthma if known: i.e. Mild intermittent Mild persistent Moderate persistent Severe persistent With bronchitis(please clarify acuity of bronchitis) With chronic lung disease (please document specific chronic lung disease) Other (please specify) Clinically unable to determine Unknown 2. Please clarify acuity of asthma: i.e. Uncomplicated Other (please specify) Clinically unable to determine Unknown H and P: (3) Bronchial asthma Status: Chronic Priority: Medium Xopenex INH RQ6 and Atrovent IH RQ6 This form is a permanent part of the medical record Clarification of your documentation is requested to better reflect the severity of illness and intensity of treatment of your patient. Indicators present [] Specify: [] [] Specify: [] [] Specify: [] [] Specify: [] Location in the medical record that reflects the above clinical findings: [] Treatment Provided: [] PHYSICIAN'S RESPONSE Based on your medical judgment of the clinical indicators outlined above please clarify the following: [] Practitioner response [] If unable to determine, please check the box, sign and date. Present On Admission (POA) Indicator: [] Present at the time of admission [] Not present at the time of admission [] Clinically Undetermined In responding to this query, please exercise your independent professional judgment. The fact that a question is asked does not imply that any particular answer is desired or expected. Thank you for your clarification on this documentation. If you have any questions please call. * Thank you, Jayashree Lazo RN ext. #[phone] MTDD
--- NOTE | 2017-06-21 15:21 | CP.PCM.PN ---
Subjective - Date & Time of Evaluation Date of Evaluation: 06/21/17 Time of Evaluation: 12:00 - Subjective Subjective: F/U A Fib Pt with no A/D, no SOB. Objective - Vital Signs/Intake and Output Vital Signs (last 24 hours): Temp Pulse Resp BP Pulse Ox 97.7 F 100 H 18 100/64 97 06/21/17 12:07 06/21/17 12:07 06/21/17 12:07 06/21/17 12:07 06/21/17 12:07 - Medications Medications: Current Medications Acetaminophen (Tylenol 650mg/20.3ml Solution Ud) 650 mg PO Q6 PRN PRN Reason: Fever>100 Acetaminophen (Tylenol 325mg Tab) 650 mg PO Q4 PRN PRN Reason: Pain, Mild (1-3) Last Admin: 06/20/17 20:47 Dose: 650 mg Docusate Sodium (Colace) 100 mg PO BID [facility] Last Admin: 06/21/17 09:00 Dose: 100 mg Furosemide (Lasix) 20 mg PO DAILY [facility] Last Admin: 06/21/17 09:02 Dose: 20 mg Insulin Human Regular (Humulin R) 0 units SC ACHS [facility] PRN Reason: Protocol Last Admin: 06/21/17 06:49 Dose: 1 unit Ipratropium [place] (Atrovent) 0.5 mg IH RQ6 [facility] Last Admin: 06/21/17 13:32 Dose: 0.5 mg Levalbuterol HCl (Xopenex) 0.63 mg INH RQ6 [facility] Last Admin: 06/21/17 13:32 Dose: 0.63 mg Metoprolol Tartrate (Lopressor) 50 mg PO Q8 [facility] Polyethylene Glycol (Miralax) 17 gm PO DAILY PRN PRN Reason: Constipation Last Admin: 06/21/17 05:45 Dose: 17 gm Rivaroxaban (Xarelto) 15 mg PO DAILY [facility] PRN Reason: Protocol Last Admin: 06/21/17 09:00 Dose: 15 mg - Labs Labs: 06/19/17 06:30 06/19/17 06:30 PT 30.1 Seconds (9.8-13.1) H D 06/19/17 06:30 INR 2.7 (0.9-1.2) H D 06/19/17 06:30 APTT 37.2 Seconds (25.6-37.1) H D 06/19/17 06:30 - Constitutional Appears: No Acute Distress - Head Exam Head Exam: NORMAL INSPECTION - Eye Exam Eye Exam: PERRL - ENT Exam ENT Exam: Normal Exam - Neck Exam Neck Exam: Normal Inspection - Respiratory Exam Respiratory Exam: Decreased Breath Sounds (at bases) - Cardiovascular Exam Cardiovascular Exam: Irregular Rhythm - GI/Abdominal Exam GI & Abdominal Exam: Soft, Normal Bowel Sounds - Extremities Exam Additional comments: Varicose veins, trace edema. - Back Exam Back Exam: NORMAL INSPECTION - Neurological Exam Neurological Exam: Alert, Awake Additional comments: oriented x2, no motor/sensory deficit. - Skin Skin Exam: Warm Assessment and Plan (1) Atrial fibrillation with rapid ventricular response Status: Acute (2) HTN (hypertension) Status: Chronic (3) Bronchial asthma Status: Chronic - Assessment and Plan (Free Text) Plan: Continue Lopressor, Lasix, Xopenex, Xopenex , and rest of Tx.
[2017-06-22] MEDS: Ipratropium 0.02% Inhal Soln (0.5 mg/2.5 ml) UD IH SCH ×4 (01:01→19:18)
[2017-06-22] MEDS: Levalbuterol 0.63 MG/3 ML Inhal Soln UD INH SCH ×4 (01:02→19:18)
[2017-06-22 05:51] LABS: HEMATOCRIT 36.9 % (34.0-47.0); MEAN CELL VOLUME 94.3 fl (81.0-99.0); MEAN CORPUSCULAR HEMOGLOBIN 30.5 pg (27.0-31.0); MEAN CORPUSCULAR HGB CONC 32.3 g/dL (33.0-37.0); RED CELL DISTRIBUTION WIDTH 15.2 % (11.5-14.5)
[2017-06-22 06:22] LABS: BLOOD UREA NITROGEN 18 mg/dl (7-17); CALCIUM 8.5 mg/dL (8.4-10.2); CARBON DIOXIDE 32 mmol/L (22-30); CHLORIDE 102 mmol/L (98-107); GFR AFRICAN-AMERICAN > 60; GLUCOSE,RANDOM 164 mg/dL (65-105); POTASSIUM 4.6 MMOL/L (3.6-5.0); SODIUM 139 mmol/l (132-148)
[2017-06-22] MEDS: Insulin Regular 100 units/ml SC SCH ×4 (06:51→21:22)
[2017-06-22] MEDS: POLYETHYLENE GLYCOL 3350 17 GM/Dose PACKET PO PRN (17:51)
--- NOTE | 2017-06-22 22:23 | CP.PCM.PN ---
Subjective - Date & Time of Evaluation Date of Evaluation: 06/22/17 Time of Evaluation: 12:00 - Subjective Subjective: F/U A Fib. Pt with no A/D, no SOB, no CP. Objective - Vital Signs/Intake and Output Vital Signs (last 24 hours): Temp Pulse Resp BP Pulse Ox 97.6 F 96 H 18 118/71 97 06/22/17 20:03 06/22/17 21:32 06/22/17 20:03 06/22/17 21:32 06/22/17 20:03 - Medications Medications: Current Medications Acetaminophen (Tylenol 650mg/20.3ml Solution Ud) 650 mg PO Q6 PRN PRN Reason: Fever>100 Acetaminophen (Tylenol 325mg Tab) 650 mg PO Q4 PRN PRN Reason: Pain, Mild (1-3) Last Admin: 06/20/17 20:47 Dose: 650 mg Amiodarone HCl (Cordarone) 400 mg PO BID [facility] Last Admin: 06/22/17 17:00 Dose: 400 mg Docusate Sodium (Colace) 100 mg PO BID [facility] Last Admin: 06/22/17 17:40 Dose: 100 mg Furosemide (Lasix) 20 mg PO DAILY [facility] Last Admin: 06/22/17 08:44 Dose: 20 mg Insulin Human Regular (Humulin R) 0 units SC ACHS [facility] PRN Reason: Protocol Last Admin: 06/22/17 21:22 Dose: Not Given Ipratropium [place] (Atrovent) 0.5 mg IH RQ6 [facility] Last Admin: 06/22/17 19:18 Dose: 0.5 mg Levalbuterol HCl (Xopenex) 0.63 mg INH RQ6 [facility] Last Admin: 06/22/17 19:18 Dose: 0.63 mg Metoprolol Tartrate (Lopressor) 25 mg PO Q6 [facility] Last Admin: 06/22/17 21:32 Dose: 25 mg Polyethylene Glycol (Miralax) 17 gm PO DAILY PRN PRN Reason: Constipation Last Admin: 06/22/17 17:51 Dose: 17 gm Rivaroxaban (Xarelto) 15 mg PO DAILY [facility] PRN Reason: Protocol Last Admin: 06/22/17 08:45 Dose: 15 mg - Labs Labs: 06/22/17 04:30 06/22/17 04:30 PT 30.1 Seconds (9.8-13.1) H D 06/19/17 06:30 INR 2.7 (0.9-1.2) H D 06/19/17 06:30 APTT 37.2 Seconds (25.6-37.1) H D 06/19/17 06:30 - Constitutional Appears: No Acute Distress - Head Exam Head Exam: NORMAL INSPECTION - Eye Exam Eye Exam: PERRL - ENT Exam ENT Exam: Normal Exam - Neck Exam Neck Exam: Normal Inspection - Respiratory Exam Respiratory Exam: Decreased Breath Sounds (b/l) - Cardiovascular Exam Cardiovascular Exam: Irregular Rhythm - GI/Abdominal Exam GI & Abdominal Exam: Soft, Normal Bowel Sounds - Extremities Exam Additional comments: Trace edema. - Back Exam Back Exam: NORMAL INSPECTION - Neurological Exam Neurological Exam: Awake Additional comments: O x2, forgetful, no motor/sensory deficit. - Skin Skin Exam: Warm Assessment and Plan (1) Atrial fibrillation with rapid ventricular response Status: Acute (2) HTN (hypertension) Status: Chronic (3) Bronchial asthma Status: Chronic - Assessment and Plan (Free Text) Plan: Continue Amiodarone, Metoprolol, Xarelto, Xopenex and rest of Tx.
[2017-06-23] MEDS: Ipratropium 0.02% Inhal Soln (0.5 mg/2.5 ml) UD IH SCH ×4 (01:10→20:19)
[2017-06-23] MEDS: Levalbuterol 0.63 MG/3 ML Inhal Soln UD INH SCH ×4 (01:10→20:19)
[2017-06-23] MEDS: Insulin Regular 100 units/ml SC SCH ×4 (06:54→22:00)
[2017-06-23] MEDS: POLYETHYLENE GLYCOL 3350 17 GM/Dose PACKET PO PRN (09:02)
[2017-06-23 10:50] LABS: PARTIAL THROMBOPLASTIN TIME 33.4 Seconds (25.6-37.1)
--- NOTE | 2017-06-23 14:56 | CP.PCM.PN ---
Subjective - Date & Time of Evaluation Date of Evaluation: 06/23/17 Time of Evaluation: 11:40 - Subjective Subjective: F/U A Fib with RVR no AD , N/C Objective - Vital Signs/Intake and Output Vital Signs (last 24 hours): Temp Pulse Resp BP Pulse Ox 97.7 F 112 H 18 137/94 H 97 06/23/17 12:07 06/23/17 12:07 06/23/17 12:07 06/23/17 12:07 06/23/17 12:07 - Medications Medications: Current Medications Acetaminophen (Tylenol 650mg/20.3ml Solution Ud) 650 mg PO Q6 PRN PRN Reason: Fever>100 Acetaminophen (Tylenol 325mg Tab) 650 mg PO Q4 PRN PRN Reason: Pain, Mild (1-3) Last Admin: 06/20/17 20:47 Dose: 650 mg Amiodarone HCl (Cordarone) 400 mg PO BID [facility] Last Admin: 06/23/17 09:01 Dose: 400 mg Docusate Sodium (Colace) 100 mg PO BID [facility] Last Admin: 06/23/17 08:59 Dose: 100 mg Furosemide (Lasix) 20 mg PO DAILY [facility] Last Admin: 06/23/17 09:01 Dose: 20 mg Insulin Human Regular (Humulin R) 0 units SC ACHS [facility] PRN Reason: Protocol Last Admin: 06/23/17 12:27 Dose: 2 unit Ipratropium [place] (Atrovent) 0.5 mg IH RQ6 [facility] Last Admin: 06/23/17 13:25 Dose: 0.5 mg Levalbuterol HCl (Xopenex) 0.63 mg INH RQ6 [facility] Last Admin: 06/23/17 13:25 Dose: 0.63 mg Metoprolol Tartrate (Lopressor) 25 mg PO Q6 [facility] Last Admin: 06/23/17 09:00 Dose: 25 mg Polyethylene Glycol (Miralax) 17 gm PO DAILY PRN PRN Reason: Constipation Last Admin: 06/23/17 09:02 Dose: 17 gm Rivaroxaban (Xarelto) 15 mg PO DAILY [facility] PRN Reason: Protocol Last Admin: 06/23/17 09:01 Dose: 15 mg - Labs Labs: 06/22/17 04:30 06/22/17 04:30 PT 16.1 Seconds (9.8-13.1) H 06/23/17 10:20 INR 1.4 (0.9-1.2) H 06/23/17 10:20 APTT 33.4 Seconds (25.6-37.1) 06/23/17 10:20 - Constitutional Appears: No Acute Distress - Head Exam Head Exam: NORMAL INSPECTION - Eye Exam Eye Exam: PERRL - ENT Exam ENT Exam: Normal Exam - Neck Exam Neck Exam: Normal Inspection - Respiratory Exam Respiratory Exam: Decreased Breath Sounds (b/l) - Cardiovascular Exam Cardiovascular Exam: Irregular Rhythm - GI/Abdominal Exam GI & Abdominal Exam: Soft, Normal Bowel Sounds - Extremities Exam Additional comments: Trace edema. - Back Exam Back Exam: NORMAL INSPECTION - Neurological Exam Neurological Exam: Awake Additional comments: OX2, forgetful, no motor /sensory deficit. - Skin Skin Exam: Warm Assessment and Plan (1) Atrial fibrillation with rapid ventricular response Status: Acute (2) HTN (hypertension) Status: Chronic (3) Bronchial asthma Status: Chronic - Assessment and Plan (Free Text) Plan: early in the morning AFib with RVR , had Cardizem 5mg IV , Patient was seen by Hostess yesterday , on Amiodarone and Lopressor, continue Xarelto , f/u Cardiology
--- NOTE | 2017-06-23 21:25 | CP.PCM.PN ---
Subjective - Date & Time of Evaluation Date of Evaluation: 06/23/17 Time of Evaluation: 16:10 - Subjective Subjective: Reason for visit: Atrial fibrillation with RVR. Interval History: The patient is resting comfortably without chest pain, dyspnea or palpitations. She is very upset because she is confined to the bed and being video monitored continuously due to a fall. She remains confused, but in no acute distress. IV cardizem was restarted for atrial fibrillation with RVR. I have reviewed the telemetry personally and the patient is in afib at 107 BPM. Amiodarone has also been started. Objective - Vital Signs/Intake and Output Vital Signs (last 24 hours): Temp Pulse Resp BP Pulse Ox 97.6 F 84 16 110/73 97 06/23/17 20:15 06/23/17 20:15 06/23/17 20:15 06/23/17 20:15 06/23/17 20:15 - Medications Medications: Current Medications Acetaminophen (Tylenol 650mg/20.3ml Solution Ud) 650 mg PO Q6 PRN PRN Reason: Fever>100 Acetaminophen (Tylenol 325mg Tab) 650 mg PO Q4 PRN PRN Reason: Pain, Mild (1-3) Last Admin: 06/20/17 20:47 Dose: 650 mg Amiodarone HCl (Cordarone) 400 mg PO BID [facility] Last Admin: 06/23/17 17:14 Dose: 400 mg Docusate Sodium (Colace) 100 mg PO BID [facility] Last Admin: 06/23/17 17:14 Dose: 100 mg Furosemide (Lasix) 20 mg PO DAILY [facility] Last Admin: 06/23/17 09:01 Dose: 20 mg Insulin Human Regular (Humulin R) 0 units SC [facility] PRN Reason: Protocol Last Admin: 06/23/17 16:30 Dose: Not Given Ipratropium [place] (Atrovent) 0.5 mg IH RQ6 [facility] Last Admin: 06/23/17 20:19 Dose: 0.5 mg Levalbuterol HCl (Xopenex) 0.63 mg INH RQ6 [facility] Last Admin: 06/23/17 20:19 Dose: 0.63 mg Metoprolol Tartrate (Lopressor) 25 mg PO Q6 [facility] Last Admin: 06/23/17 16:30 Dose: 25 mg Polyethylene Glycol (Miralax) 17 gm PO DAILY PRN PRN Reason: Constipation Last Admin: 06/23/17 09:02 Dose: 17 gm Rivaroxaban (Xarelto) 15 mg PO DAILY [facility] PRN Reason: Protocol Last Admin: 06/23/17 09:01 Dose: 15 mg - Labs Labs: 06/22/17 04:30 06/22/17 04:30 PT 16.1 Seconds (9.8-13.1) H 06/23/17 10:20 INR 1.4 (0.9-1.2) H 06/23/17 10:20 APTT 33.4 Seconds (25.6-37.1) 06/23/17 10:20 - Constitutional Appears: Well, Non-toxic, No Acute Distress, Confused - Head Exam Head Exam: ATRAUMATIC, NORMAL INSPECTION, NORMOCEPHALIC - Eye Exam Eye Exam: Normal appearance, PERRL Pupil Exam: PERRL - ENT Exam ENT Exam: Mucous Membranes Moist - Neck Exam Neck Exam: Full ROM - Respiratory Exam Respiratory Exam: Clear to Ausculation Bilateral, NORMAL BREATHING PATTERN. absent: Rales, Rhonchi - Cardiovascular Exam Cardiovascular Exam: Irregular Rhythm, +S1, +S2, Murmur - GI/Abdominal Exam GI & Abdominal Exam: Soft. absent: Distended, Guarding, Tenderness - Rectal Exam Rectal Exam: Deferred - Extremities Exam Extremities Exam: Full ROM, Normal Capillary Refill, Normal Inspection. absent : Pedal Edema - Back Exam Back Exam: NORMAL INSPECTION - Neurological Exam Neurological Exam: Alert - Psychiatric Exam Psychiatric exam: Anxious - Skin Skin Exam: Dry, Normal Color, Warm Assessment and Plan - Assessment and Plan (Free Text) Assessment: Atrial fibrillation with RVR Altered mental status HTN Plan: Continue amiodarone, beta breanna. Xarelto 20 mg daily. Monitor telemetry. Wean cardizem IV.
[2017-06-24] MEDS: Levalbuterol 0.63 MG/3 ML Inhal Soln UD INH SCH ×3 (01:09→13:36)
[2017-06-24] MEDS: Ipratropium 0.02% Inhal Soln (0.5 mg/2.5 ml) UD IH SCH ×3 (01:09→13:36)
[2017-06-24] MEDS: Insulin Regular 100 units/ml SC SCH ×2 (09:19→12:16)
[2017-06-24 13:00] VITALS: RESP 18
--- NOTE | 2017-06-24 14:50 | CP.PCM.PN ---
Subjective - Date & Time of Evaluation Date of Evaluation: 06/24/17 Time of Evaluation: 13:40 - Subjective Subjective: F/U A Fib Pt with no A/D, no CP, no c/o. Objective - Vital Signs/Intake and Output Vital Signs (last 24 hours): Temp Pulse Resp BP Pulse Ox 98.3 F 83 18 123/86 97 06/24/17 12:00 06/24/17 12:00 06/24/17 12:00 06/24/17 12:00 06/24/17 12:00 - Medications Medications: Current Medications Acetaminophen (Tylenol 650mg/20.3ml Solution Ud) 650 mg PO Q6 PRN PRN Reason: Fever>100 Acetaminophen (Tylenol 325mg Tab) 650 mg PO Q4 PRN PRN Reason: Pain, Mild (1-3) Last Admin: 06/20/17 20:47 Dose: 650 mg Amiodarone HCl (Cordarone) 400 mg PO BID [facility] Last Admin: 06/24/17 09:19 Dose: 400 mg Docusate Sodium (Colace) 100 mg PO BID [facility] Last Admin: 06/24/17 09:20 Dose: 100 mg Furosemide (Lasix) 20 mg PO DAILY [facility] Last Admin: 06/24/17 09:19 Dose: 20 mg Insulin Human Regular (Humulin R) 0 units SC ACHS [facility] PRN Reason: Protocol Last Admin: 06/24/17 12:16 Dose: 3 unit Ipratropium [place] (Atrovent) 0.5 mg IH RQ6 [facility] Last Admin: 06/24/17 13:36 Dose: 0.5 mg Levalbuterol HCl (Xopenex) 0.63 mg INH RQ6 [facility] Last Admin: 06/24/17 13:36 Dose: 0.63 mg Metoprolol Tartrate (Lopressor) 25 mg PO Q6 [facility] Last Admin: 06/24/17 09:18 Dose: 25 mg Polyethylene Glycol (Miralax) 17 gm PO DAILY PRN PRN Reason: Constipation Last Admin: 06/23/17 09:02 Dose: 17 gm Rivaroxaban (Xarelto) 20 mg PO QD5 [facility] PRN Reason: Protocol - Labs Labs: 06/22/17 04:30 06/22/17 04:30 PT 16.1 Seconds (9.8-13.1) H 06/23/17 10:20 INR 1.4 (0.9-1.2) H 06/23/17 10:20 APTT 33.4 Seconds (25.6-37.1) 06/23/17 10:20 - Constitutional Appears: No Acute Distress - Head Exam Head Exam: NORMAL INSPECTION - Eye Exam Eye Exam: PERRL - ENT Exam ENT Exam: Normal Exam - Neck Exam Neck Exam: Normal Inspection - Respiratory Exam Respiratory Exam: NORMAL BREATHING PATTERN - Cardiovascular Exam Cardiovascular Exam: Irregular Rhythm - GI/Abdominal Exam GI & Abdominal Exam: Soft, Normal Bowel Sounds - Extremities Exam Extremities Exam: Normal Inspection - Back Exam Back Exam: NORMAL INSPECTION - Neurological Exam Neurological Exam: Awake Additional comments: O x2, no motor sensory deficit. - Psychiatric Exam Psychiatric exam: Normal Mood - Skin Skin Exam: Warm Assessment and Plan (1) Atrial fibrillation with rapid ventricular response Status: Acute (2) HTN (hypertension) Status: Chronic (3) Bronchial asthma Status: Chronic - Assessment and Plan (Free Text) Plan: Pt still in A Fib, HR controlled, Pt imrpved and stable to be discharged to [facility], I will follow Pt in these facility.
[2017-06-24 15:52] VITALS: BP 119/71; PULSE 94; TEMP 98.2; O2SAT 95
--- NOTE | 2017-06-24 16:38 | CP.PCM.PN ---
Subjective - Date & Time of Evaluation Date of Evaluation: 06/24/17 Time of Evaluation: 16:36 - Subjective Subjective: Patient condition unchanged , HR is under control , still on A.Fib. Objective - Vital Signs/Intake and Output Vital Signs (last 24 hours): Temp Pulse Resp BP Pulse Ox 98.2 F 94 H 18 119/71 95 06/24/17 15:51 06/24/17 15:51 06/24/17 15:51 06/24/17 15:51 06/24/17 15:51 - Medications Medications: Current Medications Acetaminophen (Tylenol 650mg/20.3ml Solution Ud) 650 mg PO Q6 PRN PRN Reason: Fever>100 Acetaminophen (Tylenol 325mg Tab) 650 mg PO Q4 PRN PRN Reason: Pain, Mild (1-3) Last Admin: 06/20/17 20:47 Dose: 650 mg Amiodarone HCl (Cordarone) 400 mg PO BID [facility] Last Admin: 06/24/17 09:19 Dose: 400 mg Docusate Sodium (Colace) 100 mg PO BID [facility] Last Admin: 06/24/17 09:20 Dose: 100 mg Furosemide (Lasix) 20 mg PO DAILY [facility] Last Admin: 06/24/17 09:19 Dose: 20 mg Insulin Human Regular (Humulin R) 0 units SC ACHS [facility] PRN Reason: Protocol Last Admin: 06/24/17 12:16 Dose: 3 unit Ipratropium [place] (Atrovent) 0.5 mg IH RQ6 [facility] Last Admin: 06/24/17 13:36 Dose: 0.5 mg Levalbuterol HCl (Xopenex) 0.63 mg INH RQ6 [facility] Last Admin: 06/24/17 13:36 Dose: 0.63 mg Metoprolol Tartrate (Lopressor) 25 mg PO Q6 [facility] Last Admin: 06/24/17 15:06 Dose: 25 mg Polyethylene Glycol (Miralax) 17 gm PO DAILY PRN PRN Reason: Constipation Last Admin: 06/23/17 09:02 Dose: 17 gm Rivaroxaban (Xarelto) 20 mg PO QD5 [facility] PRN Reason: Protocol - Labs Labs: 06/22/17 04:30 06/22/17 04:30 PT 16.1 Seconds (9.8-13.1) H 12/14/17 10:20 INR 1.4 (0.9-1.2) H 06/23/17 10:20 APTT 33.4 Seconds (25.6-37.1) 06/23/17 10:20 - Constitutional Appears: Non-toxic, No Acute Distress - Head Exam Head Exam: ATRAUMATIC, NORMOCEPHALIC - Neck Exam Neck Exam: Normal Inspection - Respiratory Exam Respiratory Exam: Rhonchi (at the bases) - Cardiovascular Exam Cardiovascular Exam: Irregular Rhythm - GI/Abdominal Exam GI & Abdominal Exam: Normal Bowel Sounds - Rectal Exam Rectal Exam: Deferred - Extremities Exam Extremities Exam: Pedal Edema - Neurological Exam Neurological Exam: Altered Assessment and Plan - Assessment and Plan (Free Text) Assessment: 1 Atril Fib. 2 Dementia. 3 HTN PLAN: 1 Continue present medications. 2 Wean off Cardizem.
== END 2017-06-24 15:30 | DRG 309 ==
LOC: H.ER 15:23 → H.ERHOLD 18:40 → H.TEL 21:34
PROVIDERS: ADMIT Internal Medicine Pulmonary Disease; ATTEND Internal Medicine Pulmonary Disease
PROC: 3E0F7GC Introduction of Other Therapeutic Substance into Respiratory Tract, Via Natural or Artificial Opening (ICD-10-PCS; principal; 2017-06-19)
DX: I48.2 Chronic atrial fibrillation (principal); I50.22 Chronic systolic (congestive) heart failure; E87.1 Hypo-osmolality and hyponatremia; E11.9 Type 2 diabetes mellitus without complications; I11.0 Hypertensive heart disease with heart failure; E86.0 Dehydration; Z79.01 Long term (current) use of anticoagulants; J45.909 Unspecified asthma, uncomplicated; K59.00 Constipation, unspecified; M81.0 Age-related osteoporosis without current pathological fracture; Z90.49 Acquired absence of other specified parts of digestive tract; E78.5 Hyperlipidemia, unspecified; H26.9 Unspecified cataract; Z87.01 Personal history of pneumonia (recurrent); K29.70 Gastritis, unspecified, without bleeding; M19.90 Unspecified osteoarthritis, unspecified site; Z79.84 Long term (current) use of oral hypoglycemic drugs; R00.2 Palpitations; R07.9 Chest pain, unspecified; R10.9 Unspecified abdominal pain; E78.00 Pure hypercholesterolemia, unspecified; F03.90 Unspecified dementia, unspecified severity, without behavioral disturbance, psychotic disturbance, mood disturbance, and anxiety; H40.9 Unspecified glaucoma